=== PATIENT | female | born 1935 | race Caucasian/White ===

== ENCOUNTER 2020-03-27 22:52 | Inpatient (IN) ==
[2020-03-27] MEDS ORDERED: 0.9 % SODIUM CHLORIDE 1,000 ML IV ONE (22:55)
[2020-03-27] MEDS ORDERED: cefTRIAXone 1 GM in DEXTROSE 5% IN WATER 50 ML IV SCH (23:00)
[2020-03-27] MEDS ORDERED: fentaNYL 100 MCG/2 ML VIAL IV ONE (23:21)
[2020-03-27] MEDS ORDERED: ACETAMINOPHEN 325 MG TABLET PO ONE (23:33)
--- NOTE | 2020-03-27 23:33 | Emergency Department Note ---
HPI General Chief complaint: Back Pain/Injury Stated complaint: back pain Time Seen by Provider: 03/27/20 22:54 Source: EMS Mode of arrival: EMS Limitations: no limitations History of Present Illness HPI Narrative: Narrative: 84-year-old female presents the emergency department for generalized weakness as well as a fall with lower back pain. She has very bad arthritis said that EMS went on her couple days ago where she had a fall said that she is just been in her chair since then and has urinated herself unable to get up due to generalized weakness. Does have history of UTIs and states that is what it feels like at this time she is feels very weak and tired. She also has a fever as well. She otherwise has no other complaints does complain of lower back pain says it is an 8 out of 10 she otherwise has no complaints including nausea, vomiting, headache, blurry vision, neck pain, back pain, chest pain, shortness of breath, abdominal pain, changes in balance, pain with urination, pain tingling go down the arms or legs. Related Data Home Medications Medication Instructions Recorded Confirmed alpha lipoic acid 300 mg PO BID 10/23/14 11/13/19 ascorbic acid (vitamin C) 1,000 mg PO DAILY 10/23/14 11/13/19 benzonatate 200 mg PO PRN PRN 10/23/14 11/13/19 calcium citrate 1,000 mg PO DAILY 10/23/14 11/13/19 cholecalciferol (vitamin D3) 5,000 unit PO DAILY 10/23/14 11/13/19 fexofenadine 180 mg PO DAILY 10/23/14 11/13/19 methocarbamol 500 mg PO QIDP PRN 10/23/14 11/13/19 tramadol 50 mg PO DAILYP PRN 10/23/14 11/13/19 B complex-vitamin C-folic acid 1 tab PO BID 08/20/19 11/13/19 [Activite] escitalopram oxalate 5 mg PO QDAY 08/20/19 11/13/19 gabapentin 300 mg PO TID 08/20/19 11/13/19 ondansetron 4 mg PO Q8H PRN 08/20/19 11/13/19 prednisone 5 mg PO QDAY 08/20/19 11/13/19 simethicone [Gas-X Extra Strength] 250 mg PO BID PRN 08/20/19 11/13/19 thyroid (pork) [[place] Thyroid] 180 mg PO QDAY 08/20/19 11/13/19 tizanidine 4 mg PO QHS 08/20/19 11/13/19 turmeric-herbal complex no.[id number] 150 mg PO DAILY 08/20/19 11/13/19 [id number] 3.5 1 drp OPHTHALMIC Q12H 10/23/19 11/13/19 mg/mL-10,000 unit/mL-0.1% eye drops oxycodone 10 mg PO PRN PRN 03/28/20 03/28/20 tamsulosin [Flomax] 0.4 mg PO QDAY 03/28/20 03/28/20 Allergies Allergy/AdvReac Type Severity Reaction Status Date / Time Barbiturates Allergy Severe Swelling Verified 03/28/20 00:10 of Lip/Tongue/Throat morphine Allergy Severe Anaphylaxis Verified 03/28/20 00:10 tree and shrub pollen Allergy Unknown UNKNOWN Verified 03/28/20 00:10 Cyclobenzaprine AdvReac Intermediate Other Verified 03/28/20 00:10 [From Flexeril] famotidine AdvReac Intermediate Rash Verified 03/28/20 00:10 lansoprazole AdvReac Intermediate Rash Verified 03/28/20 00:10 omeprazole AdvReac Intermediate Rash Verified 03/28/20 00:10 pantoprazole AdvReac Intermediate Rash Verified 03/28/20 00:10 Review of Systems ROS ROS Narrative: Narrative: All systems ED: reviewed and negative except as stated. [facility] Narrative Patient History Narrative: Narrative: Medical/Surgical/Family History All Active Problems (Updated 03/28/20 @ 01:34 by João Martin DO) Acute UTI (Acute) Closed lumbar vertebral fracture (Acute) Fracture of third metatarsal bone (Acute) Fracture of fourth metatarsal bone (Acute) Fracture of fifth metatarsal bone (Acute) Weakness (Acute) Lumbar stenosis with neurogenic claudication (Chronic) Thoracic spondylosis (Chronic) Thoracic radiculopathy (Chronic) Radiculopathy, lumbar region (Acute) Heart disease (Chronic) History of tobacco use (Chronic) Radiculopathy, lumbar region (Chronic) Myofascial pain (Chronic) Pain in joint of right knee (Chronic) Personal history of (healed) osteoporosis fracture (Chronic) Intercostal pain (Chronic) Strain of lumbar region (Acute) UTI (urinary tract infection) (Acute) Non-cardiac chest pain (Acute) Encounter for long-term current use of high risk medication (Acute) HX: breast cancer (Chronic) COPD (chronic obstructive pulmonary disease) (Chronic) Sleep apnea (Chronic) Anxiety (Chronic) Depression (Chronic) Wrist fracture (Chronic) Pelvic fracture (Chronic) Compression fracture (Chronic) Eczema (Chronic) DJD (degenerative joint disease) (Acute) Type II diabetes mellitus (Chronic) Osteoporosis (Chronic) Age-related osteoporosis with current pathological fracture (Chronic) Other urticaria (Chronic) Gastro-esophageal reflux disease without esophagitis (Chronic) Major depressive disorder, recurrent, moderate (Chronic) Medical History Age-related osteoporosis with current pathological fracture (Chronic) Anxiety (Chronic) Compression fracture (Chronic) COPD (chronic obstructive pulmonary disease) (Chronic) Depression (Chronic) DJD (degenerative joint disease) (Acute) Eczema (Chronic) Encounter for long-term current use of high risk medication (Acute) Gastro-esophageal reflux disease without esophagitis (Chronic) Heart disease (Chronic) History of tobacco use (Chronic) HX: breast cancer (Chronic) Intercostal pain (Chronic) Lumbar stenosis with neurogenic claudication (Chronic) Major depressive disorder, recurrent, moderate (Chronic) Myofascial pain (Chronic) Osteoporosis (Chronic) Other urticaria (Chronic) Pain in joint of right knee (Chronic) Pelvic fracture (Chronic) Personal history of (healed) osteoporosis fracture (Chronic) Radiculopathy, lumbar region (Chronic) Radiculopathy, lumbar region (Acute) Sleep apnea (Chronic) Thoracic radiculopathy (Chronic) Thoracic spondylosis (Chronic) Type II diabetes mellitus (Chronic) Wrist fracture (Chronic) Surgical History History of surgery (Acute) Intercostal Nerve Block, Lt T7-10 w/o sed 09/30/19 LESI #1 L3-4 w/o sed 09/30/19 LESI #1 L4-5 w/o sed 08/14/2018 LESI #2 L3-4 w/o sed 11/06/2017 LESI #1 L4-5 w/o sed 05/23/2017 Knee Joint Injection, Right w/o sed 04/15/2015 LESI #2 L4-5 w/o sed 04/15/2015 Trigger Point Injection 1-2 w/o sed 03/26/15 LESI #1 L4-5 w/o sed 03/26/15 Vertebro Aug T12, L1 w/sed 07/31/14 Hx laparoscopic cholecystectomy (Chronic 11/12/09) Hx of appendectomy (Chronic) 2009 Hx of cardiac pacemaker (Chronic) 10/2010 Hx of lumpectomy (Chronic) 10/2009 Hx of mastectomy (Chronic) 10/2009. 02/2011 Hx of surgical procedure (Chronic) aortal bi-femoral graft Family History Other No pertinent family history Social History Smoking Status: Former smoker Exam Narrative Narrative: Narrative: Vital signs noted General: Awake. Alert. No distress. Patient does seem mildly confused although she is a alert to date time and place. She is slow to get answers out. There is a generalized smell of infected urine in the room and on the patient. Skin: Warm. Dry. No rash. HEENT: NCAT. PERRL. EOMI. No conjunctivitis. No nystagmus. No pharyngitis. Membranes moist. No otitis. No rhinitis. Neck: No PTP. Good ROM. No meningeal signs. No stridor. No thyromegaly. No JVD. Cardiovascular: RRR. No murmur. No rubs. No gallops. Respiratory: No respiratory distress. Breath sounds equal. Lungs clear. Gastrointestinal: Abdomen soft. No tenderness. No distention. Normal bowel sounds. No palpable organomegaly or masses. Back: No deformity. No CVAT. Lower lumbar pain on palpation no step-offs. Musculoskeletal: No tenderness. No swelling. No erythema. No edema. Good peripheral pulses x 4. Patient does have pain and bruising while palpating the left foot. All seems to be around the midfoot region. He see no deformities. But it is painful to palpation. Does have full range of motion of the ankle toes and knee of the left side. Lymphatic: No palpable adenopathy. Neurological: No focal neurological deficits observed. CN 2-12 are intact. Good FTN. No pronator drift. General Limitations: no limitations Course Vital Signs Vital signs: Vital Signs Temperature 100.5 F H 03/27/20 22:53 Temperature 100.5 F H 03/27/20 22:53 Pulse Rate 80 03/28/20 01:32 Respiratory Rate 22 03/28/20 01:32 Blood Pressure 117/59 03/28/20 01:32 Pulse Oximetry (%) 92 03/28/20 01:32 MDM MDM Narrative Medical decision making narrative: Narrative: Patient most likely has a urinary tract infection does have a fever as well as a tachycardia patient does meet criteria for SIRS. We will going get sepsis order set. I see no signs of septic shock or severe sepsis at this time but labs will tell further. Think the source is most likely urinary tract so we will going to give a dose of Rocephin. Patient does have history of heart disease as well as CHF and some mild swelling in the lower extremities so I will only give patient 1 L of IV fluids as I do not want to fluid overload the patient she will not re ceive the full 30 mL/kg dose of IV fluids. We will give patient Tylenol orally for antipyretic. Patient will also see fentanyl for pain control. She is anaphylactic allergic to morphine which is the preferred. Patient will also receive an x-ray of her left foot as well as CT of her lower spine as she did have this pain to the left foot and the lower back pain. Labs are also get done for sepsis. Disposition is most likely admission. Came back with no leukocytosis CMP was fairly normal otherwise. She also had no acute findings. Urine was nitrite positive so I think patient does have a u rinary tract infection causing her generalized weakness and the falls. Patient does not meet any sepsis criteria at this time. Do not think she is septic. Did receive the 1 L of IV fluids and did get a dose of Rocephin. X-ray of the foot did show acute fractures of the third fourth and fifth metatarsals this I think can get followed by podiatry tomorrow. Patient also had CT of the lumbar spine which did show minor acute fractures of L3 vertebral body where there is suspected acute cortical irregularities in the mid body of the vertebral body involving the outer cortex on the right and posteriorly also at L4 and 5 inferior endplate compression deformity of 30% there is minor anterolisthesis of L4 on L5 associated with moderate generalized bulge of the annulus. This bulge combined with the moderate facet hypertrophy posteriorly produces marked narrowing of the thecal sac. Due to the thecal sac narrowing I did consult with neurosurgery Dr. Chilel who did review the images himself and said that this is considered conservative management for pain at this time said for 2 to 3 week s if it is not any better then patient can undergo vertebroplasty but it can be done in the outpatient setting. Said there is no acute emergent surgery that needs to get done. I did speak with Dr. Mckinnon who agreed to admit the patient to the hospitalist service for UTI, generalized weakness, foot fractures as well as lumbar fracture with pain control. Patient has received fentanyl and [place] for pain control. Patient also received Zofran for nausea. Lab Data Result diagrams: 03/27/20 23:28 03/27/20 23:17 Labs: Lab Results 03/27/20 03/27/20 03/27/20 Range/Units 22:55 23:17 23:17 WBC (4.5-11.0) K/mcL RBC (4.00-5.20) M/mcL Hgb (12.0-15.0) g/dL Hct (36.0-48.0) % MCV (80.0-100.0) fL MCH (26.0-34.0) pg MCHC (31.0-36.0) g/dL RDW (11.5-14.5) % Plt Count (140-440) K/mcL MPV (7.4-10.4) fL Neut % (Auto) (38.0-78.0) % Lymph % (Auto) (15.0-49.0) % [place] % (Auto) (1.0-12.0) % Eos % (Auto) (0.0-7.0) % Baso % (Auto) (0.0-2.0) % Lymph # (Auto) (1.50-4.80) K/mcL [place] # (Auto) (0.10-0.90) K/mcL Eos # (Auto) (0.00-0.70) K/mcL Baso # (Auto) (0.00-0.20) K/mcL Absolute Neutrophils (1.80-8.00) K/mcL VBG Lactic Acid (0.5-2.0) mmol/L Sodium 135 (133-145) mmol/L Potassium 3.9 (3.3-5.1) mmol/L Chloride 99 (96-108) mmol/L Carbon Dioxide 26 (22-30) mmol/L Anion Gap 10.0 (8.0-16.0) BUN 9 (8-23) mg/dL Creatinine 0.7 (0.6-1.1) mg/dL GFR Calculation 79 Glucose 116 H (70-105) mg/dL Calcium 8.8 (8.6-10.4) mg/dL Total Bilirubin 0.5 (0.1-1.0) mg/dL AST 14 (<32) U/L ALT 14 (<40) U/L Alkaline Phosphatase 74 (39-117) U/L Total Protein 6.2 (5.9-8.4) gm/dL Albumin 3.9 (3.2-5.2) gm/dL Globulin 2.3 (2.2-3.7) gm/dL Albumin/Globulin Ratio 1.7 (1.0-2.3) Procalcitonin 0.06 (<0.10) ng/mL Urine Color Yellow Urine Appearance Hazy A (Clear) Urine pH 6.0 (5.0-9.0) Ur Specific [place] 1.014 (1.000-1.035) Urine Protein Negative (Negative) mg/dL Urine Glucose (UA) Negative (Negative) mg/dL Urine Ketones 20 A (Negative) mg/dL Urine Occult Blood Negative (Negative) mg/dL Urine Nitrate Pos A (Negative) Urine Bilirubin Negative (Negative) mg/dL Urine Urobilinogen Negative mg/dL Ur Leukocyte Esterase 500 A (Negative) /ug Urine RBC 5 H (0-3) /hpf Urine WBC 103 H (0-4) /hpf Ur Squamous Epith Cells < 1 (0-4) /hpf Urine Bacteria Mod A (0) /hpf Urine Mucus Few A (None) /hpf Ur Culture Indicated? yes 03/27/20 03/27/20 Range/Units 23:28 23:28 WBC 9.3 (4.5-11.0) K/mcL RBC 4.03 (4.00-5.20) M/mcL Hgb 12.7 (12.0-15.0) g/dL Hct 39.4 (36.0-48.0) % MCV 97.8 (80.0-100.0) fL MCH 31.5 (26.0-34.0) pg MCHC 32.2 (31.0-36.0) g/dL RDW 13.4 (11.5-14.5) % Plt Count 138 L (140-440) K/mcL MPV 11.9 H (7.4-10.4) fL Neut % (Auto) 70.3 (38.0-78.0) % Lymph % (Auto) 12.3 L (15.0-49.0) % [place] % (Auto) 10.1 (1.0-12.0) % Eos % (Auto) 6.8 (0.0-7.0) % Baso % (Auto) 0.5 (0.0-2.0) % Lymph # (Auto) 1.18 L (1.50-4.80) K/mcL [place] # (Auto) 0.97 H (0.10-0.90) K/mcL Eos # (Auto) 0.65 (0.00-0.70) K/mcL Baso # (Auto) 0.05 (0.00-0.20) K/mcL Absolute Neutrophils 6.72 (1.80-8.00) K/mcL VBG Lactic Acid 1.3 (0.5-2.0) mmol/L Sodium (133-145) mmol/L Potassium (3.3-5.1) mmol/L Chloride (96-108) mmol/L Carbon Dioxide (22-30) mmol/L Anion Gap (8.0-16.0) BUN (8-23) mg/dL Creatinine (0.6-1.1) mg/dL GFR Calculation Glucose (70-105) mg/dL Calcium (8.6-10.4) mg/dL Total Bilirubin (0.1-1.0) mg/dL AST (<32) U/L ALT (<40) U/L Alkaline Phosphatase (39-117) U/L Total Protein (5.9-8.4) gm/dL Albumin (3.2-5.2) gm/dL Globulin (2.2-3.7) gm/dL Albumin/Globulin Ratio (1.0-2.3) Procalcitonin (<0.10) ng/mL Urine Color Urine Appearance (Clear) Urine pH (5.0-9.0) Ur Specific [place] (1.000-1.035) Urine Protein (Negative) mg/dL Urine Glucose (UA) (Negative) mg/dL Urine Ketones (Negative) mg/dL Urine Occult Blood (Negative) mg/dL Urine Nitrate (Negative) Urine Bilirubin (Negative) mg/dL Urine Urobilinogen mg/dL Ur Leukocyte Esterase (Negative) /ug Urine RBC (0-3) /hpf Urine WBC (0-4) /hpf Ur Squamous Epith Cells (0-4) /hpf Urine Bacteria (0) /hpf Urine Mucus (None) /hpf Ur Culture Indicated? EKG Data EKG #1: EKG results narrative: EKG done at 0004 interpreted by myself shows sinus rhythm rate of 89, GA interval 189, QRS 107, QTc 440. There is no acute ST changes no acute T wave changes no other signs of ischemia. No signs of hypertrophy, heart strain, heart block. No WPW/[place]/HOCM. Impression is normal sinus EKG with ischemia Discharge Plan Patient/Caregiver Discharge Instructions Pt seen by MODEL TECHNICIAN/PA only: No Clinical Impression: Acute UTI, Closed lumbar vertebral fracture, Fracture of third metatarsal bone, Fracture of fourth metatarsal bone, Fracture of fifth metatarsal bone, Weakness Patient Disposition: Xfer As Inpt ([facility]) Condition: Good Follow up with: Hu Solis ARNP [Primary Care Provider] - Prescriptions: No Action neomycin-polymyxin B-dexameth 3.5mg/mL-10,000 unit/mL-0.1 % drops,suspension 1 drp OPHTHALMIC Q12H RF: 0 benzonatate 200 MG capsule 200 mg PO PRN PRN (Reason: Cough) RF: 0 methocarbamol 500 MG tablet 500 mg PO QIDP RF: 0 tramadol 50 MG tablet 50 mg PO DAILYP PRN (Reason: Pain) RF: 0 ascorbic acid (vitamin C) 1,000 MG tablet 1,000 mg PO DAILY RF: 0 cholecalciferol (vitamin D3) 2,000 UNIT tablet 5,000 unit PO DAILY RF: 0 calcium citrate 250 MG tablet 1,000 mg PO DAILY RF: 0 alpha lipoic acid 100 MG capsule 300 mg PO BID RF: 0 fexofenadine 180 MG tablet 180 mg PO DAILY RF: 0 prednisone 5 mg Tablet 10 mg PO QDAY RF: 0 simethicone [Gas-X Extra Strength] 125 mg Capsule 250 mg PO BID PRN (Reason: Abdominal Discomfort) RF: 0 Activite 1 mg Tablet 1 tab PO BID RF: 0 gabapentin 300 mg Capsule 300 mg PO TID RF: 0 ondansetron 4 mg Tablet,Disintegrating 4 mg PO Q8H PRN (Reason: Nausea) RF: 0 escitalopram oxalate 5 mg Tablet 5 mg PO QDAY RF: 0 tizanidine 4 mg Capsule 4 mg PO QHS RF: 0 [place] Thyroid 180 mg Tablet 180 mg PO QDAY RF: 0 turmeric-herbal complex no.[id number] 150 mg Capsule 150 mg PO DAILY RF: 0 tamsulosin [Flomax] 0.4 mg Capsule 0.4 mg PO QDAY RF: 0 oxycodone 10 mg PO PRN PRN (Reason: Pain) RF: 0
[2020-03-27] MEDS ORDERED: HYDROcodone/APAP 5/325MG TABLET PO ONE (23:47)
[2020-03-27] MEDS ORDERED: ONDANSETRON 4 MG/2 ML VIAL IV ONE (23:47)
[2020-03-28 00:29] LABS: Appearance,Urine HAZY (Clear); Bacteria,Urine MOD /hpf (0); Bilirubin,Urine Negative (Negative); Color,Urine YELLOW; Culture Indicated,Urine yes; Glucose,Urine (UA) Negative (Negative); Ketones,Urine 20 mg/dL (Negative); Leukocyte Esterase,Urine 500 /ug (Negative); Mucus,Urine FEW /hpf; Nitrate,Urine POS (Negative); Protein,Urine Negative (Negative); Specific Gravity,Urine 1.014 (1.000-1.035); Urine Blood Negative (Negative); Urine RBC 5 /hpf (0-3); Urine Squamous Epithelial Cell < 1 /hpf (0-4); Urine WBC 103 /hpf (0-4); Urobilinogen,Urine Negative
[2020-03-28 00:42] LABS: ALT/SGPT 14 U/L (<40); AST/SGOT 14 U/L (<32); Albumin 3.9 gm/dL (3.2-5.2); Albumin/Globulin Ratio 1.7 (1.0-2.3); Alkaline Phosphatase 74 U/L (39-117); Bilirubin,Total 0.5 mg/dL (0.1-1.0); Blood Urea Nitrogen 9 mg/dL (8-23); Calcium 8.8 mg/dL (8.6-10.4); Carbon Dioxide 26 mmol/L (22-30); Chloride 99 mmol/L (96-108); Globulin 2.3 gm/dL (2.2-3.7); Glomerular Filtration Rate 79; Glucose 116 mg/dL (70-105)
[2020-03-28 00:42] LABS: Basophils # (Auto) 0.05 K/mcL (0.00-0.20); Basophils % (Auto) 0.5 % (0.0-2.0); Eosinophils # (Auto) 0.65 K/mcL (0.00-0.70); Eosinophils % (Auto) 6.8 % (0.0-7.0); Hematocrit 39.4 % (36.0-48.0); Hemoglobin 12.7 g/dL (12.0-15.0); Lymphocytes # (Auto) 1.18 K/mcL (1.50-4.80); Lymphocytes % (Auto) 12.3 % (15.0-49.0); Mean Cell Volume 97.8 fL (80.0-100.0); Mean Corpuscular HGB Conc 32.2 g/dL (31.0-36.0); Mean Platelet Volume 11.9 fL (7.4-10.4); Monocytes # (Auto) 0.97 K/mcL (0.10-0.90); Monocytes % (Auto) 10.1 % (1.0-12.0); Neutrophils % (Auto) 70.3 % (38.0-78.0); Platelet Count 138 K/mcL (140-440); RBC 4.03 M/mcL (4.00-5.20); Red Cell Distribution Width 13.4 % (11.5-14.5); WBC 9.3 K/mcL (4.5-11.0)
[2020-03-28] MEDS ORDERED: ACETAMINOPHEN 325 MG TABLET PO PRN (01:36)
[2020-03-28] MEDS ORDERED: ONDANSETRON 4 MG/2 ML VIAL IV PRN (01:36)
[2020-03-28] MEDS ORDERED: 0.9 % SODIUM CHLORIDE 1,000 ML IV SCH (01:45)
[2020-03-28] MEDS: HYDROcodone/APAP 5/325MG TABLET PO PRN ×3 (03:03→13:11)
--- NOTE | 2020-03-28 06:12 | XRay Report ---
INDICATION: fall with lateral pain TECHNIQUE: AP, oblique, lateral left foot COMPARISON: None. FINDINGS: Examination was initially interpreted by [facility]. There are fractures of the distal left 3rd through 5th metatarsals. No significant displacement. There is mild hallux valgus and bunion deformity. There is a prominent arch. There are 2nd through 5th hammertoe deformities. IMPRESSION: Fractures of the distal left 3rd through 5th metatarsals Interpreted and Authenticated by: Dagoberto Gant 03/28/20
--- NOTE | 2020-03-28 06:30 | Cat Scan Report ---
INDICATION: fall with pain TECHNIQUE: Axial noncontrast enhanced images through the lumbar spine. Sagittal and coronal reformatted images COMPARISON: Previous lumbar spine dated 01/16/2020, 08/01/2019. Previous CT scan dated 10/26/2017 FINDINGS: Examination was initially interpreted by [facility]. Patient is severely osteoporotic T12: Previous kyphoplasty or vertebroplasty. There is T12 superior endplate compression. Findings are unchanged since 10/26/2017. No acute fracture. No retropulsion. No detectable disc herniation L1: Previous vertebroplasty or kyphoplasty. No acute fracture. No detectable disc herniation. No spinal canal stenosis. There is biconcave compression deformity L2: No acute fracture. Transverse processes are negative. No retropulsion. L3: L3 superior endplate compression. This is essentially stable. There is mild cortical irregularity along the right lateral vertebral body which may be subtle acute fracture. L4: No acute L4 compression fracture. Transverse processes are negative. No retropulsion L5: No acute L5 compression fracture. Cortex appears intact Sacrum: Negative. No sacral fracture. Disc spaces: Degenerative disc disease and facet arthropathy at L3-L4. There is moderate spinal canal stenosis. Degenerative disc disease and facet arthropathy at L4-L5. There is mild anterolisthesis. There is high-grade spinal canal stenosis. Paraspinal soft tissues: No paraspinal soft tissue hematoma. No focal abnormality IMPRESSION: 1. Severe osteoporosis 2. Previously treated T12 and L1 compression fractures with vertebral body augmentation 3. Multiple compression deformities appear stable 4. Possible acute fracture involving the lateral aspects of the L3 vertebral body. No loss of height. No displacement 5. Degenerative disc disease and facet arthropathy. Moderate spinal canal stenosis at L3-L4. There is anterolisthesis and high-grade spinal canal stenosis at L4-L5 Interpreted and Authenticated by: Dagoberto Gant 03/28/20
[2020-03-28] MEDS ORDERED: guaiFENesin 600 MG TAB.SR.12H PO PRN (08:46)
[2020-03-28] MEDS ORDERED: FLUTICASONE PROPIONATE SPRAY.NAS NS PRN (08:46)
[2020-03-28] MEDS ORDERED: FEXOFENADINE 180 MG TABLET PO PRN (08:46)
[2020-03-28] MEDS ORDERED: ONDANSETRON (PP) 4 MG TABLET PO PRN (08:46)
[2020-03-28] MEDS ORDERED: ONDANSETRON 4 MG ODT TABLET SL PRN (08:47)
[2020-03-28] MEDS ORDERED: MELATONIN 3 MG TABLET PO PRN (08:47)
[2020-03-28] MEDS ORDERED: ACETAMINOPHEN 650 MG/65 ML BAG IV PRN (08:47)
[2020-03-28] MEDS ORDERED: MAGNESIUM SULFATE 2 GM/50 ML BAG IV PRN (08:47)
[2020-03-28] MEDS ORDERED: BISACODYL 10 MG SUPP.RECT PR PRN (08:47)
[2020-03-28] MEDS ORDERED: POTASSIUM CHLORIDE 40 MEQ in DEXTROSE 5% IN WATER 500 ML IV PRN (08:47)
[2020-03-28] MEDS ORDERED: POTASSIUM CHLORIDE 20 MEQ PACKET PO PRN (08:48)
--- NOTE | 2020-03-28 08:55 | Internal Med History&Physical ---
HPI History of Present Illness Patient information: Note initiated : 03/28/20 at 8:53 am Service Date, if different from initiated Date: [] Patient: Kiera Angeles 84 y/o F admitted on 03/28/20 for back pain. Chief Complaint: [] History of present illness: Ms. 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 She attributes to fall due to profound weakness and since the fall has been sitting on a chair incontinent. She is on multiple medication for chronic back pain that has likely exacerbated her weakness. During initial work-up in the ER with a lumbar spine CT shows acute fracture L3. Patient was started on pain medications. UA significant pyuria.Patient started on antibiotic coverage and subsequently hospitalist service was consulted due to high risk decompensation if discharged home At the time of my evaluation patient is alert but in fair amount of anxiety and pain. She is able to answer most the question. She has multiple family members at home. However due to profound weakness and debility stated they have not been able to help her over the last few days. She denies associated diarrhea, bloody stool, headache, photophobia or sick contacts. She further denies fever chills, cough or shortness of breath. She has not been able to carry ADLs over the last few days Review of systems 10 point review system was performed and is negative except for 1 discussed above PFSH PFSH All Active Problems (Updated 03/28/20 @ 01:34 by João Martin DO) Acute UTI (Acute) Closed lumbar vertebral fracture (Acute) Fracture of third metatarsal bone (Acute) Fracture of fourth metatarsal bone (Acute) Fracture of fifth metatarsal bone (Acute) Weakness (Acute) Lumbar stenosis with neurogenic claudication (Chronic) Thoracic spondylosis (Chronic) Thoracic radiculopathy (Chronic) Radiculopathy, lumbar region (Acute) Heart disease (Chronic) History of tobacco use (Chronic) Radiculopathy, lumbar region (Chronic) Myofascial pain (Chronic) Pain in joint of right knee (Chronic) Personal history of (healed) osteoporosis fracture (Chronic) Intercostal pain (Chronic) Strain of lumbar region (Acute) UTI (urinary tract infection) (Acute) Non-cardiac chest pain (Acute) Encounter for long-term current use of high risk medication (Acute) HX: breast cancer (Chronic) COPD (chronic obstructive pulmonary disease) (Chronic) Sleep apnea (Chronic) Anxiety (Chronic) Depression (Chronic) Wrist fracture (Chronic) Pelvic fracture (Chronic) Compression fracture (Chronic) Eczema (Chronic) DJD (degenerative joint disease) (Acute) Type II diabetes mellitus (Chronic) Osteoporosis (Chronic) Age-related osteoporosis with current pathological fracture (Chronic) Other urticaria (Chronic) Gastro-esophageal reflux disease without esophagitis (Chronic) Major depressive disorder, recurrent, moderate (Chronic) Medical History Age-related osteoporosis with current pathological fracture (Chronic) Anxiety (Chronic) Compression fracture (Chronic) COPD (chronic obstructive pulmonary disease) (Chronic) Depression (Chronic) DJD (degenerative joint disease) (Acute) Eczema (Chronic) Encounter for long-term current use of high risk medication (Acute) Gastro-esophageal reflux disease without esophagitis (Chronic) Heart disease (Chronic) History of tobacco use (Chronic) HX: breast cancer (Chronic) Intercostal pain (Chronic) Lumbar stenosis with neurogenic claudication (Chronic) Major depressive disorder, recurrent, moderate (Chronic) Myofascial pain (Chronic) Osteoporosis (Chronic) Other urticaria (Chronic) Pain in joint of right knee (Chronic) Pelvic fracture (Chronic) Personal history of (healed) osteoporosis fracture (Chronic) Radiculopathy, lumbar region (Chronic) Radiculopathy, lumbar region (Acute) Sleep apnea (Chronic) Thoracic radiculopathy (Chronic) Thoracic spondylosis (Chronic) Type II diabetes mellitus (Chronic) Wrist fracture (Chronic) Surgical History History of surgery (Acute) Intercostal Nerve Block, Lt T7-10 w/o sed 09/30/19 LESI #1 L3-4 w/o sed 09/30/19 LESI #1 L4-5 w/o sed 08/14/2018 LESI #2 L3-4 w/o sed 11/06/2017 LESI #1 L4-5 w/o sed 05/23/2017 Knee Joint Injection, Right w/o sed 04/15/2015 LESI #2 L4-5 w/o sed 04/15/2015 Trigger Point Injection 1-2 w/o sed 03/26/15 LESI #1 L4-5 w/o sed 03/26/15 Vertebro Aug T12, L1 w/sed 07/31/14 Hx laparoscopic cholecystectomy (Chronic 11/12/09) Hx of appendectomy (Chronic) 2009 Hx of cardiac pacemaker (Chronic) 10/2010 Hx of lumpectomy (Chronic) 10/2009 Hx of mastectomy (Chronic) 10/2009. 02/2011 Hx of surgical procedure (Chronic) aortal bi-femoral graft Family History Other No pertinent family history Social History (Updated 01/23/17 @ 16:07 by Milad Blanco MD) smoking status: Unknown if ever smoked MEDS/ALLERGIES Home Medications and Allergies Home Medications Medication Instructions Recorded Confirmed Type alpha lipoic acid 300 mg PO BID 10/23/14 03/28/20 History ascorbic acid (vitamin C) 1,000 mg PO DAILY 10/23/14 03/28/20 History benzonatate 200 mg PO PRN PRN 10/23/14 03/28/20 History calcium citrate 1,000 mg PO DAILY 10/23/14 03/28/20 History cholecalciferol (vitamin D3) 5,000 unit PO DAILY 10/23/14 03/28/20 History methocarbamol 500 mg PO DAILY 10/23/14 03/28/20 History tramadol 50 mg PO DAILYP PRN 10/23/14 03/28/20 History B complex-vitamin C-folic acid 1 tab PO BID 08/20/19 03/28/20 History [Activite] escitalopram oxalate 5 mg PO QDAY 08/20/19 03/28/20 History gabapentin 300 mg PO TID 08/20/19 03/28/20 History ondansetron 4 mg PO Q8H PRN 08/20/19 03/28/20 History prednisone 10 mg PO QDAY 08/20/19 03/28/20 History simethicone [Gas-X Extra Strength] 250 mg PO PRN PRN 08/20/19 03/28/20 History thyroid (pork) [Gunlock Thyroid] 180 mg PO QDAY 08/20/19 03/28/20 History tizanidine 4 mg PO QHS 08/20/19 03/28/20 History turmeric-herbal complex no.278 150 mg PO DAILY 08/20/19 03/28/20 History wnzqsuoj-ncpyovedh-tcbcwadc 3.5 1 drp OPHTHALMIC Q12H 10/23/19 03/28/20 History mg/mL-10,000 unit/mL-0.1% eye drops Collagen 3 tab PO DAILY 03/28/20 03/28/20 History alpha lipoic acid-herbal 305 300 mg PO BID 03/28/20 03/28/20 History jycdeydnms-baaimhtbbdaug-ecea 1 tab PO PRN 03/28/20 History fexofenadine [Arianne Allergy] 180 mg PO QID PRN 03/28/20 03/28/20 History fluticasone propionate [Flonase 1 spray INTRANASAL QDAY PRN 03/28/20 03/28/20 History Allergy Relief] guaifenesin [Mucinex] 1,200 mg PO Q12H PRN 03/28/20 03/28/20 History methocarbamol 1,000 mg PO HS 03/28/20 03/28/20 History oxycodone 10 mg PO PRN PRN 03/28/20 03/28/20 History potassium bicarb-magnesium 21 1 cap PO BID 03/28/20 03/28/20 History tamsulosin [Flomax] 0.4 mg PO QDAY 03/28/20 03/28/20 History Allergies Allergy/AdvReac Type Severity Reaction Status Date / Time Barbiturates Allergy Severe Swelling Verified 03/28/20 00:10 of Lip/Tongue/Throat morphine Allergy Severe Anaphylaxis Verified 03/28/20 00:10 Cyclobenzaprine AdvReac Intermediate Other Verified 03/28/20 00:10 [From Flexeril] famotidine AdvReac Intermediate Rash Verified 03/28/20 00:10 lansoprazole AdvReac Intermediate Rash Verified 03/28/20 00:10 omeprazole AdvReac Intermediate Rash Verified 03/28/20 00:10 pantoprazole AdvReac Intermediate Rash Verified 03/28/20 00:10 EXAM Constitutional Vitals: Temp Pulse Resp BP Pulse Ox 97.3 F 67 16 112/57 98 03/28/20 07:08 03/28/20 07:08 03/28/20 07:08 03/28/20 07:08 03/28/20 08:17 Obesity BMI 30, anxious Head normocephalic Oral cavity moist No ear nose discharge Eye movement symmetrical Neck supple no lymphadenopathy S1-S2 occasionally irregular Nonlabored breathing Nondistended nontender abdomen, however significant back pain on minimal movement Lower extremity no cyanosis clubbing or joint swelling Skin no suspicious lesion Psych no hallucination Neuro GCS 15 DATA Data Completed and Pending Labs: Labs from last 24 hours 03/27/20 03/27/20 03/27/20 23:28 23:28 23:17 WBC 9.3 RBC 4.03 Hgb 12.7 Hct 39.4 MCV 97.8 MCH 31.5 MCHC 32.2 RDW 13.4 Plt Count 138 L MPV 11.9 H Neut % (Auto) 70.3 Lymph % (Auto) 12.3 L [place] % (Auto) 10.1 Eos % (Auto) 6.8 Baso % (Auto) 0.5 Lymph # (Auto) 1.18 L [place] # (Auto) 0.97 H Eos # (Auto) 0.65 Baso # (Auto) 0.05 Absolute Neutrophils 6.72 VBG Lactic Acid 1.3 Sodium Potassium Chloride Carbon Dioxide Anion Gap BUN Creatinine GFR Calculation Glucose Calcium Total Bilirubin AST ALT Alkaline Phosphatase Total Protein Albumin Globulin Albumin/Globulin Ratio Procalcitonin 0.06 Urine Color Urine Appearance Urine pH Ur Specific [place] Urine Protein Urine Glucose (UA) Urine Ketones Urine Occult Blood Urine Nitrate Urine Bilirubin Urine Urobilinogen Ur Leukocyte Esterase Urine RBC Urine WBC Ur Squamous Epith Cells Urine Bacteria Urine Mucus Ur Culture Indicated? 03/27/20 03/27/20 23:17 22:55 WBC RBC Hgb Hct MCV MCH MCHC RDW Plt Count MPV Neut % (Auto) Lymph % (Auto) [place] % (Auto) Eos % (Auto) Baso % (Auto) Lymph # (Auto) [place] # (Auto) Eos # (Auto) Baso # (Auto) Absolute Neutrophils VBG Lactic Acid Sodium 135 Potassium 3.9 Chloride 99 Carbon Dioxide 26 Anion Gap 10.0 BUN 9 Creatinine 0.7 GFR Calculation 79 Glucose 116 H Calcium 8.8 Total Bilirubin 0.5 AST 14 ALT 14 Alkaline Phosphatase 74 Total Protein 6.2 Albumin 3.9 Globulin 2.3 Albumin/Globulin Ratio 1.7 Procalcitonin Urine Color Yellow Urine Appearance Hazy A Urine pH 6.0 Ur Specific [place] 1.014 Urine Protein Negative Urine Glucose (UA) Negative Urine Ketones 20 A Urine Occult Blood Negative Urine Nitrate Pos A Urine Bilirubin Negative Urine Urobilinogen Negative Ur Leukocyte Esterase 500 A Urine RBC 5 H Urine WBC 103 H Ur Squamous Epith Cells < 1 Urine Bacteria Mod A Urine Mucus Few A Ur Culture Indicated? yes A/P Narrative A/P Narrative: * Intractable back pain due to L3 fracture. History of osteoporosis and underlying steroid use. Continue multimodal pain management on opioids/Tylenol/lidocaine patch/muscle relaxers home dose including tizanidine/methocarbamol and gabapentin. Topical NSAIDs/physical therapy as indicated * Complicated UTI continue antibiotic coverage and de-escalate based on sensitivities * History of anxiety disorder continue escitalopram * History of polyarthritis currently on prednisone * Hypothyroidism continue pork thyroid * Prophylaxis Heparin Plan * Inpatient admission * Multimodal pain management * Antibiotic coverage * Pre-existing medical condition management home meds * Outpatient pain clinic referral for possible vertebroplasty/continue outpatient pain management * PT OT/nutrition support * Discharge planning per case management, anticipate SNF transfer due to his profound debilitated state/pain restricting movement and remains high risk fall Time Spent With Patient Time: Total time spent is greater than 50% in coordination of care (as documented) at patient's floor/unit and/or counseling patient: QUALITY VTE Deep Vein Thrombosis/Pulmonary Embolism Present on Admission: No
[2020-03-28] MEDS ORDERED: BENZONATATE 100 MG CAPSULE PO PRN (09:00)
[2020-03-28] MEDS ORDERED: SIMETHICONE 80 MG TAB.CHEW CHEWED PRN (09:01)
[2020-03-28] MEDS: TAMSULOSIN 0.4 MG CAPSULE PO SCH (10:09)
[2020-03-28] MEDS: DOCUSATE SODIUM 100 MG CAPSULE PO SCH ×2 (10:09→21:29)
[2020-03-28] MEDS: GABAPENTIN 300 MG CAPSULE PO SCH ×3 (10:09→21:30)
[2020-03-28] MEDS: ASCORBIC ACID 500 MG TABLET PO SCH (10:10)
[2020-03-28] MEDS: MULTIVIT,THER IRON,CA,FA & MIN 1 TABLET PO SCH (10:10)
[2020-03-28] MEDS: METHOCARBAMOL 500 MG TABLET PO SCH ×2 (10:10→21:29)
[2020-03-28] MEDS: ESCITALOPRAM 10 MG TABLET PO SCH (10:10)
[2020-03-28] MEDS: VITAMIN B COMPLEX 1 CAPSULE PO SCH ×2 (10:11→21:29)
[2020-03-28] MEDS: THYROID, PORK 60 MG TABLET PO SCH (10:11)
[2020-03-28] MEDS: HEPARIN 5,000 UNIT/ML VIAL SQ SCH ×2 (10:11→21:27)
[2020-03-28] MEDS: HYDROmorphone 0.5 MG/0.5 ML SYRINGE IV PRN ×2 (10:15→15:45)
[2020-03-28] MEDS: predniSONE 5 MG TABLET PO SCH (10:20)
[2020-03-28] MEDS: cefTRIAXone 2 GM in DEXTROSE 5% IN WATER 50 ML IV SCH (13:53)
[2020-03-28] MEDS: 0.9 % SODIUM CHLORIDE 10 ML SYRINGE IV SCH ×2 (14:00→21:26)
[2020-03-28] MEDS: oxyCODONE HCL 5 MG TABLET PO PRN ×2 (18:04→19:46)
[2020-03-28] MEDS: tiZANidine 4 MG TABLET PO SCH (21:29)
[2020-03-28] MEDS: SENNOSIDES/DOCUSATE SODIUM 1 TAB TABLET PO SCH (21:29)
[2020-03-28] MEDS: LIDOCAINE PATCH TOPICAL SCH (21:30)
[2020-03-28] MEDS: [UNRECOGNIZED DRUG - OTHER] PO SCH (21:30)
[2020-03-29] MEDS: 0.9 % SODIUM CHLORIDE 10 ML SYRINGE IV SCH ×3 (05:06→20:46)
[2020-03-29] MEDS ORDERED: VANCOMYCIN PER PHARMACY IV SCH (06:07)
[2020-03-29 06:42] LABS: Basophils # (Auto) 0.03 K/mcL (0.00-0.20); Basophils % (Auto) 0.4 % (0.0-2.0); Eosinophils % (Auto) 8.3 % (0.0-7.0); Hematocrit 35.3 % (36.0-48.0); Hemoglobin 10.8 g/dL (12.0-15.0); Lymphocytes % (Auto) 15.4 % (15.0-49.0); Mean Cell Volume 103.5 fL (80.0-100.0); Mean Corpuscular HGB Conc 30.6 g/dL (31.0-36.0); Mean Platelet Volume 11.3 fL (7.4-10.4); Monocytes # (Auto) 0.98 K/mcL (0.10-0.90); Monocytes % (Auto) 11.6 % (1.0-12.0); Neutrophils % (Auto) 64.3 % (38.0-78.0); Platelet Count 140 K/mcL (140-440); RBC 3.41 M/mcL (4.00-5.20); Red Cell Distribution Width 13.2 % (11.5-14.5); WBC 8.5 K/mcL (4.5-11.0)
[2020-03-29 07:07] LABS: ALT/SGPT 10 U/L (<40); AST/SGOT 13 U/L (<32); Albumin 2.9 gm/dL (3.2-5.2); Albumin/Globulin Ratio 1.1 (1.0-2.3); Alkaline Phosphatase 59 U/L (39-117); Bilirubin,Direct < 0.2 mg/dL (<0.3); Bilirubin,Total 0.2 mg/dL (0.1-1.0); Blood Urea Nitrogen 9 mg/dL (8-23); Calcium 8.2 mg/dL (8.6-10.4); Carbon Dioxide 27 mmol/L (22-30); Chloride 105 mmol/L (96-108); Globulin 2.6 gm/dL (2.2-3.7); Glomerular Filtration Rate 67; Glucose 104 mg/dL (70-105); Lactate Dehydrogenase 191 U/L (135-225); Phosphorous 2.8 mg/dL (2.5-4.5); Triglycerides 78 mg/dL (<150); Uric Acid 3.9 mg/dL (2.5-8.0)
[2020-03-29] MEDS: oxyCODONE HCL 5 MG TABLET PO PRN ×2 (08:23→17:43)
[2020-03-29] MEDS: DOCUSATE SODIUM 100 MG CAPSULE PO SCH ×2 (08:39→20:45)
[2020-03-29] MEDS: METHOCARBAMOL 500 MG TABLET PO SCH ×2 (08:39→20:44)
[2020-03-29] MEDS: ESCITALOPRAM 10 MG TABLET PO SCH (08:39)
[2020-03-29] MEDS: ASCORBIC ACID 500 MG TABLET PO SCH (08:40)
[2020-03-29] MEDS: predniSONE 5 MG TABLET PO SCH (08:40)
[2020-03-29] MEDS: GABAPENTIN 300 MG CAPSULE PO SCH ×3 (08:40→20:45)
[2020-03-29] MEDS: MULTIVIT,THER IRON,CA,FA & MIN 1 TABLET PO SCH (08:40)
[2020-03-29] MEDS: TAMSULOSIN 0.4 MG CAPSULE PO SCH (08:40)
[2020-03-29] MEDS: VITAMIN B COMPLEX 1 CAPSULE PO SCH ×2 (08:40→20:45)
[2020-03-29] MEDS: HEPARIN 5,000 UNIT/ML VIAL SQ SCH ×2 (08:41→20:45)
[2020-03-29] MEDS: [UNRECOGNIZED DRUG - OTHER] PO SCH ×2 (08:41→20:45)
[2020-03-29] MEDS: THYROID, PORK 60 MG TABLET PO SCH (08:46)
[2020-03-29] MEDS: cefTRIAXone 2 GM in DEXTROSE 5% IN WATER 50 ML IV SCH (08:47)
--- NOTE | 2020-03-29 09:53 | Internal Med Progress Note ---
SUBJECTIVE Subjective Patient information: Note initiated : 03/29/20 at 9:50 am Service Date, if different from initiated Date: [] Patient: Kiera Angeles 84 y/o F admitted on 03/28/20 for back pain. Chief Complaint: [] Interval history: History of present illness: Ms. 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 She attributes to fall due to profound weakness and since the fall has been sitting on a chair incontinent. She is on multiple medication for chronic back pain that has likely exacerbated her weakness. During initial work-up in the ER with a lumbar spine CT shows acute fracture L3. Patient was started on pain medications. UA significant pyuria.Patient started on antibiotic coverage and subsequently hospitalist service was consulted due to high risk decompensation if discharged home At the time of my evaluation patient is alert but in fair amount of anxiety and pain. She is able to answer most the question. She has multiple family members at home. However due to profound weakness and debility stated they have not been able to help her over the last few days. She denies associated diarrhea, bloody stool, headache, photophobia or sick contacts. She further denies fever chills, cough or shortness of breath. She has not been able to carry ADLs over the last few days 03/29-patient doing well. However persistent back pain on movement. Left foot 3rd-5th metatarsal fracture. Orthopedics been consulted for weightbearing status and orthotic recommendations. PT on board. No overnight fever chills. Stable hemodynamics. GPC on blood cultures as of 03/27. Repeat surveillance cultures today. Urine cultures pending. Started on vancomycin. No overnight fever chills. Check echocardiogram. Persistent weakness. Anticipate SNF transfer on discharge with antibiotics. Constitutional Vitals: Vital Signs Temp Pulse Resp BP Pulse Ox 98.8 F 67 16 112/58 93 03/29/20 06:54 03/29/20 06:54 03/29/20 06:54 03/29/20 06:54 03/29/20 07:15 Period Temp Pulse Resp BP Sys/[place] Pulse Ox Last 24 Hr 98.1 F-98.8 F 67-83 16-18 95-124/47-62 85-97 Intake and Output 03/28/20 03/29/20 03/29/20 21:59 05:59 13:59 Intake Total 1410 200 360 Output Total 900 800 Balance 510 -600 360 Weight 79.923 kg Alert oriented Significant tenderness lower back on movement Left foot tenderness and pain on movement No anxiety Intake & Output: Intake & Output 03/28/20 03/29/20 03/29/20 21:59 05:59 13:59 Intake Total 1410 200 360 Output Total 900 800 Balance 510 -600 360 Weight 79.923 kg Intake: IV 1050 Sodium Chloride 0.9% 1,000 ml @ 1000 100 mls/hr IV .Q10H DAVID Rx#: [id number] Rocephin 2 gm In Dextrose 5% in 50 Water 50 ml @ 100 mls/hr IV Q24H DAVID Rx#:[id number] Oral 360 200 360 Output: Urine Catheter Amount 900 800 Other: Meal Breakfast Percent of Meal Consumed 100% Feeding Ability Assist with Tray Set Up Urine Appearance Clear Clear Urine Color Bright Yellow Dark Yellow Uretheral ([place]) Bright Yellow Urine Odor Uretheral ([place]) Strong OBJ DATA Labs CBC & Chem 7: 03/29/20 05:51 03/29/20 05:51 Labs: Abnormal Lab Results 03/29/20 03/29/20 03/27/20 05:51 05:51 23:28 RBC 3.41 L Hgb 10.8 L Hct 35.3 L MCV 103.5 H MCHC 30.6 L Plt Count 138 L MPV 11.3 H 11.9 H Lymph % (Auto) 12.3 L Eos % (Auto) 8.3 H Lymph # (Auto) 1.30 L 1.18 L [place] # (Auto) 0.98 H 0.97 H Anion Gap 6.0 L Glucose Calcium 8.2 L Total Protein 5.5 L Albumin 2.9 L Urine Appearance Urine Ketones Urine Nitrate Ur Leukocyte Esterase Urine RBC Urine WBC Urine Bacteria Urine Mucus 03/27/20 03/27/20 23:17 22:55 RBC Hgb Hct MCV MCHC Plt Count MPV Lymph % (Auto) Eos % (Auto) Lymph # (Auto) [place] # (Auto) Anion Gap Glucose 116 H Calcium Total Protein Albumin Urine Appearance Hazy A Urine Ketones 20 A Urine Nitrate Pos A Ur Leukocyte Esterase 500 A Urine RBC 5 H Urine WBC 103 H Urine Bacteria Mod A Urine Mucus Few A Meds: Medications Acetaminophen (Tylenol) 650 mg PO Q6HP PRN; Protocol PRN Reason: Per Pain Protocol/Fever > 101 Hydrocodone Bitart/Acetaminophen ([place] 5/325mg) 1 tab PO Q4HP PRN; Protocol PRN Reason: PAIN LEVEL 3-6 Last Admin: 03/28/20 13:11 Dose: 1 tab Documented by: Ascorbic Acid (Vitamin C) 1,000 mg PO DAILY [facility] Last Admin: 03/29/20 08:40 Dose: 1,000 mg Documented by: Benzonatate (Tessalon) 200 mg PO TIDP PRN PRN Reason: Cough Bisacodyl (Dulcolax) 10 mg [place] Q2-3DAYS PRN PRN Reason: Constipation Docusate Sodium (Colace) 100 mg PO BID [facility] Last Admin: 03/29/20 08:39 Dose: 100 mg Documented by: Escitalopram Oxalate (Lexapro) 5 mg PO DAILY [facility] Last Admin: 03/29/20 08:39 Dose: 5 mg Documented by: Fexofenadine HCl (Arianne) 180 mg PO DAILYP PRN PRN Reason: Allergy Symptoms Fluticasone Propionate (Flonase) 1 spray NS QDAY PRN PRN Reason: Allergy Symptoms Gabapentin (Neurontin) 300 mg PO TID [facility] Last Admin: 03/29/20 08:40 Dose: 300 mg Documented by: Guaifenesin (Mucinex) 1,200 mg PO Q12H PRN PRN Reason: Congestion Heparin Sodium (Porcine) (Heparin) 5,000 unit SQ Q12 [facility] Last Admin: 03/29/20 08:41 Dose: 5,000 unit Documented by: Hydromorphone HCl (Dilaudid) 0.25 - 0.5 mg IV Q4HP PRN; Protocol PRN Reason: Per Pain Protocol Last Admin: 03/28/20 15:45 Dose: 0.5 mg Documented by: Potassium Chloride 40 meq/ (Dextrose) 520 mls @ 130 mls/hr IV UD PRN PRN Reason: K+ = or < 3.5 Acetaminophen (Ofirmev) 650 mg in 65 mls @ 130 mls/hr IV Q6HP PRN; Protocol PRN Reason: Per Pain Protocol/Fever > 101 Magnesium Sulfate (Magnesium Sulfate) 2 gm in 50 mls @ 50 mls/hr IV UD PRN PRN Reason: MG = or < 1.7 Ceftriaxone Sodium 2 gm/ (Dextrose) 50 mls @ 100 mls/hr IV Q24H [facility]; Protocol Last Admin: 03/29/20 08:47 Dose: 100 mls/hr Documented by: Vancomycin HCl 1,000 mg/ (Sodium Chloride) 250 mls @ 250 mls/hr IV Q24H [facility] Iron Carb/Multivit/Tire Rebuilder/Folic Acid (Multivitamin W/Minerals) 1 tab PO DAILY [facility] Last Admin: 03/29/20 08:40 Dose: 1 tab Documented by: Lidocaine (Lidoderm) 1 patch TOPICAL [facility] Last Admin: 03/28/20 21:30 Dose: 1 patch Documented by: Melatonin (Melatonin 3mg Tablet) 3 mg PO HSP PRN PRN Reason: Insomnia Methocarbamol (Robaxin) 500 mg PO DAILY [facility] Last Admin: 03/29/20 08:39 Dose: 500 mg Documented by: Methocarbamol (Robaxin) 1,000 mg PO [facility] Last Admin: 03/28/20 21:29 Dose: 1,000 mg Documented by: Ondansetron HCl (Zofran) 4 mg IV Q4HP PRN; Protocol PRN Reason: Nausea And Vomiting Ondansetron HCl (Zofran Odt) 4 mg SL Q4-6HP PRN; Protocol PRN Reason: Nausea And Vomiting Oxycodone HCl (Roxicodone) 10 - 20 mg PO Q6HP PRN PRN Reason: Pain Last Admin: 03/29/20 08:23 Dose: 10 mg Documented by: Potassium Bicarb- (Magnesium 21 Cap) 1 dose PO BID [facility] Last Admin: 03/29/20 08:41 Dose: Not Given Documented by: Polyethylene Glycol (Miralax) 17 gm PO DAILYP PRN PRN Reason: Constipation Potassium Chloride (Klor-Con) 40 meq PO DAILYP PRN PRN Reason: K+ < 3.5 Prednisone (Prednisone) 10 mg PO QAC [facility] Last Admin: 03/29/20 08:40 Dose: 10 mg Documented by: Senna/Docusate Sodium (Senna Plus Tablet) 1 tab PO [facility] Last Admin: 03/28/20 21:29 Dose: 1 tab Documented by: Simethicone (Mylicon) 240 mg CHEWED TIDP PRN PRN Reason: ABDOMINAL PAIN Sodium Chloride (Saline Flush) 10 ml IV Q8 [facility] Last Admin: 03/29/20 05:06 Dose: 10 ml Documented by: Tamsulosin HCl (Flomax) 0.4 mg PO QDAY [facility] Last Admin: 03/29/20 08:40 Dose: 0.4 mg Documented by: Thyroid (Thyroid) 180 mg PO ACB [facility] Last Admin: 03/29/20 08:46 Dose: 180 mg Documented by: Tizanidine HCl (Zanaflex) 4 mg PO QHS [facility] Last Admin: 03/28/20 21:29 Dose: 4 mg Documented by: Tramadol HCl (Ultram) 50 mg PO DAILYP PRN; Protocol PRN Reason: Pain Vancomycin HCl (Vancomycin Per Pharmacy) 1 order IV UD [facility]; Protocol Vitamin B Complex (Vitamin B Complex) 1 cap PO BID [facility] Last Admin: 03/29/20 08:40 Dose: 1 cap Documented by: A/P Narrative A/P Narrative: * GPC bacteremia-underlying a compromised state on steroids. Continue antibiotic coverage/surveillance cultures. Echocardiogram. No clear source of infection. If persistent bacteremia would require further imaging including lower back/abdomen pelvis to rule out secondary seeding/abscess. * Intractable lower back pain due to traumatic L3 fracture. History of oste oporosis and underlying steroid use. Clinically stable on multimodal pain management on opioids/Tylenol/lidocaine patch/muscle relaxers home dose including tizanidine/methocarbamol and gabapentin. Topical NSAIDs/physical therapy as indicated * Complicated UTI continue antibiotic coverage and de-escalate based on sensitivities. * Left third through fifth metatarsal bone fracture. Orthopedic consult for recommendation including weightbearing and orthotics. Continue PT OT * History of anxiety disorder continue escitalopram * History of polyarthritis currently on prednisone * Hypothyroidism continue pork thyroid * Prophylaxis Heparin Plan * Antibiotic coverage * Surveillance cultures/echocardiogram/further imaging if persistent bacteremia * Orthopedic consult for left 3rd-5th metatarsal fracture management recommendations * Multimodal pain management * Pre-existing medical condition management home meds * Outpatient pain clinic referral for possible vertebroplasty/continue outpatient pain management * PT OT/nutrition support * Discharge planning per case management, likely SNF transfer Time Spent With Patient Time: Total time spent is greater than 50% in coordination of care (as documented) at patient's floor/unit and/or counseling patient: QUALITY VTE Deep Vein Thrombosis/Pulmonary Embolism Present on Admission: No
[2020-03-29] MEDS: HYDROmorphone 0.5 MG/0.5 ML SYRINGE IV PRN ×2 (09:56→15:06)
[2020-03-29] MEDS: VANCOMYCIN 1,000 MG in 0.9 % SODIUM CHLORIDE 250 ML IV SCH (09:56)
[2020-03-29] MEDS: HYDROcodone/APAP 5/325MG TABLET PO PRN ×3 (12:24→22:30)
--- NOTE | 2020-03-29 13:08 | Internal Med Progress Note ---
SUBJECTIVE Subjective Patient information: Note initiated : 03/29/20 at 1:01 pm Service Date, if different from initiated Date: [] Patient: Kiera Angeles 84 y/o F admitted on 03/28/20 for back pain. Chief Complaint: [] Interval history: History of present illness: Ms. 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 She attributes to fall due to profound weakness and since the fall has been sitting on a chair incontinent. She is on multiple medication for chronic back pain that has likely exacerbated her weakness. During initial work-up in the ER with a lumbar spine CT shows acute fracture L3. Patient was started on pain medications. UA significant pyuria.Patient started on antibiotic coverage and subsequently hospitalist service was consulted due to high risk decompensation if discharged home At the time of my evaluation patient is alert but in fair amount of anxiety and pain. She is able to answer most the question. She has multiple family members at home. However due to profound weakness and debility stated they have not been able to help her over the last few days. She denies associated diarrhea, bloody stool, headache, photophobia or sick contacts. She further denies fever chills, cough or shortness of breath. She has not been able to carry ADLs over the last few days 03/29-patient doing well. However persistent back pain on movement. Left foot 3rd-5th metatarsal fracture. Orthopedics been consulted for weightbearing status and orthotic recommendations. PT on board. No overnight fever chills. Stable hemodynamics. GPC on blood cultures as of 03/27. Repeat surveillance cultures today. Urine cultures pending. Started on vancomycin. No overnight fever chills. Check echocardiogram. Persistent weakness. Anticipate SNF transfer on discharge with antibiotics. Constitutional Vitals: Vital Signs Temp Pulse Resp BP Pulse Ox 98.4 F 70 16 118/62 94 03/29/20 11:26 03/29/20 11:26 03/29/20 11:26 03/29/20 11:26 03/29/20 11:26 Period Temp Pulse Resp BP Sys/[place]over Pulse Ox Last 24 Hr 98.1 F-98.8 F 67-83 16-18 95-124/47-62 85-97 Intake and Output 03/28/20 03/29/20 03/29/20 21:59 05:59 13:59 Intake Total 1410 200 610 Output Total 900 800 Balance 510 -600 610 Weight 79.923 kg Intake & Output: Intake & Output 03/28/20 03/29/20 03/29/20 21:59 05:59 13:59 Intake Total 1410 200 610 Output Total 900 800 Balance 510 -600 610 Weight 79.923 kg Intake: IV 1050 Sodium Chloride 0.9% 1,000 ml @ 1000 100 mls/hr IV .Q10H DAVID Rx#: [id number] Rocephin 2 gm In Dextrose 5% in 50 Water 50 ml @ 100 mls/hr IV Q24H DAVID Rx#:[id number] Oral 360 200 610 Output: Urine Catheter Amount 900 800 Other: Meal Lunch Percent of Meal Consumed 75% Feeding Ability Independent Urine Appearance Clear Clear Clear Urine Color Bright Yellow Dark Yellow Bright Yellow Uretheral (Giles) Bright Yellow Bright Yellow Urine Odor Strong Uretheral (Giles) Strong Strong Exam: General: Alert, Awake, No acute Distress Eyes/N/T: EOMI, Head/Neck: neck supple, CV: RRR, No murmurs, Pulm: Clear b/l, no wheezing/rhonchi/rales Abd: soft, nontender, +BS x4 Back: Ext: no clubbing/cyanosis/edema, left foot pain Neuro: Alert, no focal deficits, moves all extremities, Skin: warm/dry OBJ DATA Labs CBC & Chem 7: 03/29/20 05:51 03/29/20 05:51 Labs: Abnormal Lab Results 03/29/20 03/29/20 03/27/20 05:51 05:51 23:28 RBC 3.41 L Hgb 10.8 L Hct 35.3 L MCV 103.5 H MCHC 30.6 L Plt Count 138 L MPV 11.3 H 11.9 H Lymph % (Auto) 12.3 L Eos % (Auto) 8.3 H Lymph # (Auto) 1.30 L 1.18 L [place] # (Auto) 0.98 H 0.97 H Anion Gap 6.0 L Glucose Calcium 8.2 L Total Protein 5.5 L Albumin 2.9 L Urine Appearance Urine Ketones Urine Nitrate Ur Leukocyte Esterase Urine RBC Urine WBC Urine Bacteria Urine Mucus 03/27/20 03/27/20 23:17 22:55 RBC Hgb Hct MCV MCHC Plt Count MPV Lymph % (Auto) Eos % (Auto) Lymph # (Auto) [place] # (Auto) Anion Gap Glucose 116 H Calcium Total Protein Albumin Urine Appearance Hazy A Urine Ketones 20 A Urine Nitrate Pos A Ur Leukocyte Esterase 500 A Urine RBC 5 H Urine WBC 103 H Urine Bacteria Mod A Urine Mucus Few A Meds: Medications Acetaminophen (Tylenol) 650 mg PO Q6HP PRN; Protocol PRN Reason: Per Pain Protocol/Fever > 101 Last Admin: 03/29/20 11:26 Dose: 650 mg Documented by: Hydrocodone Bitart/Acetaminophen ([place] 5/325mg) 1 tab PO Q4HP PRN; Protocol PRN Reason: PAIN LEVEL 3-6 Last Admin: 03/29/20 12:24 Dose: 1 tab Documented by: Ascorbic Acid (Vitamin C) 1,000 mg PO DAILY [facility] Last Admin: 03/29/20 08:40 Dose: 1,000 mg Documented by: Benzonatate (Tessalon) 200 mg PO TIDP PRN PRN Reason: Cough Bisacodyl (Dulcolax) 10 mg [place] Q2-3DAYS PRN PRN Reason: Constipation Docusate Sodium (Colace) 100 mg PO BID [facility] Last Admin: 03/29/20 08:39 Dose: 100 mg Documented by: Escitalopram Oxalate (Lexapro) 5 mg PO DAILY [facility] Last Admin: 03/29/20 08:39 Dose: 5 mg Documented by: Fexofenadine HCl (Arianne) 180 mg PO DAILYP PRN PRN Reason: Allergy Symptoms Fluticasone Propionate (Flonase) 1 spray NS QDAY PRN PRN Reason: Allergy Symptoms Gabapentin (Neurontin) 300 mg PO TID [facility] Last Admin: 03/29/20 08:40 Dose: 300 mg Documented by: Guaifenesin (Mucinex) 1,200 mg PO Q12H PRN PRN Reason: Congestion Heparin Sodium (Porcine) (Heparin) 5,000 unit SQ Q12 [facility] Last Admin: 03/29/20 08:41 Dose: 5,000 unit Documented by: Hydromorphone HCl (Dilaudid) 0.25 - 0.5 mg IV Q4HP PRN; Protocol PRN Reason: Per Pain Protocol Last Admin: 03/29/20 09:56 Dose: 0.25 mg Documented by: Potassium Chloride 40 meq/ (Dextrose) 520 mls @ 130 mls/hr IV UD PRN PRN Reason: K+ = or < 3.5 Acetaminophen (Ofirmev) 650 mg in 65 mls @ 130 mls/hr IV Q6HP PRN; Protocol PRN Reason: Per Pain Protocol/Fever > 101 Magnesium Sulfate (Magnesium Sulfate) 2 gm in 50 mls @ 50 mls/hr IV UD PRN PRN Reason: MG = or < 1.7 Ceftriaxone Sodium 2 gm/ (Dextrose) 50 mls @ 100 mls/hr IV Q24H [facility]; Protocol Last Admin: 03/29/20 08:47 Dose: 100 mls/hr Documented by: Vancomycin HCl 1,000 mg/ (Sodium Chloride) 250 mls @ 250 mls/hr IV Q24H [facility] Last Admin: 03/29/20 09:56 Dose: 250 mls/hr Documented by: Iron Carb/Multivit/[place]/Folic Acid (Multivitamin W/Minerals) 1 tab PO DAILY [facility] Last Admin: 03/29/20 08:40 Dose: 1 tab Documented by: Lidocaine (Lidoderm) 1 patch TOPICAL [facility] Last Admin: 03/28/20 21:30 Dose: 1 patch Documented by: Melatonin (Melatonin 3mg Tablet) 3 mg PO HSP PRN PRN Reason: Insomnia Methocarbamol (Robaxin) 500 mg PO DAILY [facility] Last Admin: 03/29/20 08:39 Dose: 500 mg Documented by: Methocarbamol (Robaxin) 1,000 mg PO HS [facility] Last Admin: 03/28/20 21:29 Dose: 1,000 mg Documented by: Ondansetron HCl (Zofran) 4 mg IV Q4HP PRN; Protocol PRN Reason: Nausea And Vomiting Ondansetron HCl (Zofran Odt) 4 mg SL Q4-6HP PRN; Protocol PRN Reason: Nausea And Vomiting Oxycodone HCl (Roxicodone) 10 - 20 mg PO Q6HP PRN PRN Reason: Pain Last Admin: 03/29/20 08:23 Dose: 10 mg Documented by: Potassium Bicarb- (Magnesium 21 Cap) 1 dose PO BID [facility] Last Admin: 03/29/20 08:41 Dose: Not Given Documented by: Polyethylene Glycol (Miralax) 17 gm PO DAILYP PRN PRN Reason: Constipation Potassium Chloride (Klor-Con) 40 meq PO DAILYP PRN PRN Reason: K+ < 3.5 Prednisone (Prednisone) 10 mg PO QAMCC [facility] Last Admin: 03/29/20 08:40 Dose: 10 mg Documented by: Senna/Docusate Sodium (Senna Plus Tablet) 1 tab PO HS [facility] Last Admin: 03/28/20 21:29 Dose: 1 tab Documented by: Simethicone (Mylicon) 240 mg CHEWED TIDP PRN PRN Reason: ABDOMINAL PAIN Sodium Chloride (Saline Flush) 10 ml IV Q8 [facility] Last Admin: 03/29/20 05:06 Dose: 10 ml Documented by: Tamsulosin HCl (Flomax) 0.4 mg PO QDAY [facility] Last Admin: 03/29/20 08:40 Dose: 0.4 mg Documented by: Thyroid (Thyroid) 180 mg PO ACB [facility] Last Admin: 03/29/20 08:46 Dose: 180 mg Documented by: Tizanidine HCl (Zanaflex) 4 mg PO QHS [facility] Last Admin: 03/28/20 21:29 Dose: 4 mg Documented by: Tramadol HCl (Ultram) 50 mg PO DAILYP PRN; Protocol PRN Reason: Pain Vancomycin HCl (Vancomycin Per Pharmacy) 1 order IV UD [facility]; Protocol Vitamin B Complex (Vitamin B Complex) 1 cap PO BID [facility] Last Admin: 03/29/20 08:40 Dose: 1 cap Documented by: A/P Narrative A/P Narrative: A: *Intractable lower back pain d/t Traumatic L3 Fx (h/o osteoporosis and underlying steroid use): -Clinically stable on multimodal pain management on opioids/Tylenol/lidocaine patch/muscle relaxers home dose including tizanidine/methocarbamol and gabapentin. Topical NSAIDs/physical therapy as indicated *?GPC bacteremia: underlyingcompromised state on steroids. No clear source of infection. *Complicated UTI (GNB): *Left 3rd-5th metatarsal bone fracture: *Anxiety disorder: continue escitalopram *h/o Polyarthritis: Follows with Dr. Landis and is on prednisone *Hypothyroidism: *Obesity: Plan: -rocephin/vanco pending BC -Surveillance cultures/echocardiogram/further imaging if persistent bacteremia - If persistent bacteremia would require further imaging including lower back/abdomen pelvis to rule out secondary seeding/abscess. -Orthopedic consult for left 3rd-5th metatarsal fracture management recommendations -Multimodal pain management -Outpatient pain clinic referral for possible vertebroplasty/continue outpatient pain management -PT OT/nutrition support -Discharge planning per case management, likely SNF transfer -ppx: Heparin full code? Time Spent With Patient Time: Total time spent is greater than 50% in coordination of care (as documented) at patient's floor/unit and/or counseling patient: QUALITY VTE Deep Vein Thrombosis/Pulmonary Embolism Present on Admission: No
[2020-03-29] MEDS: POLYETHYLENE GLYCOL 3350 17 GM PACKET PO PRN (15:06)
[2020-03-29] MEDS: LIDOCAINE PATCH TOPICAL SCH (20:43)
[2020-03-29] MEDS: tiZANidine 4 MG TABLET PO SCH (20:44)
[2020-03-29] MEDS: SENNOSIDES/DOCUSATE SODIUM 1 TAB TABLET PO SCH (20:45)
[2020-03-30] MEDS: HYDROcodone/APAP 5/325MG TABLET PO PRN ×5 (03:20→21:28)
[2020-03-30] MEDS: 0.9 % SODIUM CHLORIDE 10 ML SYRINGE IV SCH ×3 (06:13→22:25)
--- NOTE | 2020-03-30 07:32 | Internal Med Progress Note ---
SUBJECTIVE Subjective Patient information: Note initiated : 03/30/20 at 7:27 am Service Date, if different from initiated Date: [] Patient: Kiera Angeles 84 y/o F admitted on 03/28/20 for back pain. Chief Complaint: [] Interval history: History of present illness: Ms. 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 She attributes to fall due to profound weakness and since the fall has been sitting on a chair incontinent. She is on multiple medication for chronic back pain that has likely exacerbated her weakness. During initial work-up in the ER with a lumbar spine CT shows acute fracture L3. Patient was started on pain medications. UA significant pyuria.Patient started on antibiotic coverage and subsequently hospitalist service was consulted due to high risk decompensation if discharged home At the time of my evaluation patient is alert but in fair amount of anxiety and pain. She is able to answer most the question. She has multiple family members at home. However due to profound weakness and debility stated they have not been able to help her over the last few days. She denies associated diarrhea, bloody stool, headache, photophobia or sick contacts. She further denies fever chills, cough or shortness of breath. She has not been able to carry ADLs over the last few days 03/29-patient doing well. However persistent back pain on movement. Left foot 3rd-5th metatarsal fracture. Orthopedics been consulted for weightbearing status and orthotic recommendations. PT on board. No overnight fever chills. Stable hemodynamics. GPC on blood cultures as of 03/27. Repeat surveillance cultures today. Urine cultures pending. Started on vancomycin. No overnight fever chills. Check echocardiogram. Persistent weakness. Anticipate SNF transfer on discharge with antibiotics. 03/30 Occasional back spasm. Complaints of constipation. Occasional mild nausea. Review of Systems: denies headache/fever/chills/vomiting/chest or abdominal pain/cough/dyspnea/diarrhea. Otherwise see above. Constitutional Vitals: Vital Signs Temp Pulse Resp BP Pulse Ox 98.6 F 60 16 99/58 93 03/30/20 03:17 03/30/20 03:17 03/30/20 03:17 03/30/20 03:17 03/30/20 03:17 Period Temp Pulse Resp BP Sys/Glover Pulse Ox Last 24 Hr 98.1 F-98.9 F 60-84 16-18 91-124/54-64 90-94 Intake and Output 03/29/20 03/30/20 03/30/20 21:59 05:59 13:59 Intake Total 240 120 Output Total 1350 1150 Balance -1110 -1030 Weight 81.788 kg Intake & Output: Intake & Output 03/29/20 03/30/20 03/30/20 21:59 05:59 13:59 Intake Total 240 120 Output Total 1350 1150 Balance -1110 -1030 Weight 81.788 kg Intake: Oral 240 120 Output: Urine Catheter Amount 1350 1150 Other: Urine Appearance Clear Clear Urine Color Bright Yellow Bright Yellow Urine Odor Normal Exam: General: Alert, Awake, No acute Distress Eyes/N/T: EOMI, Head/Neck: neck supple, CV: RRR, No murmurs, Pulm: Clear b/l, no wheezing/rhonchi/rales Abd: soft, nontender, +BS x4 Back: Ext: no clubbing/cyanosis/edema Neuro: Alert, no focal deficits, moves all extremities, Skin: warm/dry OBJ DATA Labs CBC & Chem 7: 03/29/20 05:51 03/29/20 05:51 Labs: Abnormal Lab Results 03/29/20 03/29/20 03/27/20 05:51 05:51 23:28 RBC 3.41 L Hgb 10.8 L Hct 35.3 L MCV 103.5 H MCHC 30.6 L Plt Count 138 L MPV 11.3 H 11.9 H Lymph % (Auto) 12.3 L Eos % (Auto) 8.3 H Lymph # (Auto) 1.30 L 1.18 L [place] # (Auto) 0.98 H 0.97 H Anion Gap 6.0 L Glucose Calcium 8.2 L Total Protein 5.5 L Albumin 2.9 L Urine Appearance Urine Ketones Urine Nitrate Ur Leukocyte Esterase Urine RBC Urine WBC Urine Bacteria Urine Mucus 03/27/20 03/27/20 23:17 22:55 RBC Hgb Hct MCV MCHC Plt Count MPV Lymph % (Auto) Eos % (Auto) Lymph # (Auto) [place] # (Auto) Anion Gap Glucose 116 H Calcium Total Protein Albumin Urine Appearance Hazy A Urine Ketones 20 A Urine Nitrate Pos A Ur Leukocyte Esterase 500 A Urine RBC 5 H Urine WBC 103 H Urine Bacteria Mod A Urine Mucus Few A Meds: Medications Acetaminophen (Tylenol) 650 mg PO Q6HP PRN; Protocol PRN Reason: Per Pain Protocol/Fever > 101 Last Admin: 03/29/20 11:26 Dose: 650 mg Documented by: Hydrocodone Bitart/Acetaminophen ([place] 5/325mg) 1 tab PO Q4HP PRN; Protocol PRN Reason: PAIN LEVEL 3-6 Last Admin: 03/30/20 03:20 Dose: 1 tab Documented by: Ascorbic Acid (Vitamin C) 1,000 mg PO DAILY [facility] Last Admin: 03/29/20 08:40 Dose: 1,000 mg Documented by: Benzonatate (Tessalon) 200 mg PO TIDP PRN PRN Reason: Cough Bisacodyl (Dulcolax) 10 mg [place] Q2-3DAYS PRN PRN Reason: Constipation Docusate Sodium (Colace) 100 mg PO BID [facility] Last Admin: 03/29/20 20:45 Dose: 100 mg Documented by: Escitalopram Oxalate (Lexapro) 5 mg PO DAILY [facility] Last Admin: 03/29/20 08:39 Dose: 5 mg Documented by: Fexofenadine HCl (Arianne) 180 mg PO DAILYP PRN PRN Reason: Allergy Symptoms Fluticasone Propionate (Flonase) 1 spray NS QDAY PRN PRN Reason: Allergy Symptoms Gabapentin (Neurontin) 300 mg PO TID [facility] Last Admin: 03/29/20 20:45 Dose: 300 mg Documented by: Guaifenesin (Mucinex) 1,200 mg PO Q12H PRN PRN Reason: Congestion Heparin Sodium (Porcine) (Heparin) 5,000 unit SQ Q12 [facility] Last Admin: 03/29/20 20:45 Dose: 5,000 unit Documented by: Hydromorphone HCl (Dilaudid) 0.25 - 0.5 mg IV Q4HP PRN; Protocol PRN Reason: Per Pain Protocol Last Admin: 03/29/20 15:06 Dose: 0.5 mg Documented by: Potassium Chloride 40 meq/ (Dextrose) 520 mls @ 130 mls/hr IV UD PRN PRN Reason: K+ = or < 3.5 Acetaminophen (Ofirmev) 650 mg in 65 mls @ 130 mls/hr IV Q6HP PRN; Protocol PRN Reason: Per Pain Protocol/Fever > 101 Magnesium Sulfate (Magnesium Sulfate) 2 gm in 50 mls @ 50 mls/hr IV UD PRN PRN Reason: MG = or < 1.7 Ceftriaxone Sodium 2 gm/ (Dextrose) 50 mls @ 100 mls/hr IV Q24H [facility]; Protocol Last Infusion: 03/29/20 10:13 Dose: Infused Documented by: Vancomycin HCl 1,000 mg/ (Sodium Chloride) 250 mls @ 250 mls/hr IV Q24H [facility] Last Infusion: 03/29/20 11:13 Dose: Infused Documented by: Iron Carb/Multivit/[place]/Folic Acid (Multivitamin W/Minerals) 1 tab PO DAILY [facility] Last Admin: 03/29/20 08:40 Dose: 1 tab Documented by: Lidocaine (Lidoderm) 1 patch TOPICAL [facility] Last Admin: 03/29/20 20:43 Dose: 1 patch Documented by: Melatonin (Melatonin 3mg Tablet) 3 mg PO HSP PRN PRN Reason: Insomnia Methocarbamol (Robaxin) 500 mg PO DAILY [facility] Last Admin: 03/29/20 08:39 Dose: 500 mg Documented by: Methocarbamol (Robaxin) 1,000 mg PO HS [facility] Last Admin: 03/29/20 20:44 Dose: 1,000 mg Documented by: Ondansetron HCl (Zofran) 4 mg IV Q4HP PRN; Protocol PRN Reason: Nausea And Vomiting Ondansetron HCl (Zofran Odt) 4 mg SL Q4-6HP PRN; Protocol PRN Reason: Nausea And Vomiting Oxycodone HCl (Roxicodone) 10 - 20 mg PO Q6HP PRN PRN Reason: Pain Last Admin: 03/29/20 17:43 Dose: 10 mg Documented by: Potassium Bicarb- (Magnesium 21 Cap) 1 dose PO BID [facility] Last Admin: 03/29/20 20:45 Dose: Not Given Documented by: Polyethylene Glycol (Miralax) 17 gm PO DAILYP PRN PRN Reason: Constipation Last Admin: 03/29/20 15:06 Dose: 17 gm Documented by: Potassium Chloride (Klor-Con) 40 meq PO DAILYP PRN PRN Reason: K+ < 3.5 Prednisone (Prednisone) 10 mg PO QAMCC [facility] Last Admin: 03/29/20 08:40 Dose: 10 mg Documented by: Senna/Docusate Sodium (Senna Plus Tablet) 1 tab PO HS [facility] Last Admin: 03/29/20 20:45 Dose: 1 tab Documented by: Simethicone (Mylicon) 240 mg CHEWED TIDP PRN PRN Reason: ABDOMINAL PAIN Sodium Chloride (Saline Flush) 10 ml IV Q8 [facility] Last Admin: 03/30/20 06:13 Dose: 10 ml Documented by: Tamsulosin HCl (Flomax) 0.4 mg PO QDAY [facility] Last Admin: 03/29/20 08:40 Dose: 0.4 mg Documented by: Thyroid (Thyroid) 180 mg PO ACB [facility] Last Admin: 03/29/20 08:46 Dose: 180 mg Documented by: Tizanidine HCl (Zanaflex) 4 mg PO QHS [facility] Last Admin: 03/29/20 20:44 Dose: 4 mg Documented by: Tramadol HCl (Ultram) 50 mg PO DAILYP PRN; Protocol PRN Reason: Pain Vancomycin HCl (Vancomycin Per Pharmacy) 1 order IV UD [facility]; Protocol Vitamin B Complex (Vitamin B Complex) 1 cap PO BID [facility] Last Admin: 03/29/20 20:45 Dose: 1 cap Documented by: A/P Narrative A/P Narrative: A: *Intractable lower back pain d/t Traumatic L3 Fx (h/o osteoporosis and underlying steroid use): -Clinically stable on multimodal pain management on opioids/Tylenol/lidocaine patch/muscle relaxers home dose including tizanidine/methocarbamol and gabapentin. Topical NSAIDs/physical therapy as indicated *?GPC bacteremia: underlying compromised state on steroids. No clear source of infection. *Complicated UTI (GNB): *Left 3rd-5th metatarsal bone fracture: *Anxiety disorder: continue escitalopram *h/o Polyarthritis: Follows with Dr. Landis and is on prednisone *Hypothyroidism: *Obesity: *COPD: *SSS w/ppm: Plan: -rocephin/vanco pending BC -Surveillance cultures/echocardiogram/further imaging if persistent bacteremia - If persistent bacteremia would require further imaging including lower back/abdomen pelvis to rule out secondary seeding/abscess. -Orthopedic consult for left 3rd-5th metatarsal fracture management recommendations -Multimodal pain management -Outpatient pain clinic referral for possible vertebroplasty/continue outpatient pain management -PT OT/nutrition support -Discharge planning per case management, likely SNF transfer -ppx: Heparin full code? Time Spent With Patient Time: Total time spent is greater than 50% in coordination of care (as documented) at patient's floor/unit and/or counseling patient: QUALITY VTE Deep Vein Thrombosis/Pulmonary Embolism Present on Admission: No
[2020-03-30] MEDS ORDERED: LACTULOSE 20 GM/30 ML ORAL.SOL PO PRN (08:25)
[2020-03-30] MEDS: HYDROmorphone 0.5 MG/0.5 ML SYRINGE IV PRN (08:43)
[2020-03-30] MEDS: THYROID, PORK 60 MG TABLET PO SCH (08:44)
[2020-03-30] MEDS: SENNOSIDES 1 TABLET PO SCH (08:45)
[2020-03-30] MEDS: GABAPENTIN 300 MG CAPSULE PO SCH ×3 (08:45→20:02)
[2020-03-30] MEDS: predniSONE 5 MG TABLET PO SCH (08:45)
[2020-03-30] MEDS: METHOCARBAMOL 500 MG TABLET PO SCH ×2 (08:45→20:03)
[2020-03-30] MEDS: TAMSULOSIN 0.4 MG CAPSULE PO SCH (08:45)
[2020-03-30] MEDS: DOCUSATE SODIUM 100 MG CAPSULE PO SCH ×2 (08:45→20:03)
[2020-03-30] MEDS: POLYETHYLENE GLYCOL 3350 17 GM PACKET PO PRN (08:45)
[2020-03-30] MEDS: MULTIVIT,THER IRON,CA,FA & MIN 1 TABLET PO SCH (08:45)
[2020-03-30] MEDS: ESCITALOPRAM 10 MG TABLET PO SCH (08:45)
[2020-03-30] MEDS: VITAMIN B COMPLEX 1 CAPSULE PO SCH ×2 (08:45→20:03)
[2020-03-30] MEDS: ASCORBIC ACID 500 MG TABLET PO SCH (08:45)
[2020-03-30] MEDS: cefTRIAXone 2 GM in DEXTROSE 5% IN WATER 50 ML IV SCH (08:45)
[2020-03-30] MEDS: HEPARIN 5,000 UNIT/ML VIAL SQ SCH ×2 (08:46→20:03)
--- NOTE | 2020-03-30 08:54 | XRay Report ---
CLINICAL INFORMATION: Chest and back pain COMPARISON: 08/01/2019 FINDINGS: Large hiatal hernia is unchanged. Moderate cardiomegaly is also stable. Pacemaker leads in stable satisfactory position. Mediastinum and pulmonary vasculature are otherwise normal. Right subclavian central line remains in stable satisfactory position. Small infiltrates have developed in both medial bases with small left pleural effusion. IMPRESSION: Small infiltrates both medial bases with small left pleural effusion. Consider aspiration Large hiatal hernia - stable Interpreted and Authenticated by: Dagoberto Smith 03/30/20
[2020-03-30] MEDS: [UNRECOGNIZED DRUG - OTHER] PO SCH ×2 (10:04→21:28)
--- NOTE | 2020-03-30 10:22 | Discharge Summary ---
Discharge Provider Provider Patient information: Note initiated : 03/30/20 at 10:19 am Service Date, if different from initiated Date: [] Patient: Kiera Angeles 84 y/o F admitted on 03/28/20 for back pain. Chief Complaint: [] Date of admission: 03/28/20 02:21 Discharge date: 04/01/20 Primary care physician: GIUSEPPE Garcia Consults: 03/28/20 Consult to Physician [CONS] Stat Comment: Consulting Provider: Erwin Malhotra Reason For Exam: Physician to Consult Discharge Meds Discharge Medications Home Medications alpha lipoic acid 300 mg PO BID 10/23/14 [History Confirmed 03/28/20 Last Taken Unknown] ascorbic acid (vitamin C) 1,000 mg PO DAILY 10/23/14 [History Confirmed 03/28/20 Last Taken 10/23/14 06:00] benzonatate 200 mg PO PRN PRN 10/23/14 [History Confirmed 03/28/20 Last Taken Unknown] calcium citrate 1,000 mg PO DAILY 10/23/14 [History Confirmed 03/28/20 Last Taken Unknown] cholecalciferol (vitamin D3) 5,000 unit PO DAILY 10/23/14 [History Confirmed 03/28/20 Last Taken 10/23/14 06:00] methocarbamol 500 mg PO DAILY 10/23/14 [History Confirmed 03/28/20 Last Taken 03/27/20 08:00] Activite 1 tab PO BID 08/20/19 [History Confirmed 03/28/20 Last Taken Unknown] [place] Thyroid 180 mg PO QDAY 08/20/19 [History Confirmed 03/28/20 Last Taken 03/27/20 08:00] escitalopram oxalate 5 mg PO QDAY 08/20/19 [History Confirmed 03/28/20 Last Taken 03/27/20] gabapentin 300 mg PO TID 08/20/19 [History Confirmed 03/28/20 Last Taken 03/27/20] ondansetron 4 mg PO Q8H PRN 08/20/19 [History Confirmed 03/28/20 Last Taken Unknown] prednisone 10 mg PO QDAY 08/20/19 [History Confirmed 03/28/20 Last Taken ] simethicone [Gas-X Extra Strength] 250 mg PO PRN PRN 08/20/19 [History Confirmed 03/28/20 Last Taken Unknown] tizanidine 4 mg PO QHS 08/20/19 [History Confirmed 03/28/20 Last Taken 03/26/20] turmeric-herbal complex no.278 150 mg PO DAILY 08/20/19 [History Confirmed 03/28/20 Last Taken Unknown] ewphhjtp-rpwajeuij-qyadcfdw 3.5 mg/mL-10,000 unit/mL-0.1% eye drops 1 drp OPHTHALMIC Q12H 10/23/19 [History Confirmed 03/28/20 Last Taken Unknown] Collagen 3 tab PO DAILY 03/28/20 [History Confirmed 03/28/20 Last Taken Unknown] alpha lipoic acid-herbal 305 300 mg PO BID 03/28/20 [History Confirmed 03/28/20 Last Taken Unknown] fexofenadine [Arianne Allergy] 180 mg PO QID PRN 03/28/20 [History Confirmed 03/28/20 Last Taken Unknown] fluticasone propionate [Flonase Allergy Relief] 1 spray INTRANASAL QDAY PRN 03/28/20 [History Confirmed 03/28/20 Last Taken Unknown] guaifenesin [Mucinex] 1,200 mg PO Q12H PRN 03/28/20 [History Confirmed 03/28/20 Last Taken Unknown] methocarbamol 1,000 mg PO HS 03/28/20 [History Confirmed 03/28/20 Last Taken 03/26/20] potassium bicarb-magnesium 21 1 cap PO BID 03/28/20 [History Confirmed 03/28/20 Last Taken Unknown] tamsulosin [Flomax] 0.4 mg PO QDAY 03/28/20 [History Confirmed 03/28/20 Last Taken 03/27/20] lidocaine 1 patch TOPICAL HS #7 ea 03/30/20 [Rx Last Taken Unknown] fentanyl 1 patch TRANSDERMA Q72H #5 each 04/01/20 [Rx Last Taken Unknown] nitrofurantoin monohyd/m-cryst [Macrobid] 100 mg PO BID #2 cap 04/01/20 [Rx Last Taken Unknown] oxycodone-acetaminophen 1 tab PO Q6H PRN #30 tab 04/01/20 [Rx Last Taken Unknown] COURSE Hospital Course Hospital course: History of present illness: Ms. 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 She attributes to fall due to profound weakness and since the fall has been sitting on a chair incontinent. She is on multiple medication for chronic back pain that has likely exacerbated her weakness. During initial work-up in the ER with a lumbar spine CT shows acute fracture L3. Patient was started on pain medications. UA significant pyuria.Patient started on antibiotic coverage and subsequently hospitalist se wolf was consulted due to high risk decompensation if discharged home At the time of my evaluation patient is alert but in fair amount of anxiety and pain. She is able to answer most the question. She has multiple family members at home. However due to profound weakness and debility stated they have not been able to help her over the last few days. She denies associated diarrhea, bloody stool, headache, photophobia or sick contacts. She further denies fever chills, cough or shortness of breath. She has not been able to carry ADLs over the last few days 03/29-patient doing well. However persistent back pain on movement. Left foot 3rd-5th metatarsal fracture. Orthopedics been consulted for weightbearing status and orthotic recommendations. PT on board. No overnight fever chills. Stable hemodynamics. GPC on blood cultures as of 03/27. Repeat surveillance cultures today. Urine cultures pending. Started on vancomycin. No overnight fever chills. Check echocardiogram. Persistent weakness. Anticipate SNF transfer on discharge with antibiotics. 03/30 Occasional back spasm. Complaints of constipation. Occasional mild nausea. 03/31 Patient taking [place] quite often. She does take oxycodone at home. We will increase fentanyl. 04/01 No overnight event or new complaints. No IV pain medication needed. High risk for readmission given comorbidities and age A: *Intractable lower back pain d/t Traumatic L3 Fx (h/o osteoporosis and underlying steroid use): -improved *Complicated UTI (E. coli sensitive to cephalosporins and Macrobid; resistant to fluoroquinolones): *Left 3rd-5th metatarsal bone fracture: *Anxiety disorder: continue escitalopram *h/o Polyarthritis: Follows with Dr. Landis and is on prednisone *Hypothyroidism: *Obesity: *COPD: *SSS w/ppm: Discharge diagnosis: Intractable low back pain after fall with all 3 fracture UTI metatarsal fra Secondary discharge diagnosis: Anxiety disorder polyarthritis hypothyroidism obesity COPD sick sinus syndrome Time Spent with Patient Time attestation: Total time spent providing and/or coordinating discharge services: Time spent: Greater than 30 minutes EXAM Constitutional Vitals: Temp Pulse Resp BP Pulse Ox 98.9 F 68 18 137/67 94 03/30/20 08:00 03/30/20 08:00 03/30/20 08:00 03/30/20 08:00 03/30/20 08:00 Discharge Data Data Completed and Pending Labs on day of discharge: Preliminary micro results at discharge 03/29/20 10:14 Blood Culture - Preliminary Blood 03/29/20 10:02 Blood Culture - Preliminary Blood 03/27/20 23:28 Blood Culture - Preliminary Blood 03/27/20 23:17 Blood Culture - Preliminary Blood Gram positive cocci Discharge Plan Patient/Caregiver Discharge Instructions Activity: increase activity as tolerated Diet: Regular Diet Activity Restrictions/Additional Instructions: Follow-up with orthopedic surgeon for metatarsal fracture left foot in 3 to 7 days. Prescriptions: New lidocaine 5 % Adhesive Patch,Medicated 1 patch topical HS Qty: 7 RF: 0 oxycodone-acetaminophen 10-325 mg Tablet 1 tab PO Q6H PRN (Reason: Per Pain Protocol) Qty: 30 RF: 0 nitrofurantoin monohyd/m-cryst [Macrobid] 100 mg capsule 100 mg PO BID Qty: 2 RF: 0 fentanyl 25 mcg/hr patch 72 hour 1 patch TRANSDERMA Q72H Qty: 5 RF: 0 Continued neomycin-polymyxin B-dexameth 3.5mg/mL-10,000 unit/mL-0.1 % drops,suspension 1 drp OPHTHALMIC Q12H RF: 0 benzonatate 200 MG capsule 200 mg PO PRN PRN (Reason: Cough) RF: 0 methocarbamol 500 MG tablet 500 mg PO DAILY RF: 0 ascorbic acid (vitamin C) 1,000 MG tablet 1,000 mg PO DAILY RF: 0 cholecalciferol (vitamin D3) 2,000 UNIT tablet 5,000 unit PO DAILY RF: 0 calcium citrate 250 MG tablet 1,000 mg PO DAILY RF: 0 alpha lipoic acid 100 MG capsule 300 mg PO BID RF: 0 prednisone 5 mg Tablet 10 mg PO QDAY RF: 0 simethicone [Gas-X Extra Strength] 125 mg Capsule 250 mg PO PRN PRN (Reason: Abdominal Discomfort) RF: 0 Activite 1 mg Tablet 1 tab PO BID RF: 0 gabapentin 300 mg Capsule 300 mg PO TID RF: 0 ondansetron 4 mg Tablet,Disintegrating 4 mg PO Q8H PRN (Reason: Nausea) RF: 0 escitalopram oxalate 5 mg Tablet 5 mg PO QDAY RF: 0 tizanidine 4 mg Capsule 4 mg PO QHS RF: 0 [place] Thyroid 180 mg Tablet 180 mg PO QDAY RF: 0 turmeric-herbal complex no.278 150 mg Capsule 150 mg PO DAILY RF: 0 tamsulosin [Flomax] 0.4 mg Capsule 0.4 mg PO QDAY RF: 0 methocarbamol 500 mg Tablet 1,000 mg PO HS RF: 0 fexofenadine [Arianne Allergy] 180 mg Tablet 180 mg PO QID PRN (Reason: Allergy Symptoms) RF: 0 guaifenesin [Mucinex] 600 mg Tablet Extended Release 12hr 1,200 mg PO Q12H PRN (Reason: Congestion) RF: 0 alpha lipoic acid-herbal 305 150 mg Capsule 300 mg PO BID RF: 0 potassium bicarb-magnesium 21 1 cap PO BID RF: 0 Collagen 3 tab PO DAILY RF: 0 fluticasone propionate [Flonase Allergy Relief] 50 mcg/actuation [place],Suspension 1 spray INTRANASAL QDAY PRN (Reason: Allergy Symptoms) RF: 0 Discontinued tramadol 50 MG tablet 50 mg PO DAILYP PRN (Reason: Pain) RF: 0 oxycodone 10 mg PO PRN PRN (Reason: Pain) RF: 0 Follow Up Plan Follow up with: Hu Solis ARNP [Primary Care Provider] - Wilberto Jesus MD [Physician] - Patient Disposition: Xfer SNF Prognosis: Fair Rehab Potential: Fair I certify that the patient requires SNF services: Yes Overall status at discharge: patient is progressing back to baseline Discharge Orders: Discharge Order (Routine); Ordered 04/01/20 Ordered By: Tyrell Leonard [facility] Deep Vein Thrombosis/Pulmonary Embolism Present on Admission: No
[2020-03-30] MEDS ORDERED: fentaNYL 12 MCG PATCH TOPICAL SCH (10:30)
[2020-03-30] MEDS: VANCOMYCIN 1,000 MG in 0.9 % SODIUM CHLORIDE 250 ML IV SCH (10:44)
[2020-03-30] MEDS: oxyCODONE HCL 5 MG TABLET PO PRN (18:54)
[2020-03-30] MEDS: LIDOCAINE PATCH TOPICAL SCH (20:03)
[2020-03-30] MEDS: tiZANidine 4 MG TABLET PO SCH (20:03)
[2020-03-31] MEDS: oxyCODONE HCL 5 MG TABLET PO PRN ×2 (01:48→10:18)
[2020-03-31] MEDS: 0.9 % SODIUM CHLORIDE 10 ML SYRINGE IV SCH ×3 (05:12→20:44)
[2020-03-31] MEDS: traMADol 50 MG TABLET PO PRN (05:12)
--- NOTE | 2020-03-31 07:45 | Internal Med Progress Note ---
SUBJECTIVE Subjective Patient information: Note initiated : 03/31/20 at 7:41 am Service Date, if different from initiated Date: [] Patient: Kiera Angeles 84 y/o F admitted on 03/28/20 for back pain. Chief Complaint: [] Interval history: History of present illness: Ms. 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 She attributes to fall due to profound weakness and since the fall has been sitting on a chair incontinent. She is on multiple medication for chronic back pain that has likely exacerbated her weakness. During initial work-up in the ER with a lumbar spine CT shows acute fracture L3. Patient was started on pain medications. UA significant pyuria.Patient started on antibiotic coverage and subsequently hospitalist service was consulted due to high risk decompensation if discharged home At the time of my evaluation patient is alert but in fair amount of anxiety and pain. She is able to answer most the question. She has multiple family members at home. However due to profound weakness and debility stated they have not been able to help her over the last few days. She denies associated diarrhea, bloody stool, headache, photophobia or sick contacts. She further denies fever chills, cough or shortness of breath. She has not been able to carry ADLs over the last few days 03/29-patient doing well. However persistent back pain on movement. Left foot 3rd-5th metatarsal fracture. Orthopedics been consulted for weightbearing status and orthotic recommendations. PT on board. No overnight fever chills. Stable hemodynamics. GPC on blood cultures as of 03/27. Repeat surveillance cultures today. Urine cultures pending. Started on vancomycin. No overnight fever chills. Check echocardiogram. Persistent weakness. Anticipate SNF transfer on discharge with antibiotics. 03/30 Occasional back spasm. Complaints of constipation. Occasional mild nausea. E. coli sensitive to cephalosporins and Macrobid; resistant to fluoroquinolones. *I called microbiology regarding the reported blood culture results that were faxed over but were not reported on the system. The faxed over report mentions MRSA however in clarifying with microbiology that was an error generated by the system. It is growing however coag negative staph, which is likely contamination. 2/16 Patient taking [place] quite often. She does take oxycodone at home. We will increase fentanyl. Review of Systems: denies headache/fever/chills/vomiting/chest or abdominal pain/cough/dyspnea/diarrhea. Otherwise see above. Constitutional Vitals: Vital Signs Temp Pulse Resp BP Pulse Ox 98.1 F 60 16 120/65 90 03/31/20 07:32 03/31/20 07:32 03/31/20 07:32 03/31/20 07:32 03/31/20 03:45 Period Temp Pulse Resp BP Sys/[place] Pulse Ox Last 24 Hr 97.8 F-98.9 F 60-86 12-18 107-137/55-75 90-97 Intake and Output 03/30/20 03/31/20 03/31/20 21:59 05:59 13:59 Intake Total 240 720 Output Total 700 1275 Balance -460 -555 Weight 82.327 kg Intake & Output: Intake & Output 03/30/20 03/31/20 03/31/20 21:59 05:59 13:59 Intake Total 240 720 Output Total 700 1275 Balance -460 -555 Weight 82.327 kg Intake: Oral 240 720 Output: Urine Catheter Amount 700 1275 Other: Meal Dinner Percent of Meal Consumed 100% Feeding Ability Independent Urine Appearance Clear Clear Urine Color Pale Bright Yellow Urine Odor Normal Exam: General: Alert, Awake, No acute Distress Eyes/N/T: EOMI, Head/Neck: neck supple, CV: RRR, 2/6 SM Pulm: Clear b/l, no wheezing/rhonchi/rales Abd: soft, nontender, +BS x4 Ext: no clubbing/cyanosis/edema Neuro: Alert, no focal deficits, moves all extremities, Skin: warm/dry OBJ DATA Labs CBC & Chem 7: 03/29/20 05:51 03/29/20 05:51 Labs: Abnormal Lab Results 03/29/20 03/29/20 05:51 05:51 RBC 3.41 L Hgb 10.8 L Hct 35.3 L MCV 103.5 H MCHC 30.6 L MPV 11.3 H Eos % (Auto) 8.3 H Lymph # (Auto) 1.30 L [place] # (Auto) 0.98 H Anion Gap 6.0 L Calcium 8.2 L Total Protein 5.5 L Albumin 2.9 L Meds: Medications Acetaminophen (Tylenol) 650 mg PO Q6HP PRN; Protocol PRN Reason: Per Pain Protocol/Fever > 101 Last Admin: 03/29/20 11:26 Dose: 650 mg Documented by: Hydrocodone Bitart/Acetaminophen ([place] 5/325mg) 1 tab PO Q4HP PRN; Protocol PRN Reason: PAIN LEVEL 3-6 Last Admin: 03/30/20 21:28 Dose: 1 tab Documented by: Ascorbic Acid (Vitamin C) 1,000 mg PO DAILY [facility] Last Admin: 03/30/20 08:45 Dose: 1,000 mg Documented by: Benzonatate (Tessalon) 200 mg PO TIDP PRN PRN Reason: Cough Last Admin: 03/30/20 21:28 Dose: 200 mg Documented by: Bisacodyl (Dulcolax) 10 mg NE Q2-3DAYS PRN PRN Reason: Constipation Docusate Sodium (Colace) 100 mg PO BID [facility] Last Admin: 03/30/20 20:03 Dose: 100 mg Documented by: Escitalopram Oxalate (Lexapro) 5 mg PO DAILY [facility] Last Admin: 03/30/20 08:45 Dose: 5 mg Documented by: Fentanyl (Duragesic) 12 mcg TOPICAL Q72H [facility] Last Admin: 03/30/20 10:43 Dose: 12 mcg Documented by: Fexofenadine HCl (Arianne) 180 mg PO DAILYP PRN PRN Reason: Allergy Symptoms Fluticasone Propionate (Flonase) 1 spray NS QDAY PRN PRN Reason: Allergy Symptoms Gabapentin (Neurontin) 300 mg PO TID [facility] Last Admin: 03/30/20 20:02 Dose: 300 mg Documented by: Guaifenesin (Mucinex) 1,200 mg PO Q12H PRN PRN Reason: Congestion Heparin Sodium (Porcine) (Heparin) 5,000 unit SQ Q12 [facility] Last Admin: 03/30/20 20:03 Dose: 5,000 unit Documented by: Hydromorphone HCl (Dilaudid) 0.25 - 0.5 mg IV Q4HP PRN; Protocol PRN Reason: Per Pain Protocol Last Admin: 03/30/20 08:43 Dose: 0.5 mg Documented by: Potassium Chloride 40 meq/ (Dextrose) 520 mls @ 130 mls/hr IV UD PRN PRN Reason: K+ = or < 3.5 Acetaminophen (Ofirmev) 650 mg in 65 mls @ 130 mls/hr IV Q6HP PRN; Protocol PRN Reason: Per Pain Protocol/Fever > 101 Magnesium Sulfate (Magnesium Sulfate) 2 gm in 50 mls @ 50 mls/hr IV UD PRN PRN Reason: MG = or < 1.7 Ceftriaxone Sodium 2 gm/ (Dextrose) 50 mls @ 100 mls/hr IV Q24H [facility]; Protocol Last Infusion: 03/30/20 09:10 Dose: Infused Documented by: Vancomycin HCl 1,000 mg/ (Sodium Chloride) 250 mls @ 250 mls/hr IV Q24H [facility] Last Admin: 03/30/20 10:44 Dose: 250 mls/hr Documented by: Iron Carb/Multivit/Patient Services Representative/Folic Acid (Multivitamin W/Minerals) 1 tab PO DAILY [facility] Last Admin: 03/30/20 08:45 Dose: 1 tab Documented by: Lactulose (Cephulac) 10 gm PO DAILYP PRN PRN Reason: Constipation Lidocaine (Lidoderm) 1 patch TOPICAL [facility] Last Admin: 03/30/20 20:03 Dose: 1 patch Documented by: Melatonin (Melatonin 3mg Tablet) 3 mg PO HSP PRN PRN Reason: Insomnia Methocarbamol (Robaxin) 500 mg PO DAILY [facility] Last Admin: 03/30/20 08:45 Dose: 500 mg Documented by: Methocarbamol (Robaxin) 1,000 mg PO HS [facility] Last Admin: 03/30/20 20:03 Dose: 1,000 mg Documented by: Ondansetron HCl (Zofran) 4 mg IV Q4HP PRN; Protocol PRN Reason: Nausea And Vomiting Ondansetron HCl (Zofran Odt) 4 mg SL Q4-6HP PRN; Protocol PRN Reason: Nausea And Vomiting Oxycodone HCl (Roxicodone) 10 - 20 mg PO Q6HP PRN PRN Reason: Pain Last Admin: 03/31/20 01:48 Dose: 10 mg Documented by: Potassium Bicarb- (Magnesium 21 Cap) 1 dose PO BID [facility] Last Admin: 03/30/20 21:28 Dose: Not Given Documented by: Polyethylene Glycol (Miralax) 17 gm PO DAILYP PRN PRN Reason: Constipation Last Admin: 03/30/20 08:45 Dose: 17 gm Documented by: Potassium Chloride (Klor-Con) 40 meq PO DAILYP PRN PRN Reason: K+ < 3.5 Prednisone (Prednisone) 10 mg PO QAMCC [facility] Last Admin: 03/30/20 08:45 Dose: 10 mg Documented by: Senna (Senokot) 1 tab PO DAILY [facility] Last Admin: 03/30/20 08:45 Dose: 1 tab Documented by: Simethicone (Mylicon) 240 mg CHEWED TIDP PRN PRN Reason: ABDOMINAL PAIN Sodium Chloride (Saline Flush) 10 ml IV Q8 [facility] Last Admin: 03/31/20 05:12 Dose: 10 ml Documented by: Tamsulosin HCl (Flomax) 0.4 mg PO QDAY [facility] Last Admin: 03/30/20 08:45 Dose: 0.4 mg Documented by: Thyroid (Thyroid) 180 mg PO ACB [facility] Last Admin: 03/30/20 08:44 Dose: 180 mg Documented by: Tizanidine HCl (Zanaflex) 4 mg PO QHS [facility] Last Admin: 03/30/20 20:03 Dose: 4 mg Documented by: Tramadol HCl ([place]) 50 mg PO DAILYP PRN; Protocol PRN Reason: Pain Last Admin: 03/31/20 05:12 Dose: 50 mg Documented by: Vancomycin HCl (Vancomycin Per Pharmacy) 1 order IV UD [facility]; Protocol Vitamin B Complex (Vitamin B Complex) 1 cap PO BID [facility] Last Admin: 03/30/20 20:03 Dose: 1 cap Documented by: A/P Narrative A/P Narrative: A: *Intractable lower back pain d/t Traumatic L3 Fx (h/o osteoporosis and underlyin g steroid use): -improved *Complicated UTI (E. coli sensitive to cephalosporins and Macrobid; resistant to fluoroquinolones): *Left 3rd-5th metatarsal bone fracture: *Anxiety disorder: continue escitalopram *h/o Polyarthritis: Follows with Dr. Landis and is on prednisone *Hypothyroidism: *Obesity: *COPD: *SSS w/ppm: Plan: -started fentanyl patch, norco prn, antispasmodics/tylenol/lidoderm patch. Topical NSAIDs/P. Therapy as indicated -rocephin -Orthopedic f/u for left 3rd-5th metatarsal fracture management recommendations -Outpatient pain clinic referral for possible vertebroplasty/continue outpatient pain management -PT OT/nutrition support -Discharge planning per case management, likely SNF transfer -ppx: Heparin full code? Time Spent With Patient Time: Total time spent is greater than 50% in coordination of care (as documented) at patient's floor/unit and/or counseling patient: [facility] VTE Deep Vein Thrombosis/Pulmonary Embolism Present on Admission: No
[2020-03-31] MEDS: THYROID, PORK 60 MG TABLET PO SCH (08:10)
[2020-03-31] MEDS: SENNOSIDES 1 TABLET PO SCH (08:10)
[2020-03-31] MEDS: VITAMIN B COMPLEX 1 CAPSULE PO SCH ×2 (08:10→20:43)
[2020-03-31] MEDS: HYDROcodone/APAP 5/325MG TABLET PO PRN (08:11)
[2020-03-31] MEDS: GABAPENTIN 300 MG CAPSULE PO SCH ×3 (08:11→20:42)
[2020-03-31] MEDS: ASCORBIC ACID 500 MG TABLET PO SCH (08:11)
[2020-03-31] MEDS: MULTIVIT,THER IRON,CA,FA & MIN 1 TABLET PO SCH (08:11)
[2020-03-31] MEDS: METHOCARBAMOL 500 MG TABLET PO SCH ×2 (08:11→20:43)
[2020-03-31] MEDS: ESCITALOPRAM 10 MG TABLET PO SCH (08:11)
[2020-03-31] MEDS: DOCUSATE SODIUM 100 MG CAPSULE PO SCH ×2 (08:11→20:42)
[2020-03-31] MEDS: TAMSULOSIN 0.4 MG CAPSULE PO SCH (08:11)
[2020-03-31] MEDS: predniSONE 5 MG TABLET PO SCH (08:11)
[2020-03-31] MEDS: cefTRIAXone 2 GM in DEXTROSE 5% IN WATER 50 ML IV SCH (08:12)
[2020-03-31] MEDS: HEPARIN 5,000 UNIT/ML VIAL SQ SCH ×2 (08:19→20:42)
[2020-03-31] MEDS: [UNRECOGNIZED DRUG - OTHER] PO SCH ×2 (08:19→20:44)
[2020-03-31] MEDS ORDERED: fentaNYL 12 MCG PATCH TOPICAL SCH (08:30)
[2020-03-31] MEDS ORDERED: HYDROcodone/APAP 5/325MG TABLET PO PRN (08:34)
[2020-03-31] MEDS ORDERED: fentaNYL 25 MCG PATCH TOPICAL SCH (09:15)
[2020-03-31] MEDS: HYDROmorphone 0.5 MG/0.5 ML SYRINGE IV PRN (12:07)
[2020-03-31] MEDS ORDERED: HYDROmorphone 0.5 MG/0.5 ML SYRINGE IV PRN (13:16)
[2020-03-31] MEDS ORDERED: oxyCODONE HCL 5 MG TABLET PO PRN (13:43)
[2020-03-31] MEDS ORDERED: KETOROLAC 15 MG/ML VIAL IV ONE (13:44)
[2020-03-31] MEDS ORDERED: KETOROLAC 15 MG/ML VIAL IV PRN (13:44)
[2020-03-31] MEDS ORDERED: METHOCARBAMOL 750 MG TABLET PO PRN (13:45)
[2020-03-31] MEDS ORDERED: cefTRIAXone 1 GM in DEXTROSE 5% IN WATER 50 ML IV SCH (14:00)
[2020-03-31] MEDS: cefTRIAXone 1 GM VIAL IV SCH (15:13)
[2020-03-31] MEDS: oxyCODONE/APAP 10/325MG TABLET PO PRN ×2 (15:13→21:57)
[2020-03-31] MEDS: tiZANidine 4 MG TABLET PO SCH (20:43)
[2020-03-31] MEDS: LIDOCAINE PATCH TOPICAL SCH (21:37)
[2020-04-01] MEDS: 0.9 % SODIUM CHLORIDE 10 ML SYRINGE IV SCH (04:12)
[2020-04-01] MEDS: oxyCODONE/APAP 10/325MG TABLET PO PRN ×2 (04:12→11:08)
[2020-04-01] MEDS: THYROID, PORK 60 MG TABLET PO SCH (07:21)
[2020-04-01] MEDS ORDERED: KETOROLAC 30 MG/ML VIAL IV ONE (08:00)
[2020-04-01] MEDS: cefTRIAXone 1 GM VIAL IV SCH (08:23)
[2020-04-01] MEDS: VITAMIN B COMPLEX 1 CAPSULE PO SCH (08:24)
[2020-04-01] MEDS: GABAPENTIN 300 MG CAPSULE PO SCH (08:24)
[2020-04-01] MEDS: ASCORBIC ACID 500 MG TABLET PO SCH (08:24)
[2020-04-01] MEDS: predniSONE 5 MG TABLET PO SCH (08:24)
[2020-04-01] MEDS: TAMSULOSIN 0.4 MG CAPSULE PO SCH (08:24)
[2020-04-01] MEDS: ESCITALOPRAM 10 MG TABLET PO SCH (08:24)
[2020-04-01] MEDS: HEPARIN 5,000 UNIT/ML VIAL SQ SCH (08:24)
[2020-04-01] MEDS: [UNRECOGNIZED DRUG - OTHER] PO SCH (08:25)
[2020-04-01] MEDS: MULTIVIT,THER IRON,CA,FA & MIN 1 TABLET PO SCH (08:25)
[2020-04-01] MEDS: DOCUSATE SODIUM 100 MG CAPSULE PO SCH (08:25)
[2020-04-01] MEDS: SENNOSIDES 1 TABLET PO SCH (08:26)
[2020-04-01] MEDS ORDERED: CALCIUM CARBONATE 500 MG TAB.CHEW CHEWED SCH (09:00)
[2020-04-01] MEDS ORDERED: VITAMIN D3 5,000 UNIT CAPSULE PO SCH (09:00)
[2020-04-01] MEDS: traMADol 50 MG TABLET PO PRN (13:57)
== END 2020-04-01 14:10 | DRG 552 ==
LOC: ED 22:52 → MEDSUR 03-28 02:21
PROVIDERS: ADMIT Internal Medicine; ATTEND Internal Medicine

== ENCOUNTER 2020-11-01 16:07 | Inpatient (IN) ==
[2020-11-01] MEDS ORDERED: IOPAMIDOL 100 ML BOTTLE IV ONE (16:08)
[2020-11-01 16:46] LABS: POC Blood Urea Nitrogen 21 mg/dL (6-20); POC CO2 28 mmol/L (22-30); POC Calcium, Ionized 1.13 mmEq/L (1.16-1.32); POC Chloride 104 mEq/L (96-108); POC Creatinine 0.8 mg/dL (0.6-1.2); POC Glucose, Random 121 mg/dL (70-105); POC Hematocrit 40 % (36-48); POC Potassium 4.2 mEql/L (3.3-5.1); POC Sodium 138 mEq/L (133-145)
--- NOTE | 2020-11-01 17:17 | Emergency Department Note ---
GI Bleed HPI General Chief complaint: Rectal Bleed Stated complaint: rectal bleeding Time Seen by Provider: 11/01/20 16:29 Source: EMS Mode of arrival: wheelchair Limitations: no limitations History of Present Illness HPI Narrative: Narrative: Patient is an 85-year-old female that comes in to the emergency department today by EMS after she was at home and noticed bright red blood in the toilet after she went to the bathroom. Patient reports that she feels the blood is coming from her rectum. Patient has a new onset of lower abdominal discomfort that she describes as aching sensation. This pain started this morning. She has not had any fevers or chills. She denies previous history of rectal bleed. She has not had any constipation or diarrhea. She does not take anticoagulants. She has not had any chest pain, shortness of breath, confusion, weakness, or difficulty breathing. Related Data Home Medications Medication Instructions Recorded Confirmed alpha lipoic acid 300 mg PO BID 10/23/14 09/16/20 ascorbic acid (vitamin C) 1,000 mg PO DAILY 10/23/14 09/16/20 benzonatate 200 mg PO PRN PRN 10/23/14 11/01/20 calcium citrate 1,000 mg PO DAILY 10/23/14 11/01/20 cholecalciferol (vitamin D3) 5,000 unit PO DAILY 10/23/14 09/16/20 methocarbamol 500 mg PO DAILY 10/23/14 09/16/20 Activite 1 tab PO BID 08/20/19 09/16/20 [place] Thyroid 180 mg PO QDAY 08/20/19 11/01/20 escitalopram oxalate 5 mg PO QDAY 08/20/19 11/01/20 gabapentin 300 mg PO TID 08/20/19 09/16/20 ondansetron 4 mg PO Q8H PRN 08/20/19 09/16/20 prednisone 10 mg PO QDAY 08/20/19 09/16/20 simethicone [Gas-X Extra Strength] 250 mg PO PRN PRN 08/20/19 09/16/20 tizanidine 4 mg PO QHS 08/20/19 11/01/20 turmeric-herbal complex no.278 150 mg PO DAILY 08/20/19 11/01/20 [id number] 3.5 1 drp OPHTHALMIC Q12H 10/23/19 09/16/20 mg/mL-10,000 unit/mL-0.1% eye drops Collagen 3 tab PO DAILY 03/28/20 09/16/20 alpha lipoic acid-herbal 305 300 mg PO BID 03/28/20 09/16/20 fexofenadine [Arianne Allergy] 180 mg PO QID PRN 03/28/20 09/16/20 fluticasone propionate [Flonase 1 spray INTRANASAL QDAY PRN 03/28/20 09/16/20 Allergy Relief] guaifenesin [Mucinex] 1,200 mg PO Q12H PRN 03/28/20 11/01/20 potassium bicarb-magnesium 21 1 cap PO BID 03/28/20 09/16/20 tamsulosin [Flomax] 0.4 mg PO QDAY 03/28/20 09/16/20 benzonatate 100 mg capsule See Rx Instructions PO TID 08/31/20 09/16/20 cimetidine 200 mg tablet 200 mg PO QDAY tab 08/31/20 09/16/20 esomeprazole magnesium 20 mg 20 mg PO QDAY 08/31/20 09/16/20 capsule,delayed release loperamide 2 mg tablet 4 mg PO ONCE PRN tab 08/31/20 09/16/20 lorazepam 0.5 mg tablet 0.5 mg PO QDAY PRN 08/31/20 09/16/20 methocarbamol 500 mg tablet 1,000 mg PO Q6H tab 08/31/20 11/01/20 nitrofurantoin 100 mg PO BID 08/31/20 09/16/20 monohydrate/macrocrystals 100 mg capsule ondansetron HCl 4 mg tablet 4 mg PO .Q4-6H PRN tab 08/31/20 09/16/20 tizanidine 2 mg tablet 2 mg PO BID PRN 08/31/20 09/16/20 Previous Rx's Medication Instructions Recorded lidocaine 1 patch TOPICAL HS #7 ea 03/30/20 nitrofurantoin monohyd/m-cryst 100 mg PO BID #2 cap 04/01/20 [Macrobid] doxycycline monohydrate 100 mg PO BID #14 tab MDD 2 05/19/20 albuterol sulfate 2 puff INHALATION QID PRN #8.5 g 06/23/20 doxycycline hyclate 100 mg PO BID #20 cap 06/23/20 prednisone 50 mg PO QDAY #5 tab 06/23/20 fentanyl 25 mcg/hr transdermal 1 patch TRANSDERMAL Q72H #10 ea 10/26/20 patch Allergies Allergy/AdvReac Type Severity Reaction Status Date / Time Barbiturates Allergy Severe Swelling Verified 11/01/20 16:14 of Lip/Tongue/Throat morphine Allergy Severe Anaphylaxis Verified 11/01/20 16:14 Cyclobenzaprine AdvReac Intermediate Other Verified 11/01/20 16:14 [From Flexeril] famotidine AdvReac Intermediate Rash Verified 11/01/20 16:14 lansoprazole AdvReac Intermediate Rash Verified 11/01/20 16:14 omeprazole AdvReac Intermediate Rash Verified 11/01/20 16:14 pantoprazole AdvReac Intermediate Rash Verified 11/01/20 16:14 Review of Systems ROS ROS Narrative: Narrative: All systems ED: reviewed and negative except as stated. PFS Narrative Patient History Narrative: Narrative: Medical/Surgical/Family History All Active Problems (Updated 11/01/20 @ 18:33 by GIUSEPPE Mob[place]) BRBPR (bright red blood per rectum) (Acute) Polyarthritis rheumatica (Chronic) Arthritis (Chronic) Acute UTI (Acute) Closed lumbar vertebral fracture (Acute) Fracture of third metatarsal bone (Acute) Fracture of fourth metatarsal bone (Acute) Fracture of fifth metatarsal bone (Acute) Weakness (Acute) Cellulitis (Acute) Back pain (Acute) Acute exacerbation of chronic obstructive pulmonary disease (COPD) (Acute) Pneumonia (Acute) Lumbar stenosis with neurogenic claudication (Chronic) Thoracic spondylosis (Chronic) Thoracic radiculopathy (Chronic) Radiculopathy, lumbar region (Acute) Heart disease (Chronic) History of tobacco use (Chronic) Radiculopathy, lumbar region (Chronic) Myofascial pain (Chronic) Pain in joint of right knee (Chronic) Personal history of (healed) osteoporosis fracture (Chronic) Intercostal pain (Chronic) Strain of lumbar region (Acute) UTI (urinary tract infection) (Acute) Non-cardiac chest pain (Acute) Encounter for long-term current use of high risk medication (Acute) HX: breast cancer (Chronic) COPD (chronic obstructive pulmonary disease) (Chronic) Sleep apnea (Chronic) Anxiety (Chronic) Depression (Chronic) Wrist fracture (Chronic) Pelvic fracture (Chronic) Compression fracture (Chronic) Eczema (Chronic) DJD (degenerative joint disease) (Acute) Type II diabetes mellitus (Chronic) Osteoporosis (Chronic) Age-related osteoporosis with current pathological fracture (Chronic) Other urticaria (Chronic) Gastro-esophageal reflux disease without esophagitis (Chronic) Major depressive disorder, recurrent, moderate (Chronic) Medical History (Updated 11/01/20 @ 18:33 by GIUSEPPE [place]) Age-related osteoporosis with current pathological fracture Anxiety Arthritis Compression fracture COPD (chronic obstructive pulmonary disease) Depression DJD (degenerative joint disease) Eczema Encounter for long-term current use of high risk medication Gastro-esophageal reflux disease without esophagitis Heart disease History of tobacco use HX: breast cancer Intercostal pain Lumbar stenosis with neurogenic claudication Major depressive disorder, recurrent, moderate Myofascial pain Osteoporosis Other urticaria Pain in joint of right knee Pelvic fracture Personal history of (healed) osteoporosis fracture Polyarthritis rheumatica Radiculopathy, lumbar region Radiculopathy, lumbar region Sleep apnea Thoracic radiculopathy Thoracic spondylosis Type II diabetes mellitus Wrist fracture Surgical History History of surgery Intercostal Nerve Block, Lt T7-10 w/o sed 09/30/19 LESI #1 L3-4 w/o sed 09/30/19 LESI #1 L4-5 w/o sed 08/14/2018 LESI #2 L3-4 w/o sed 11/06/2017 LESI #1 L4-5 w/o sed 05/23/2017 Knee Joint Injection, Right w/o sed 04/15/2015 LESI #2 L4-5 w/o sed 04/15/2015 Trigger Point Injection 1-2 w/o sed 03/26/15 LESI #1 L4-5 w/o sed 03/26/15 Vertebro Aug T12, L1 w/sed 07/31/14 Hx laparoscopic cholecystectomy (11/12/09) Hx of appendectomy 2009 Hx of cardiac pacemaker 10/2010 Hx of lumpectomy 10/2009 Hx of mastectomy 10/2009. 02/2011 Hx of surgical procedure aortal bi-femoral graft Family History (Updated 08/31/20 @ 13:55 by Reshma Engle) Other Cancer Social History Smoking Status: Former smoker Alcohol Intake Frequency: holiday/special occasion only Substance Use: marijuana Exam Narrative Narrative: Narrative: General Limitations: no limitations General appearance: Present alert and in no apparent distress Head Head: Present normocephalic Eye Eye: Present normal appearance; Absent scleral icterus ENT ENT: Present normal oropharynx and mucous membranes moist Neck Neck: Present full ROM; Absent meningismus and lymphadenopathy Chest Chest: Present symmetric chest wall rise Respiratory Respiratory: Present normal lung sounds bilaterally and decreased breath sounds (based bilaterally.); Absent respiratory distress, wheezes, stridor, accessory muscle use and prolonged expiratory phase Cardiovascular Cardiovascular: Present regular rate, normal rhythm and normal heart sounds; Absent systolic murmur and diastolic murmur Adbominal Abdominal: Present soft and tenderness (Mild right and left lower quadrant abdominal tenderness.); Absent distention, rebound, organomegaly and pulsatile mass Rectal Rectal: Present normal inspection, normal rectal tone, heme (+) stool and bloody stool; Absent black stool, fecal impaction, hemorrhoids and mass Extremities Extremities: Present normal inspection, full ROM and normal capillary refill; Absent pedal edema, pretibial edema and cyanosis Back Back: Present normal inspection Neurological Neurological: Present alert and oriented X3 Psychiatric Psychiatric: Present normal affect and normal mood Skin Skin: Present warm (WNL), dry and normal color Course Vital Signs Vital signs: Vital Signs Temperature 98.3 F 11/01/20 16:09 Pulse Rate 87 11/01/20 16:09 Respiratory Rate 16 11/01/20 16:09 Blood Pressure 132/67 11/01/20 16:09 Pulse Oximetry (%) 94 11/01/20 16:09 Temperature 98.3 F 11/01/20 16:09 Pulse Rate 60 11/01/20 17:17 Respiratory Rate 16 11/01/20 16:09 Blood Pressure 111/84 11/01/20 17:17 Pulse Oximetry (%) 94 11/01/20 17:17 [facility] MDM Narrative Medical decision making narrative: Narrative: 85-year-old female with bright red blood per rectum that came to the emergency department today by EMS. Digital rectal examination today reveals positive guaiac. Patient has bright red blood on examination, and red blood in her pull up today. She does not appear to have any source of active bleed at this time. I was able to consult with Dr. Vincent Gibson who is on-call for general surgery. Given that the patient is 85 years old and having bright red blood per rectum with the lower abdominal pain we will proceed with a CT abdomen pelvis with contrast for further evaluation of source of the bleed such as a mass, tumor, or diverticulitis. Patient's blood pressure 111/84, pulse 60, and oxygen saturation 94% on room. Radiologist, Dr. Villalpando read the CT abdomen and pelvis with contrast, and he was able to call me with results. The findings on the CT scan revealed diverticulosis without any sign of diverticulitis. A small hiatal hernia, liver cyst, no mass, chronic pancreatitis, and no sign of metastasis from patient's history of breast cancer. I was able to consult again with Dr. Vincent Gibson. Dr. Gibson would like patient to be admitted today to [facility] for GI bleed and will have bowel prep with colonoscopy anticipated for tomorrow morning. Patient's H&H today is normal. White count 11.9. Chemistry panel unremarkable. Patient has stable vital signs. Patient will be admitted to [facility] today. Lab Data Result diagrams: 11/01/20 17:18 11/01/20 17:18 Labs: Lab Results 11/01/20 11/01/20 11/01/20 Range/Units 16:40 17:18 17:18 WBC 11.9 H (4.5-11.0) K/mcL RBC 4.24 (3.59-5.38) M/mcL Hgb 13.3 (11.2-15.7) g/dL Hct 42.8 (34.1-44.9) % POC Hct 40 (36-48) % MCV 100.9 H (80.0-100.0) fL MCH 31.4 (26.0-34.0) pg MCHC 31.1 (31.0-36.0) g/dL RDW 14.1 (11.5-14.5) % Plt Count 223 (140-440) K/mcL MPV 10.6 H (7.4-10.4) fL Neut % (Auto) 85.0 H (38.0-78.0) % Lymph % (Auto) 8.0 L (15.5-49.0) % [place] % (Auto) 6.0 (1.0-12.0) % Eos % (Auto) 0.7 (0.0-7.0) % Baso % (Auto) 0.3 (0.0-2.0) % Lymph # (Auto) 0.95 L (1.50-4.80) K/mcL [place] # (Auto) 0.71 (0.10-0.90) K/mcL Eos # (Auto) 0.08 (0.00-0.70) K/mcL Baso # (Auto) 0.03 (0.00-0.30) K/mcL Absolute Neutrophils 10.10 H (1.80-8.00) K/mcL POC Sodium 138 (133-145) mEq/L Sodium 138 (133-145) mmol/L POC Potassium 4.2 (3.3-5.1) mEql/L Potassium 4.0 (3.3-5.1) mmol/L POC Chloride 104 (96-108) mEq/L Chloride 100 (96-108) mmol/L Carbon Dioxide 27 (22-30) mmol/L POC Total CO2 28 (22-30) mmol/L Anion Gap 11.0 (8.0-16.0) POC BUN 21 H (6-20) mg/dL BUN 15 (8-23) mg/dL Creatinine 0.8 (0.6-1.1) mg/dL POC Creatinine 0.8 (0.6-1.2) mg/dL GFR Calculation 67 Glucose 111 H (70-105) mg/dL POC Glucose 121 H (70-105) mg/dL Calcium 10.0 (8.6-10.4) mg/dL POC WB Ioniz Calcium 1.13 L (1.16-1.32) mmEq/L Total Bilirubin 0.4 (0.1-1.0) mg/dL AST 20 (<32) U/L ALT 17 (<40) U/L Alkaline Phosphatase 130 H (39-117) U/L Total Protein 6.9 (5.9-8.4) gm/dL Albumin 3.8 (3.2-5.2) gm/dL Globulin 3.1 (2.2-3.7) gm/dL Albumin/Globulin Ratio 1.2 (1.0-2.3) Discharge Plan Patient/Caregiver Discharge Instructions Pt seen by GARAGE LABORER/PA only: No Clinical Impression: BRBPR (bright red blood per rectum) Patient Disposition: Xfer As Inpt ([facility]) Condition: Good Follow up with: Hu Solis ARNP [Primary Care Provider] - Prescriptions: No Action fentanyl 25 mcg/hr patch 72 hour 1 patch transdermal Q72H Qty: 10 RF: 0 nitrofurantoin monohyd/m-cryst [Macrobid] 100 mg capsule 100 mg PO BID RF: 0 lorazepam 0.5 mg tablet 0.5 mg PO QDAY PRNRF: 0 loperamide 2 mg tablet 4 mg PO ONCE PRNRF: 0 benzonatate [Tessalon Perles] 100 mg capsule See Rx Instructions PO TID RF: 0 ondansetron HCl 4 mg tablet 4 mg PO .Q4-6H PRNRF: 0 tizanidine 2 mg tablet 2 mg PO BID PRNRF: 0 esomeprazole magnesium [Nexium] 20 mg capsule,delayed release(DR/EC) 20 mg PO QDAY RF: 0 cimetidine [Tagamet HB] 200 mg tablet 200 mg PO QDAY RF: 0 neomycin-polymyxin B-dexameth 3.5mg/mL-10,000 unit/mL-0.1 % drops,suspension 1 drp OPHTHALMIC Q12H RF: 0 benzonatate 200 MG capsule 200 mg PO PRN PRN (Reason: Cough) RF: 0 methocarbamol 500 MG tablet 500 mg PO DAILY RF: 0 ascorbic acid (vitamin C) 1,000 MG tablet 1,000 mg PO DAILY RF: 0 cholecalciferol (vitamin D3) 2,000 UNIT tablet 5,000 unit PO DAILY RF: 0 calcium citrate 250 MG tablet 1,000 mg PO DAILY RF: 0 alpha lipoic acid 100 MG capsule 300 mg PO BID RF: 0 prednisone 5 mg Tablet 10 mg PO QDAY RF: 0 simethicone [Gas-X Extra Strength] 125 mg Capsule 250 mg PO PRN PRN (Reason: Abdominal Discomfort) RF: 0 Activite 1 mg Tablet 1 tab PO BID RF: 0 gabapentin 300 mg Capsule 300 mg PO TID RF: 0 ondansetron 4 mg Tablet,Disintegrating 4 mg PO Q8H PRN (Reason: Nausea) RF: 0 escitalopram oxalate 5 mg Tablet 5 mg PO QDAY RF: 0 tizanidine 4 mg Capsule 4 mg PO QHS RF: 0 [place] Thyroid 180 mg Tablet 180 mg PO QDAY RF: 0 turmeric-herbal complex no.278 150 mg Capsule 150 mg PO DAILY RF: 0 tamsulosin [Flomax] 0.4 mg Capsule 0.4 mg PO QDAY RF: 0 fexofenadine [Arianne Allergy] 180 mg Tablet 180 mg PO QID PRN (Reason: Allergy Symptoms) RF: 0 guaifenesin [Mucinex] 600 mg Tablet Extended Release 12hr 1,200 mg PO Q12H PRN (Reason: Congestion) RF: 0 alpha lipoic acid-herbal 305 150 mg Capsule 300 mg PO BID RF: 0 potassium bicarb-magnesium 21 1 cap PO BID RF: 0 Collagen 3 tab PO DAILY RF: 0 fluticasone propionate [Flonase Allergy Relief] 50 mcg/actuation [place],Suspension 1 spray INTRANASAL QDAY PRN (Reason: Allergy Symptoms) RF: 0 lidocaine 5 % Adhesive Patch,Medicated 1 patch topical HS Qty: 7 RF: 0 nitrofurantoin monohyd/m-cryst [Macrobid] 100 mg capsule 100 mg PO BID Qty: 2 RF: 0 methocarbamol 500 mg tablet 1,000 mg PO Q6H RF: 0 doxycycline monohydrate 100 mg tablet 100 mg PO BID MDD 2 Qty: 14 RF: 0 prednisone 50 mg tablet 50 mg PO QDAY Qty: 5 RF: 0 albuterol sulfate 90 mcg/actuation HFA aerosol inhaler 2 puff inhalation QID PRN (Reason: shortness of breath or wheezing) Qty: 8.5 RF: 0 doxycycline hyclate 100 mg capsule 100 mg PO BID Qty: 20 RF: 0
[2020-11-01 18:05] LABS: Basophils # (Auto) 0.03 K/mcL (0.00-0.30); Basophils % (Auto) 0.3 % (0.0-2.0); Eosinophils # (Auto) 0.08 K/mcL (0.00-0.70); Eosinophils % (Auto) 0.7 % (0.0-7.0); Hematocrit 42.8 % (34.1-44.9); Hemoglobin 13.3 g/dL (11.2-15.7); Lymphocytes # (Auto) 0.95 K/mcL (1.50-4.80); Mean Cell Volume 100.9 fL (80.0-100.0); Mean Corpuscular HGB Conc 31.1 g/dL (31.0-36.0); Mean Platelet Volume 10.6 fL (7.4-10.4); Monocytes # (Auto) 0.71 K/mcL (0.10-0.90); Platelet Count 223 K/mcL (140-440); RBC 4.24 M/mcL (3.59-5.38); Red Cell Distribution Width 14.1 % (11.5-14.5); WBC 11.9 K/mcL (4.5-11.0)
[2020-11-01 18:20] LABS: ALT/SGPT 17 U/L (<40); AST/SGOT 20 U/L (<32); Albumin 3.8 gm/dL (3.2-5.2); Albumin/Globulin Ratio 1.2 (1.0-2.3); Alkaline Phosphatase 130 U/L (39-117); Bilirubin,Total 0.4 mg/dL (0.1-1.0); Blood Urea Nitrogen 15 mg/dL (8-23); Carbon Dioxide 27 mmol/L (22-30); Chloride 100 mmol/L (96-108); Globulin 3.1 gm/dL (2.2-3.7); Glomerular Filtration Rate 67; Glucose 111 mg/dL (70-105)
--- NOTE | 2020-11-01 19:57 | General Surg History&Physical ---
HPI History of Present Illness Patient information: Note initiated : 11/01/20 at 7:55 pm Service Date, if different from initiated Date: [] Patient: Kiera Angeles 85 y/o F admitted on for rectal bleeding. Chief Complaint: [] Chief complaint: Rectal bleeding History of present illness: Ms. Angeles is a 85 year old F admitted with rectal bleeding. The patient states that she had onset of acute rectal bleeding earlier today. She had a large volume of blood in the commode and after wiping multiple times she had more bleeding. She has some crampy left-sided abdominal pain. She denies nausea or vomiting. She states that she had a similar episode 8 months ago but this resolved spontaneously and was not as severe. She is not on any type of blood thinners or antiplatelet drugs. She has a history of colon polyps with her last colonoscopy being performed in 2014. These were benign polyps. Patient is clinically stable and her hemoglobin is 13.3. She does not take any nonsteroidals. Constitutional Constitutional: Present fatigue, frequent falls, headache(s) and weakness EENT Eyes: Present blurry vision and decreased night vision Ears: Present decreased hearing Nose, mouth and throat: Present neck pain; Absent disequilibrium and dysphagia Breasts Breasts: Present other (History of left partial mastectomy) Cardiovascular Cardiovascular: Present dyspnea on exertion, irregular heart rhythm, lightheadedness and palpatations; Absent pedal edema Respiratory Respiratory: Absent cough, wheezing and chest congestion Gastrointestinal Gastrointestinal: Present abdominal pain, change in bowel habits and hematochezia; Absent heartburn and melena Genitourinary Genitourinary: Absent difficulty voiding, pelvic pain, urinary frequency, urinary hesitancy and urinary urgency Musculoskeletal Musculoskeletal: Present abnormal gait, arthralgias, muscle cramps, muscle weakness, myalgias, neck pain and radiating pain into limb Integumentary Integumentary: Present changing lesions; Absent unusual bruising Neurological Neurological: Present abnormal gait and lack of coordination; Absent confusion, dizziness, memory loss, paresthesias, radicular pain, syncope, tremor(s) and vertigo Psychiatric Psychiatric: Absent confusion, memory loss, mood swings and panic attacks Endocrine Endocrine: Absent cold intolerance, flushing, heat intolerance, palpitations, polydipsia, polyphagia and polyuria Hematologic/Lymphatic Hematologic/Lymphatic: Absent easy bleeding, easy bruising and lymphadenopathy Allergic/Immunologic Allergic/Immunologic: Absent tongue swelling, throat swelling, uticaria, wheezing and lip swelling PFSH PFSH All Active Problems (Updated 11/01/20 @ 20:09 by Roberto Gibson MD) History of diverticulosis (Acute) Rectal hemorrhage (Acute) BRBPR (bright red blood per rectum) (Acute) Polyarthritis rheumatica (Chronic) Arthritis (Chronic) Acute UTI (Acute) Closed lumbar vertebral fracture (Acute) Fracture of third metatarsal bone (Acute) Fracture of fourth metatarsal bone (Acute) Fracture of fifth metatarsal bone (Acute) Weakness (Acute) Cellulitis (Acute) Back pain (Acute) Acute exacerbation of chronic obstructive pulmonary disease (COPD) (Acute) Pneumonia (Acute) Lumbar stenosis with neurogenic claudication (Chronic) Thoracic spondylosis (Chronic) Thoracic radiculopathy (Chronic) Radiculopathy, lumbar region (Acute) Heart disease (Chronic) History of tobacco use (Chronic) Radiculopathy, lumbar region (Chronic) Myofascial pain (Chronic) Pain in joint of right knee (Chronic) Personal history of (healed) osteoporosis fracture (Chronic) Intercostal pain (Chronic) Strain of lumbar region (Acute) UTI (urinary tract infection) (Acute) Non-cardiac chest pain (Acute) Encounter for long-term current use of high risk medication (Acute) HX: breast cancer (Chronic) COPD (chronic obstructive pulmonary disease) (Chronic) Sleep apnea (Chronic) Anxiety (Chronic) Depression (Chronic) Wrist fracture (Chronic) Pelvic fracture (Chronic) Compression fracture (Chronic) Eczema (Chronic) DJD (degenerative joint disease) (Acute) Type II diabetes mellitus (Chronic) Osteoporosis (Chronic) Age-related osteoporosis with current pathological fracture (Chronic) Other urticaria (Chronic) Gastro-esophageal reflux disease without esophagitis (Chronic) Major depressive disorder, recurrent, moderate (Chronic) Medical History Age-related osteoporosis with current pathological fracture Anxiety Arthritis Compression fracture COPD (chronic obstructive pulmonary disease) Depression DJD (degenerative joint disease) Eczema Encounter for long-term current use of high risk medication Gastro-esophageal reflux disease without esophagitis Heart disease History of tobacco use HX: breast cancer Intercostal pain Lumbar stenosis with neurogenic claudication Major depressive disorder, recurrent, moderate Myofascial pain Osteoporosis Other urticaria Pain in joint of right knee Pelvic fracture Personal history of (healed) osteoporosis fracture Polyarthritis rheumatica Radiculopathy, lumbar region Radiculopathy, lumbar region Sleep apnea Thoracic radiculopathy Thoracic spondylosis Type II diabetes mellitus Wrist fracture Surgical History History of surgery Intercostal Nerve Block, Lt T7-10 w/o sed 09/30/19 LESI #1 L3-4 w/o sed 09/30/19 LESI #1 L4-5 w/o sed 08/14/2018 LESI #2 L3-4 w/o sed 11/06/2017 LESI #1 L4-5 w/o sed 05/23/2017 Knee Joint Injection, Right w/o sed 04/15/2015 LESI #2 L4-5 w/o sed 04/15/2015 Trigger Point Injection 1-2 w/o sed 03/26/15 LESI #1 L4-5 w/o sed 03/26/15 Vertebro Aug T12, L1 w/sed 07/31/14 Hx laparoscopic cholecystectomy (11/12/09) Hx of appendectomy 2009 Hx of cardiac pacemaker 10/2010 Hx of lumpectomy 10/2009 Hx of mastectomy 10/2009. 02/2011 Hx of surgical procedure aortal bi-femoral graft Family History Other Cancer Social History education level: high school sexually active: No smoking status: Former smoker alcohol intake frequency: holiday/special occasion only substance use type: marijuana MEDS/ALLERGIES Home Medications and Allergies Home Medications Medication Instructions Recorded Confirmed Type alpha lipoic acid 300 mg PO BID 10/23/14 09/16/20 History ascorbic acid (vitamin C) 1,000 mg PO DAILY 10/23/14 09/16/20 History benzonatate 200 mg PO PRN PRN 10/23/14 11/01/20 History calcium citrate 1,000 mg PO DAILY 10/23/14 11/01/20 History cholecalciferol (vitamin D3) 5,000 unit PO DAILY 10/23/14 09/16/20 History Activite 1 tab PO BID 08/20/19 09/16/20 History [place] Thyroid 180 mg PO QDAY 08/20/19 11/01/20 History escitalopram oxalate 5 mg PO QDAY 08/20/19 11/01/20 History gabapentin 300 mg PO TID 08/20/19 09/16/20 History ondansetron 4 mg PO Q8H PRN 08/20/19 09/16/20 History prednisone 10 mg PO QDAY 08/20/19 09/16/20 History simethicone [Gas-X Extra Strength] 250 mg PO PRN PRN 08/20/19 09/16/20 History tizanidine 4 mg PO QHS 08/20/19 11/01/20 History turmeric-herbal complex no.278 150 mg PO DAILY 08/20/19 11/01/20 History bonwwuwt-scqdeimmd-kiqdtsdp 3.5 1 drp OPHTHALMIC Q12H 10/23/19 09/16/20 History mg/mL-10,000 unit/mL-0.1% eye drops Collagen 3 tab PO DAILY 03/28/20 09/16/20 History alpha lipoic acid-herbal 305 300 mg PO BID 03/28/20 09/16/20 History fexofenadine [Arianne Allergy] 180 mg PO QID PRN 03/28/20 09/16/20 History fluticasone propionate [Flonase 1 spray INTRANASAL QDAY PRN 03/28/20 09/16/20 History Allergy Relief] guaifenesin [Mucinex] 1,200 mg PO Q12H PRN 03/28/20 11/01/20 History potassium bicarb-magnesium 21 1 cap PO BID 03/28/20 09/16/20 History tamsulosin [Flomax] 0.4 mg PO QDAY 03/28/20 09/16/20 History lidocaine 1 patch TOPICAL HS #7 ea 03/30/20 09/16/20 Rx nitrofurantoin monohyd/m-cryst 100 mg PO BID #2 cap 04/01/20 09/16/20 Rx [Macrobid] doxycycline monohydrate 100 mg PO BID #14 tab MDD 2 05/19/20 09/16/20 Rx albuterol sulfate 2 puff INHALATION QID PRN #8.5 g 06/23/20 09/16/20 Rx doxycycline hyclate 100 mg PO BID #20 cap 06/23/20 09/16/20 Rx prednisone 50 mg PO QDAY #5 tab 06/23/20 09/16/20 Rx cimetidine 200 mg tablet 200 mg PO QDAY tab 08/31/20 09/16/20 History esomeprazole magnesium 20 mg 20 mg PO QDAY 08/31/20 09/16/20 History capsule,delayed release loperamide 2 mg tablet 4 mg PO ONCE PRN tab 08/31/20 09/16/20 History lorazepam 0.5 mg tablet 0.5 mg PO QDAY PRN 08/31/20 09/16/20 History methocarbamol 500 mg tablet 1,000 mg PO Q6H tab 08/31/20 11/01/20 History nitrofurantoin 100 mg PO BID 08/31/20 09/16/20 History monohydrate/macrocrystals 100 mg capsule ondansetron HCl 4 mg tablet 4 mg PO .Q4-6H PRN tab 08/31/20 09/16/20 History fentanyl 25 mcg/hr transdermal 1 patch TRANSDERMAL Q72H #10 ea 10/26/20 11/01/20 Rx patch Allergies Allergy/AdvReac Type Severity Reaction Status Date / Time Barbiturates Allergy Severe Swelling Verified 11/01/20 16:14 of Lip/Tongue/Throat morphine Allergy Severe Anaphylaxis Verified 11/01/20 16:14 Cyclobenzaprine AdvReac Intermediate Other Verified 11/01/20 16:14 [From Flexeril] famotidine AdvReac Intermediate Rash Verified 11/01/20 16:14 lansoprazole AdvReac Intermediate Rash Verified 11/01/20 16:14 omeprazole AdvReac Intermediate Rash Verified 11/01/20 16:14 pantoprazole AdvReac Intermediate Rash Verified 11/01/20 16:14 Physical Examination Vital Signs Vital signs: Temp Pulse Resp BP Pulse Ox 98.3 F 63 16 136/80 92 11/01/20 16:09 11/01/20 19:16 11/01/20 16:09 11/01/20 19:16 11/01/20 19:16 General physical appearance General physical exam: well developed, well nourished, no distress and moderate pain (Left lower quadrant abdominal pain) Eyes Eye exam: PERRL and normal ocular movement ENT ENT exam: normal mucosa, decreased hearing, poor custodial and dentures (Full upper dentures) Head Head exam IM: Present atraumatic, normal inspection and normocephalic Neck Neck exam: no masses, no bruits, trachea midline, no lymphadenopathy and no venous distension Cardiovascular Cardiovascular exam IM: Present normal rate and rhythm, bradycardia (Heart rate 60), irregular rhythm, +S1 and +S2; Absent JVD Respiratory Respiratory exam: normal expansion, normal respiratory effort and clear to auscultation Abdomen Abdomen: Present soft and tender (Tenderness left lower quadrant); Absent masses and guarding Hernia: Absent none Integumentary Integumentary: Present no rash, no growths and no abnormal pigmentation Neurologic Neurologic: Present normal coordination and normal sensation Musculoskeletal Musculoskeletal: Present other (Requires walker for ambulation; uses wheelchair primarily) Psychiatric Psychiatric: Present oriented to time, oriented to person, oriented to place, speech is normal and memory intact Additional Findings Additional exam: Pacemaker generator left upper chest Port in right upper chest wall Results Labs Result diagrams: 11/01/20 17:18 11/01/20 17:18 Labs: Abnormal lab results 11/01/20 11/01/20 11/01/20 Range/Units 16:40 17:18 17:18 WBC 11.9 H (4.5-11.0) K/mcL MCV 100.9 H (80.0-100.0) fL MPV 10.6 H (7.4-10.4) fL Neut % (Auto) 85.0 H (38.0-78.0) % Lymph % (Auto) 8.0 L (15.5-49.0) % Lymph # (Auto) 0.95 L (1.50-4.80) K/mcL Absolute Neutrophils 10.10 H (1.80-8.00) K/mcL POC BUN 21 H (6-20) mg/dL Glucose 111 H (70-105) mg/dL POC Glucose 121 H (70-105) mg/dL POC WB Ioniz Calcium 1.13 L (1.16-1.32) mmEq/L Alkaline Phosphatase 130 H (39-117) U/L Diabetes panel 11/01/20 Range/Units 17:18 Sodium 138 (133-145) mmol/L Potassium 4.0 (3.3-5.1) mmol/L Chloride 100 (96-108) mmol/L Carbon Dioxide 27 (22-30) mmol/L BUN 15 (8-23) mg/dL Creatinine 0.8 (0.6-1.1) mg/dL Glucose 111 H (70-105) mg/dL Calcium 10.0 (8.6-10.4) mg/dL AST 20 (<32) U/L ALT 17 (<40) U/L Alkaline Phosphatase 130 H (39-117) U/L Total Protein 6.9 (5.9-8.4) gm/dL Albumin 3.8 (3.2-5.2) gm/dL Calcium panel 11/01/20 Range/Units 17:18 Calcium 10.0 (8.6-10.4) mg/dL Albumin 3.8 (3.2-5.2) gm/dL Pituitary panel 11/01/20 Range/Units 17:18 Sodium 138 (133-145) mmol/L Potassium 4.0 (3.3-5.1) mmol/L Chloride 100 (96-108) mmol/L Carbon Dioxide 27 (22-30) mmol/L BUN 15 (8-23) mg/dL Creatinine 0.8 (0.6-1.1) mg/dL Glucose 111 H (70-105) mg/dL Calcium 10.0 (8.6-10.4) mg/dL Adrenal panel 11/01/20 Range/Units 17:18 Sodium 138 (133-145) mmol/L Potassium 4.0 (3.3-5.1) mmol/L Chloride 100 (96-108) mmol/L Carbon Dioxide 27 (22-30) mmol/L BUN 15 (8-23) mg/dL Creatinine 0.8 (0.6-1.1) mg/dL Glucose 111 H (70-105) mg/dL Calcium 10.0 (8.6-10.4) mg/dL Total Bilirubin 0.4 (0.1-1.0) mg/dL AST 20 (<32) U/L ALT 17 (<40) U/L Alkaline Phosphatase 130 H (39-117) U/L Total Protein 6.9 (5.9-8.4) gm/dL Albumin 3.8 (3.2-5.2) gm/dL All other labs normal. A/P Assessment and plan (1) Rectal hemorrhage: Status: Acute (2) History of diverticulosis: Status: Acute (3) Polyarthritis rheumatica: Status: Chronic (4) Non-cardiac chest pain: Status: Acute (5) HX: breast cancer: Status: Chronic (6) COPD (chronic obstructive pulmonary disease): Status: Chronic (7) Sleep apnea: Status: Chronic (8) Major depressive disorder, recurrent, moderate: Status: Chronic Narrative A/P Narrative: Clear liquids except for bowel prep N.p.o. after 6 AM Relistor 12 mg subcu now Chest x-ray EKG Hemoglobin hematocrit at 2 AM and at 8 AM We will try to do colonoscopy tomorrow after 12 noon Time Spent With Patient Time: Total time spent is greater than 50% in coordination of care (as documented) at patient's floor/unit and/or counseling patient:
[2020-11-01] MEDS ORDERED: ONDANSETRON 4 MG/2 ML VIAL IV PRN ×2 (20:12→20:39)
[2020-11-01] MEDS ORDERED: 0.9 % SODIUM CHLORIDE 1,000 ML IV SCH (20:30)
[2020-11-01] MEDS ORDERED: 0.9 % SODIUM CHLORIDE 250 ML IV SCH ×2 (20:30→20:39)
[2020-11-01] MEDS ORDERED: fentaNYL 25 MCG PATCH TOPICAL SCH (21:00)
[2020-11-01] MEDS: tiZANidine 4 MG TABLET PO SCH (21:29)
[2020-11-01] MEDS: MAGNESIUM CITRATE 300 ML ORAL.SOL PO SCH (21:30)
[2020-11-01] MEDS: 0.9 % SODIUM CHLORIDE 1,000 ML IV SCH (21:30)
[2020-11-01] MEDS: 0.9 % SODIUM CHLORIDE 10 ML SYRINGE IV SCH (21:38)
[2020-11-01] MEDS ORDERED: 0.9 % SODIUM CHLORIDE 10 ML SYRINGE IV SCH (22:00)
[2020-11-01] MEDS ORDERED: BISACODYL 5 MG TABLET PO ONE (22:32)
[2020-11-02] MEDS: MAGNESIUM CITRATE 300 ML ORAL.SOL PO SCH ×3 (00:28→17:34)
[2020-11-02] MEDS: 0.9 % SODIUM CHLORIDE 10 ML SYRINGE IV SCH ×5 (06:02→20:28)
--- NOTE | 2020-11-02 07:44 | Cat Scan Report ---
History: Abdominal pain, rectal bleeding breast cancer, compression fractures in the lumbar spine TECHNIQUE: The patient was imaged following injection of intravenous nonionic contrast scanning during the portal venous phase from the diaphragm through the symphysis pubis. Sagittal and coronal reformats were created. Five minute delayed images of the upper abdomen were obtained. The radiation exposure was limited using dose reduction technology. FINDINGS: The patient had a prior left mastectomy. There is no residual tumor in the visualized portion of the chest wall. There is a pacemaker in the right side of the heart. The heart size is normal. A moderate size hiatus hernia is present. There is a wedge-shaped band of consolidated lung with air bronchograms in the posterior basal segment left lower lobe. Adjacent to this is a small left-sided pleural effusion. There is a tiny right-sided pleural effusion and mild dependent atelectasis posteriorly in the right lower lobe. These findings are unchanged from the prior CT done on 03/06/19. There are scattered cysts in the liver. The largest is located inferiorly in segment 4B of the left lobe and measures 2 cm. No solid mass is present in the liver. Overall size of the liver is normal and there is no evidence of metastasis. The gallbladder has been removed. The intra and extrahepatic bile ducts ducts are dilated. Common hepatic duct is 1.5 cm and the common bile duct ranges from 8 to 9 mm. This is also a chronic stable finding. There are couple well-circumscribed calcifications along the capsule of the liver which may be granuloma. These are a stable finding. The pancreas is atrophic and there are extensive calcifications throughout the parenchyma due to chronic pancreatitis. There is no evidence of acute pancreatitis or pancreatic mass. The spleen is normal in size and homogeneous. The adrenals are normal and symmetric. The kidneys are normal in size shape and contour. There is no mass, cyst, calculus or hydronephrosis. The ureters are normal. The bladder is normally distended. There are small diverticula along the upper surface of the bladder. There is no associated wall thickening or inflammation and no intraluminal mass. Large amount of fecal material is present throughout the large intestine. The intestine is not abnormally distended. There are noninflamed diverticula in the descending and sigmoid colon. No gross tumor is seen in the large intestine. Small intestine contains a moderate amount liquefied material and is normal in caliber and does not appear inflamed or obstructed. Large amount calcified plaque is present along the wall normal caliber abdominal aorta. There is moderate atherosclerotic disease in the iliac arteries. The uterus and ovaries are atrophic. No mass or adenopathy abscess or ascites are present within the abdomen or pelvis. Multiple compression fractures are present in the lumbar spine and lower thoracic spine. There is cement within the T12 and L1 vertebra. The L5 vertebra is sclerotic and there is a mild to moderate biconcave wedge compression fracture. The sclerosis is new since 03/06/19 and the fracture has become worse. Subtle sclerosis is seen in the body of T11 and there is a mild compression fracture involving the superior endplate. This is also new. A moderate biconcave compression fracture at L2 has also become worse but the bone is not sclerotic. The other fractures remain stable. The pedicles appear normal. There is arthritis in the facet joints bilaterally in the lower lumbar spine at multiple levels. Old fractures are seen in the left pubic and ischial rami and there is a metal cortez in the left proximal femur. There is a sclerosis along the posterior border of the right femoral head. This is unchanged from 03/24/09. IMPRESSION: Fecal impaction and diverticulosis but without evidence of acute inflammation of the large or small intestine and no tumor is seen to explain the blood in stool. Stable dilatation of the intra and extrahepatic bile ducts. This may be a reservoir effect following a prior cholecystectomy or stricture at the ampulla. Chronic pancreatitis Chronic or recurrent atelectasis/scar in the left lower lobe with surrounding small pleural effusion Numerous compression fractures in the thoracic and lumbar spine. These have progressed since 03/06/19. There is sclerosis in the bodies of T11 and L5 suggesting metastasis from the patient's breast cancer. Venkat Morales was called with the report Interpreted and Authenticated by: Brad Villalpando 11/02/20
--- NOTE | 2020-11-02 08:05 | XRay Report ---
HISTORY: Preop, rectal bleeding FINDINGS: There is an ill-defined generalized infiltrates throughout the left lung with the greatest involvement in left lower lobe. Prominent increased interstitial lung markings with a reticular pattern are present throughout the right lung. Similar findings were seen on a prior chest CT done on 06/23/20. It is difficult to determine how much of the infiltrate in the left lung is scar and what is active inflammation. The heart size is normal. There is a dual-chamber pacemaker. Pulmonary vessels are obscured by the diffuse pulmonary disease. Severe arthritis is present in the right shoulder and the humeral head is impacted against the acromion. Port-A-Cath is placed through the right subclavian vein into the superior vena cava. There are several old healed left lateral rib fractures. IMPRESSION: Chronic or recurrent infiltrate in the left lung Pulmonary fibrosis in the right lung IMPRESSION: Normal chest. Interpreted and Authenticated by: Brad Villalpando 11/02/20
[2020-11-02] MEDS: THYROID, PORK 60 MG TABLET PO SCH (08:34)
--- NOTE | 2020-11-02 08:53 | EKG ---
[facility] Test Date: 2020-11-01 Pat Name: Kiera Angeles [facility] Room: 106 Gender: Female Clinical Program Manager: : [id number] Requested By: Roberto Gibson Order Number: [id number] Reading MD: Dagoberto Villalpando M.D. Measurements Intervals [place] Rate: 68 P: 20 [place]: 204 QRS: -11 QRSD: 100 T: 35 QT: 424 QTc: 451 Interpretive Statements SINUS RHYTHM POSSIBLE OLD INFERIOR NH Electronically Signed On 11-02-2020 8:53:39 PDT by Dagoberto Villalpando M.D. /store/M0/[id number]
[2020-11-02] MEDS ORDERED: BISACODYL 5 MG TABLET PO SCH ×2 (09:00)
[2020-11-02] MEDS ORDERED: MAGNESIUM CITRATE 300 ML ORAL.SOL PO SCH (09:00)
--- NOTE | 2020-11-02 09:46 | Ultrasound Report ---
History: Rectal and vaginal bleeding, suspect endometrial neoplasm findings: The pelvis was imaged transabdominally and endovaginally. The patient had actually emptied her bladder prior to the exam and was also incontinent. The uterus is atrophic and very heterogeneous. It is predominantly hypoechoic. It measures 2.9 x 4.1 x 5.4 cm. Accurate measurement of the endometrial thickness cannot be obtained. No fluid is seen within the endometrial canal. On the preceding CT scan performed on 11/01/20 the central portion of the uterus had low-attenuation, suggesting the possibility of fluid or a low-attenuation mass within the endometrial canal. There are no calcified fibroids and no discrete mass is seen. Both ovaries are atrophic and obscured by overlying bowel. No ascites is present. IMPRESSION: Atrophic, very heterogeneous uterus. Endometrial carcinoma could be present. Interpreted and Authenticated by: Brad Villalpando 11/02/20
[2020-11-02] MEDS: 0.9 % SODIUM CHLORIDE 1,000 ML IV SCH (10:31)
[2020-11-02 11:09] LABS: Hemoglobin 11.6 g/dL (11.2-15.7)
--- NOTE | 2020-11-02 12:36 | General Surgery Progress Note ---
SUBJECTIVE Subjective Patient information: Note initiated : 11/02/20 at 12:20 pm Service Date, if different from initiated Date: [] Patient: Kiera Angeles 85 y/o F admitted on 11/01/20 for rectal bleeding. Chief Complaint: [] Principal diagnosis: Rectal bleeding; vaginal bleeding Interval history: Patient had some vaginal bleeding last evening with clots. She had minimal blood associated with her bowel prep. Hemoglobin has decreased from 13.3-11.6. Her CEA is 4.8. Transvaginal ultrasound does not show any suspicious characteristics to the uterus and the endometrial stripe is said to be indeterminate. Constitutional Vitals: Vital Signs Temp Pulse Resp BP Pulse Ox 99.2 F H 80 16 126/64 97 11/02/20 07:15 11/02/20 07:15 11/02/20 03:45 11/02/20 07:15 11/02/20 07:15 Period Temp Pulse Resp BP Sys/Glover Pulse Ox Last 24 Hr 98.3 F-99.2 F 59-97 16-22 105-146/54-112 91-97 Intake and Output 11/01/20 11/02/20 11/02/20 21:59 05:59 13:59 Intake Total 1040 976 Output Total 2 Balance 1038 976 Weight 155 lb Intake & Output: Intake & Output 11/01/20 11/02/20 11/02/20 21:59 05:59 13:59 Intake Total 1040 976 Output Total 2 Balance 1038 976 Weight 155 lb Intake: IV 976 Sodium Chloride 0.9% 1,000 ml @ 976 75 mls/hr IV .[id number] [facility] Rx#: [id number] Oral 1040 Output: # of times incontinent of urine 2 Other: Stool Size Moderate Large Stool Color Brown Brown Stool Consistency Liquid Liquid # of times incontinent of 1 Bowels Eye Eye exam: Present EOMI Pupils: Present normal accommodation and PERRL ENT ENT exam: Present mucous membranes moist, normal exam and normal oropharynx Neck Neck exam: Present full ROM and tenderness Respiratory Respiratory exam: Present normal respiratory exam and CTAB; Absent rales, rhonchi and wheezes Cardiovascular Cardiovascular exam: Present normal rate and rhythm, RRR, +S1 and +S2; Absent JVD GI/Abdominal GI/Abdominal exam: Present normal bowel sounds; Absent distended and guarding Speculum exam: Present vaginal bleeding (Mild bleeding from cervical os with mild irritation); Absent cervical discharge Bimanual exam: Present normal bimanual exam; Absent adnexal mass, adnexal tenderness, cervical motion tenderness, uterine enlargement and uterine tenderness Extremities Exam Extremities exam: Present full ROM, normal capillary refill, Foot pink and warm and neurovascular intact Back Exam Back exam: Present CVA tenderness (L), CVA tenderness (R), muscle spasm and vertebral tenderness Neurological Exam Neurological exam: Present normal gait and reflexes normal; Absent alert and oriented X3 Psychiatric Psychiatric exam: Present normal affect and normal mood; Absent anxious A/P Assessment and plan (1) Rectal hemorrhage: Status: Acute (2) History of diverticulosis: Status: Acute (3) Polyarthritis rheumatica: Status: Chronic (4) Non-cardiac chest pain: Status: Acute (5) HX: breast cancer: Status: Chronic (6) COPD (chronic obstructive pulmonary disease): Status: Chronic (7) Sleep apnea: Status: Chronic (8) Major depressive disorder, recurrent, moderate: Status: Chronic (9) Vaginal bleeding: Status: Acute Narrative A/P Narrative: Will continue bowel prep and do colonoscopy in the morning SMELTING ENGINEER consult to be obtained Time Spent With Patient Time: Total time spent is greater than 50% in coordination of care (as documented) at patient's floor/unit and/or counseling patient:
[2020-11-02] MEDS ORDERED: LORazepam 0.5 MG TABLET PO PRN (12:56)
[2020-11-02] MEDS: GABAPENTIN 300 MG CAPSULE PO SCH ×2 (14:12→20:05)
[2020-11-02] MEDS: METHOCARBAMOL 500 MG TABLET PO SCH (17:34)
[2020-11-02] MEDS: tiZANidine 4 MG TABLET PO SCH (20:05)
[2020-11-02] MEDS ORDERED: LIDOCAINE PATCH TOPICAL SCH (21:00)
[2020-11-03] MEDS: 0.9 % SODIUM CHLORIDE 1,000 ML IV SCH ×4 (00:02→14:40)
[2020-11-03] MEDS: METHOCARBAMOL 500 MG TABLET PO SCH ×4 (02:04→17:25)
[2020-11-03] MEDS: 0.9 % SODIUM CHLORIDE 10 ML SYRINGE IV SCH ×5 (05:47→20:39)
[2020-11-03 07:03] LABS: Basophils # (Auto) 0.02 K/mcL (0.00-0.30); Basophils % (Auto) 0.3 % (0.0-2.0); Eosinophils # (Auto) 0.11 K/mcL (0.00-0.70); Eosinophils % (Auto) 1.9 % (0.0-7.0); Hematocrit 38.9 % (34.1-44.9); Hemoglobin 11.9 g/dL (11.2-15.7); Lymphocytes # (Auto) 1.26 K/mcL (1.50-4.80); Lymphocytes % (Auto) 21.8 % (15.5-49.0); Mean Cell Volume 100.5 fL (80.0-100.0); Mean Corpuscular HGB Conc 30.6 g/dL (31.0-36.0); Mean Platelet Volume 10.8 fL (7.4-10.4); Monocytes # (Auto) 0.57 K/mcL (0.10-0.90); Monocytes % (Auto) 9.9 % (1.0-12.0); Neutrophils % (Auto) 66.1 % (38.0-78.0); Platelet Count 222 K/mcL (140-440); RBC 3.87 M/mcL (3.59-5.38); Red Cell Distribution Width 14.2 % (11.5-14.5); WBC 5.8 K/mcL (4.5-11.0)
[2020-11-03] MEDS: THYROID, PORK 60 MG TABLET PO SCH (08:31)
[2020-11-03] MEDS: GABAPENTIN 300 MG CAPSULE PO SCH (08:31)
[2020-11-03] MEDS ORDERED: fentaNYL 100 MCG/2 ML VIAL IV PRN ×2 (09:56→14:13)
[2020-11-03] MEDS ORDERED: LIDOCAINE HCL/PF 100 MG/5 ML SYRINGE IV ONE (13:00)
[2020-11-03] MEDS ORDERED: PROPOFOL 200 MG/20 ML VIAL IV ONE (13:00)
--- NOTE | 2020-11-03 13:57 | Brief Operative Note ---
Brief Operative Note Date of procedure: 11/03/20 Pre-op diagnosis: RECTAL BLEEDING Post-op diagnosis: other (RECTAL BLEEDING;DIVERTICULOSIS ;COLON POLYP) Procedure: COLONOSCOPY WITH POLYPECTOMY Grafts/Implants: No Anesthesia: other (GENERAL) Findings: NO ABNORMALITY EXCEPT FOR SINGLE POLYP AT 40 CM AND LEFT SIDED DIVERTICULOSIS Complications: none Surgeon: Roberto Gibson Specimens Removed/Pathology: none sent (COLON POLYP WAS MIXED IN STOOL AND COULD NOT BE FOUND AFTER RESECTION) Condition: stable Disposition: same day
[2020-11-03] MEDS ORDERED: ONDANSETRON 4 MG/2 ML VIAL IV PRN (14:13)
[2020-11-03] MEDS ORDERED: LORazepam 0.5 MG TABLET PO PRN (14:13)
[2020-11-03] MEDS ORDERED: GABAPENTIN 300 MG CAPSULE PO SCH (15:00)
--- NOTE | 2020-11-03 15:44 | Colonoscopy Procedure Note ---
DATE OF YUCWEIFET81/21/2021 PREOPERATIVE DIAGNOSIS: Rectal bleeding. POSTOPERATIVE DIAGNOSES: Rectal bleeding, diverticulosis, colon polyps. PROCEDURE: Colonoscopy with polypectomy. SURGEON: Roberto Gibson M.D. FINDINGS: No abnormality except for single polyp at 40 cm and left-sided diverticulosis. No active bleeding and no evidence of old bleeding. DESCRIPTION OF PROCEDURE: Under general anesthesia, the patient turned to the left lateral decubitus position. Timeout procedure was carried out as per protocol. A digital examination of anus and rectum revealed decreased anal tone with no mass, and there was no old blood. Scope was introduced, and there was a moderate amount of semisolid stool in the rectum and sigmoid colon. This was irrigated. Above the sigmoid colon, the amount of stool was far less. There was some openings of diverticulosis, but there was no active bleeding. Scope was maneuvered to the cecum. Cecum identified by the opening of the appendix, ileocecal valve, and confluence of the taenia. Cecum was normal. The ascending colon revealed no abnormality. Transverse colon revealed a few scattered diverticula. Descending colon showed some increase in the amount of semisolid stool that had to be flushed, but otherwise was unremarkable. Sigmoid showed diverticulosis. At 40 cm, there was a single polyp about 1 cm on a short stalk. It was grasped with the snare, removed with snare cautery, and was not retrieved because the polyp mixed with stool, and even with copious irrigation I could not find the small polyp. The rest of the sigmoid and rectum were normal. There were small hemorrhoids. The patient tolerated the procedure well. RECOMMENDATION: The source of bleeding is probably the uterus and there is no evidence that she has had any rectal bleeding or colonic bleeding. LCS:koki Job ID: [id number] Doc ID: [id number] Roberto Gibson M.D. MTDD
[2020-11-03] MEDS ORDERED: GABAPENTIN 100 MG CAPSULE PO SCH (21:00)
[2020-11-03] MEDS ORDERED: tiZANidine 4 MG TABLET PO SCH (21:00)
[2020-11-03] MEDS ORDERED: LIDOCAINE PATCH TOPICAL SCH (21:00)
[2020-11-04] MEDS: METHOCARBAMOL 500 MG TABLET PO SCH ×3 (00:26→12:18)
[2020-11-04] MEDS: 0.9 % SODIUM CHLORIDE 1,000 ML IV SCH (03:45)
[2020-11-04] MEDS: 0.9 % SODIUM CHLORIDE 10 ML SYRINGE IV SCH ×3 (05:57→14:42)
[2020-11-04 06:43] LABS: Basophils # (Auto) 0.02 K/mcL (0.00-0.30); Basophils % (Auto) 0.3 % (0.0-2.0); Eosinophils # (Auto) 0.17 K/mcL (0.00-0.70); Eosinophils % (Auto) 2.4 % (0.0-7.0); Hematocrit 34.8 % (34.1-44.9); Hemoglobin 10.6 g/dL (11.2-15.7); Lymphocytes % (Auto) 18.2 % (15.5-49.0); Mean Cell Volume 102.7 fL (80.0-100.0); Mean Corpuscular HGB Conc 30.5 g/dL (31.0-36.0); Mean Platelet Volume 10.6 fL (7.4-10.4); Monocytes # (Auto) 0.67 K/mcL (0.10-0.90); Monocytes % (Auto) 9.4 % (1.0-12.0); Neutrophils % (Auto) 69.7 % (38.0-78.0); Platelet Count 189 K/mcL (140-440); RBC 3.39 M/mcL (3.59-5.38); WBC 7.2 K/mcL (4.5-11.0)
[2020-11-04] MEDS ORDERED: THYROID, PORK 60 MG TABLET PO SCH (07:30)
[2020-11-04] MEDS ORDERED: GABAPENTIN 100 MG CAPSULE PO SCH (09:00)
[2020-11-04] MEDS ORDERED: ESCITALOPRAM 10 MG TABLET PO SCH (09:00)
[2020-11-04] MEDS ORDERED: DULoxetine 30 MG CAPSULE PO SCH (09:00)
[2020-11-04] MEDS ORDERED: BUTALB/ACETAMINOPHEN/CAFFEINE 1 TABLET PO ONE (09:44)
--- NOTE | 2020-11-04 11:59 | Discharge Summary ---
Discharge Provider Provider Patient information: Note initiated : 11/04/20 at 11:41 am Service Date, if different from initiated Date: [] Patient: Kiera Angeles 85 y/o F admitted on 11/01/20 for rectal bleeding. Chief Complaint: [] Date of admission: 11/01/20 20:04 Discharge date: 11/04/20 Primary care physician: GIUSEPPE Garcia Admitting clinician: Roberto Gibson Attending physician on admission: Roberto Gibson Consults: 11/01/20 Consult to Physician [CONS] Stat Comment: Consulting Provider: Roberto Gibson Reason For Exam: Physician to Consult Attending physician on discharge: Roberto Gibson Discharging clinician: Roberto Gibson COURSE Hospital Course Hospital course: 85-year-old female admitted on 01 November with history of rectal bleeding. The patient gave a history of acute onset of rectal bleeding on the day of admission. She had a large volume of blood in the commode and after wiping multiple times she still had more bleeding. She also had some crampy left-sided abdominal pain. She denies nausea vomiting. She states that she had a similar episode about 8 months ago that resolved spontaneously. She has a history of colon polyps with her last colonoscopy being in 2014. These were benign polyps. At the time of admission the patient was clinically stable and her hemoglobin was 13.3. On the corporate compliance manager of 02 November she had some vaginal bleeding with clots. This was verified by nursing staff. They specifically stated that the clots came from the vagina and was not associated with bowel movement or rectal bleeding. A transvaginal ultrasound was done and was indeterminate. Colonoscopy was performed on yesterday and she was found to have left-sided diverticulosis with a single polyp about 40cm which was removed. It appeared to be benign. The rest of her colon was otherwise healthy. Speculum exam and bimanual exam of the pelvis was carried out. She was noted to have inflammation and irritation of the cervical os with a slight bleeding. There was no mass on bimanual palpation and there was no tenderness or bogginess of the uterus. Rectovaginal exam was unremarkable. Patient has remained stable. Her hemoglobin is stable. She is weak and will need some rehab. Her major problem now is related to chronic neck and back pain from severe disc disease and vertical vertebral compression fractures. I have discussed her vaginal bleeding with Dr. Gomez Miramontes, [facility] and he will see her as an outpatient next week. She has not had any vaginal bleeding over the past 36hours. Patient is clinically stable and is discharged to nursing care facility with plans for follow-up by [facility] as an outpatient Discharge diagnosis: Acute rectal bleeding of uncertain etiology Secondary discharge diagnosis: Acute vaginal bleeding due to suspected uterine pathology, not well-defined Colon polyps Diverticulosis Lumbar vertebral fractures Osteoporosis Chronic obstructive lung disease History of spontaneous rib fractures History of breast cancer Chronic obstructive sleep apnea Gastroesophageal reflux disease Major depressive disorder recurrent Reason for admission: Rectal bleeding Procedures: Colonoscopy with polypectomy Pertinent studies/significant findings: CT of abdomen and pelvis with IV contrast Transvaginal pelvic ultrasound Complications: None Time Spent with Patient Time attestation: Total time spent providing and/or coordinating discharge services: Physical Examination Vital Signs Vital signs: Temp Pulse Resp BP Pulse Ox 97.8 F 61 20 109/51 92 11/04/20 06:50 11/04/20 08:00 11/04/20 08:00 11/04/20 06:50 11/04/20 08:00 General physical appearance General physical exam: well developed, well nourished, no distress and moderate pain Eyes Eye exam: PERRL, normal ocular movement and other ENT ENT exam: normal mucosa, no congestion, decreased hearing and dentures Head Head exam IM: Present atraumatic, normal inspection and normocephalic Neck Neck exam: no masses, no bruits, trachea midline, no lymphadenopathy and no venous distension Cardiovascular Cardiovascular exam IM: Present normal rate and rhythm, RRR, +S1 and +S2; Absent gallop and JVD Respiratory Respiratory exam: normal expansion, normal respiratory effort and clear to auscultation Abdomen Abdomen: Present tender (Mild tenderness left lower quadrant without mass, guarding, or rebound) Hernia: Absent none Rectum Rectum: Present other (Poor sphincter tone; mild internal hemorrhoids) Integumentary Integumentary: Present no rash, no growths and other (Chronic cutaneous bruising) Neurologic Neurologic: Present normal coordination and normal sensation Musculoskeletal Musculoskeletal: Present other (Poor gait and stance with need for assisted ambulation and standing) Psychiatric Psychiatric: Present oriented to time, oriented to person, oriented to place, speech is normal and memory intact Discharge Plan Patient/Caregiver Discharge Instructions Activity: ambulate only with your walker, as per physical therapy and increase activity as tolerated Diet: Regular Diet Instructions: Rectal Bleeding (DC), Colonoscopy (DC) Activity Restrictions/Additional Instructions: Ambulation with walker. OT and PT at SNF. Regular diet as tolerated. Call your physician for sustained fever greater than 100.5, increase in vaginal bleeding, rectal bleeding, or any questions/concerns. This discharge packet is provided to you to help keep you informed about your care. We want to ensure you get everything you need when you go home. You will also be receiving a call from us in a few days to follow up with you and see how you are doing since your discharge. This gives us a chance to listen to any concerns you maybe experiencing since you were discharged or any additional needs you may have, as well as providing us feedback on your care experience. We strive to always provide excellent care and thank you for your feedback and for choosing [facility]. Prescriptions: New oxycodone-acetaminophen [Endocet] 5-325 mg Tablet 1 tab PO Q4H PRN (Reason: Pain) Qty: 30 RF: 0 fentanyl 25 mcg/hr Patch 72 Hour 25 mcg topical Q72H Qty: 10 RF: 0 Continued fentanyl 25 mcg/hr patch 72 hour 1 patch transdermal Q72H Qty: 10 RF: 0 neomycin-polymyxin B-dexameth 3.5mg/mL-10,000 unit/mL-0.1 % drops,suspension 1 drp OPHTHALMIC Q12H PRN (Reason: Dry Eyes) RF: 0 benzonatate 200 MG capsule 200 mg PO PRN PRN (Reason: Cough) RF: 0 ascorbic acid (vitamin C) 1,000 MG tablet 1,000 mg PO DAILY RF: 0 calcium citrate 250 MG tablet 1,000 mg PO DAILY RF: 0 alpha lipoic acid 100 MG capsule 300 mg PO BID RF: 0 prednisone 5 mg Tablet 10 mg PO QDAY RF: 0 simethicone [Gas-X Extra Strength] 125 mg Capsule 250 mg PO PRN PRN (Reason: Abdominal Discomfort) RF: 0 Activite 1 mg Tablet 1 tab PO BID RF: 0 gabapentin 300 mg Capsule 200 mg PO HS RF: 0 ondansetron 4 mg Tablet,Disintegrating 4 mg PO Q8H PRN (Reason: Nausea) RF: 0 escitalopram oxalate 5 mg Tablet 5 mg PO QDAY RF: 0 tizanidine 4 mg Capsule 4 mg PO QHS RF: 0 Yawkey Thyroid 180 mg Tablet 180 mg PO QDAY RF: 0 turmeric-herbal complex no.278 150 mg Capsule 150 mg PO DAILY RF: 0 fexofenadine [Arianne Allergy] 180 mg Tablet 180 mg PO QID PRN (Reason: Allergy Symptoms) RF: 0 guaifenesin [Mucinex] 600 mg Tablet Extended Release 12hr 1,200 mg PO Q12H PRN (Reason: Congestion) RF: 0 fluticasone propionate [Flonase Allergy Relief] 50 mcg/actuation [place],Suspension 1 spray INTRANASAL QDAY PRN (Reason: Allergy Symptoms) RF: 0 methocarbamol 500 mg tablet 1,000 mg PO Q6H RF: 0 gabapentin 300 mg capsule 100 mg PO QAM RF: 0 fluticasone propion-salmeterol [Advair Diskus] 250-50 mcg/dose Blister With Device 1 inh INHALATION BID RF: 0 fexofenadine 180 mg Tablet 180 mg PO QDAY PRN (Reason: Allergy Symptoms) RF: 0 levothyroxine 75 mcg Tablet 75 mcg PO QDAY RF: 0 duloxetine [Cymbalta] 30 mg capsule,delayed release(DR/EC) 30 mg PO QDAY RF: 0 Follow Up Plan Follow up with: Hu Solis ARNP [Primary Care Provider] - (Please call and schedule a hospital follow up appointment.) Gomez Miramontes MD [Physician] - 11/09/20 10:45 am (Please check in at 10:30 am for this appointment.) Patient Disposition: Xfer SNF Prognosis: Good Rehab Potential: Good I certify that the patient requires SNF services: Yes Overall status at discharge: patient is progressing back to baseline Discharge Orders: Discharge Order (Routine); Ordered 11/04/20 Ordered By: Roberto Gibson Pending Pending Pending: Resuscitation Status Resuscitate (Full Code) Diet Regular Diet Start MonNov 03 1400 Duloxetine HCl (Duloxetine 30 Mg Capsule) 30 mg PO QDAY [facility] Last Admin: 11/04/20 09:06 Dose: 30 mg Documented by: [email or web address] Escitalopram Oxalate (Escitalopram 10 Mg Tablet) 5 mg PO DAILY [facility] Last Admin: 11/04/20 09:06 Dose: 5 mg Documented by: [email or web address] Fentanyl (Fentanyl 100 Mcg/2 Ml Vial) 25 mcg IV Q2HP PRN; Protocol PRN Reason: Per Pain Protocol Last Admin: 11/03/20 18:46 Dose: 25 mcg Documented by: GENNY Gabapentin (Gabapentin 100 Mg Capsule) 100 mg PO QAM [facility] Last Admin: 11/04/20 09:05 Dose: 100 mg Documented by: DANYA Gabapentin (Gabapentin 100 Mg Capsule) 200 mg PO HS [facility] Last Admin: 11/03/20 20:06 Dose: 200 mg Documented by: GENNY Heparin Sodium (Porcine) (Heparin Flush 10 Units/Ml 5 Ml Syringe) 5 ml IV Q12 [facility] Last Admin: 11/04/20 09:06 Dose: Not Given Documented by: Admin: 11/03/20 20:17 Dose: Not Given Documented by: GENNY Sodium Chloride (Sodium Chloride 0.9%) 1,000 mls @ 75 mls/hr IV .[id number] [facility] Last Admin: 11/04/20 03:45 Dose: 75 mls/hr Documented by: Infusion: 11/04/20 03:45 Dose: 75 mls/hr Documented by: Admin: 11/03/20 14:36 Dose: 75 mls/hr Documented by: Admin: 11/03/20 14:16 Dose: Not Given Documented by: NORMA Lidocaine (Lidocaine Patch) 1 patch [facility] Last Admin: 11/03/20 20:09 Dose: 1 patch Documented by: GENNY Lorazepam (Lorazepam 0.5 Mg Tablet) 0.5 mg PO DAILYP PRN PRN Reason: Anxiety Last Admin: 11/03/20 20:07 Dose: 0.5 mg Documented by: GENNY Methocarbamol (Methocarbamol 500 Mg Tablet) 1,000 mg PO Q6H [facility] Last Admin: 11/04/20 05:57 Dose: 1,000 mg Documented by: Admin: 11/04/20 00:26 Dose: 1,000 mg Documented by: Admin: 11/03/20 17:25 Dose: 1,000 mg Documented by: NORMA Sodium Chloride (0.9 % Sodium Chloride 10 Ml Syringe) 10 ml IV Q12 [facility] Last Admin: 11/04/20 09:07 Dose: Not Given Documented by: Admin: 11/03/20 20:18 Dose: Not Given Documented by: LRINGERING Sodium Chloride (0.9 % Sodium Chloride 10 Ml Syringe) 10 ml IV Q8 [facility] Last Admin: 11/04/20 05:57 Dose: Not Given Documented by: Admin: 11/03/20 20:39 Dose: Not Given Documented by: GENNY Thyroid (Thyroid, Pork 60 Mg Tablet) 180 mg PO ACB [facility] Last Admin: 11/04/20 07:54 Dose: 180 mg Documented by: [email or web address] Tizanidine HCl (Tizanidine 4 Mg Tablet) 4 mg PO HS [facility] Last Admin: 11/03/20 20:07 Dose: 4 mg Documented by: GENNY Shift Summary 11/04/20 05:37 Shift Summary by Suad Clay Primary Diagnosis: Rectal bleeding/Vaginal bleeding Registration Status: Inpatient Day of Hospitalization: 11/01/20 Pertinent Medical Dx/Issues: Pt possibly exposed to granddaughter who is Covid + Chronic back pain, COPD, heart disease, Hx of vaginal bleeding, diverticulosis, PNA, Dual chamber pacemaker and implanted power port. Pt is an 85 yrs old female who came to the ER via EMS with c/o rectal bleeding. C/o lower abd pain noted. Alert and oriented x4 with some confusion. No c/o SOB, cough, fever or chills noted on this shift. Interventions (O2, wounds, diuresis, etc): Pt satting 85%-89% RA. Put pt on 2L NC and stat came up to 93%-96% Vital Signs with Trends: VSS on RA. Meds (abo, pain, BP, etc) Ativan was given on this shift with good results. Pt was able to sleep through the night. Lines/Tubes: Port to R upper chest accessed and is running NS at 75 mls/hr. NO BP on the L ARM r/t previous mastectomy. Date of last BM: 11/03 Elimination: Incontinent of B&B Activity: 2p assist. Turn/reposition every 2 hrs. Expected date of discharge: TBD Initialized on 11/04/20 05:37 - END OF NOTE
[2020-11-04] MEDS ORDERED: HEPARIN SODIUM,PORCINE/PF 500 UNIT/5 ML SYRINGE IV ONE (14:15)
[2020-11-04] MEDS ORDERED: fentaNYL 25 MCG PATCH TOPICAL SCH (21:00)
--- NOTE | 2020-11-05 09:00 | Surgical Pathology Report ---
Histology Microscopic Diagnosis Specimen A- COLON, DESCENDING, POLYPECTOMY: --- TUBULAR ADENOMA. (RLF) Clinical History Rectal bleeding. Procedural Impression Diverticulosis; polyp; hemorrhoids. Gross Description Received in formalin labeled descending polyp, are seven fragments of osborn tissue 0.2 to 0.4 cm. Totally submitted - one cassette. (KGW:sln) Electronically Signed Marielle Dawson MD, FCAP Electronically Signed 11/05/2020 08:58
== END 2020-11-04 15:25 | DRG 378 ==
LOC: ED 16:07 → MEDSUR 20:04
PROVIDERS: ADMIT Family Medicine Adult Medicine; ATTEND Family Medicine Adult Medicine

== ENCOUNTER 2020-12-13 13:05 | Inpatient (IN) ==
--- NOTE | 2020-12-13 13:21 | Emergency Department Note ---
Lower Extremity Injury HPI General Chief Complaint: Extremity Injury, Lower Stated Complaint: R leg pain Time Seen by Provider: 12/13/20 13:16 Source: patient Mode of arrival: EMS Limitations: physical limitation History of Present Illness HPI Narrative: Narrative: Patient is an 85-year-old female who comes into the emergency department today by EMS after she had a ground-level fall yesterday when she reports " my walker got away from me". She fell and since that time has not been able to bear any weight on her right leg. She describes sharp pain located at the knee, tib-fib, and ankle area. She rates the pain 10 out of 10 on the 0-10 numerical pain scale. She denies any weakness, confusion, numbness, tingling. She has not had any chest pain, shortness of breath, or difficulty breathing. Related Data Home Medications Medication Instructions Recorded Confirmed alpha lipoic acid 300 mg PO BID 10/23/14 11/03/20 ascorbic acid (vitamin C) 1,000 mg PO DAILY 10/23/14 11/03/20 benzonatate 200 mg PO PRN PRN 10/23/14 11/03/20 calcium citrate 1,000 mg PO DAILY 10/23/14 11/03/20 Activite 1 tab PO BID 08/20/19 11/03/20 [place] Thyroid 180 mg PO QDAY 08/20/19 12/13/20 escitalopram oxalate 5 mg PO QDAY 08/20/19 12/13/20 gabapentin 200 mg PO HS 08/20/19 12/13/20 ondansetron 4 mg PO Q8H PRN 08/20/19 11/03/20 prednisone 10 mg PO QDAY 08/20/19 12/13/20 simethicone [Gas-X Extra Strength] 250 mg PO PRN PRN 08/20/19 11/03/20 tizanidine 4 mg PO QHS 08/20/19 12/13/20 turmeric-herbal complex no.278 150 mg PO DAILY 08/20/19 11/03/20 [id number] 3.5 1 drp OPHTHALMIC Q12H PRN 10/23/19 11/03/20 mg/mL-10,000 unit/mL-0.1% eye drops fexofenadine [Arianne Allergy] 180 mg PO QID PRN 03/28/20 11/03/20 fluticasone propionate [Flonase 1 spray INTRANASAL QDAY PRN 03/28/20 11/03/20 Allergy Relief] guaifenesin [Mucinex] 1,200 mg PO Q12H PRN 03/28/20 11/03/20 methocarbamol 500 mg tablet 1,000 mg PO Q6H tab 08/31/20 12/13/20 duloxetine [Cymbalta] 30 mg PO QDAY 11/03/20 12/13/20 fexofenadine 180 mg PO QDAY PRN 11/03/20 11/03/20 fluticasone propion-salmeterol 1 inh INHALATION BID 11/03/20 11/03/20 [Advair Diskus] gabapentin 100 mg PO QAM 11/03/20 12/13/20 levothyroxine 75 mcg PO QDAY 11/03/20 12/13/20 Previous Rx's Medication Instructions Recorded fentanyl 25 mcg/hr transdermal 1 patch TRANSDERMAL Q72H #10 ea 10/26/20 patch fentanyl 25 mcg TOPICAL Q72H #10 ea 11/04/20 oxycodone-acetaminophen [Endocet] 1 tab PO Q4H PRN #30 tab 11/04/20 Allergies Allergy/AdvReac Type Severity Reaction Status Date / Time Barbiturates Allergy Severe Swelling Verified 12/13/20 13:10 of Lip/Tongue/Throat morphine Allergy Severe Anaphylaxis Verified 12/13/20 13:10 Cyclobenzaprine AdvReac Intermediate Other Verified 12/13/20 13:10 [From Flexeril] famotidine AdvReac Intermediate Rash Verified 12/13/20 13:10 lansoprazole AdvReac Intermediate Rash Verified 12/13/20 13:10 omeprazole AdvReac Intermediate Rash Verified 12/13/20 13:10 pantoprazole AdvReac Intermediate Rash Verified 12/13/20 13:10 Review of Systems ROS ROS Narrative: Narrative: All systems ED: reviewed and negative except as stated. [facility] Narrative Patient History Narrative: Narrative: Medical/Surgical/Family History All Active Problems (Updated 12/13/20 @ 14:29 by [facility] [place]) Fracture of tibia and fibula (Acute) Vaginal bleeding (Acute) History of diverticulosis (Acute) Rectal hemorrhage (Acute) BRBPR (bright red blood per rectum) (Acute) Polyarthritis rheumatica (Chronic) Arthritis (Chronic) Acute UTI (Acute) Closed lumbar vertebral fracture (Acute) Fracture of third metatarsal bone (Acute) Fracture of fourth metatarsal bone (Acute) Fracture of fifth metatarsal bone (Acute) Weakness (Acute) Cellulitis (Acute) Back pain (Acute) Acute exacerbation of chronic obstructive pulmonary disease (COPD) (Acute) Pneumonia (Acute) Lumbar stenosis with neurogenic claudication (Chronic) Thoracic spondylosis (Chronic) Thoracic radiculopathy (Chronic) Radiculopathy, lumbar region (Acute) Heart disease (Chronic) History of tobacco use (Chronic) Radiculopathy, lumbar region (Chronic) Myofascial pain (Chronic) Pain in joint of right knee (Chronic) Personal history of (healed) osteoporosis fracture (Chronic) Intercostal pain (Chronic) Strain of lumbar region (Acute) UTI (urinary tract infection) (Acute) Non-cardiac chest pain (Acute) Encounter for long-term current use of high risk medication (Acute) HX: breast cancer (Chronic) COPD (chronic obstructive pulmonary disease) (Chronic) Sleep apnea (Chronic) Anxiety (Chronic) Depression (Chronic) Wrist fracture (Chronic) Pelvic fracture (Chronic) Compression fracture (Chronic) Eczema (Chronic) DJD (degenerative joint disease) (Acute) Type II diabetes mellitus (Chronic) Osteoporosis (Chronic) Age-related osteoporosis with current pathological fracture (Chronic) Other urticaria (Chronic) Gastro-esophageal reflux disease without esophagitis (Chronic) Major depressive disorder, recurrent, moderate (Chronic) Medical History Age-related osteoporosis with current pathological fracture Anxiety Arthritis Compression fracture COPD (chronic obstructive pulmonary disease) Depression DJD (degenerative joint disease) Eczema Encounter for long-term current use of high risk medication Gastro-esophageal reflux disease without esophagitis Heart disease History of tobacco use HX: breast cancer Intercostal pain Lumbar stenosis with neurogenic claudication Major depressive disorder, recurrent, moderate Myofascial pain Osteoporosis Other urticaria Pain in joint of right knee Pelvic fracture Personal history of (healed) osteoporosis fracture Polyarthritis rheumatica Radiculopathy, lumbar region Radiculopathy, lumbar region Sleep apnea Thoracic radiculopathy Thoracic spondylosis Type II diabetes mellitus Wrist fracture Surgical History History of surgery Intercostal Nerve Block, Lt T7-10 w/o sed 09/30/19 LESI #1 L3-4 w/o sed 09/30/19 LESI #1 L4-5 w/o sed 08/14/2018 LESI #2 L3-4 w/o sed 11/06/2017 LESI #1 L4-5 w/o sed 05/23/2017 Knee Joint Injection, Right w/o sed 04/15/2015 LESI #2 L4-5 w/o sed 04/15/2015 Trigger Point Injection 1-2 w/o sed 03/26/15 LESI #1 L4-5 w/o sed 03/26/15 Vertebro Aug T12, L1 w/sed 07/31/14 Hx laparoscopic cholecystectomy (11/12/09) Hx of appendectomy 2009 Hx of cardiac pacemaker 10/2010 Hx of lumpectomy 10/2009 Hx of mastectomy 10/2009. 02/2011 Hx of surgical procedure aortal bi-femoral graft Family History Other Cancer Social History Smoking Status: Former smoker Alcohol Intake Frequency: holiday/special occasion only Substance Use: marijuana Exam Narrative Narrative: Narrative: General Limitations: physical limitation General appearance: Present alert and in no apparent distress Head Head: Present atraumatic, normocephalic and normal inspection Eye Eye: Present normal appearance and PERRL; Absent scleral icterus Neck Neck: Present full ROM; Absent tenderness Chest Chest: Present symmetric chest wall rise Respiratory Respiratory: Present normal lung sounds bilaterally; Absent respiratory distress, wheezes, stridor, accessory muscle use and prolonged expiratory phase Cardiovascular Cardiovascular: Present regular rate and normal rhythm; Absent systolic murmur and diastolic murmur Extremities Extremities: Present other (Hip and pelvis is normal to palpation. Right leg has tenderness with palpation over the distal end of tibia and proximal end of tibia. Mild swelling. No ecchymosis, erythema, heat, or or deformities. Pedal pulse 2+. Capillary refill less than 2 seconds.) Neurological Neurological: Present alert and oriented X3 Psychiatric Psychiatric: Present normal affect and normal mood Skin Skin: Present warm (WNL), dry and normal color Course Vital Signs Vital signs: Vital Signs Temperature 97.8 F 12/13/20 13:06 Pulse Rate 81 12/13/20 13:06 Respiratory Rate 20 12/13/20 13:06 Blood Pressure 119/57 12/13/20 13:06 Pulse Oximetry (%) 91 12/13/20 13:06 Temperature 97.8 F 12/13/20 13:06 Pulse Rate 68 12/13/20 18:33 Respiratory Rate 20 12/13/20 13:06 Blood Pressure 109/55 12/13/20 18:31 Pulse Oximetry (%) 95 12/13/20 18:33 [facility] MDM Narrative Medical decision making narrative: Narrative: 85-year-old female with right leg pain after falling yesterday from a mechanical ground-level fall. Has a fracture of the proximal and distal fibula. Possible acute versus subacute medial malleolus fracture as well. I was able to consult with Dr. Diaz who is on for orthopedics today. Dr. Diaz was also able to review the imaging. He recommends placing the patient and a walking boot and have the patient follow-up with him tomorrow at [facility]. He does recommend patient can be weightbearing as tolerated. At this time would Dr. Diaz does not recommend operative intervention, but would like the patient to stay in the boot and will plan on following up with her closely. Possible surgical intervention if changes occur with her fractures. Patient received Toradol 15 mg today intravenously due to her allergy to morphine. She does report having taking oxycodone in the past. Ordered patient a dose of oxycodone. After discussing plan with Dr. Diaz patient was placed in the walking boot. She is unable to stand due to pain and not able to transfer herself. She does not have a caregiver at home to care for her, and could potentially be a possible surgical candidate if there is changes with the fractures. I would recommend patient to be considered for hospital admission for tib-fib fracture. I was able to consult with hospitalist, Dr. Godinez who is on today for [facility]. Dr. Godinez agrees to admit the patient to [facility] for ob servation. Dr. Diaz will plan on consulting with the patient as well while she is here. Today did order a CBC, CMP, and EKG. Patient's EKG does not show any finding of acute coronary syndrome. Normal sinus rhythm. Her CBC shows mild elevation of white count at 12.1 which could be related to stress response. Patient has rather normal CMP. Patient will be admitted to [facility] today for observation. Lab Data Lab results reviewed: Yes I reviewed the patient's lab results. Result diagrams: 12/13/20 14:55 12/13/20 14:55 Labs: Lab Results 12/13/20 12/13/20 Range/Units 14:55 14:55 WBC 12.1 H (4.5-11.0) K/mcL RBC 3.77 (3.59-5.38) M/mcL Hgb 11.7 (11.2-15.7) g/dL Hct 37.8 (34.1-44.9) % MCV 100.3 H (80.0-100.0) fL MCH 31.0 (26.0-34.0) pg MCHC 31.0 (31.0-36.0) g/dL RDW 13.9 (11.5-14.5) % Plt Count 187 (140-440) K/mcL MPV 11.3 H (7.4-10.4) fL Neut % (Auto) 79.7 H (38.0-78.0) % Lymph % (Auto) 11.0 L (15.5-49.0) % [place] % (Auto) 7.1 (1.0-12.0) % Eos % (Auto) 2.0 (0.0-7.0) % Baso % (Auto) 0.2 (0.0-2.0) % Lymph # (Auto) 1.33 L (1.50-4.80) K/mcL [place]kins # (Auto) 0.86 (0.10-0.90) K/mcL Eos # (Auto) 0.24 (0.00-0.70) K/mcL Baso # (Auto) 0.02 (0.00-0.30) K/mcL Absolute Neutrophils 9.63 H (1.80-8.00) K/mcL Sodium 136 (133-145) mmol/L Potassium 3.7 (3.3-5.1) mmol/L Chloride 98 (96-108) mmol/L Carbon Dioxide 27 (22-30) mmol/L Anion Gap 11.0 (8.0-16.0) BUN 11 (8-23) mg/dL Creatinine 0.8 (0.6-1.1) mg/dL GFR Calculation 67 Glucose 113 H (70-105) mg/dL Calcium 9.0 (8.6-10.4) mg/dL Total Bilirubin 0.5 (0.1-1.0) mg/dL AST 12 (<32) U/L ALT 14 (<40) U/L Alkaline Phosphatase 101 (39-117) U/L Total Protein 6.2 (5.9-8.4) gm/dL Albumin 3.3 (3.2-5.2) gm/dL Globulin 2.9 (2.2-3.7) gm/dL Albumin/Globulin Ratio 1.1 (1.0-2.3) Radiology Data Radiology results reviewed: Yes I reviewed the patient's radiology results. Radiology results narrative: Ordering Physician: Venkat Morales Date of Service: 12/13/20 Procedure(s): XR tibia fibula ap & lat RT Accession Number(s): [id number] HISTORY: Right lower leg injury after a fall FINDINGS: There is an acute nondisplaced transverse fracture in the proximal shaft of the fibula. There is a 3 mm step-off but no angulation. Overlying soft tissues are swollen. There is also an obliquely oriented fracture with more indistinct margins in the lateral malleolus and a transverse fracture of the medial middle malleolus which also has indistinct margins. There is mild soft tissue swelling over the lateral malleolus. A moderate size joint effusion is present in the ankle. Patient has underlying osteoarthritis in the knee following both medial lateral joint compartments. Ankle joint space is normal in width without evidence of arthritis. Large spur is present on the plantar surface of the calcaneus. IMPRESSION: Fractured proximal and distal fibula and fractured medial malleolus Interpreted and Authenticated by: Brad Villalpando 12/13/20 EKG Data EKG #1: EKG attestation: Yes There are no EKG findings of acute coronary syndrome and Yes This EKG will be read by glove boarder EKG shows normal: sinus rhythm Rate: normal Discharge Plan Patient/Caregiver Discharge Instructions Pt seen by OYSTER SHUCKER/PA only: No Clinical Impression: Fracture of tibia and fibula Qualifiers: Encounter type: initial encounter Fracture type: closed Laterality: right Qualified Code(s): S82.201A - Unspecified fracture of shaft of right tibia, initial encounter for closed fracture Patient Disposition: Xfer As Outpt/Obs ([facility]) Condition: Fair Discharge Date/Time: 12/13/20 19:04
[2020-12-13] MEDS ORDERED: KETOROLAC 15 MG/ML VIAL IV ONE (13:39)
--- NOTE | 2020-12-13 14:02 | XRay Report ---
HISTORY: Right lower leg injury after a fall FINDINGS: There is an acute nondisplaced transverse fracture in the proximal shaft of the fibula. There is a 3 mm step-off but no angulation. Overlying soft tissues are swollen. There is also an obliquely oriented fracture with more indistinct margins in the lateral malleolus and a transverse fracture of the medial middle malleolus which also has indistinct margins. There is mild soft tissue swelling over the lateral malleolus. A moderate size joint effusion is present in the ankle. Patient has underlying osteoarthritis in the knee following both medial lateral joint compartments. Ankle joint space is normal in width without evidence of arthritis. Large spur is present on the plantar surface of the calcaneus. IMPRESSION: Fractured proximal and distal fibula and fractured medial malleolus Interpreted and Authenticated by: Brad Villalpando 12/13/20
[2020-12-13] MEDS ORDERED: oxyCODONE/APAP 5/325MG TABLET PO ONE (14:50)
[2020-12-13 15:13] LABS: Basophils # (Auto) 0.02 K/mcL (0.00-0.30); Basophils % (Auto) 0.2 % (0.0-2.0); Eosinophils # (Auto) 0.24 K/mcL (0.00-0.70); Hematocrit 37.8 % (34.1-44.9); Hemoglobin 11.7 g/dL (11.2-15.7); Lymphocytes # (Auto) 1.33 K/mcL (1.50-4.80); Mean Cell Volume 100.3 fL (80.0-100.0); Mean Platelet Volume 11.3 fL (7.4-10.4); Monocytes # (Auto) 0.86 K/mcL (0.10-0.90); Monocytes % (Auto) 7.1 % (1.0-12.0); Neutrophils % (Auto) 79.7 % (38.0-78.0); Platelet Count 187 K/mcL (140-440); RBC 3.77 M/mcL (3.59-5.38); Red Cell Distribution Width 13.9 % (11.5-14.5); WBC 12.1 K/mcL (4.5-11.0)
[2020-12-13 15:45] LABS: ALT/SGPT 14 U/L (<40); AST/SGOT 12 U/L (<32); Albumin 3.3 gm/dL (3.2-5.2); Albumin/Globulin Ratio 1.1 (1.0-2.3); Alkaline Phosphatase 101 U/L (39-117); Bilirubin,Total 0.5 mg/dL (0.1-1.0); Blood Urea Nitrogen 11 mg/dL (8-23); Carbon Dioxide 27 mmol/L (22-30); Chloride 98 mmol/L (96-108); Globulin 2.9 gm/dL (2.2-3.7); Glomerular Filtration Rate 67; Glucose 113 mg/dL (70-105)
[2020-12-13] MEDS ORDERED: oxyCODONE/APAP 5/325MG TABLET PO PRN (16:03)
[2020-12-13] MEDS ORDERED: ONDANSETRON 4 MG/2 ML VIAL IV PRN ×2 (16:03→19:24)
[2020-12-13] MEDS ORDERED: FLUTICASONE PROPIONATE SPRAY.NAS NS PRN (19:24)
--- NOTE | 2020-12-13 19:51 | Internal Med History&Physical ---
HPI History of Present Illness Patient information: Note initiated : 12/13/20 at 7:31 pm Service Date, if different from initiated Date: [] Patient: Kiera Angeles a 85 y/o F admitted on 12/13/20 for R leg pain. Chief Complaint: [] Chief complaint: right knee and ankle pain History of present illness: Ms. Angeles is a 85 year old F who yesterday was walking [place] to the bathroom when she lost control of her 4 wheeled walker with handbrakes and seat twisted her ankle and fell. She lives with who could not get her up so she called fire department. At time pain was not severe so she stayed at home. Walking on her right leg today pain increased to 10/10 so she came in to EMD and found to have right prox fibula, right distal fibula fracture minimal displacement only and left medial malleolus tibia fracture. The patient was recommended a walking boot but not able to stand and walk. Admitted for pain control and physical therapy evaluation. Constitutional Constitutional: Absent chills, fever(s), frequent falls, lethargy and weakness EENT Eyes: Absent change in vision Nose, mouth and throat: Absent headache(s) Breasts Breasts: Present other Additional comments: left mastectomy 12 years ago cancer then chemo Cardiovascular Cardiovascular: Absent chest pain, chest pain at rest, chest pain with activity, palpatations and syncope Respiratory Respiratory: Absent cough and dyspnea Gastrointestinal Gastrointestinal: Present hematochezia; Absent constipation and diarrhea Additional comments: last month resolved after polypectomy Genitourinary Genitourinary: Absent breast pain and vaginal discharge Menstruation: post menopausal Musculoskeletal Musculoskeletal: Present back pain (chronic) and joint swelling (knee and ankle right side) Hematologic/Lymphatic Hematologic/Lymphatic: Absent easy bleeding and easy bruising PFSH PFSH All Active Problems (Updated 12/13/20 @ 19:50 by Adán Godinez MD) Hemarthrosis of right knee (Acute) Fracture of tibia and fibula (Acute) History of diverticulosis (Chronic) Rectal hemorrhage (Acute) BRBPR (bright red blood per rectum) (Acute) Polyarthritis rheumatica (Chronic) Arthritis (Chronic) Acute UTI (Acute) Closed lumbar vertebral fracture (Chronic) Fracture of third metatarsal bone (Acute) Fracture of fourth metatarsal bone (Acute) Fracture of fifth metatarsal bone (Acute) Weakness (Acute) Cellulitis (Acute) Back pain (Acute) Acute exacerbation of chronic obstructive pulmonary disease (COPD) (Acute) Pneumonia (Acute) Lumbar stenosis with neurogenic claudication (Chronic) Thoracic spondylosis (Chronic) Thoracic radiculopathy (Chronic) Radiculopathy, lumbar region (Acute) Heart disease (Chronic) History of tobacco use (Chronic) Radiculopathy, lumbar region (Chronic) Myofascial pain (Chronic) Pain in joint of right knee (Chronic) Personal history of (healed) osteoporosis fracture (Chronic) Intercostal pain (Chronic) Strain of lumbar region (Acute) UTI (urinary tract infection) (Acute) Non-cardiac chest pain (Acute) Encounter for long-term current use of high risk medication (Acute) HX: breast cancer (Chronic) COPD (chronic obstructive pulmonary disease) (Chronic) Sleep apnea (Chronic) Anxiety (Chronic) Depression (Chronic) Wrist fracture (Chronic) Pelvic fracture (Chronic) Compression fracture (Chronic) Eczema (Chronic) DJD (degenerative joint disease) (Acute) Type II diabetes mellitus (Chronic) Osteoporosis (Chronic) Age-related osteoporosis with current pathological fracture (Chronic) Other urticaria (Chronic) Gastro-esophageal reflux disease without esophagitis (Chronic) Major depressive disorder, recurrent, moderate (Chronic) Medical History Age-related osteoporosis with current pathological fracture Anxiety Arthritis Compression fracture COPD (chronic obstructive pulmonary disease) Depression DJD (degenerative joint disease) Eczema Encounter for long-term current use of high risk medication Gastro-esophageal reflux disease without esophagitis Heart disease History of tobacco use HX: breast cancer Intercostal pain Lumbar stenosis with neurogenic claudication Major depressive disorder, recurrent, moderate Myofascial pain Osteoporosis Other urticaria Pain in joint of right knee Pelvic fracture Personal history of (healed) osteoporosis fracture Polyarthritis rheumatica Radiculopathy, lumbar region Radiculopathy, lumbar region Sleep apnea Thoracic radiculopathy Thoracic spondylosis Type II diabetes mellitus Wrist fracture Surgical History History of surgery Intercostal Nerve Block, Lt T7-10 w/o sed 09/30/19 LESI #1 L3-4 w/o sed 09/30/19 LESI #1 L4-5 w/o sed 08/14/2018 LESI #2 L3-4 w/o sed 11/06/2017 LESI #1 L4-5 w/o sed 05/23/2017 Knee Joint Injection, Right w/o sed 04/15/2015 LESI #2 L4-5 w/o sed 04/15/2015 Trigger Point Injection 1-2 w/o sed 03/26/15 LESI #1 L4-5 w/o sed 03/26/15 Vertebro Aug T12, L1 w/sed 07/31/14 Hx laparoscopic cholecystectomy (11/12/09) Hx of appendectomy 2009 Hx of cardiac pacemaker 10/2010 Hx of lumpectomy 10/2009 Hx of mastectomy 10/2009. 02/2011 Hx of surgical procedure aortal bi-femoral graft Family History Other Cancer Social History education level: high school sexually active: No smoking status: Former smoker alcohol intake frequency: holiday/special occasion only substance use type: marijuana MEDS/ALLERGIES Home Medications and Allergies Home Medications Medication Instructions Recorded Confirmed Type alpha lipoic acid 300 mg PO BID 10/23/14 11/03/20 History ascorbic acid (vitamin C) 1,000 mg PO DAILY 10/23/14 11/03/20 History benzonatate 200 mg PO PRN PRN 10/23/14 11/03/20 History calcium citrate 1,000 mg PO DAILY 10/23/14 11/03/20 History Activite 1 tab PO BID 08/20/19 11/03/20 History [place] Thyroid 180 mg PO QDAY 08/20/19 12/13/20 History escitalopram oxalate 5 mg PO QDAY 08/20/19 12/13/20 History gabapentin 200 mg PO HS 08/20/19 12/13/20 History ondansetron 4 mg PO Q8H PRN 08/20/19 11/03/20 History prednisone 10 mg PO QDAY 08/20/19 12/13/20 History simethicone [Gas-X Extra Strength] 250 mg PO PRN PRN 08/20/19 11/03/20 History tizanidine 4 mg PO QHS 08/20/19 12/13/20 History turmeric-herbal complex no.278 150 mg PO DAILY 08/20/19 11/03/20 History imyaffee-qzffzmajh-dcxregvv 3.5 1 drp OPHTHALMIC Q12H PRN 10/23/19 11/03/20 History mg/mL-10,000 unit/mL-0.1% eye drops fexofenadine [Arianne Allergy] 180 mg PO QID PRN 03/28/20 11/03/20 History fluticasone propionate [Flonase 1 spray INTRANASAL QDAY PRN 03/28/20 11/03/20 History Allergy Relief] guaifenesin [Mucinex] 1,200 mg PO Q12H PRN 03/28/20 11/03/20 History methocarbamol 500 mg tablet 1,000 mg PO Q6H tab 08/31/20 12/13/20 History fentanyl 25 mcg/hr transdermal 1 patch TRANSDERMAL Q72H #10 ea 10/26/20 11/03/20 Rx patch duloxetine [Cymbalta] 30 mg PO QDAY 11/03/20 12/13/20 History fexofenadine 180 mg PO QDAY PRN 11/03/20 11/03/20 History fluticasone propion-salmeterol 1 inh INHALATION BID 11/03/20 11/03/20 History [Advair Diskus] gabapentin 100 mg PO QAM 11/03/20 12/13/20 History levothyroxine 75 mcg PO QDAY 11/03/20 12/13/20 History fentanyl 25 mcg TOPICAL Q72H #10 ea 11/04/20 Rx oxycodone-acetaminophen [Endocet] 1 tab PO Q4H PRN #30 tab 11/04/20 Rx Allergies Allergy/AdvReac Type Severity Reaction Status Date / Time Barbiturates Allergy Severe Swelling Verified 12/13/20 13:10 of Lip/Tongue/Throat morphine Allergy Severe Anaphylaxis Verified 12/13/20 13:10 Cyclobenzaprine AdvReac Intermediate Other Verified 12/13/20 13:10 [From Flexeril] famotidine AdvReac Intermediate Rash Verified 12/13/20 13:10 lansoprazole AdvReac Intermediate Rash Verified 12/13/20 13:10 omeprazole AdvReac Intermediate Rash Verified 12/13/20 13:10 pantoprazole AdvReac Intermediate Rash Verified 12/13/20 13:10 EXAM Constitutional Vitals: Temp Pulse Resp BP Pulse Ox 97.8 F 68 20 109/55 95 12/13/20 13:06 12/13/20 18:33 12/13/20 13:06 12/13/20 18:31 12/13/20 18:33 Additional findings Additional findings: GEN WDWN elderly female appears her stated age. mentation alert and oriented to person, place CV RRR no murmur. Lungs CTA Abd soft NTND Calves no pretibial edema but there os kneed edema and effusion there is swelling and tenderness in knee with fluctuance and mild increased warmth. left ankle there is mod tenderness and mild edema and increased warmth. right ankle no swelling but slight tender gross sensation right foot intact, DP pulse intact. foot is warm not hot or cold. Skin warm and dry. DATA Data Completed and Pending Labs: Labs from last 24 hours 12/13/20 12/13/20 14:55 14:55 WBC 12.1 H RBC 3.77 Hgb 11.7 Hct 37.8 MCV 100.3 H MCH 31.0 MCHC 31.0 RDW 13.9 Plt Count 187 MPV 11.3 H Neut % (Auto) 79.7 H Lymph % (Auto) 11.0 L [place] % (Auto) 7.1 Eos % (Auto) 2.0 Baso % (Auto) 0.2 Lymph # (Auto) 1.33 L [place] # (Auto) 0.86 Eos # (Auto) 0.24 Baso # (Auto) 0.02 Absolute Neutrophils 9.63 H Sodium 136 Potassium 3.7 Chloride 98 Carbon Dioxide 27 Anion Gap 11.0 BUN 11 Creatinine 0.8 GFR Calculation 67 Glucose 113 H Calcium 9.0 Total Bilirubin 0.5 AST 12 ALT 14 Alkaline Phosphatase 101 Total Protein 6.2 Albumin 3.3 Globulin 2.9 Albumin/Globulin Ratio 1.1 A/P Assessment and plan (1) Hemarthrosis of right knee: Status: Acute Comment: likely due to proximal fibula fracture. will ice the knee. Hold off on Lovenox with this new finding. May need to be drained. (2) Fracture of tibia and fibula: Status: Acute Comment: pt can be 75% wt bearing with walking boot only. Orthopedist consultation in AM Qualifiers: Encounter type: initial encounter Fracture type: closed Laterality: right Qualified Code(s): S82.201A - Unspecified fracture of shaft of right tibia, initial encounter for closed fracture; S82.401A - Unspecified fracture of shaft of right fibula, initial encounter for closed fracture (3) History of diverticulosis: Status: Chronic Comment: had a polyp removed late last month. no further hematochezia (4) Vaginal bleeding: Status: Resolved Comment: resolved (5) Closed lumbar vertebral fracture: Status: Chronic Comment: pt for PT and OT evaluation tomorrow. Qualifiers: Encounter type: initial encounter Fracture morphology: wedge compression Lumbar vertebra fracture level: L4 Qualified Code(s): S32.040A - Wedge compression fracture of fourth lumbar vertebra, initial encounter for closed fracture Time Spent With Patient Time: Total time spent is greater than 50% in coordination of care (as documented) at patient's floor/unit and/or counseling patient: Total time spent with greater than 50% in coordination of care (as documented) at patient's floor/unit and/or counseling patient:: Greater than 35 minutes QUALITY VTE Contraindication No VTE Prophylaxis: Contraindicated
[2020-12-13] MEDS ORDERED: ONDANSETRON 4 MG ODT TABLET SL PRN (20:46)
[2020-12-13] MEDS: FLUTICASONE/SALMETEROL 250/50 INHALER #14 INH SCH (20:56)
[2020-12-13] MEDS: SENNOSIDES 1 TABLET PO SCH (20:56)
[2020-12-13] MEDS ORDERED: SENNOSIDES 1 TABLET PO SCH (21:00)
[2020-12-13] MEDS ORDERED: DOCUSATE SODIUM 100 MG CAPSULE PO SCH (21:00)
[2020-12-13] MEDS: DOCUSATE SODIUM 100 MG CAPSULE PO SCH (21:08)
[2020-12-13] MEDS: METHOCARBAMOL 500 MG TABLET PO SCH (21:08)
[2020-12-13] MEDS: GABAPENTIN 100 MG CAPSULE PO SCH (21:08)
[2020-12-13] MEDS: oxyCODONE/APAP 5/325MG TABLET PO PRN (21:08)
[2020-12-13] MEDS ORDERED: 0.9 % SODIUM CHLORIDE 10 ML SYRINGE IV SCH ×2 (22:00)
[2020-12-13] MEDS: fentaNYL 25 MCG PATCH TOPICAL SCH (22:15)
[2020-12-14] MEDS: THYROID, PORK 60 MG TABLET PO SCH (07:30)
[2020-12-14] MEDS: oxyCODONE/APAP 5/325MG TABLET PO PRN ×4 (07:30→23:57)
[2020-12-14] MEDS: DULoxetine 30 MG CAPSULE PO SCH (08:17)
[2020-12-14] MEDS: predniSONE 5 MG TABLET PO SCH (08:18)
[2020-12-14] MEDS: METHOCARBAMOL 500 MG TABLET PO SCH ×4 (08:19→20:29)
[2020-12-14] MEDS: ESCITALOPRAM 10 MG TABLET PO SCH (08:19)
[2020-12-14] MEDS: GABAPENTIN 100 MG CAPSULE PO SCH ×2 (08:19→20:29)
[2020-12-14] MEDS: DOCUSATE SODIUM 100 MG CAPSULE PO SCH ×2 (08:20→20:29)
[2020-12-14] MEDS: FLUTICASONE/SALMETEROL 250/50 INHALER #14 INH SCH ×2 (08:20→20:28)
[2020-12-14] MEDS: LEVOTHYROXINE 75 MCG TABLET PO SCH (08:20)
[2020-12-14] MEDS ORDERED: ENOXAPARIN 40 MG/0.4 ML SYRINGE SQ SCH ×2 (09:00)
--- NOTE | 2020-12-14 09:12 | EKG ---
[facility] Test Date: 2020-12-13 Pat Name: Kiera Angeles Department: ED Room: Gender: Female Hall Director: aw : 1935 Requested By: Venkat Morales Order Number: [id number] Reading MD: George Silva Measurements Intervals [place] Rate: 82 P: 35 WA: 192 QRS: 4 QRSD: 110 T: 13 QT: 358 QTc: 418 Interpretive Statements Sinus rhythm Inferior infarct, old Unchanged from prior Electronically Signed On 12-14-2020 9:12:14 PDT by George Silva /store/M0/[id number].pdf
--- NOTE | 2020-12-14 13:56 | Orthopedic History & Physical ---
HPI History of Present Illness Patient information: Note initiated : 12/14/20 at 1:42 pm Service Date, if different from initiated Date: [] Patient: Kiera Angeles 85 y/o F admitted on 12/13/20 for R leg pain. Chief Complaint: [] History of present illness: Ms. Angeles is a 85 year old F admitted to the hospitalists yesterday after a ground level fall causing pain to the right leg. She has a non displaced fracture of the proximal fibula, and medial and lateral malleolus. She is unable to bear weight due to the pain and is having difficulty walking prompting her admission. Upon evaluation today she is also having some pain and swelling in her right knee. She is otherwise feeling well and denies any headache, chest pain, other injuries, fevers, or any other acute symptoms. Review of Systems Review of systems: 10 point system reviewed and is negative PFSH PFSH All Active Problems (Updated 12/14/20 @ 13:55 by Ramsey Warren PA-C) Hemarthrosis of right knee (Acute) Fracture of tibia and fibula (Acute) History of diverticulosis (Chronic) Rectal hemorrhage (Acute) BRBPR (bright red blood per rectum) (Acute) Polyarthritis rheumatica (Chronic) Arthritis (Chronic) Acute UTI (Acute) Closed lumbar vertebral fracture (Chronic) Fracture of third metatarsal bone (Acute) Fracture of fourth metatarsal bone (Acute) Fracture of fifth metatarsal bone (Acute) Weakness (Acute) Cellulitis (Acute) Back pain (Acute) Acute exacerbation of chronic obstructive pulmonary disease (COPD) (Acute) Pneumonia (Acute) Lumbar stenosis with neurogenic claudication (Chronic) Thoracic spondylosis (Chronic) Thoracic radiculopathy (Chronic) Radiculopathy, lumbar region (Acute) Heart disease (Chronic) History of tobacco use (Chronic) Radiculopathy, lumbar region (Chronic) Myofascial pain (Chronic) Pain in joint of right knee (Chronic) Personal history of (healed) osteoporosis fracture (Chronic) Intercostal pain (Chronic) Strain of lumbar region (Acute) UTI (urinary tract infection) (Acute) Non-cardiac chest pain (Acute) Encounter for long-term current use of high risk medication (Acute) HX: breast cancer (Chronic) COPD (chronic obstructive pulmonary disease) (Chronic) Sleep apnea (Chronic) Anxiety (Chronic) Depression (Chronic) Wrist fracture (Chronic) Pelvic fracture (Chronic) Compression fracture (Chronic) Eczema (Chronic) DJD (degenerative joint disease) (Acute) Type II diabetes mellitus (Chronic) Osteoporosis (Chronic) Age-related osteoporosis with current pathological fracture (Chronic) Other urticaria (Chronic) Gastro-esophageal reflux disease without esophagitis (Chronic) Major depressive disorder, recurrent, moderate (Chronic) Medical History Age-related osteoporosis with current pathological fracture Anxiety Arthritis Compression fracture COPD (chronic obstructive pulmonary disease) Depression DJD (degenerative joint disease) Eczema Encounter for long-term current use of high risk medication Gastro-esophageal reflux disease without esophagitis Heart disease History of tobacco use HX: breast cancer Intercostal pain Lumbar stenosis with neurogenic claudication Major depressive disorder, recurrent, moderate Myofascial pain Osteoporosis Other urticaria Pain in joint of right knee Pelvic fracture Personal history of (healed) osteoporosis fracture Polyarthritis rheumatica Radiculopathy, lumbar region Radiculopathy, lumbar region Sleep apnea Thoracic radiculopathy Thoracic spondylosis Type II diabetes mellitus Wrist fracture Surgical History History of surgery Intercostal Nerve Block, Lt T7-10 w/o sed 09/30/19 LESI #1 L3-4 w/o sed 09/30/19 LESI #1 L4-5 w/o sed 08/14/2018 LESI #2 L3-4 w/o sed 11/06/2017 LESI #1 L4-5 w/o sed 05/23/2017 Knee Joint Injection, Right w/o sed 04/15/2015 LESI #2 L4-5 w/o sed 04/15/2015 Trigger Point Injection 1-2 w/o sed 03/26/15 LESI #1 L4-5 w/o sed 03/26/15 Vertebro Aug T12, L1 w/sed 07/31/14 Hx laparoscopic cholecystectomy (11/12/09) Hx of appendectomy 2009 Hx of cardiac pacemaker 10/2010 Hx of lumpectomy 10/2009 Hx of mastectomy 10/2009. 02/2011 Hx of surgical procedure aortal bi-femoral graft Family History Other Cancer Social History education level: high school sexually active: No smoking status: Former smoker alcohol intake frequency: holiday/special occasion only substance use type: marijuana MEDS/ALLERGIES Home Medications and Allergies Home Medications Medication Instructions Recorded Confirmed Type alpha lipoic acid 300 mg PO BID 10/23/14 11/03/20 History ascorbic acid (vitamin C) 1,000 mg PO DAILY 10/23/14 11/03/20 History benzonatate 200 mg PO PRN PRN 10/23/14 11/03/20 History calcium citrate 1,000 mg PO DAILY 10/23/14 11/03/20 History Activite 1 tab PO BID 08/20/19 11/03/20 History [place] Thyroid 180 mg PO QDAY 08/20/19 12/13/20 History escitalopram oxalate 5 mg PO QDAY 08/20/19 12/13/20 History gabapentin 200 mg PO HS 08/20/19 12/13/20 History ondansetron 4 mg PO Q8H PRN 08/20/19 11/03/20 History prednisone 10 mg PO QDAY 08/20/19 12/13/20 History simethicone [Gas-X Extra Strength] 250 mg PO PRN PRN 08/20/19 11/03/20 History tizanidine 4 mg PO QHS 08/20/19 12/13/20 History turmeric-herbal complex no.278 150 mg PO DAILY 08/20/19 11/03/20 History flwqumre-erriysxus-lfijcnjb 3.5 1 drp OPHTHALMIC Q12H PRN 10/23/19 11/03/20 History mg/mL-10,000 unit/mL-0.1% eye drops fexofenadine [Arianne Allergy] 180 mg PO QID PRN 03/28/20 11/03/20 History fluticasone propionate [Flonase 1 spray INTRANASAL QDAY PRN 03/28/20 11/03/20 History Allergy Relief] guaifenesin [Mucinex] 1,200 mg PO Q12H PRN 03/28/20 11/03/20 History methocarbamol 500 mg tablet 1,000 mg PO Q6H tab 08/31/20 12/13/20 History fentanyl 25 mcg/hr transdermal 1 patch TRANSDERMAL Q72H #10 ea 10/26/20 11/03/20 Rx patch duloxetine [Cymbalta] 30 mg PO QDAY 11/03/20 12/13/20 History fexofenadine 180 mg PO QDAY PRN 11/03/20 11/03/20 History fluticasone propion-salmeterol 1 inh INHALATION BID 11/03/20 11/03/20 History [Advair Diskus] gabapentin 100 mg PO QAM 11/03/20 12/13/20 History levothyroxine 75 mcg PO QDAY 11/03/20 12/13/20 History fentanyl 25 mcg TOPICAL Q72H #10 ea 11/04/20 12/13/20 Rx oxycodone-acetaminophen [Endocet] 1 tab PO Q4H PRN #30 tab 11/04/20 Rx Allergies Allergy/AdvReac Type Severity Reaction Status Date / Time Barbiturates Allergy Severe Swelling Verified 12/13/20 13:10 of Lip/Tongue/Throat morphine Allergy Severe Anaphylaxis Verified 12/13/20 13:10 Cyclobenzaprine AdvReac Intermediate Other Verified 12/13/20 13:10 [From Flexeril] famotidine AdvReac Intermediate Rash Verified 12/13/20 13:10 lansoprazole AdvReac Intermediate Rash Verified 12/13/20 13:10 omeprazole AdvReac Intermediate Rash Verified 12/13/20 13:10 pantoprazole AdvReac Intermediate Rash Verified 12/13/20 13:10 Physical Examination Narrative Narrative: Narrative: General: NAD, resting comfortably in the bed Head: atruamatic Chest: no pain Abdomen: no pain Back: no pain Musculoskeletal: Exam of the RLE reveals swelling and bruising in the right leg and ankle. tenderness with palpation of medial and lateral malleolus and proximal fibula. She is able to do a striaght leg raise but has significant weakness in the quad. She has a moderate right knee effusion and upon palpation the extensor tendon appears to be intact. She is NVI in the entire RLE, no calf tenderness. Neuro: NVI, normal mood and affect Results Labs Result Diagrams: 12/13/20 14:55 12/13/20 14:55 Labs: Abnormal lab results 12/13/20 12/13/20 Range/Units 14:55 14:55 WBC 12.1 H (4.5-11.0) K/mcL MCV 100.3 H (80.0-100.0) fL MPV 11.3 H (7.4-10.4) fL Neut % (Auto) 79.7 H (38.0-78.0) % Lymph % (Auto) 11.0 L (15.5-49.0) % Lymph # (Auto) 1.33 L (1.50-4.80) K/mcL Absolute Neutrophils 9.63 H (1.80-8.00) K/mcL Glucose 113 H (70-105) mg/dL H & H 12/13/20 Range/Units 14:55 Hgb 11.7 (11.2-15.7) g/dL Hct 37.8 (34.1-44.9) % All other labs normal. A/P Assessment and plan (1) Hemarthrosis of right knee: Status: Acute Comment: Assessment: hemarthrosis of right knee Plan: Today I offered aspiration for pain control and evaluation of fluid. After risks and benefits were explained she gave consent. I steriley prepped the skin over the superolateral knee joint with betadine and numbed the skin with 5 cc of 1% lidocaine. I then waited a minute and used an 18 guage needle to aspirate about 65 cc of bloody fluid from the knee. No purulence was noted. I then palpated the knee again and the quad tendon feels intact. She was able to do a straight leg easier after aspiration. I will order an x-ray of the knee to determine if there is any fracture of the knee to determine the cause of her hemarthrosis. If her x-ray is negative for fracture she may be full weight bearing as tolerated (2) Fracture of tibia and fibula: Status: Acute Comment: Assessment: Non-displaced proximal fibula fracture, Non-displaced bimalleolar ankle fracture Plan: Patient may be full weight bearing on the RLE as tolerated if her knee x- ray is negative for fracture. She may use a walker or wheelchair to help with transport and she says her house is wheelchair accessible. I would like to see her Monday(12-18-20) of this week to repeat an x-ray of her ankle. She should remain in her walking boot at all times other then showers. If unable to return home she may go to rehab or SNF per hospitalists. Qualifiers: Encounter type: initial encounter Fracture type: closed Laterality: right Qualified Code(s): S82.201A - Unspecified fracture of shaft of right tibia, initial encounter for closed fracture; S82.401A - Unspecified fracture of shaft of right fibula, initial encounter for closed fracture Time Spent With Patient Time: Total time spent is greater than 50% in coordination of care (as documented) at patient's floor/unit and/or counseling patient:
--- NOTE | 2020-12-14 14:22 | XRay Report ---
INDICATION: right knee effusion TECHNIQUE: AP, oblique, crosstable lateral right knee COMPARISON: None FINDINGS: Skeletal: Essentially nondisplaced proximal right fibular fracture. Right ankle x-rays are recommended to exclude Maissoneuve fracture Distal femur and proximal tibia are negative. There is no acute fracture. Joint spaces: There is moderate degenerative joint disease with narrowing of the patellofemoral joint. There is mild degenerative joint disease with narrowing of the medial and lateral femoral tibial joint spaces. Suprapatellar recess, periarticular soft tissues: There is a suprapatellar joint effusion. No lipohemarthrosis identified. IMPRESSION: 1. Nondisplaced proximal right fibular fracture 2. Prominent joint effusion 3. Degenerative joint disease 4. Recommend right ankle x-rays Interpreted and Authenticated by: Dagoberto Gant 12/14/20
--- NOTE | 2020-12-14 14:47 | XRay Report ---
INDICATION: ankle pain TECHNIQUE: AP ankle using gravity stress COMPARISON: Previous right ankle dated 12/13/2020 FINDINGS: Fracture of the right medial malleolus. No significant angulation or displacement. There is a Alberto B distal fibular fracture. No widening of the tibial fibular joint space. No evidence for syndesmotic injury. Talus is negative. IMPRESSION: Alberto B right ankle fracture without plain film evidence for syndesmotic injury Interpreted and Authenticated by: Dagoberto Gant 12/14/20
--- NOTE | 2020-12-14 18:57 | Internal Med Progress Note ---
SUBJECTIVE Subjective Patient information: Note initiated : 12/14/20 at 6:47 pm Service Date, if different from initiated Date: [] Patient: Kiera Angeles 85 y/o F admitted on 12/13/20 for R leg pain. Chief Complaint: [] Interval history: pt seen by [facility] PA and underwent 65 cc removal blood hemarthrosis from right knee. quadriceps ligament by exam is intact. Pt shows stable fracture to allow ambulation and weight bearing as tolerated while using the walking boot. Due to edema and swelling cast is not placed at this time. Pt says knee feels better but not to extent she had hoped. This evening is accompanied by her . Pt is eating salmon for dinner and in good spirits. Hopes to be able to walk well enough with walker and therapy to go home tomorrow. Constitutional Vitals: Vital Signs Temp Pulse Resp BP Pulse Ox 98.7 F 79 20 133/71 94 12/14/20 16:00 12/14/20 16:00 12/14/20 16:00 12/14/20 16:00 12/14/20 16:00 Period Temp Pulse Resp BP Sys/Glover Pulse Ox Last 24 Hr 97.8 F-100.4 F 69-86 16-20 105-142/52-79 91-96 Intake and Output 12/14/20 12/14/20 12/14/20 05:59 13:59 21:59 Intake Total 240 640 480 Output Total 2 2 Balance 238 640 478 Intake & Output: Intake & Output 12/14/20 12/14/20 12/14/20 05:59 13:59 21:59 Intake Total 240 640 480 Output Total 2 2 Balance 238 640 478 Intake: Oral 240 640 480 Output: # of times incontinent of urine 2 2 Other: Meal Breakfast Lunch Percent of Meal Consumed 75% 100% Feeding Ability Assist with Tray Set Up Assist with Tray Set Up Urine Color Dark Yellow Urine Odor Foul Strong Additional findings Additional findings: GEN WDWN WF in NAD CV RRR Lungs CTA Abd soft NT Knee swelling effusion is decreased. Current knee BENEDICTO wrapped and a walking boot in place. minimal ankle swelling. mentation alert and oriented x 3. OBJ DATA Labs CBC & Chem 7: 12/13/20 14:55 12/13/20 14:55 Labs: Abnormal Lab Results 12/13/20 12/13/20 14:55 14:55 WBC 12.1 H MCV 100.3 H MPV 11.3 H Neut % (Auto) 79.7 H Lymph % (Auto) 11.0 L Lymph # (Auto) 1.33 L Absolute Neutrophils 9.63 H Glucose 113 H Meds: Medications Docusate Sodium (Docusate Sodium 100 Mg Capsule) 100 mg PO BID [facility] Last Admin: 12/14/20 08:20 Dose: 100 mg Documented by: Duloxetine HCl (Duloxetine 30 Mg Capsule) 30 mg PO QDAY [facility] Last Admin: 12/14/20 08:17 Dose: 30 mg Documented by: Escitalopram Oxalate (Escitalopram 10 Mg Tablet) 5 mg PO DAILY [facility] Last Admin: 12/14/20 08:19 Dose: 5 mg Documented by: Fentanyl (Fentanyl 25 Mcg Patch) 25 mcg TOPICAL Q72H [facility] Last Admin: 12/13/20 22:15 Dose: 25 mcg Documented by: Fluticasone Propionate (Fluticasone Propionate [place].Jordin) 1 spray NS QDAY PRN PRN Reason: Allergy Symptoms Gabapentin (Gabapentin 100 Mg Capsule) 200 mg PO HS [facility] Last Admin: 12/13/20 21:08 Dose: 200 mg Documented by: Gabapentin (Gabapentin 100 Mg Capsule) 100 mg PO QAM [facility] Last Admin: 12/14/20 08:19 Dose: 100 mg Documented by: Levothyroxine Sodium (Levothyroxine 75 Mcg Tablet) 75 mcg PO QDAY [facility] Last Admin: 12/14/20 08:20 Dose: 75 mcg Documented by: Methocarbamol (Methocarbamol 500 Mg Tablet) 1,000 mg PO QID [facility] Last Admin: 12/14/20 17:55 Dose: 1,000 mg Documented by: Ondansetron HCl (Ondansetron 4 Mg/2 Ml Vial) 4 mg IV Q6HP PRN PRN Reason: Nausea And Vomiting Ondansetron HCl (Ondansetron 4 Mg Odt Tablet) 4 mg SL Q8HP PRN PRN Reason: Nausea And Vomiting Oxycodone/Acetaminophen (Oxycodone/Apap 5/325mg Tablet) 1 tab PO Q4HP PRN; Protocol PRN Reason: Per Pain Protocol Last Admin: 12/14/20 17:55 Dose: 1 tab Documented by: Prednisone (Prednisone 5 Mg Tablet) 10 mg PO QDAY [facility] Last Admin: 12/14/20 08:18 Dose: 10 mg Documented by: Fluticasone/Salmeterol (Fluticasone/Salmeterol 250/50 Inhaler #14) 1 puff INH BID [facility] Last Admin: 12/14/20 08:20 Dose: Not Given Documented by: Senna (Sennosides 1 Tablet) 2 tab PO HS [facility] Last Admin: 12/13/20 20:56 Dose: Not Given Documented by: Thyroid (Thyroid, Pork 60 Mg Tablet) 180 mg PO ACB [facility] Last Admin: 12/14/20 07:30 Dose: 180 mg Documented by: A/P Assessment and plan (1) Hemarthrosis of right knee: Status: Acute Comment: Assessment: hemarthrosis of right knee Plan: Underwent by JEROD Warren aspiration for pain control and evaluation of fluid. After risks and benefits were explained she gave consent. I steriley prepped the skin over the superolateral knee joint with betadine and numbed the skin with 5 cc of 1% lidocaine. I then waited a minute and used an 18 guage needle to aspirate about 65 cc of bloody fluid from the knee. No purulence was n oted. I then palpated the knee again and the quad tendon feels intact. She was able to do a straight leg easier after aspiration. I will order an x-ray of the knee to determine if there is any fracture of the knee to determine the cause of her hemarthrosis. If her x-ray is negative for fracture she may be full weight bearing as tolerated Xrays are reviewed and negative as above so ok for WBA. will see how she does tomorrow with therapy (2) Fracture of tibia and fibula: Status: Acute Comment: Assessment: Non-displaced proximal fibula fracture, Non-displaced bimalleolar ankle fracture see plan below by orthopedics JEROD Warren Plan: Patient may be full weight bearing on the RLE as tolerated if her knee x- ray is negative for fracture. She may use a walker or wheelchair to help with transport and she says her house is wheelchair accessible. I would like to see her Monday(12-18-20) of this week to repeat an x-ray of her ankle. She should remain in her walking boot at all times other then showers. If unable to return home she may go to rehab or SNF per hospitalists. Xrays are reviewed and negative as above so ok for WBA. will see how she does tomorrow with therapy Qualifiers: Encounter type: initial encounter Fracture type: closed Laterality: right Qualified Code(s): S82.201A - Unspecified fracture of shaft of right ti manuel, initial encounter for closed fracture; S82.401A - Unspecified fracture of shaft of right fibula, initial encounter for closed fracture (3) Closed lumbar vertebral fracture: Status: Chronic Comment: cont PT and OT and if stable will go with HH therapy tomorrow. Qualifiers: Encounter type: initial encounter Fracture morphology: wedge compression Lumbar vertebra fracture level: L4 Qualified Code(s): S32.040A - Wedge compression fracture of fourth lumbar vertebra, initial encounter for closed fracture Time Spent With Patient Time: Total time spent is greater than 50% in coordination of care (as documented) at patient's floor/unit and/or counseling patient: 40 QUALITY VTE Contraindication No VTE Prophylaxis: Contraindicated (hemarthrosis healing right knee)
[2020-12-14] MEDS: SENNOSIDES 1 TABLET PO SCH (20:20)
[2020-12-15] MEDS: THYROID, PORK 60 MG TABLET PO SCH (07:35)
[2020-12-15] MEDS: predniSONE 5 MG TABLET PO SCH (08:26)
[2020-12-15] MEDS: LEVOTHYROXINE 75 MCG TABLET PO SCH (08:26)
[2020-12-15] MEDS: DOCUSATE SODIUM 100 MG CAPSULE PO SCH ×2 (08:26→21:05)
[2020-12-15] MEDS: DULoxetine 30 MG CAPSULE PO SCH (08:26)
[2020-12-15] MEDS: FLUTICASONE/SALMETEROL 250/50 INHALER #14 INH SCH ×2 (08:26→21:05)
[2020-12-15] MEDS: GABAPENTIN 100 MG CAPSULE PO SCH ×2 (08:27→21:06)
[2020-12-15] MEDS: ESCITALOPRAM 10 MG TABLET PO SCH (08:27)
[2020-12-15] MEDS: METHOCARBAMOL 500 MG TABLET PO SCH ×4 (08:27→21:06)
[2020-12-15] MEDS: oxyCODONE/APAP 5/325MG TABLET PO PRN ×3 (12:48→21:06)
--- NOTE | 2020-12-15 14:12 | Internal Med Progress Note ---
SUBJECTIVE Subjective Patient information: Note initiated : 12/15/20 at 2:09 pm Service Date, if different from initiated Date: [] Patient: Kiera Angeles 85 y/o F admitted on 12/13/20 for R leg pain. Chief Complaint: [] Principal diagnosis: right lower extremity fractures Interval history: 85 yo WF states did get up in walking boot but pain in ankle is severe and she can barely bear weight. The right knee is 2nd in level of pain. She doesnt think she can go home though she wants to. Pt has also had hard stools here. says her Gerard is very attentive and waits on her at home so tends to limit her improvement. Pertinent ROS: back pain and left leg pain from past fx. has rods left leg. Additional PMFSH (Level 3 Only): left femoral Constitutional Vitals: Vital Signs Temp Pulse Resp BP Pulse Ox 98.5 F 76 20 115/65 91 12/15/20 12:00 12/15/20 12:00 12/15/20 12:00 12/15/20 12:00 12/15/20 12:00 Period Temp Pulse Resp BP Sys/Glover Pulse Ox Last 24 Hr 97.5 F-98.8 F 71-79 20-24 97-133/53-71 90-96 Intake and Output 12/15/20 12/15/20 12/15/20 05:59 13:59 21:59 Intake Total 250 240 Output Total 2 Balance 248 240 Intake & Output: Intake & Output 12/15/20 12/15/20 12/15/20 05:59 13:59 21:59 Intake Total 250 240 Output Total 2 Balance 248 240 Intake: Oral 250 240 Output: # of times incontinent of urine 2 Other: Meal Breakfast Percent of Meal Consumed 100% Feeding Ability Assist with Tray Set Up Stool Size Large Stool Color Brown Stool Consistency Dry and Hard Formed # Bowel Movements 1 Additional findings Additional findings: GEN WDWN WF in NAD CV RRR Lungs CTA Abd mild distended obese non tender Calve right in walking boot. left no edema mentation alert and oriented x 3. OBJ DATA Labs CBC & Chem 7: 12/13/20 14:55 12/13/20 14:55 Labs: Abnormal Lab Results 12/13/20 12/13/20 14:55 14:55 WBC 12.1 H MCV 100.3 H MPV 11.3 H Neut % (Auto) 79.7 H Lymph % (Auto) 11.0 L Lymph # (Auto) 1.33 L Absolute Neutrophils 9.63 H Glucose 113 H Meds: Medications Docusate Sodium (Docusate Sodium 100 Mg Capsule) 100 mg PO BID [facility] Last Admin: 12/15/20 08:26 Dose: 100 mg Documented by: Duloxetine HCl (Duloxetine 30 Mg Capsule) 30 mg PO QDAY [facility] Last Admin: 12/15/20 08:26 Dose: 30 mg Documented by: Escitalopram Oxalate (Escitalopram 10 Mg Tablet) 5 mg PO DAILY [facility] Last Admin: 12/15/20 08:27 Dose: 5 mg Documented by: Fentanyl (Fentanyl 25 Mcg Patch) 25 mcg TOPICAL Q72H [facility] Last Admin: 12/13/20 22:15 Dose: 25 mcg Documented by: Fluticasone Propionate (Fluticasone Propionate [place].Jordin) 1 spray NS QDAY PRN PRN Reason: Allergy Symptoms Gabapentin (Gabapentin 100 Mg Capsule) 200 mg PO HS [facility] Last Admin: 12/14/20 20:29 Dose: 200 mg Documented by: Gabapentin (Gabapentin 100 Mg Capsule) 100 mg PO QAM [facility] Last Admin: 12/15/20 08:27 Dose: 100 mg Documented by: Levothyroxine Sodium (Levothyroxine 75 Mcg Tablet) 75 mcg PO QDAY [facility] Last Admin: 12/15/20 08:26 Dose: 75 mcg Documented by: Methocarbamol (Methocarbamol 500 Mg Tablet) 1,000 mg PO QID [facility] Last Admin: 12/15/20 12:49 Dose: 1,000 mg Documented by: Ondansetron HCl (Ondansetron 4 Mg/2 Ml Vial) 4 mg IV Q6HP PRN PRN Reason: Nausea And Vomiting Ondansetron HCl (Ondansetron 4 Mg Odt Tablet) 4 mg SL Q8HP PRN PRN Reason: Nausea And Vomiting Oxycodone/Acetaminophen (Oxycodone/Apap 5/325mg Tablet) 1 tab PO Q4HP PRN; Protocol PRN Reason: Per Pain Protocol Last Admin: 12/15/20 12:48 Dose: 1 tab Documented by: Prednisone (Prednisone 5 Mg Tablet) 10 mg PO QDAY [facility] Last Admin: 12/15/20 08:26 Dose: 10 mg Documented by: Fluticasone/Salmeterol (Fluticasone/Salmeterol 250/50 Inhaler #14) 1 puff INH BID [facility] Last Admin: 12/15/20 08:26 Dose: Not Given Documented by: Senna (Sennosides 1 Tablet) 2 tab PO HS [facility] Last Admin: 12/14/20 20:20 Dose: 2 tab Documented by: Thyroid (Thyroid, Pork 60 Mg Tablet) 180 mg PO ACB [facility] Last Admin: 12/15/20 07:35 Dose: Not Given Documented by: A/P Assessment and plan (1) Hemarthrosis of right knee: Status: Acute Comment: Assessment: hemarthrosis of right knee Plan: Underwent by JEROD Warren aspiration for pain control and evaluation of fluid. After risks and benefits were explained she gave consent. I steriley prepped the skin over the superolateral knee joint with betadine and numbed the skin with 5 cc of 1% lidocaine. I then waited a minute and used an 18 guage needle to aspirate about 65 cc of bloody fluid from the knee. No purulence was noted. I then palpated the knee again and the quad tendon feels intact. She was able to do a straight leg easier after aspiration. I will order an x-ray of the knee to determine if there is any fracture of the knee to determine the cause of her hemarthrosis. If her x-ray is negative for fracture she may be full weight bearing as tolerated Xrays are reviewed and negative as above so ok for WBA. slow to improve and still quite painful (2) Fracture of tibia and fibula: Status: Acute Comment: Assessment: Non-displaced proximal fibula fracture, Non-displaced bimalleolar ankle fracture see plan below by orthopedics JEROD Warren Plan: Patient may be full weight bearing on the RLE as tolerated if her knee x- ray is negative for fracture. She may use a walker or wheelchair to help with transport and she says her house is wheelchair accessible. I would like to see her Monday(12-18-20) of this week to repeat an x-ray of her ankle. She should remain in her walking boot at all times other then showers. If unable to return home she may go to rehab or SNF per hospitalists. Xrays are reviewed and negative as above so ok for WBA. pt will have increases in pain meds and also for increase in stool softner. likely need SNF rehab. may need surgery as not progressing but wont know till repeat films. Change to inpatient. Qualifiers: Encounter type: initial encounter Fracture type: closed Laterality: right Qualified Code(s): S82.201A - Unspecified fracture of shaft of right tibia, initial encounter for closed fracture; S82.401A - Unspecified fracture of shaft of right fibula, initial encounter for closed fracture (3) Closed lumbar vertebral fracture: Status: Chronic Comment: cont PT and OT and if stable will go with HH therapy tomorrow. Qualifiers: Encounter type: initial encounter Fracture morphology: wedge compression Lumbar vertebra fracture level: L4 Qualified Code(s): S32.040A - Wedge compression fracture of fourth lumbar vertebra, initial encounter for closed fracture Time Spent With Patient Time: Total time spent is greater than 50% in coordination of care (as documented) at patient's floor/unit and/or counseling patient: 35
[2020-12-15] MEDS: SENNOSIDES 1 TABLET PO SCH (21:06)
[2020-12-16] MEDS: oxyCODONE/APAP 5/325MG TABLET PO PRN ×2 (03:51→11:32)
[2020-12-16] MEDS: 0.9 % SODIUM CHLORIDE 10 ML SYRINGE IV SCH ×2 (05:33→16:16)
[2020-12-16] MEDS: METHOCARBAMOL 500 MG TABLET PO SCH ×2 (11:17→16:16)
[2020-12-16] MEDS: DOCUSATE SODIUM 100 MG CAPSULE PO SCH (11:18)
[2020-12-16] MEDS: ESCITALOPRAM 10 MG TABLET PO SCH (11:18)
[2020-12-16] MEDS: THYROID, PORK 60 MG TABLET PO SCH (11:18)
[2020-12-16] MEDS: predniSONE 5 MG TABLET PO SCH (11:19)
[2020-12-16] MEDS: DULoxetine 30 MG CAPSULE PO SCH (11:19)
[2020-12-16] MEDS: FLUTICASONE/SALMETEROL 250/50 INHALER #14 INH SCH (11:19)
[2020-12-16] MEDS: GABAPENTIN 100 MG CAPSULE PO SCH (11:20)
[2020-12-16] MEDS: LEVOTHYROXINE 75 MCG TABLET PO SCH (11:20)
[2020-12-16] MEDS: fentaNYL 25 MCG PATCH TOPICAL SCH (11:32)
--- NOTE | 2020-12-16 14:11 | XRay Report ---
INDICATION: pain and pop, known fibula fracture TECHNIQUE: AP and crosstable lateral right knee COMPARISON: Previous examination dated 12/14/2020 FINDINGS:History of Maissoneuve fracture with proximal fibular and right ankle fractures. Nondisplaced proximal right fibular fracture again identified. This is unchanged since 12/14/2020. Distal femur and proximal tibia are negative. No fracture. There is demineralization consistent with osteopenia or osteoporosis. There is degenerative joint disease with narrowing of the patellofemoral joint. Mild to moderate degenerative disease in the medial femoral tibial joint space. There is a suprapatellar effusion, unchanged since 12/14/2020. There is no lipohemarthrosis. IMPRESSION: 1. Nondisplaced proximal fibular fracture, unchanged 2. Demineralization consistent with osteopenia or osteoporosis 3. Degenerative joint disease with narrowing of the patellofemoral joint and medial femoral tibial joint 4. Suprapatellar effusion, unchanged. No lipohemarthrosis. Interpreted and Authenticated by: Dagoberto Gant 12/16/20
--- NOTE | 2020-12-16 14:17 | XRay Report ---
INDICATION: left chest pain and axilla pain TECHNIQUE: PA upright chest x-ray. Oblique views of the left ribs. COMPARISON: None. FINDINGS: Cardiac pacemaker. There are left transvenous pacemaker leads with tips in appropriate positions for right atrium and right ventricle. There is a Port-A-Cath infusion catheter with its tip in the superior vena cava. There is a retrocardiac mass consistent with hiatal hernia. Bones appear demineralized consistent with osteopenia or osteoporosis. There are fractures of the left sixth and seventh ribs anterolaterally. No other detectable rib fracture. No lytic lesion. No pneumothorax or hemothorax. No pulmonary contusion or focal infiltrate. Incidental note is made of previous right-sided Babar procedure. Shoulder girdles are otherwise negative. Patient has undergone 2 level kyphoplasty or vertebroplasty at the thoracal lumbar junction IMPRESSION: 1. Fractures of the left sixth and seventh ribs anterolaterally 2. No pneumothorax or hemothorax. No focal parenchymal infiltrate 3. Hiatal hernia Interpreted and Authenticated by: Dagoberto Gant 12/16/20
--- NOTE | 2020-12-16 14:27 | Discharge Summary ---
Discharge Provider Provider Patient information: Note initiated : 12/16/20 at 2:26 pm Service Date, if different from initiated Date: [] Patient: Kiera Angeles 85 y/o F admitted on 12/15/20 for R leg pain. Chief Complaint: [right knee and ankle pain] Date of admission: 12/15/20 15:49 Discharge date: 12/16/20 Primary care physician: GIUSEPPE Garcia Admitting clinician: Adán Godinez Consults: 12/13/20 Consult to Physician [CONS] Stat Comment: Consulting Provider: Adán Godinez Reason For Exam: Physician to Consult Consult to Physician [CONS] Stat Comment: Consulting Provider: Blane Diaz Reason For Exam: Physician to Consult Discharging clinician: Adán Godinez Discharge Meds Discharge Medications Home Medications alpha lipoic acid 300 mg PO BID 10/23/14 [History Confirmed 12/15/20 Last Taken Unknown] ascorbic acid (vitamin C) 1,000 mg PO DAILY 10/23/14 [History Confirmed 12/15/20 Last Taken 10/23/14 06:00] benzonatate 200 mg PO PRN PRN 10/23/14 [History Confirmed 12/15/20 Last Taken Unknown] calcium citrate 1,000 mg PO DAILY 10/23/14 [History Confirmed 12/15/20 Last Taken Unknown] escitalopram oxalate 5 mg PO QDAY 08/20/19 [History Confirmed 12/13/20 Last Taken 12/11/20 09:00] gabapentin 200 mg PO HS 08/20/19 [History Confirmed 12/13/20 Last Taken 12/12/20 09:00] prednisone 10 mg PO QDAY 08/20/19 [History Confirmed 12/13/20 Last Taken 12/12/20 09:00] simethicone [Gas-X Extra Strength] 250 mg PO PRN PRN 08/20/19 [History Confirmed 12/15/20 Last Taken Unknown] tizanidine 4 mg PO QHS 08/20/19 [History Confirmed 12/13/20 Last Taken 12/11/20 21:00] vwucnilu-ryeqbfzlt-phdgontq 3.5 mg/mL-10,000 unit/mL-0.1% eye drops 1 drp OPHTHALMIC Q12H PRN 10/23/19 [History Confirmed 12/15/20 Last Taken Unknown] guaifenesin [Mucinex] 1,200 mg PO Q12H PRN 03/28/20 [History Confirmed 12/15/20 Last Taken Unknown] methocarbamol 500 mg tablet 1,000 mg PO Q6H tab 08/31/20 [History Confirmed 12/13/20 Last Taken 12/11/20 21:00] fentanyl 25 mcg/hr transdermal patch 1 patch TRANSDERMAL Q72H #10 ea 10/26/20 [Rx Confirmed 12/15/20 Last Taken Unknown] duloxetine [Cymbalta] 30 mg PO QDAY 11/03/20 [History Confirmed 12/13/20 Last Taken 12/12/20 09:00] fexofenadine 180 mg PO QDAY PRN 11/03/20 [History Confirmed 12/15/20 Last Taken Unknown] gabapentin 100 mg PO QAM 11/03/20 [History Confirmed 12/13/20 Last Taken 12/12/20 09:00] levothyroxine 75 mcg PO QDAY 11/03/20 [History Confirmed 12/13/20 Last Taken 12/12/20 09:00] fentanyl 25 mcg TOPICAL Q72H #10 ea 11/04/20 [Rx Confirmed 12/13/20 Last Taken 12/10/20 09:00] oxycodone-acetaminophen [Endocet] 1 tab PO Q4H PRN #30 tab 11/04/20 [Rx Confirmed 12/15/20 Last Taken Unknown] enoxaparin [Lovenox] 30 mg SUBCUT QDAY 14 Days #4.2 ml 12/16/20 [Rx Last Taken Unknown] COURSE Hospital Course Hospital course: History of present illness: Ms. Angeles is a 85 year old F who yesterday was walking down [place] to the bathroom when she lost control of her 4 wheeled walker with handbrakes and seat twisted her ankle and fell. She lives with who could not get her up so she called fire department. At time pain was not severe so she stayed at home. Walking on her right leg today pain increased to 10/10 so she came in to EMD and found to have right prox fibula, right distal fibula fracture minimal displacement only and left medial malleolus tibia fracture. The patient was recommended a walking boot but not able to stand and walk. Admitted for pain control and physical therapy evaluation. pt seen by Ramsey Thueson PA for Ortho and underwent 65cc hemarthrosis draw from need. also had films reviewed and showed stable fracture. Pt wanted to go from here home but not able to ambulate safely independently. Today she complained of left rib pain and shows left rib fractures likely related to fall but no pneumothorax. The right knee popped this mornig but no displacement of the prox rib fracture. Discharge diagnosis: prox right fibula fracture Secondary discharge diagnosis: distal fibula fracture right leg distal tibia fracture right leg rib fracture 5 &6 on left rib right hemarthrosis Reason for admission: knee and ankle pain Time Spent with Patient Time attestation: Total time spent providing and/or coordinating discharge services: Time spent: Greater than 30 minutes Specific discharge activities: start lovenox 30 mg sq daily start incentive spirometry EXAM Constitutional Vitals: Temp Pulse Resp BP Pulse Ox 97.6 F 75 20 116/59 95 12/16/20 12:00 12/16/20 12:00 12/16/20 12:00 12/16/20 12:00 12/16/20 12:00 Additional findings Additional findings: GEN WDWN WF in NAD CV RRR Lung CTA and no crepitus left chest left mastectomy noted some axillary breast/fat still present no axillary adenopathy no mass on anterior chest wall but post surgical deformities noted. right knee minimal effusion much less right foot warm Discharge Plan Patient/Caregiver Discharge Instructions Activity: ambulate only with your walker and other Diet: Regular Diet Prescriptions: New enoxaparin [Lovenox] 30 mg/0.3 mL syringe 30 mg subcut QDAY 14 Days Qty: 4.2 RF: 0 No Action fentanyl 25 mcg/hr patch 72 hour 1 patch transdermal Q72H Qty: 10 RF: 0 neomycin-polymyxin B-dexameth 3.5mg/mL-10,000 unit/mL-0.1 % drops,suspension 1 drp OPHTHALMIC Q12H PRN (Reason: Dry Eyes) RF: 0 benzonatate 200 MG capsule 200 mg PO PRN PRN (Reason: Cough) RF: 0 ascorbic acid (vitamin C) 1,000 MG tablet 1,000 mg PO DAILY RF: 0 calcium citrate 250 MG tablet 1,000 mg PO DAILY RF: 0 alpha lipoic acid 100 MG capsule 300 mg PO BID RF: 0 prednisone 5 mg Tablet 10 mg PO QDAY RF: 0 simethicone [Gas-X Extra Strength] 125 mg Capsule 250 mg PO PRN PRN (Reason: Abdominal Discomfort) RF: 0 gabapentin 300 mg Capsule 200 mg PO HS RF: 0 escitalopram oxalate 5 mg Tablet 5 mg PO QDAY RF: 0 tizanidine 4 mg Capsule 4 mg PO QHS RF: 0 guaifenesin [Mucinex] 600 mg Tablet Extended Release 12hr 1,200 mg PO Q12H PRN (Reason: Congestion) RF: 0 methocarbamol 500 mg tablet 1,000 mg PO Q6H RF: 0 gabapentin 300 mg capsule 100 mg PO QAM RF: 0 fexofenadine 180 mg Tablet 180 mg PO QDAY PRN (Reason: Allergy Symptoms) RF: 0 levothyroxine 75 mcg Tablet 75 mcg PO QDAY RF: 0 duloxetine [Cymbalta] 30 mg capsule,delayed release(DR/EC) 30 mg PO QDAY RF: 0 oxycodone-acetaminophen [Endocet] 5-325 mg Tablet 1 tab PO Q4H PRN (Reason: Pain) Qty: 30 RF: 0 fentanyl 25 mcg/hr Patch 72 Hour 25 mcg topical Q72H Qty: 10 RF: 0 Follow Up Plan Follow up with: Hu Solis ARNP [Primary Care Provider] - Blane Diaz MD [Physician] - (Proximal and distal fibular fracture with possible medial malleolus fracture.) Patient Disposition: Xfer SNF Plan of Treatment: walk with walking boot and walker. weight bearing as tolerated follow up with orthopedist Dr Tyler in 1 week lovenox 30 mg sq daily x 2 week incentive spirometry 10 times an hour while awake Prognosis: Fair Rehab Potential: Good I certify that the patient requires SNF services: Yes Overall status at discharge: patient is not back to baseline Discharge Orders: Discharge Order (Routine); Ordered 12/16/20 Ordered By: Adán Godinez [facility] VTE Contraindication No VTE Prophylaxis: Contraindicated (hemarthrosis healing right knee)
== END 2020-12-16 16:00 | DRG 563 ==
LOC: MEDSUR 13:05 → ED 13:05 → MEDSUR 19:04
PROVIDERS: ADMIT Internal Medicine; ATTEND Internal Medicine

== ENCOUNTER 2021-02-27 01:49 | Inpatient (IN) ==
--- NOTE | 2021-02-27 01:54 | Emergency Department Note ---
HPI General Chief complaint: Shortness of Breath/Dyspnea Stated complaint: Sob Time Seen by Provider: 02/27/21 01:54 Source: patient and EMS Mode of arrival: EMS Limitations: no limitations History of Present Illness HPI Narrative: 85-year-old female with past medical history of COPD, CAD with an AICD in place, and diabetes presenting with shortness of breath. Patient states for the last 2 days she has been more short of breath and had a nonproductive cough. Noted to be hypoxic to 85% on room air with EMS. She was given a DuoNeb treatment in route. Patient denies fever, chills, chest pain, abdominal pain, or leg swelling. Denies dysuria or headache. Not on anticoagulation. She has received the COVID-vaccine. Related Data Home Medications Medication Instructions Recorded Confirmed alpha lipoic acid 100 mg capsule 300 mg PO DAILY 10/23/14 02/27/21 ascorbic acid (vitamin C) 1,000 mg 1,000 mg PO DAILY 10/23/14 02/27/21 tablet benzonatate 200 mg capsule 200 mg PO QDAY PRN 10/23/14 02/27/21 calcium citrate 1,000 mg PO DAILY 10/23/14 02/27/21 escitalopram oxalate 5 mg tablet 5 mg PO QDAY 08/20/19 02/27/21 gabapentin 300 mg capsule 600 mg PO HS 08/20/19 02/27/21 prednisone 5 mg tablet 20 mg PO QDAY 08/20/19 02/27/21 simethicone 125 mg capsule (Gas-X 250 mg PO PRN PRN 08/20/19 12/15/20 Extra Strength) tizanidine 4 mg capsule 4 mg PO QHS 08/20/19 02/27/21 [id number] 3.5 1 drp OPHTHALMIC Q12H PRN 10/23/19 12/15/20 mg/mL-10,000 unit/mL-0.1% eye drops guaifenesin 600 mg tablet, 1,200 mg PO Q12H PRN 03/28/20 12/15/20 extended release 12 hr (Mucinex) methocarbamol 500 mg tablet 1,000 mg PO Q6HP PRN tab 08/31/20 02/27/21 duloxetine 30 mg capsule,delayed 30 mg PO QDAY 11/03/20 02/27/21 release (Cymbalta) fexofenadine 180 mg tablet 180 mg PO QDAY PRN 11/03/20 02/27/21 gabapentin 300 mg capsule 300 mg PO BID 11/03/20 02/27/21 levothyroxine 75 mcg tablet 75 mcg PO QDAY 11/03/20 12/13/20 fentanyl 25 mcg/hr transdermal 25 mcg TRANSDERMAL Q72H 02/27/21 02/27/21 patch omega-3 fatty acids 2,000 mg PO QDAY 02/27/21 02/27/21 ondansetron 4 mg disintegrating 4 mg PO Q8H PRN 02/27/21 02/27/21 tablet thyroid (pork) 180 mg tablet 180 mg PO QDAY 02/27/21 02/27/21 ([place] Thyroid) Previous Rx's Medication Instructions Recorded oxycodone-acetaminophen 5 mg-325 1 tab PO Q4H PRN #30 tab 11/04/20 mg tablet (Endocet) Allergies Allergy/AdvReac Type Severity Reaction Status Date / Time Barbiturates Allergy Severe Swelling Verified 02/27/21 01:53 of Lip/Tongue/Throat morphine Allergy Severe Anaphylaxis Verified 02/27/21 01:53 Cyclobenzaprine AdvReac Intermediate Other Verified 02/27/21 01:53 [From Flexeril] famotidine AdvReac Intermediate Rash Verified 02/27/21 01:53 lansoprazole AdvReac Intermediate Rash Verified 02/27/21 01:53 omeprazole AdvReac Intermediate Rash Verified 02/27/21 01:53 pantoprazole AdvReac Intermediate Rash Verified 02/27/21 01:53 Review of Systems ROS ROS Narrative: Narrative: Constitutional: Denies chills ENT ED: Denies throat pain Cardiovascular: Denies chest pain or palpitations Respiratory: Reports shortness of breath and cough Gastrointestinal: Denies abdominal pain, nausea or vomiting Genitourinary: Denies dysuria, frequency or hematuria Musculoskeletal: Denies joint swelling Integumentary: Denies rash Neurological: Denies headache Psychiatric: Denies anxiety Endocrine: Denies fatigue Hematological/Lymphatic: Denies easy bleeding PFSH Narrative Patient History Narrative: Narrative: Medical/Surgical/Family History All Active Problems (Updated 02/27/21 @ 05:16 by Myke Charlton MD) Bilateral pneumonia (Acute) UTI (urinary tract infection) (Acute) Hemarthrosis of right knee (Acute) Fracture of tibia and fibula (Acute) History of diverticulosis (Chronic) Rectal hemorrhage (Acute) BRBPR (bright red blood per rectum) (Acute) Polyarthritis rheumatica (Chronic) Arthritis (Chronic) Acute UTI (Acute) Closed lumbar vertebral fracture (Chronic) Fracture of third metatarsal bone (Acute) Fracture of fourth metatarsal bone (Acute) Fracture of fifth metatarsal bone (Acute) Weakness (Acute) Cellulitis (Acute) Back pain (Acute) Acute exacerbation of chronic obstructive pulmonary disease (COPD) (Acute) Pneumonia (Acute) Lumbar stenosis with neurogenic claudication (Chronic) Thoracic spondylosis (Chronic) Thoracic radiculopathy (Chronic) Radiculopathy, lumbar region (Acute) Heart disease (Chronic) History of tobacco use (Chronic) Radiculopathy, lumbar region (Chronic) Myofascial pain (Chronic) Pain in joint of right knee (Chronic) Personal history of (healed) osteoporosis fracture (Chronic) Intercostal pain (Chronic) Strain of lumbar region (Acute) UTI (urinary tract infection) (Acute) Non-cardiac chest pain (Acute) Encounter for long-term current use of high risk medication (Acute) HX: breast cancer (Chronic) COPD (chronic obstructive pulmonary disease) (Chronic) Sleep apnea (Chronic) Anxiety (Chronic) Depression (Chronic) Wrist fracture (Chronic) Pelvic fracture (Chronic) Compression fracture (Chronic) Eczema (Chronic) DJD (degenerative joint disease) (Acute) Type II diabetes mellitus (Chronic) Osteoporosis (Chronic) Age-related osteoporosis with current pathological fracture (Chronic) Other urticaria (Chronic) Gastro-esophageal reflux disease without esophagitis (Chronic) Major depressive disorder, recurrent, moderate (Chronic) Medical History Age-related osteoporosis with current pathological fracture Anxiety Arthritis Compression fracture COPD (chronic obstructive pulmonary disease) Depression DJD (degenerative joint disease) Eczema Encounter for long-term current use of high risk medication Gastro-esophageal reflux disease without esophagitis Heart disease History of tobacco use HX: breast cancer Intercostal pain Lumbar stenosis with neurogenic claudication Major depressive disorder, recurrent, moderate Myofascial pain Osteoporosis Other urticaria Pain in joint of right knee Pelvic fracture Personal history of (healed) osteoporosis fracture Polyarthritis rheumatica Radiculopathy, lumbar region Radiculopathy, lumbar region Sleep apnea Thoracic radiculopathy Thoracic spondylosis Type II diabetes mellitus Wrist fracture Surgical History History of surgery Intercostal Nerve Block, Lt T7-10 w/o sed 09/30/19 LESI #1 L3-4 w/o sed 09/30/19 LESI #1 L4-5 w/o sed 08/14/2018 LESI #2 L3-4 w/o sed 11/06/2017 LESI #1 L4-5 w/o sed 05/23/2017 Knee Joint Injection, Right w/o sed 04/15/2015 LESI #2 L4-5 w/o sed 04/15/2015 Trigger Point Injection 1-2 w/o sed 03/26/15 LESI #1 L4-5 w/o sed 03/26/15 Vertebro Aug T12, L1 w/sed 07/31/14 Hx laparoscopic cholecystectomy (11/12/09) Hx of appendectomy 2009 Hx of cardiac pacemaker 10/2010 Hx of lumpectomy 10/2009 Hx of mastectomy 10/2009. 02/2011 Hx of surgical procedure aortal bi-femoral graft Family History Other Cancer Social History Smoking Status: Former smoker Alcohol Intake Frequency: holiday/special occasion only Substance Use: marijuana Exam Narrative Narrative: Narrative: General Limitations: no limitations General appearance: Present alert and in no apparent distress Head Head: Present atraumatic and normocephalic Eye Eye: Present normal appearance, PERRL and EOMI; Absent scleral icterus or conjunctival injection ENT ENT: Present normal oropharynx and mucous membranes moist Neck Neck: Present normal inspection, full ROM and trachea midline Chest Chest: Present symmetric chest wall rise Respiratory Respiratory: Present other (coarse BS bilaterally); Absent respiratory distress, wheezes, stridor, accessory muscle use or prolonged expiratory phase Cardiovascular Cardiovascular: Present regular rate and normal rhythm; Absent systolic murmur or diastolic murmur Adbominal Abdominal: Present soft; Absent distention, tenderness, guarding, rebound, rigidity, organomegaly or mass Extremities Extremities: Present normal inspection; Absent pretibial edema Back Back: Present normal inspection Neurological Neurological: Present alert and other (oriented x2); Absent motor sensory deficit Psychiatric Psychiatric: Present normal affect and normal mood Skin Skin: Present warm (WNL) and dry Course Consultations Consultation #1: Dr. Leonard, hospitalist Time: 05:00 Vital Signs Vital signs: Vital Signs Temperature 101.6 F H 02/27/21 01:50 Pulse Rate 111 H 02/27/21 01:50 Respiratory Rate 30 H 02/27/21 01:50 Blood Pressure 124/64 02/27/21 01:50 Pulse Oximetry (%) 94 02/27/21 01:50 Temperature 98.9 F 02/27/21 04:33 Pulse Rate 93 H 02/27/21 05:16 Respiratory Rate 15 02/27/21 05:16 Blood Pressure 93/57 02/27/21 05:16 Pulse Oximetry (%) 95 02/27/21 05:16 MDM MDM Narrative Medical decision making narrative: 85-year-old female presenting with dyspnea and hypoxia on room air. Stable; on 4L O2 via NC. Chest x-ray shows bilateral infiltrates, rapid COVID test was negative. Labs notable for BNP of 1403. Procalcitonin level was elevated but lactate was normal. Blood cultures obtained. UA is consistent with infection. Dose of IV Rocephin and normal saline bolus given. Patient endorsed to Dr. Leonard for admission. Holding orders placed. Lab Data Lab results reviewed: Yes I reviewed the patient's lab results. Result diagrams: 02/27/21 02:15 02/27/21 02:15 Labs: Lab Results 02/27/21 02/27/21 02/27/21 Range/Units 02:15 02:15 02:15 WBC 8.0 (4.5-11.0) K/mcL RBC 4.00 (3.59-5.38) M/mcL Hgb 12.0 (11.2-15.7) g/dL Hct 37.6 (34.1-44.9) % MCV 94.0 (80.0-100.0) fL MCH 30.0 (26.0-34.0) pg MCHC 31.9 (31.0-36.0) g/dL RDW 13.9 (11.5-14.5) % Plt Count 186 (140-440) K/mcL MPV 11.7 H (7.4-10.4) fL Neut % (Auto) 82.8 H (38.0-78.0) % Lymph % (Auto) 4.2 L (15.5-49.0) % [place] % (Auto) 12.0 (1.0-12.0) % Eos % (Auto) 0 (0.0-7.0) % Baso % (Auto) 1.0 (0.0-2.0) % Lymph # (Auto) 0.34 L (1.50-4.80) K/mcL [place] # (Auto) 0.96 H (0.10-0.90) K/mcL Eos # (Auto) 0 (0.00-0.70) K/mcL Baso # (Auto) 0.08 (0.00-0.30) K/mcL Absolute Neutrophils 6.65 (1.80-8.00) K/mcL VBG Lactic Acid 1.9 (0.5-2.0) mmol/L Sodium 135 (133-145) mmol/L Potassium 3.3 (3.3-5.1) mmol/L Chloride 98 (96-108) mmol/L Carbon Dioxide 24 (22-30) mmol/L Anion Gap 13.0 (8.0-16.0) BUN 14 (8-23) mg/dL Creatinine 0.7 (0.6-1.1) mg/dL GFR Calculation 78 Glucose 159 H (70-105) mg/dL Calcium 8.5 L (8.6-10.4) mg/dL Magnesium 2.0 (1.6-2.5) mg/dL Total Bilirubin 1.4 H (0.1-1.0) mg/dL AST 15 (<32) U/L ALT 6 (<40) U/L Alkaline Phosphatase 92 (39-117) U/L NT-Pro-B Natriuret Pep 1403.0 H (<450.0) pg/mL Total Protein 6.7 (5.9-8.4) gm/dL Albumin 2.8 L (3.2-5.2) gm/dL Globulin 3.9 H (2.2-3.7) gm/dL Albumin/Globulin Ratio 0.7 L (1.0-2.3) Procalcitonin (<0.10) ng/mL Urine Color Urine Appearance (Clear) Urine pH (5.0-9.0) Ur Specific [place] (1.000-1.035) Urine Protein (Negative) mg/dL Urine Glucose (UA) (Negative) mg/dL Urine Ketones (Negative) mg/dL Urine Occult Blood (Negative) mg/dL Urine Nitrate (Negative) Urine Bilirubin (Negative) mg/dL Urine Urobilinogen mg/dL Ur Leukocyte Esterase (Negative) /uL Urine RBC (0-3) /hpf Urine WBC (0-4) /hpf Ur Squamous Epith Cells (0-4) /hpf Amorphous Crystals (None) /hpf Urine Bacteria (0) /hpf Hyaline Casts (0-2) /lph Urine Mucus (None) /hpf Ur Culture Indicated? 02/27/21 02/27/21 Range/Units 02:15 03:15 WBC (4.5-11.0) K/mcL RBC (3.59-5.38) M/mcL Hgb (11.2-15.7) g/dL Hct (34.1-44.9) % MCV (80.0-100.0) fL MCH (26.0-34.0) pg MCHC (31.0-36.0) g/dL RDW (11.5-14.5) % Plt Count (140-440) K/mcL MPV (7.4-10.4) fL Neut % (Auto) (38.0-78.0) % Lymph % (Auto) (15.5-49.0) % [place] % (Auto) (1.0-12.0) % Eos % (Auto) (0.0-7.0) % Baso % (Auto) (0.0-2.0) % Lymph # (Auto) (1.50-4.80) K/mcL [place] # (Auto) (0.10-0.90) K/mcL Eos # (Auto) (0.00-0.70) K/mcL Baso # (Auto) (0.00-0.30) K/mcL Absolute Neutrophils (1.80-8.00) K/mcL VBG Lactic Acid (0.5-2.0) mmol/L Sodium (133-145) mmol/L Potassium (3.3-5.1) mmol/L Chloride (96-108) mmol/L Carbon Dioxide (22-30) mmol/L Anion Gap (8.0-16.0) BUN (8-23) mg/dL Creatinine (0.6-1.1) mg/dL GFR Calculation Glucose (70-105) mg/dL Calcium (8.6-10.4) mg/dL Magnesium (1.6-2.5) mg/dL Total Bilirubin (0.1-1.0) mg/dL AST (<32) U/L ALT (<40) U/L Alkaline Phosphatase (39-117) U/L NT-Pro-B Natriuret Pep (<450.0) pg/mL Total Protein (5.9-8.4) gm/dL Albumin (3.2-5.2) gm/dL Globulin (2.2-3.7) gm/dL Albumin/Globulin Ratio (1.0-2.3) Procalcitonin 2.09 H (<0.10) ng/mL Urine Color [place] Urine Appearance Cloudy A (Clear) Urine pH 6.0 (5.0-9.0) Ur Specific [place] 1.017 (1.000-1.035) Urine Protein 100 A (Negative) mg/dL Urine Glucose (UA) Negative (Negative) mg/dL Urine Ketones 20 A (Negative) mg/dL Urine Occult Blood 0.20 (Negative) mg/dL Urine Nitrate Negative (Negative) Urine Bilirubin Negative (Negative) mg/dL Urine Urobilinogen 4.0 A mg/dL Ur Leukocyte Esterase 250 A (Negative) /uL Urine RBC 6 H (0-3) /hpf Urine WBC 156 H (0-4) /hpf Ur Squamous Epith Cells 0 (0-4) /hpf Amorphous Crystals Few A (None) /hpf Urine Bacteria Many A (0) /hpf Hyaline Casts 3 H (0-2) /lph Urine Mucus Many A (None) /hpf Ur Culture Indicated? yes ED POC Tests ED POC Tests: BLADE - SARS Antigen Negative Radiology Data Radiology results reviewed: Yes I reviewed the patient's radiology results. Radiology results narrative: Ordering Physician:Myke Charlton M.D. Date of Service:02/27/21 Procedure(s):XR chest 1V portable CLINICAL INFORMATION: Dyspnea COMPARISON: 11/01/2018 TECHNIQUE: Portable FINDINGS: Heart is mildly enlarged. Pacemaker and leads are in satisfactory position. Right-sided Port-A-Cath tip overlies the SVC right atrial junction. Mild thoracic aortic ectasia noted. The mediastinum and pulmonary vasculature are, otherwise, normal. Moderate patchy infiltrates are present in both midlungs. Small left pleural effusion or pleural scarring noted. IMPRESSION: Moderate-sized patchy bilateral midlung infiltrates. Consider infection or aspiration. Interpreted and Authenticated by: Dagoberto Smith 02/27/21 EKG Data EKG #1: EKG attestation: Yes I reviewed and interpreted this EKG. and Yes There are no EKG findings of acute coronary syndrome EKG results narrative: Sinus tachycardia at [address] elevation or depression noted. Interpretation: no acute changes Discharge Plan Patient/Caregiver Discharge Instructions Pt seen by C D STILL OPERATOR/PA only: No Clinical Impression: Bilateral pneumonia, UTI (urinary tract infection) Patient Disposition: Xfer As Inpt ([facility]) Condition: Fair Follow up with: Hu Solis ARNP [Primary Care Provider] - Prescriptions: No Action neomycin-polymyxin B-dexameth 3.5mg/mL-10,000 unit/mL-0.1 % drops,suspension 1 drp OPHTHALMIC Q12H PRN (Reason: Dry Eyes) 0RF Rx Instructions: 1 drop each eye twice daily benzonatate 200 MG capsule 200 mg PO QDAY PRN (Reason: Cough) 0RF ascorbic acid (vitamin C) 1,000 MG tablet 1,000 mg PO DAILY 0RF calcium citrate 250 MG tablet 1,000 mg PO DAILY 0RF alpha lipoic acid 100 MG capsule 300 mg PO DAILY 0RF prednisone 5 mg Tablet 20 mg PO QDAY 0RF simethicone [Gas-X Extra Strength] 125 mg Capsule 250 mg PO PRN PRN (Reason: Abdominal Discomfort) 0RF gabapentin 300 mg Capsule 600 mg PO HS 0RF escitalopram oxalate 5 mg Tablet 5 mg PO QDAY 0RF tizanidine 4 mg Capsule 4 mg PO QHS 0RF guaifenesin [Mucinex] 600 mg Tablet Extended Release 12hr 1,200 mg PO Q12H PRN (Reason: Congestion) 0RF methocarbamol 500 mg tablet 1,000 mg PO Q6HP PRN (Reason: muscle spasms) 0RF gabapentin 300 mg capsule 300 mg PO BID 0RF Rx Instructions: QAM, NOON fexofenadine 180 mg Tablet 180 mg PO QDAY PRN (Reason: Allergy Symptoms) 0RF levothyroxine 75 mcg Tablet 75 mcg PO QDAY 0RF duloxetine [Cymbalta] 30 mg capsule,delayed release(DR/EC) 30 mg PO QDAY 0RF oxycodone-acetaminophen [Endocet] 5-325 mg Tablet 1 tab PO Q4H PRN (Reason: Pain) Qty: 30 0RF ondansetron 4 mg Tablet,Disintegrating 4 mg PO Q8H PRN (Reason: Nausea) 0RF fentanyl 25 mcg/hr patch 72 hour 25 mcg transdermal Q72H 0RF [place] 3 Fish Oil Capsule 2,000 mg PO QDAY 0RF [place] Thyroid 180 mg Tablet 180 mg PO QDAY 0RF
[2021-02-27] MEDS ORDERED: ACETAMINOPHEN 650 MG/65 ML BAG IV ONE (03:13)
[2021-02-27 03:22] LABS: Basophils # (Auto) 0.08 K/mcL (0.00-0.30); Eosinophils # (Auto) 0 K/mcL (0.00-0.70); Eosinophils % (Auto) 0 % (0.0-7.0); Hematocrit 37.6 % (34.1-44.9); Lymphocytes # (Auto) 0.34 K/mcL (1.50-4.80); Lymphocytes % (Auto) 4.2 % (15.5-49.0); Mean Corpuscular HGB Conc 31.9 g/dL (31.0-36.0); Mean Platelet Volume 11.7 fL (7.4-10.4); Monocytes # (Auto) 0.96 K/mcL (0.10-0.90); Neutrophils % (Auto) 82.8 % (38.0-78.0); Platelet Count 186 K/mcL (140-440); Red Cell Distribution Width 13.9 % (11.5-14.5)
[2021-02-27 03:48] LABS: ALT/SGPT 6 U/L (<40); AST/SGOT 15 U/L (<32); Albumin 2.8 gm/dL (3.2-5.2); Albumin/Globulin Ratio 0.7 (1.0-2.3); Alkaline Phosphatase 92 U/L (39-117); Bilirubin,Total 1.4 mg/dL (0.1-1.0); Blood Urea Nitrogen 14 mg/dL (8-23); Calcium 8.5 mg/dL (8.6-10.4); Carbon Dioxide 24 mmol/L (22-30); Chloride 98 mmol/L (96-108); Globulin 3.9 gm/dL (2.2-3.7); Glomerular Filtration Rate 78; Glucose 159 mg/dL (70-105)
--- NOTE | 2021-02-27 04:14 | XRay Report ---
CLINICAL INFORMATION: Dyspnea COMPARISON: 11/01/2018 TECHNIQUE: Portable FINDINGS: Heart is mildly enlarged. Pacemaker and leads are in satisfactory position. Right-sided Port-A-Cath tip overlies the SVC right atrial junction. Mild thoracic aortic ectasia noted. The mediastinum and pulmonary vasculature are, otherwise, normal. Moderate patchy infiltrates are present in both midlungs. Small left pleural effusion or pleural scarring noted. IMPRESSION: Moderate-sized patchy bilateral midlung infiltrates. Consider infection or aspiration. Interpreted and Authenticated by: Dagoberto Smith 02/27/21
[2021-02-27 04:33] LABS: Appearance,Urine CLOUDY (Clear); Bacteria,Urine MANY /hpf (0); Bilirubin,Urine Negative (Negative); Color,Urine AMBER; Culture Indicated,Urine yes; Glucose,Urine (UA) Negative (Negative); Ketones,Urine 20 mg/dL (Negative); Leukocyte Esterase,Urine 250 /uL (Negative); Mucus,Urine MANY /hpf; Nitrate,Urine Negative (Negative); Protein,Urine 100 mg/dL (Negative); Specific Gravity,Urine 1.017 (1.000-1.035); Urine Amorphous Crystals FEW /hpf; Urine Hyaline Cast 3 /lph (0-2); Urine RBC 6 /hpf (0-3); Urine Squamous Epithelial Cell 0 /hpf (0-4); Urine WBC 156 /hpf (0-4)
[2021-02-27] MEDS ORDERED: cefTRIAXone 1 GM VIAL IV ONE ×2 (04:57→08:00)
[2021-02-27] MEDS ORDERED: 0.9 % SODIUM CHLORIDE 1,000 ML IV ONE (05:38)
--- NOTE | 2021-02-27 07:32 | Internal Med History&Physical ---
HPI History of Present Illness Patient information: Note initiated : 02/27/21 at 7:24 am Service Date, if different from initiated Date: [] Patient: Kiera Angeles 85 y/o F admitted on 02/27/21 for Sob. Chief Complaint: [] History of present illness: Ms. Angeles is a 85 year old F Presents to the ED with nonproductive cough and shortness of breath going on for several days. She is found to be 85% oxygen per EMS. Patient denied fever chills. In the ED was found to have bilateral infiltrates. She did get a COVID-vaccine and her rapid COVID was negative. Review of Systems: Pertinent positives as above. Denies headache/fever/chills/umm sea/vomiting/chest or abdominal pain/diarrhea. Remaining 10 point review of system reviewed and negative PFSH PFSH All Active Problems (Updated 02/27/21 @ 05:16 by Myke Charlton MD) Bilateral pneumonia (Acute) UTI (urinary tract infection) (Acute) Hemarthrosis of right knee (Acute) Fracture of tibia and fibula (Acute) History of diverticulosis (Chronic) Rectal hemorrhage (Acute) BRBPR (bright red blood per rectum) (Acute) Polyarthritis rheumatica (Chronic) Arthritis (Chronic) Acute UTI (Acute) Closed lumbar vertebral fracture (Chronic) Fracture of third metatarsal bone (Acute) Fracture of fourth metatarsal bone (Acute) Fracture of fifth metatarsal bone (Acute) Weakness (Acute) Cellulitis (Acute) Back pain (Acute) Acute exacerbation of chronic obstructive pulmonary disease (COPD) (Acute) Pneumonia (Acute) Lumbar stenosis with neurogenic claudication (Chronic) Thoracic spondylosis (Chronic) Thoracic radiculopathy (Chronic) Radiculopathy, lumbar region (Acute) Heart disease (Chronic) History of tobacco use (Chronic) Radiculopathy, lumbar region (Chronic) Myofascial pain (Chronic) Pain in joint of right knee (Chronic) Personal history of (healed) osteoporosis fracture (Chronic) Intercostal pain (Chronic) Strain of lumbar region (Acute) UTI (urinary tract infection) (Acute) Non-cardiac chest pain (Acute) Encounter for long-term current use of high risk medication (Acute) HX: breast cancer (Chronic) COPD (chronic obstructive pulmonary disease) (Chronic) Sleep apnea (Chronic) Anxiety (Chronic) Depression (Chronic) Wrist fracture (Chronic) Pelvic fracture (Chronic) Compression fracture (Chronic) Eczema (Chronic) DJD (degenerative joint disease) (Acute) Type II diabetes mellitus (Chronic) Osteoporosis (Chronic) Age-related osteoporosis with current pathological fracture (Chronic) Other urticaria (Chronic) Gastro-esophageal reflux disease without esophagitis (Chronic) Major depressive disorder, recurrent, moderate (Chronic) Medical History Age-related osteoporosis with current pathological fracture Anxiety Arthritis Compression fracture COPD (chronic obstructive pulmonary disease) Depression DJD (degenerative joint disease) Eczema Encounter for long-term current use of high risk medication Gastro-esophageal reflux disease without esophagitis Heart disease History of tobacco use HX: breast cancer Intercostal pain Lumbar stenosis with neurogenic claudication Major depressive disorder, recurrent, moderate Myofascial pain Osteoporosis Other urticaria Pain in joint of right knee Pelvic fracture Personal history of (healed) osteoporosis fracture Polyarthritis rheumatica Radiculopathy, lumbar region Radiculopathy, lumbar region Sleep apnea Thoracic radiculopathy Thoracic spondylosis Type II diabetes mellitus Wrist fracture Surgical History History of surgery Intercostal Nerve Block, Lt T7-10 w/o sed 09/30/19 LESI #1 L3-4 w/o sed 09/30/19 LESI #1 L4-5 w/o sed 08/14/2018 LESI #2 L3-4 w/o sed 11/06/2017 LESI #1 L4-5 w/o sed 05/23/2017 Knee Joint Injection, Right w/o sed 04/15/2015 LESI #2 L4-5 w/o sed 04/15/2015 Trigger Point Injection 1-2 w/o sed 03/26/15 LESI #1 L4-5 w/o sed 03/26/15 Vertebro Aug T12, L1 w/sed 07/31/14 Hx laparoscopic cholecystectomy (11/12/09) Hx of appendectomy 2009 Hx of cardiac pacemaker 10/2010 Hx of lumpectomy 10/2009 Hx of mastectomy 10/2009. 02/2011 Hx of surgical procedure aortal bi-femoral graft Family History Other Cancer Social History education level: high school sexually active: No smoking status: Former smoker alcohol intake frequency: holiday/special occasion only substance use type: marijuana MEDS/ALLERGIES Home Medications and Allergies Home Medications Medication Instructions Recorded Confirmed Type alpha lipoic acid 100 mg capsule 300 mg PO DAILY 10/23/14 02/27/21 History ascorbic acid (vitamin C) 1,000 mg 1,000 mg PO DAILY 10/23/14 02/27/21 History tablet benzonatate 200 mg capsule 200 mg PO QDAY PRN 10/23/14 02/27/21 History calcium citrate 1,000 mg PO DAILY 10/23/14 02/27/21 History escitalopram oxalate 5 mg tablet 5 mg PO QDAY 08/20/19 02/27/21 History gabapentin 300 mg capsule 600 mg PO HS 08/20/19 02/27/21 History prednisone 5 mg tablet 20 mg PO QDAY 08/20/19 02/27/21 History simethicone 125 mg capsule (Gas-X 250 mg PO PRN PRN 08/20/19 12/15/20 History Extra Strength) tizanidine 4 mg capsule 4 mg PO QHS 08/20/19 02/27/21 History [id number] 3.5 1 drp OPHTHALMIC Q12H PRN 10/23/19 12/15/20 Hi story mg/mL-10,000 unit/mL-0.1% eye drops guaifenesin 600 mg tablet, 1,200 mg PO Q12H PRN 03/28/20 12/15/20 History extended release 12 hr (Mucinex) methocarbamol 500 mg tablet 1,000 mg PO Q6HP PRN tab 08/31/20 02/27/21 History duloxetine 30 mg capsule,delayed 30 mg PO QDAY 11/03/20 02/27/21 History release (Cymbalta) fexofenadine 180 mg tablet 180 mg PO QDAY PRN 11/03/20 02/27/21 History gabapentin 300 mg capsule 300 mg PO BID 11/03/20 02/27/21 History levothyroxine 75 mcg tablet 75 mcg PO QDAY 11/03/20 12/13/20 History oxycodone-acetaminophen 5 mg-325 1 tab PO Q4H PRN #30 tab 11/04/20 02/27/21 Rx mg tablet (Endocet) fentanyl 25 mcg/hr transdermal 25 mcg TRANSDERMAL Q72H 02/27/21 02/27/21 History patch omega-3 fatty acids 2,000 mg PO QDAY 02/27/21 02/27/21 History ondansetron 4 mg disintegrating 4 mg PO Q8H PRN 02/27/21 02/27/21 History tablet thyroid (pork) 180 mg tablet 180 mg PO QDAY 02/27/21 02/27/21 History ([place] Thyroid) Allergies Allergy/AdvReac Type Severity Reaction Status Date / Time Barbiturates Allergy Severe Swelling Verified 02/27/21 01:53 of Lip/Tongue/Throat morphine Allergy Severe Anaphylaxis Verified 02/27/21 01:53 Cyclobenzaprine AdvReac Intermediate Other Verified 02/27/21 01:53 [From Flexeril] famotidine AdvReac Intermediate Rash Verified 02/27/21 01:53 lansoprazole AdvReac Intermediate Rash Verified 02/27/21 01:53 omeprazole AdvReac Intermediate Rash Verified 02/27/21 01:53 pantoprazole AdvReac Intermediate Rash Verified 02/27/21 01:53 EXAM Constitutional Vitals: Temp Pulse Resp BP Pulse Ox 96.8 F L 87 24 H 110/56 96 02/27/21 06:16 02/27/21 06:37 02/27/21 06:37 02/27/21 06:37 02/27/21 06:37 Exam: General: Alert, Awake, No acute Distress, obesity Eyes/N/T: EOMI, PERRL, MM Head/Neck: neck supple, normocephalic atraumatic CV: RRR, 2/6 SM, normal s1/s2 Pulm: b/l, no wheezing/rhonchi/rales Abd: soft, nontender, +BS x4 Ext: no clubbing/cyanosis/edema Neuro: Alert, no focal deficits, moves all extremities, CN 2-12 grossly intact, symmetrical strength b/l upper/lower, sensations intact b/l upper/lower Skin: warm/dry DATA Data Completed and Pending Labs: Labs from last 24 hours 02/27/21 02/27/21 02/27/21 03:15 02:15 02:15 WBC RBC Hgb Hct MCV MCH MCHC RDW Plt Count MPV Neut % (Auto) Lymph % (Auto) [place] % (Auto) Eos % (Auto) Baso % (Auto) Lymph # (Auto) [place] # (Auto) Eos # (Auto) Baso # (Auto) Absolute Neutrophils VBG Lactic Acid 1.9 Sodium Potassium Chloride Carbon Dioxide Anion Gap BUN Creatinine GFR Calculation Glucose Calcium Magnesium Total Bilirubin AST ALT Alkaline Phosphatase NT-Pro-B Natriuret Pep Total Protein Albumin Globulin Albumin/Globulin Ratio Procalcitonin 2.09 H Urine Color Anabel Urine Appearance Cloudy A Urine pH 6.0 Ur Specific [place] 1.017 Urine Protein 100 A Urine Glucose (UA) Negative Urine Ketones 20 A Urine Occult Blood 0.20 Urine Nitrate Negative Urine Bilirubin Negative Urine Urobilinogen 4.0 A Ur Leukocyte Esterase 250 A Urine RBC 6 H Urine WBC 156 H Ur Squamous Epith Cells 0 Amorphous Crystals Few A Urine Bacteria Many A Hyaline Casts 3 H Urine Mucus Many A Ur Culture Indicated? yes 02/27/21 02/27/21 02:15 02:15 WBC 8.0 RBC 4.00 Hgb 12.0 Hct 37.6 MCV 94.0 MCH 30.0 MCHC 31.9 RDW 13.9 Plt Count 186 MPV 11.7 H Neut % (Auto) 82.8 H Lymph % (Auto) 4.2 L [place] % (Auto) 12.0 Eos % (Auto) 0 Baso % (Auto) 1.0 Lymph # (Auto) 0.34 L [place] # (Auto) 0.96 H Eos # (Auto) 0 Baso # (Auto) 0.08 Absolute Neutrophils 6.65 VBG Lactic Acid Sodium 135 Potassium 3.3 Chloride 98 Carbon Dioxide 24 Anion Gap 13.0 BUN 14 Creatinine 0.7 GFR Calculation 78 Glucose 159 H Calcium 8.5 L Magnesium 2.0 Total Bilirubin 1.4 H AST 15 ALT 6 Alkaline Phosphatase 92 NT-Pro-B Natriuret Pep 1403.0 H Total Protein 6.7 Albumin 2.8 L Globulin 3.9 H Albumin/Globulin Ratio 0.7 L Procalcitonin Urine Color Urine Appearance Urine pH Ur Specific [place] Urine Protein Urine Glucose (UA) Urine Ketones Urine Occult Blood Urine Nitrate Urine Bilirubin Urine Urobilinogen Ur Leukocyte Esterase Urine RBC Urine WBC Ur Squamous Epith Cells Amorphous Crystals Urine Bacteria Hyaline Casts Urine Mucus Ur Culture Indicated? A/P Narrative A/P Narrative: A: *CAP: -elevated PCT *SIRS: febrile/tachycardia *Acute hypoxic respiratory failure: -on 4L NC *UTI ( ): *Anxiety d/o: continue escitalopram *h/o Polyarthritis: Follows with Dr. Landis and is on prednisone *Hypothyroidism: *Obesity: *COPD(not on home O2): *SSS w/ppm: *Osteoporosis with h/o vertebral fracture: *Chr Pain: on opioids; Plan: -Rocephin/azithromycin -Pending SC/BC/UC -O2 Supp, wean as able -IS/Acapella, prn nebs -Continue home prednisone -PT OT/nutrition support -Discharge planning per case management -ppx:Lovenox Time Spent With Patient Time: Total time spent is greater than 50% in coordination of care (as documented) at patient's floor/unit and/or counseling patient:
[2021-02-27] MEDS ORDERED: METHOCARBAMOL 500 MG TABLET PO PRN (07:41)
[2021-02-27] MEDS ORDERED: FEXOFENADINE 180 MG TABLET PO PRN (07:41)
[2021-02-27] MEDS ORDERED: METOCLOPRAMIDE 10 MG/2 ML VIAL IV PRN (07:42)
[2021-02-27] MEDS ORDERED: MAGNESIUM SULFATE 2 GM/50 ML BAG IV PRN (07:42)
[2021-02-27] MEDS ORDERED: SENNOSIDES 1 TABLET PO PRN (07:42)
[2021-02-27] MEDS ORDERED: ONDANSETRON 4 MG/2 ML VIAL IV PRN (07:42)
[2021-02-27] MEDS ORDERED: POTASSIUM CHLORIDE 40 MEQ in DEXTROSE 5% IN WATER 500 ML IV PRN (07:42)
[2021-02-27] MEDS ORDERED: POLYETHYLENE GLYCOL 3350 17 GM PACKET PO PRN (07:42)
[2021-02-27] MEDS ORDERED: POTASSIUM CHLORIDE 20 MEQ TABLET PO PRN ×2 (07:42)
[2021-02-27] MEDS ORDERED: BENZONATATE 100 MG CAPSULE PO PRN (07:51)
[2021-02-27] MEDS: GABAPENTIN 300 MG CAPSULE PO SCH ×3 (11:32→22:06)
[2021-02-27] MEDS: ENOXAPARIN 40 MG/0.4 ML SYRINGE SQ SCH (11:43)
[2021-02-27] MEDS: DOCUSATE SODIUM 100 MG CAPSULE PO SCH ×2 (11:44→22:07)
[2021-02-27] MEDS: THYROID, PORK 60 MG TABLET PO SCH (11:44)
[2021-02-27] MEDS: ESCITALOPRAM 10 MG TABLET PO SCH (11:44)
[2021-02-27] MEDS: predniSONE 5 MG TABLET PO SCH (11:46)
[2021-02-27] MEDS: ASCORBIC ACID 500 MG TABLET PO SCH (11:46)
[2021-02-27] MEDS: DULoxetine 30 MG CAPSULE PO SCH (11:46)
[2021-02-27] MEDS: AZITHROMYCIN 500 MG in DEXTROSE 5% IN WATER 250 ML IV SCH (11:47)
[2021-02-27] MEDS ORDERED: 0.9 % SODIUM CHLORIDE 10 ML SYRINGE IV SCH (14:00)
[2021-02-27] MEDS: 0.9 % SODIUM CHLORIDE 10 ML SYRINGE IV SCH ×2 (15:26→22:07)
[2021-02-27] MEDS ORDERED: guaiFENesin 600 MG TAB.SR.12H PO PRN (19:15)
[2021-02-27] MEDS ORDERED: SIMETHICONE 80 MG TAB.CHEW CHEWED PRN (19:42)
[2021-02-27] MEDS ORDERED: CARBOXYMETHYLCELLULOSE SODIUM 1 EACH DROPER.GEL OU PRN (19:43)
[2021-02-27] MEDS: tiZANidine 4 MG TABLET PO SCH (22:07)
[2021-02-28] MEDS: 0.9 % SODIUM CHLORIDE 10 ML SYRINGE IV SCH ×3 (05:06→20:31)
[2021-02-28 07:09] LABS: Hematocrit 34.4 % (34.1-44.9); Hemoglobin 10.8 g/dL (11.2-15.7); Mean Cell Volume 95.3 fL (80.0-100.0); Mean Corpuscular HGB Conc 31.4 g/dL (31.0-36.0); Platelet Count 174 K/mcL (140-440); RBC 3.61 M/mcL (3.59-5.38); Red Cell Distribution Width 13.9 % (11.5-14.5); WBC 8.5 K/mcL (4.5-11.0)
--- NOTE | 2021-02-28 07:27 | Internal Med Progress Note ---
SUBJECTIVE Subjective Patient information: Note initiated : 02/28/21 at 7:23 am Service Date, if different from initiated Date: [] Patient: Kiera Angeles 85 y/o F admitted on 02/27/21 for Sob. Chief Complaint: [] Interval history: History of present illness: Ms. Angeles is a 85 year old F Presents to the ED with nonproductive cough and shortness of breath going on for several days. She is found to be 85% oxygen per EMS. Patient denied fever chills. In the ED was found to have bilateral infiltrates. She did get a COVID-vaccine and her rapid COVID was negative. patient denies being around anybody's been sick. Cough productive of yellow sputum. Doesn't sound like she been on oxygen at home before. Says occasionally she feels like food or drink goes down the wrong pipe. 02/28 Patient states she feels a little bit better and states that his breathing a little better however has rib pain from coughing and she says that impairs her deep breathing. Review of Systems: denies headache/fever/chills/nausea/vomiting/chest or abdominal pain/diarrhea. Otherwise see above. Constitutional Vitals: Vital Signs Temp Pulse Resp BP Pulse Ox 98 F 80 22 109/65 95 02/28/21 06:47 02/28/21 06:47 02/28/21 06:47 02/28/21 06:47 02/28/21 06:47 Period Temp Pulse Resp BP Sys/[place] Pulse Ox Last 24 Hr 97.4 F-99.5 F 80-96 20-22 105-115/50-67 93-97 Intake and Output 02/27/21 02/28/21 02/28/21 21:59 05:59 13:59 Intake Total 150 Output Total 425 300 Balance -275 -300 Weight 74.446 kg Intake & Output: Intake & Output 02/27/21 02/28/21 02/28/21 21:59 05:59 13:59 Intake Total 150 Output Total 425 300 Balance -275 -300 Weight 74.446 kg Intake: GI Tube Flush 150 Output: Urine Catheter Amount 425 300 Other: Urine Appearance Sediment Urine Color Dark Anabel Uretheral ([place]) Dark Anabel Urine Odor Normal Exam: General: Alert, Awake, No acute Distress, obesity Eyes/N/T: EOMI, Head/Neck: neck supple, CV: RRR, 1/6 SM, Pulm: rales b/l improved, mild b/l wheeze, nonlabored Abd: soft, nontender, +BS x4 Ext: no clubbing/cyanosis/edema Neuro: Alert, no focal deficits, moves all extremities, Skin: warm/dry OBJ DATA Labs CBC & Chem 7: 02/28/21 05:28 02/28/21 05:28 Labs: Abnormal Lab Results 02/28/21 02/27/21 02/27/21 05:28 03:15 02:15 Hgb 10.8 L MPV 12.0 H Neut % (Auto) Lymph % (Auto) Lymph # (Auto) [place] # (Auto) Glucose Calcium Total Bilirubin NT-Pro-B Natriuret Pep Albumin Globulin Albumin/Globulin Ratio Procalcitonin 2.09 H Urine Appearance Cloudy A Urine Protein 100 A Urine Ketones 20 A Urine Urobilinogen 4.0 A Ur Leukocyte Esterase 250 A Urine RBC 6 H Urine WBC 156 H Amorphous Crystals Few A Urine Bacteria Many A Hyaline Casts 3 H Urine Mucus Many A 02/27/21 02/27/21 02:15 02:15 Hgb MPV 11.7 H Neut % (Auto) 82.8 H Lymph % (Auto) 4.2 L Lymph # (Auto) 0.34 L [place] # (Auto) 0.96 H Glucose 159 H Calcium 8.5 L Total Bilirubin 1.4 H NT-Pro-B Natriuret Pep 1403.0 H Albumin 2.8 L Globulin 3.9 H Albumin/Globulin Ratio 0.7 L Procalcitonin Urine Appearance Urine Protein Urine Ketones Urine Urobilinogen Ur Leukocyte Esterase Urine RBC Urine WBC Amorphous Crystals Urine Bacteria Hyaline Casts Urine Mucus Meds: Medications Albuterol/Ipratropium (Ipratropium/Albuterol 3 Ml Ampul.Neb) 3 ml NEB Q4HP PRN PRN Reason: Shortness Of Breath Artificial Tears (Carboxymethylcellulose Sodium 1 Each Droper.Gel) 2 each OU BIDP PRN PRN Reason: Dry Eyes Ascorbic Acid (Ascorbic Acid 500 Mg Tablet) 1,000 mg PO DAILY DAVID Last Admin: 02/27/21 11:46 Dose: 1,000 mg Documented by: Benzonatate (Benzonatate 100 Mg Capsule) 200 mg PO DAILYP PRN PRN Reason: Cough Docusate Sodium (Docusate Sodium 100 Mg Capsule) 100 mg PO BID [facility] Last Admin: 02/27/21 22:07 Dose: 100 mg Documented by: Duloxetine HCl (Duloxetine 30 Mg Capsule) 30 mg PO QDAY [facility] Last Admin: 02/27/21 11:46 Dose: 30 mg Documented by: Enoxaparin Sodium (Enoxaparin 40 Mg/0.4 Ml Syringe) 40 mg SQ DAILY [facility] Last Admin: 02/27/21 11:43 Dose: 40 mg Documented by: Escitalopram Oxalate (Escitalopram 10 Mg Tablet) 5 mg PO DAILY [facility] Last Admin: 02/27/21 11:44 Dose: 5 mg Documented by: Fentanyl (Fentanyl 25 Mcg Patch) 25 mcg TOPICAL Q72H [facility] Fexofenadine HCl (Fexofenadine 180 Mg Tablet) 180 mg PO DAILYP PRN PRN Reason: Allergy Symptoms Gabapentin (Gabapentin 300 Mg Capsule) 600 mg PO HS [facility] Last Admin: 02/27/21 22:06 Dose: 600 mg Documented by: Gabapentin (Gabapentin 300 Mg Capsule) 300 mg PO BID@0800,1200 [facility] Last Admin: 02/27/21 11:46 Dose: 300 mg Documented by: Guaifenesin (Guaifenesin 600 Mg Tab.Sr.12h) 1,200 mg PO BIDP PRN PRN Reason: Congestion Potassium Chloride 40 meq/ (Dextrose) 520 mls @ 130 mls/hr IV UD PRN PRN Reason: Potassium < 3 Magnesium Sulfate (Magnesium Sulfate) 2 gm in 50 mls @ 50 mls/hr IV UD PRN PRN Reason: Magnesium </= 1.6 Ceftriaxone Sodium 2 gm/ (Dextrose) 50 mls @ 100 mls/hr IV DAILY [facility]; Protocol Azithromycin 500 mg/ Dextrose 250 mls @ 250 mls/hr IV DAILY@1100 [facility]; Protocol Stop: 03/01/21 11:59 Last Infusion: 02/27/21 12:47 Dose: Infused Documented by: Methocarbamol (Methocarbamol 500 Mg Tablet) 1,000 mg PO Q6HP PRN PRN Reason: muscle spasms Metoclopramide HCl (Metoclopramide 10 Mg/2 Ml Vial) 10 mg IV Q6HP PRN PRN Reason: Nausea And Vomiting Ondansetron HCl (Ondansetron 4 Mg/2 Ml Vial) 4 mg IV Q4HP PRN PRN Reason: Nausea And Vomiting Oxycodone/Acetaminophen (Oxycodone/Apap 5/325mg Tablet) 1 tab PO Q4HP PRN; Protocol PRN Reason: Pain Polyethylene Glycol (Polyethylene Glycol 3350 17 Gm Packet) 17 gm PO DAILYP PRN PRN Reason: Constipation Potassium Chloride (Potassium Chloride 20 Meq Tablet) 40 meq PO UD PRN PRN Reason: Potssium is 3-3.5 Potassium Chloride (Potassium Chloride 20 Meq Tablet) 40 meq PO UD PRN PRN Reason: Potassium < 3 Prednisone (Prednisone 5 Mg Tablet) 20 mg PO [facility] Last Admin: 02/27/21 11:46 Dose: 20 mg Documented by: Senna (Sennosides 1 Tablet) 2 tab PO DAILYP PRN PRN Reason: Constipation Simethicone (Simethicone 80 Mg Tab.Chew) 240 mg CHEWED BIDP PRN PRN Reason: Abdominal Discomfort Sodium Chloride (0.9 % Sodium Chloride 10 Ml Syringe) 10 ml IV Q8 [facility] Last Admin: 02/28/21 05:06 Dose: 10 ml Documented by: Thyroid (Thyroid, Pork 60 Mg Tablet) 180 mg PO ACB [facility] Last Admin: 02/27/21 11:44 Dose: 180 mg Documented by: Thyroid (Thyroid, Pork 60 Mg Tablet) 180 mg PO ACB [facility] Tizanidine HCl (Tizanidine 4 Mg Tablet) 4 mg PO [facility] Last Admin: 02/27/21 22:07 Dose: 4 mg Documented by: A/P Narrative A/P Narrative: A: *CAP: -elevated PCT, strep neg *SIRS: febrile/tachycardia/Bandemia *Acute hypoxic respiratory failure: -on 3L NC *COPD per notes (not on home O2): suspcet mild exacerbation *UTI ( ): *Anxiety d/o: continue escitalopram *h/o Polyarthritis: Follows with Dr. Landis and is on prednisone *Hypothyroidism: *Obesity: *SSS w/ppm: *Osteoporosis with h/o vertebral fracture: *Chr Pain: on opioids *h/o of Breast CA w/port: *Generalized weakness/deconditioning/debility: Patient essentially wheelchair- bound Plan: -cefepime/azithromycin, mrsa screen -f/u AM cxr -short course steroids -Pending SC/BC/UC -O2 Supp, wean as able -IS/Acapella, prn nebs -Continue home prednisone -PT OT/nutrition support -Discharge planning per case management -ppx:Lovenox Time Spent With Patient Time: Total time spent is greater than 50% in coordination of care (as documented) at patient's floor/unit and/or counseling patient:
[2021-02-28 08:00] LABS: ALT/SGPT 12 U/L (<40); AST/SGOT 27 U/L (<32); Albumin 2.8 gm/dL (3.2-5.2); Albumin/Globulin Ratio 1.1 (1.0-2.3); Alkaline Phosphatase 85 U/L (39-117); Bilirubin,Direct 0.3 mg/dL (<0.3); Bilirubin,Total 0.5 mg/dL (0.1-1.0); Blood Urea Nitrogen 16 mg/dL (8-23); Calcium 8.2 mg/dL (8.6-10.4); Carbon Dioxide 27 mmol/L (22-30); Chloride 100 mmol/L (96-108); Globulin 2.5 gm/dL (2.2-3.7); Glomerular Filtration Rate 87; Glucose 117 mg/dL (70-105); Lactate Dehydrogenase 148 U/L (135-225); Phosphorous 2.7 mg/dL (2.5-4.5); Triglycerides 108 mg/dL (<150); Uric Acid 4.4 mg/dL (2.5-8.0)
[2021-02-28] MEDS: THYROID, PORK 60 MG TABLET PO SCH ×2 (08:00→08:17)
[2021-02-28] MEDS: oxyCODONE/APAP 5/325MG TABLET PO PRN ×2 (08:02→20:30)
[2021-02-28] MEDS: predniSONE 5 MG TABLET PO SCH (08:02)
[2021-02-28] MEDS: GABAPENTIN 300 MG CAPSULE PO SCH ×3 (08:02→20:29)
[2021-02-28 08:44] LABS: Band Neutrophils % 43 % (0-10); Hypochromasia 1+ (None Seen); Lymphocytes % 10 % (15-49); Monocytes % (Manual) 6 % (1-12); Platelet Estimate NORMAL (Normal); Polychromasia 1+ (None Seen); RBC Morphology ABNORMAL (Normal); Reactive Lymphocytes 1 % (0-2); Segmented Neutrophils % 40 % (38-78); Toxic Granulation 1+ (None Seen)
[2021-02-28] MEDS ORDERED: traMADol 50 MG TABLET PO PRN (08:58)
[2021-02-28] MEDS ORDERED: cefTRIAXone 2 GM in DEXTROSE 5% IN WATER 50 ML IV SCH (09:00)
[2021-02-28] MEDS ORDERED: KETOROLAC 15 MG/ML VIAL IV ONE (09:00)
[2021-02-28] MEDS: IPRATROPIUM/ALBUTEROL 3 ML AMPUL.NEB NEB PRN ×3 (09:16→20:33)
[2021-02-28] MEDS: methylPREDNISolone SOD SUCC 40 MG/ML VIAL IV SCH ×2 (09:36→20:28)
[2021-02-28] MEDS: ENOXAPARIN 40 MG/0.4 ML SYRINGE SQ SCH (09:37)
[2021-02-28] MEDS: CEFEPIME 2 GM VIAL IV SCH ×2 (09:37→20:28)
[2021-02-28] MEDS: DULoxetine 30 MG CAPSULE PO SCH (09:39)
[2021-02-28] MEDS: ESCITALOPRAM 10 MG TABLET PO SCH (09:39)
[2021-02-28] MEDS: ASCORBIC ACID 500 MG TABLET PO SCH (09:39)
[2021-02-28] MEDS: DOCUSATE SODIUM 100 MG CAPSULE PO SCH ×2 (09:56→20:30)
[2021-02-28] MEDS: AZITHROMYCIN 500 MG in DEXTROSE 5% IN WATER 250 ML IV SCH (11:35)
[2021-02-28] MEDS: BUDESONIDE 0.5 MG/2 ML AMPUL.NEB NEB SCH ×2 (13:05→20:33)
[2021-02-28] MEDS: BENZONATATE 100 MG CAPSULE PO PRN (20:29)
[2021-02-28] MEDS: tiZANidine 4 MG TABLET PO SCH (20:29)
[2021-03-01] MEDS: 0.9 % SODIUM CHLORIDE 10 ML SYRINGE IV SCH ×3 (04:37→20:33)
[2021-03-01 07:02] LABS: Hematocrit 33.1 % (34.1-44.9); Hemoglobin 10.6 g/dL (11.2-15.7); Mean Cell Volume 94.6 fL (80.0-100.0); Mean Platelet Volume 12.1 fL (7.4-10.4); Platelet Count 180 K/mcL (140-440); WBC 12.6 K/mcL (4.5-11.0)
[2021-03-01] MEDS: BUDESONIDE 0.5 MG/2 ML AMPUL.NEB NEB SCH ×2 (07:05→20:50)
--- NOTE | 2021-03-01 07:05 | EKG ---
[facility] Test Date: 2021-02-27 Pat Name: Kiera Angeles Department: ED Room: Gender: Female [employer]: : 1935 Requested By: Myke Charlton Order Number: [id number] Reading MD: Dagoberto Villalpando M.D. Measurements Intervals [place] Rate: 112 P: -22 [place]: 66 QRS: 3 QRSD: 110 T: -20 QT: 353 QTc: 482 Interpretive Statements Sinus tachycardia frequent PACs Inferior infarct, age indeterminate Electronically Signed On 03-01-2021 7:05:27 PST by Dagoberto Villalpando M.D. /store/[email or web address]/[id number]
--- NOTE | 2021-03-01 07:27 | Internal Med Progress Note ---
SUBJECTIVE Subjective Patient information: Note initiated : 03/01/21 at 7:25 am Service Date, if different from initiated Date: [] Patient: Kiera Angeles 85 y/o F admitted on 02/27/21 for Sob. Chief Complaint: [] Interval history: History of present illness: Ms. Angeles is a 85 year old F Presents to the ED with nonproductive cough and shortness of breath going on for several days. She is found to be 85% oxygen per EMS. Patient denied fever chills. In the ED was found to have bilateral infiltrates. She did get a COVID-vaccine and her rapid COVID was negative. patient denies being around anybody's been sick. Cough productive of yellow sputum. Doesn't sound like she been on oxygen at home before. Says occasionally she feels like food or drink goes down the wrong pipe. 02/28 Patient states she feels a little bit better and states that his breathing a little better however has rib pain from coughing and she says that impairs her deep breathing. 03/01 She states she is feeling a little better again today little bit stronger and shortness of breath continuing to slowly improve. Review of Systems: denies headache/fever/chills/nausea/vomiting/chest or abdominal pain/diarrhea. Otherwise see above. Constitutional Vitals: Vital Signs Temp Pulse Resp BP Pulse Ox 98.0 F 88 18 109/60 94 03/01/21 04:00 03/01/21 07:06 03/01/21 07:06 03/01/21 04:00 03/01/21 07:06 Period Temp Pulse Resp BP Sys/Glover Pulse Ox Last 24 Hr 97.6 F-98.0 F 73-88 16-20 102-111/53-69 92-97 Intake and Output 02/28/21 03/01/21 03/01/21 21:59 05:59 13:59 Intake Total 800 Output Total 150 2200 Balance -150 -1400 Weight 75.353 kg Intake & Output: Intake & Output 02/28/21 03/01/21 03/01/21 21:59 05:59 13:59 Intake Total 800 Output Total 150 2200 Balance -150 -1400 Weight 75.353 kg Intake: Oral 800 Output: Urine Catheter Amount 150 2200 Other: Urine Appearance Sediment Clear Urine Color Dark Anabel Bright Yellow Uretheral (Giles) Dark Yellow Exam: General: Alert, Awake, No acute Distress, obesity Eyes/N/T: EOMI, Head/Neck: neck supple, CV: RRR, 1/6 SM, Pulm: rales b/l improving slowly, mild b/l wheeze, nonlabored Abd: soft, nontender, +BS x4 Ext: no clubbing/cyanosis/edema Neuro: Alert, no focal deficits, moves all extremities, Skin: warm/dry OBJ DATA Labs CBC & Chem 7: 03/01/21 05:31 03/01/21 05:30 Labs: Abnormal Lab Results 03/01/21 02/28/21 02/28/21 05:31 05:28 05:28 WBC 12.6 H RBC 3.50 L Hgb 10.6 L Hct 33.1 L MPV 12.1 H Neut % (Auto) Lymph % (Auto) Lymph # (Auto) Yates # (Auto) Band Neutrophils % Lymphocytes % WBC Morphology Toxic Granulation RBC Morphology Polychromasia Hypochromasia Creatinine 0.5 L Glucose 117 H Calcium 8.2 L Total Bilirubin Direct Bilirubin 0.3 H C-Reactive Protein 38.70 H NT-Pro-B Natriuret Pep Total Protein 5.3 L Albumin 2.8 L Globulin Albumin/Globulin Ratio Procalcitonin 2.11 H Urine Appearance Urine Protein Urine Ketones Urine Urobilinogen Ur Leukocyte Esterase Urine RBC Urine WBC Amorphous Crystals Urine Bacteria Hyaline Casts Urine Mucus 02/28/21 02/27/21 02/27/21 05:28 03:15 02:15 WBC RBC Hgb 10.8 L Hct MPV 12.0 H Neut % (Auto) Lymph % (Auto) Lymph # (Auto) Yates # (Auto) Band Neutrophils % 43 H Lymphocytes % 10 L WBC Morphology Abnormal A Toxic Granulation 1+ A RBC Morphology Abnormal A Polychromasia 1+ A Hypochromasia 1+ A Creatinine Glucose Calcium Total Bilirubin Direct Bilirubin C-Reactive Protein NT-Pro-B Natriuret Pep Total Protein Albumin Globulin Albumin/Globulin Ratio Procalcitonin 2.09 H Urine Appearance Cloudy A Urine Protein 100 A Urine Ketones 20 A Urine Urobilinogen 4.0 A Ur Leukocyte Esterase 250 A Urine RBC 6 H Urine WBC 156 H Amorphous Crystals Few A Urine Bacteria Many A Hyaline Casts 3 H Urine Mucus Many A 02/27/21 02/27/21 02:15 02:15 WBC RBC Hgb Hct MPV 11.7 H Neut % (Auto) 82.8 H Lymph % (Auto) 4.2 L Lymph # (Auto) 0.34 L Yates # (Auto) 0.96 H Band Neutrophils % Lymphocytes % WBC Morphology Toxic Granulation RBC Morphology Polychromasia Hypochromasia Creatinine Glucose 159 H Calcium 8.5 L Total Bilirubin 1.4 H Direct Bilirubin C-Reactive Protein NT-Pro-B Natriuret Pep 1403.0 H Total Protein Albumin 2.8 L Globulin 3.9 H Albumin/Globulin Ratio 0.7 L Procalcitonin Urine Appearance Urine Protein Urine Ketones Urine Urobilinogen Ur Leukocyte Esterase Urine RBC Urine WBC Amorphous Crystals Urine Bacteria Hyaline Casts Urine Mucus Meds: Medications Albuterol/Ipratropium (Ipratropium/Albuterol 3 Ml Ampul.Neb) 3 ml NEB Q4HP PRN PRN Reason: Shortness Of Breath Last Admin: 02/28/21 20:33 Dose: 3 ml Documented by: Artificial Tears (Carboxymethylcellulose Sodium 1 Each Droper.Gel) 2 each OU BIDP PRN PRN Reason: Dry Eyes Ascorbic Acid (Ascorbic Acid 500 Mg Tablet) 1,000 mg PO DAILY [facility] Last Admin: 02/28/21 09:39 Dose: 1,000 mg Documented by: Benzonatate (Benzonatate 100 Mg Capsule) 200 mg PO TIDP PRN PRN Reason: Cough Last Admin: 02/28/21 20:29 Dose: 200 mg Documented by: Budesonide (Budesonide 0.5 Mg/2 Ml Ampul.Neb) 0.5 mg NEB Q12 [facility] Last Admin: 03/01/21 07:05 Dose: 0.5 mg Documented by: Cefepime HCl (Cefepime 2 Gm Vial) 2 gm IV Q12H [facility]; Protocol Last Admin: 02/28/21 20:28 Dose: 2 gm Documented by: Docusate Sodium (Docusate Sodium 100 Mg Capsule) 100 mg PO BID [facility] Last Admin: 02/28/21 20:30 Dose: 100 mg Documented by: Duloxetine HCl (Duloxetine 30 Mg Capsule) 30 mg PO QDAY [facility] Last Admin: 02/28/21 09:39 Dose: 30 mg Documented by: Enoxaparin Sodium (Enoxaparin 40 Mg/0.4 Ml Syringe) 40 mg SQ DAILY [facility] Last Admin: 02/28/21 09:37 Dose: 40 mg Documented by: Escitalopram Oxalate (Escitalopram 10 Mg Tablet) 5 mg PO DAILY [facility] Last Admin: 02/28/21 09:39 Dose: 5 mg Documented by: Fentanyl (Fentanyl 25 Mcg Patch) 25 mcg TOPICAL Q72H [facility] Fexofenadine HCl (Fexofenadine 180 Mg Tablet) 180 mg PO DAILYP PRN PRN Reason: Allergy Symptoms Gabapentin (Gabapentin 300 Mg Capsule) 600 mg PO HS [facility] Last Admin: 02/28/21 20:29 Dose: 600 mg Documented by: Gabapentin (Gabapentin 300 Mg Capsule) 300 mg PO BID@0800,1200 [facility] Last Admin: 02/28/21 12:05 Dose: 300 mg Documented by: Guaifenesin (Guaifenesin 600 Mg Tab.Sr.12h) 1,200 mg PO BIDP PRN PRN Reason: Congestion Potassium Chloride 40 meq/ (Dextrose) 520 mls @ 130 mls/hr IV UD PRN PRN Reason: Potassium < 3 Magnesium Sulfate (Magnesium Sulfate) 2 gm in 50 mls @ 50 mls/hr IV UD PRN PRN Reason: Magnesium </= 1.6 Azithromycin 500 mg/ Dextrose 250 mls @ 250 mls/hr IV DAILY@1100 [facility]; Protocol Stop: 03/01/21 11:59 Last Infusion: 02/28/21 12:35 Dose: Infused Documented by: Methocarbamol (Methocarbamol 500 Mg Tablet) 1,000 mg PO Q6HP PRN PRN Reason: muscle spasms Methylprednisolone Sodium Succinate (Methylprednisolone Sod Succ 40 Mg/Ml Vial) 40 mg IV Q12 [facility] Last Admin: 02/28/21 20:28 Dose: 40 mg Documented by: Metoclopramide HCl (Metoclopramide 10 Mg/2 Ml Vial) 10 mg IV Q6HP PRN PRN Reason: Nausea And Vomiting Ondansetron HCl (Ondansetron 4 Mg/2 Ml Vial) 4 mg IV Q4HP PRN PRN Reason: Nausea And Vomiting Oxycodone/Acetaminophen (Oxycodone/Apap 5/325mg Tablet) 1 tab PO Q4HP PRN; Protocol PRN Reason: Pain Last Admin: 02/28/21 20:30 Dose: 1 tab Documented by: Pneumococcal Polyvalent Vaccine (Pneumococcal 23-Joan P-Sac Vac 0.5 Ml Syringe) 0.5 ml IM .ONCE ONE Stop: 03/01/21 10:01 Polyethylene Glycol (Polyethylene Glycol 3350 17 Gm Packet) 17 gm PO DAILYP PRN PRN Reason: Constipation Potassium Chloride (Potassium Chloride 20 Meq Tablet) 40 meq PO UD PRN PRN Reason: Potssium is 3-3.5 Potassium Chloride (Potassium Chloride 20 Meq Tablet) 40 meq PO UD PRN PRN Reason: Potassium < 3 Prednisone (Prednisone 5 Mg Tablet) 20 mg PO [facility] Last Admin: 02/28/21 08:02 Dose: 20 mg Documented by: Senna (Sennosides 1 Tablet) 2 tab PO DAILYP PRN PRN Reason: Constipation Simethicone (Simethicone 80 Mg Tab.Chew) 240 mg CHEWED BIDP PRN PRN Reason: Abdominal Discomfort Sodium Chloride (0.9 % Sodium Chloride 10 Ml Syringe) 10 ml IV Q8 [facility] Last Admin: 03/01/21 04:37 Dose: 10 ml Documented by: Thyroid (Thyroid, Pork 60 Mg Tablet) 180 mg PO ACB [facility] Last Admin: 02/28/21 08:00 Dose: 180 mg Documented by: Thyroid (Thyroid, Pork 60 Mg Tablet) 180 mg PO ACB [facility] Last Admin: 02/28/21 08:17 Dose: Not Given Documented by: Tizanidine HCl (Tizanidine 4 Mg Tablet) 4 mg PO [facility] Last Admin: 02/28/21 20:29 Dose: 4 mg Documented by: Tramadol HCl (Tramadol 50 Mg Tablet) 50 mg PO Q4-6HP PRN; Protocol PRN Reason: Pain A/P Narrative A/P Narrative: A: *CAP: -elevated PCT, strep neg *SIRS: febrile/tachycardia/Bandemia *Acute hypoxic respiratory failure: -on 2L NC *COPD per notes (not on home O2) With mild exacerbation: *UTI ( ): *Anxiety d/o: continue escitalopram *h/o Polyarthritis: Follows with Dr. Landis and is on prednisone *Hypothyroidism: *Obesity: *SSS w/ppm: *Osteoporosis with h/o vertebral fracture: *Chr Pain: on opioids *h/o of Breast CA w/port: *Generalized weakness/deconditioning/debility: Patient essentially wheelchair- bound Plan: -cefepime/azithromycin, mrsa screen -f/u AM cxr -short course steroids -Pending SC/BC/UC -O2 Supp, wean as able -IS/Acapella, prn nebs -Continue home prednisone -PT OT/nutrition support -Discharge planning per case management -ppx:Lovenox Time Spent With Patient Time: Total time spent is greater than 50% in coordination of care (as documented) at patient's floor/unit and/or counseling patient:
[2021-03-01 07:43] LABS: ALT/SGPT 32 U/L (<40); AST/SGOT 66 U/L (<32); Albumin 2.8 gm/dL (3.2-5.2); Albumin/Globulin Ratio 0.8 (1.0-2.3); Alkaline Phosphatase 89 U/L (39-117); Bilirubin,Direct < 0.2 mg/dL (0-0.3); Bilirubin,Total 0.3 mg/dL (0.1-1.0); Blood Urea Nitrogen 24 mg/dL (8-23); Calcium 9.5 mg/dL (8.6-10.4); Carbon Dioxide 26 mmol/L (22-30); Chloride 99 mmol/L (96-108); Globulin 3.5 gm/dL (2.2-3.7); Glomerular Filtration Rate 82; Glucose 151 mg/dL (70-105); Lactate Dehydrogenase 172 U/L (135-225); Phosphorous 3.3 mg/dL (2.5-4.5); Triglycerides 110 mg/dL (<150); Uric Acid 5.6 mg/dL (2.5-8.0)
[2021-03-01] MEDS: THYROID, PORK 60 MG TABLET PO SCH ×2 (07:43→07:44)
[2021-03-01] MEDS: predniSONE 5 MG TABLET PO SCH (07:44)
[2021-03-01] MEDS: GABAPENTIN 300 MG CAPSULE PO SCH ×3 (07:44→21:27)
[2021-03-01 08:00] LABS: Band Neutrophils % 9 % (0-10); Hypochromasia 1+ (None Seen); Lymphocytes % 7 % (15-49); Monocytes % (Manual) 6 % (1-12); Platelet Estimate NORMAL (Normal); Polychromasia FEW (None Seen); RBC Morphology ABNORMAL (Normal); Segmented Neutrophils % 78 % (38-78); Toxic Granulation 1+ (None Seen)
[2021-03-01] MEDS ORDERED: predniSONE 20 MG TABLET PO SCH (08:00)
[2021-03-01] MEDS: ASCORBIC ACID 500 MG TABLET PO SCH (09:14)
[2021-03-01] MEDS: ENOXAPARIN 40 MG/0.4 ML SYRINGE SQ SCH (09:14)
[2021-03-01] MEDS: DOCUSATE SODIUM 100 MG CAPSULE PO SCH ×2 (09:14→21:27)
[2021-03-01] MEDS: DULoxetine 30 MG CAPSULE PO SCH (09:14)
[2021-03-01] MEDS: CEFEPIME 2 GM VIAL IV SCH ×2 (09:14→21:26)
[2021-03-01] MEDS: ESCITALOPRAM 10 MG TABLET PO SCH (09:15)
[2021-03-01] MEDS ORDERED: PNEUMOCOCCAL 23-VAL P-SAC VAC 0.5 ML SYRINGE IM ONE (10:00)
[2021-03-01] MEDS ORDERED: FLU VACC QS2021-22(6MOS UP)/PF 60 MCG/0.5 ML SYRINGE IM ONE (10:15)
[2021-03-01] MEDS: IPRATROPIUM/ALBUTEROL 3 ML AMPUL.NEB NEB SCH ×2 (10:35→20:50)
--- NOTE | 2021-03-01 10:38 | Discharge Summary ---
Discharge Provider Provider Patient information: Note initiated : 03/01/21 at 10:36 am Service Date, if different from initiated Date: [] Patient: Kiera Angeles 85 y/o F admitted on 02/27/21 for Sob. Chief Complaint: [] Date of admission: 02/27/21 06:57 Primary care physician: GIUSEPPE Garcia Consults: 02/27/21 05:15 Consult to Physician [CONS] Stat Comment: Consulting Provider: Tyrell Leonard Reason For Exam: Physician to Consult Discharge Meds Discharge Medications Home Medications alpha lipoic acid 100 mg capsule 300 mg PO DAILY 10/23/14 [History Confirmed 02/27/21 Last Taken Unknown] ascorbic acid (vitamin C) 1,000 mg tablet 1,000 mg PO DAILY 10/23/14 [History Confirmed 02/27/21 Last Taken 10/23/14 06:00] benzonatate 200 mg capsule 200 mg PO QDAY PRN 10/23/14 [History Confirmed 02/27/21 Last Taken Unknown] calcium citrate 1,000 mg PO DAILY 10/23/14 [History Confirmed 02/27/21 Last Taken Unknown] escitalopram oxalate 5 mg tablet 5 mg PO QDAY 08/20/19 [History Confirmed 02/27/21 Last Taken 12/11/20 09:00] gabapentin 300 mg capsule 600 mg PO HS 08/20/19 [History Confirmed 02/27/21 Last Taken 12/12/20 09:00] prednisone 5 mg tablet 20 mg PO QDAY 08/20/19 [History Confirmed 02/27/21 Last Taken 12/12/20 09:00] simethicone 125 mg capsule (Gas-X Extra Strength) 250 mg PO BID PRN 08/20/19 [History Confirmed 02/27/21 Last Taken 02/25/21] tizanidine 4 mg capsule 4 mg PO QHS 08/20/19 [History Confirmed 02/27/21 Last Taken 12/11/20 21:00] guaifenesin 600 mg tablet, extended release 12 hr (Mucinex) 1,200 mg PO BID PRN 03/28/20 [History Confirmed 02/27/21 Last Taken Unknown] methocarbamol 500 mg tablet 1,000 mg PO Q6HP PRN tab 08/31/20 [History Confirmed 02/27/21 Last Taken 12/11/20 21:00] duloxetine 30 mg capsule,delayed release (Cymbalta) 30 mg PO QDAY 11/03/20 [History Confirmed 02/27/21 Last Taken 12/12/20 09:00] fexofenadine 180 mg tablet 180 mg PO QDAY PRN 11/03/20 [History Confirmed 02/27/21 Last Taken Unknown] gabapentin 300 mg capsule 300 mg PO BID 11/03/20 [History Confirmed 02/27/21 Last Taken 12/12/20 09:00] oxycodone-acetaminophen 5 mg-325 mg tablet (Endocet) 1 tab PO Q4H PRN #30 tab 11/04/20 [Rx Confirmed 02/27/21 Last Taken Unknown] carboxymethylcellulose sodium 0.5 % eye drops (Refresh Tears) 2 drp OPHTHALMIC (EYE) BID PRN 02/27/21 [History Confirmed 02/27/21 Last Taken 02/25/21] fentanyl 25 mcg/hr transdermal patch 25 mcg TRANSDERMAL Q72H 02/27/21 [History Confirmed 02/27/21 Last Taken Unknown] omega-3 fatty acids 2,000 mg PO QDAY 02/27/21 [History Confirmed 02/27/21 Last Taken Unknown] ondansetron 4 mg disintegrating tablet 4 mg PO Q8H PRN 02/27/21 [History Confirmed 02/27/21 Last Taken Unknown] thyroid (pork) 180 mg tablet ([place] Thyroid) 180 mg PO QDAY 02/27/21 [History Confirmed 02/27/21 Last Taken 02/25/21] COURSE Hospital Course Hospital course: History of present illness: Ms. Angeles is a 85 year old F Presents to the ED with nonproductive cough and shortness of breath going on for several days. She is found to be 85% oxygen per EMS. Patient denied fever chills. In the ED was found to have bilateral infiltrates. She did get a COVID-vaccine and her rapid COVID was negative. patient denies being around anybody's been sick. Cough productive of yellow sputum. Doesn't sound like she been on oxygen at home before. Says occasionally she feels like food or drink goes down the wrong pipe. 02/28 Patient states she feels a little bit better and states that his breathing a little better however has rib pain from coughing and she says that impairs her deep breathing. 03/01 She states she is feeling a little better again today little bit stronger and shortness of breath continuing to slowly improve. Given age and comorbidities and baseline functional status patient high risk for readmission A: *CAP: *SIRS: febrile/tachycardia/Bandemia *Acute hypoxic respiratory failure: *COPD per notes (not on home O2) With mild exacerbation: *UTI ( ): *Anxiety d/o: continue escitalopram *h/o Polyarthritis: Follows with Dr. Landis and is on prednisone *Hypothyroidism: *Obesity: *SSS w/ppm: *Osteoporosis with h/o vertebral fracture: *Chr Pain: on opioids *h/o of Breast CA w/port: *Generalized weakness/deconditioning/debility: Patient essentially wheelchair- bound Plan: -ABx -short course steroids Discharge diagnosis: [facility] pneumonia COPD SIRS hypoxic respite failure Secondary discharge diagnosis: UTI Anxiety polyarthritis hypothyroidism obesity osteoporosis chronic pain generalized weakness deconditioning debility Time Spent with Patient Time attestation: Total time spent providing and/or coordinating discharge services: Time spent: Greater than 30 minutes EXAM Constitutional Vitals: Temp Pulse Resp BP Pulse Ox 97.0 F 88 22 115/66 94 03/01/21 07:40 03/01/21 10:35 03/01/21 10:35 03/01/21 07:40 03/01/21 10:35 Discharge Data Data Completed and Pending Labs on day of discharge: Labs from last 24 hours 03/01/21 03/01/21 03/01/21 05:31 05:30 05:30 WBC 12.6 H RBC 3.50 L Hgb 10.6 L Hct 33.1 L MCV 94.6 MCH 30.3 MCHC 32.0 RDW 14.0 Plt Count 180 MPV 12.1 H Seg Neutrophils % 78 Band Neutrophils % 9 Lymphocytes % 7 L Monocytes % (Manual) 6 WBC Morphology Abnormal A Toxic Granulation 1+ A Platelet Estimate Normal RBC Morphology Abnormal A Polychromasia Few A Hypochromasia 1+ A Sodium 138 Potassium 3.8 Chloride 99 Carbon Dioxide 26 Anion Gap 13.0 BUN 24 H Creatinine 0.6 GFR Calculation 82 Glucose 151 H Uric Acid 5.6 Calcium 9.5 Phosphorus 3.3 Magnesium 2.5 Total Bilirubin 0.3 Direct Bilirubin < 0.2 GGT 21 AST 66 H ALT 32 Alkaline Phosphatase 89 Lactate Dehydrogenase 172 C-Reactive Protein 17.30 H Total Protein 6.3 Albumin 2.8 L Globulin 3.5 Albumin/Globulin Ratio 0.8 L Triglycerides 110 Procalcitonin 1.31 H Preliminary micro results at discharge 02/27/21 02:26 Blood Culture - Preliminary Blood 02/27/21 02:15 Blood Culture - Preliminary Blood 02/27/21 18:00 Gram Stain - Preliminary Sputum source - Expectorated Discharge Plan Patient/Caregiver Discharge Instructions Activity: increase activity as tolerated Diet: Regular Diet Prescriptions: Continued benzonatate 200 MG capsule 200 mg PO QDAY PRN (Reason: Cough) 0RF ascorbic acid (vitamin C) 1,000 MG tablet 1,000 mg PO DAILY 0RF calcium citrate 250 MG tablet 1,000 mg PO DAILY 0RF alpha lipoic acid 100 MG capsule 300 mg PO DAILY 0RF prednisone 5 mg Tablet 20 mg PO QDAY 0RF simethicone [Gas-X Extra Strength] 125 mg Capsule 250 mg PO BID PRN (Reason: Abdominal Discomfort) 0RF gabapentin 300 mg Capsule 600 mg PO HS 0RF escitalopram oxalate 5 mg Tablet 5 mg PO QDAY 0RF tizanidine 4 mg Capsule 4 mg PO QHS 0RF guaifenesin [Mucinex] 600 mg Tablet Extended Release 12hr 1,200 mg PO BID PRN (Reason: Congestion) 0RF methocarbamol 500 mg tablet 1,000 mg PO Q6HP PRN (Reason: muscle spasms) 0RF gabapentin 300 mg capsule 300 mg PO BID 0RF Rx Instructions: QAM, NOON fexofenadine 180 mg Tablet 180 mg PO QDAY PRN (Reason: Allergy Symptoms) 0RF duloxetine [Cymbalta] 30 mg capsule,delayed release(DR/EC) 30 mg PO QDAY 0RF oxycodone-acetaminophen [Endocet] 5-325 mg Tablet 1 tab PO Q4H PRN (Reason: Pain) Qty: 30 0RF ondansetron 4 mg Tablet,Disintegrating 4 mg PO Q8H PRN (Reason: Nausea) 0RF fentanyl 25 mcg/hr patch 72 hour 25 mcg transdermal Q72H 0RF omega-3 fatty acids Capsule 2,000 mg PO QDAY 0RF [place] Thyroid 180 mg Tablet 180 mg PO QDAY 0RF carboxymethylcellulose sodium [Refresh Tears] 0.5 % Drops 2 drp OPHTHALMIC (EYE) BID PRN (Reason: Dry Eyes) 0RF Follow Up Plan Follow up with: Hu Solis ARNP [Primary Care Provider] - Vasyl Faulkner MD [Physician] - Prognosis: Fair
[2021-03-01] MEDS: fentaNYL 25 MCG PATCH TOPICAL SCH (11:19)
[2021-03-01] MEDS: AZITHROMYCIN 500 MG in DEXTROSE 5% IN WATER 250 ML IV SCH (11:19)
--- NOTE | 2021-03-01 14:04 | XRay Report ---
HISTORY: Follow-up pneumonia FINDINGS: There is a large infiltrate in the left lower lobe with moderate involvement in the lingula, left upper lobe, right upper lobe and right lower lobe. There may be involvement in the right middle lobe as well. The heart is enlarged. Pacemaker remains well-positioned. Pulmonary vessels are obscured by the infiltrates. Port-A-Cath remains well-positioned in the superior vena cava. No pleural effusion is detected. Comparison the prior x-ray done on 02/27/21 shows increasing consolidation in the left lower lobe and mild improvement centrally in the right lung. IMPRESSION: Moderately severe pneumonia bilaterally with a shifting pattern compared with prior exams Interpreted and Authenticated by: Brad Villalpando 03/01/21
[2021-03-01] MEDS: oxyCODONE/APAP 5/325MG TABLET PO PRN ×2 (17:07→22:03)
[2021-03-01] MEDS: BENZONATATE 100 MG CAPSULE PO PRN (17:14)
[2021-03-01] MEDS: tiZANidine 4 MG TABLET PO SCH (21:27)
--- NOTE | 2021-03-02 07:14 | Internal Med Progress Note ---
SUBJECTIVE Subjective Patient information: Note initiated : 03/02/21 at 7:10 am Service Date, if different from initiated Date: [] Patient: Kiera Angeles 85 y/o F admitted on 02/27/21 for Sob. Chief Complaint: [] Interval history: History of present illness: Ms. Angeles is a 85 year old F Presents to the ED with nonproductive cough and shortness of breath going on for several days. She is found to be 85% oxygen per EMS. Patient denied fever chills. In the ED was found to have bilateral infiltrates. She did get a COVID-vaccine and her rapid COVID was negative. patient denies being around anybody's been sick. Cough productive of yellow sputum. Doesn't sound like she been on oxygen at home before. Says occasionally she feels like food or drink goes down the wrong pipe. 02/28 Patient states she feels a little bit better and states that his breathing a little better however has rib pain from coughing and she says that impairs her deep breathing. 03/01 She states she is feeling a little better again today little bit stronger and shortness of breath continuing to slowly improve. 03/02 Cough. Shortness of breath similar to yesterday. Patient on 1-2 L of cannula. GUTIÉRREZ. Review of Systems: denies fever/chills/nausea/vomiting/chest or abdominal pain/diarrhea. Otherwise see above. Constitutional Vitals: Vital Signs Temp Pulse Resp BP Pulse Ox 98.3 F 83 22 109/56 91 03/02/21 02:59 03/02/21 06:22 03/02/21 06:22 03/02/21 02:59 03/02/21 06:22 Period Temp Pulse Resp BP Sys/Glover Pulse Ox Last 24 Hr 97.0 F-98.3 F 66-88 20-24 99-115/56-68 90-94 Intake and Output 03/01/21 03/02/21 03/02/21 21:59 05:59 13:59 Intake Total 1310 770 Output Total 2500 550 Balance -1190 220 Weight 75.659 kg Intake & Output: Intake & Output 03/01/21 03/02/21 03/02/21 21:59 05:59 13:59 Intake Total 1310 770 Output Total 2500 550 Balance -1190 220 Weight 75.659 kg Intake: Oral 910 770 GI Tube Flush 400 Output: Urine Catheter Amount 2500 550 Other: Meal Dinner Percent of Meal Consumed 50% Feeding Ability Independent Urine Appearance Clear Clear Uretheral (Giles) Clear Urine Color Bright Yellow Bright Yellow Uretheral (Giles) Straw Urine Odor Normal Exam: General: Alert, Awake, No acute Distress, obesity Eyes/N/T: EOMI, Head/Neck: neck supple, CV: RRR, 1/6 SM, Pulm: rales b/l, still mild b/l wheeze, appears a bit labored today Abd: soft, nontender, +BS x4 Ext: no clubbing/cyanosis, trace LE edema Neuro: Alert, no focal deficits, moves all extremities, Skin: warm/dry OBJ DATA Labs CBC & Chem 7: 03/01/21 05:31 03/01/21 05:30 Labs: Abnormal Lab Results 03/01/21 03/01/21 03/01/21 05:31 05:30 05:30 WBC 12.6 H RBC 3.50 L Hgb 10.6 L Hct 33.1 L MPV 12.1 H Band Neutrophils % Lymphocytes % 7 L WBC Morphology Abnormal A Toxic Granulation 1+ A RBC Morphology Abnormal A Polychromasia Few A Hypochromasia 1+ A BUN 24 H Creatinine Glucose 151 H Calcium Direct Bilirubin AST 66 H C-Reactive Protein 17.30 H Total Protein Albumin 2.8 L Albumin/Globulin Ratio 0.8 L Procalcitonin 1.31 H 02/28/21 02/28/21 02/28/21 05:28 05:28 05:28 WBC RBC Hgb 10.8 L Hct MPV 12.0 H Band Neutrophils % 43 H Lymphocytes % 10 L WBC Morphology Abnormal A Toxic Granulation 1+ A RBC Morphology Abnormal A Polychromasia 1+ A Hypochromasia 1+ A BUN Creatinine 0.5 L Glucose 117 H Calcium 8.2 L Direct Bilirubin 0.3 H AST C-Reactive Protein 38.70 H Total Protein 5.3 L Albumin 2.8 L Albumin/Globulin Ratio Procalcitonin 2.11 H Meds: Medications Albuterol/Ipratropium (Ipratropium/Albuterol 3 Ml Ampul.Neb) 3 ml NEB BID DAVID Last Admin: 03/01/21 20:50 Dose: 3 ml Documented by: Artificial Tears (Carboxymethylcellulose Sodium 1 Each Droper.Gel) 2 each OU BIDP PRN PRN Reason: Dry Eyes Ascorbic Acid (Ascorbic Acid 500 Mg Tablet) 1,000 mg PO DAILY [facility] Last Admin: 03/01/21 09:14 Dose: 1,000 mg Documented by: Benzonatate (Benzonatate 100 Mg Capsule) 200 mg PO TIDP PRN PRN Reason: Cough Last Admin: 03/01/21 17:14 Dose: 200 mg Documented by: Budesonide (Budesonide 0.5 Mg/2 Ml Ampul.Neb) 0.5 mg NEB Q12 [facility] Last Admin: 03/01/21 20:50 Dose: 0.5 mg Documented by: Cefepime HCl (Cefepime 2 Gm Vial) 2 gm IV Q12H [facility]; Protocol Last Admin: 03/01/21 21:26 Dose: 2 gm Documented by: Docusate Sodium (Docusate Sodium 100 Mg Capsule) 100 mg PO BID [facility] Last Admin: 03/01/21 21:27 Dose: 100 mg Documented by: Duloxetine HCl (Duloxetine 30 Mg Capsule) 30 mg PO QDAY [facility] Last Admin: 03/01/21 09:14 Dose: 30 mg Documented by: Enoxaparin Sodium (Enoxaparin 40 Mg/0.4 Ml Syringe) 40 mg SQ DAILY [facility] Last Admin: 03/01/21 09:14 Dose: 40 mg Documented by: Escitalopram Oxalate (Escitalopram 10 Mg Tablet) 5 mg PO DAILY [facility] Last Admin: 03/01/21 09:15 Dose: 5 mg Documented by: Fentanyl (Fentanyl 25 Mcg Patch) 25 mcg TOPICAL Q72H [facility] Last Admin: 03/01/21 11:19 Dose: 25 mcg Documented by: Fexofenadine HCl (Fexofenadine 180 Mg Tablet) 180 mg PO DAILYP PRN PRN Reason: Allergy Symptoms Gabapentin (Gabapentin 300 Mg Capsule) 600 mg PO HS [facility] Last Admin: 03/01/21 21:27 Dose: 600 mg Documented by: Gabapentin (Gabapentin 300 Mg Capsule) 300 mg PO BID@0800,1200 [facility] Last Admin: 03/01/21 11:19 Dose: 300 mg Documented by: Guaifenesin (Guaifenesin 600 Mg Tab.Sr.12h) 1,200 mg PO BIDP PRN PRN Reason: Congestion Potassium Chloride 40 meq/ (Dextrose) 520 mls @ 130 mls/hr IV UD PRN PRN Reason: Potassium < 3 Magnesium Sulfate (Magnesium Sulfate) 2 gm in 50 mls @ 50 mls/hr IV UD PRN PRN Reason: Magnesium </= 1.6 Methocarbamol (Methocarbamol 500 Mg Tablet) 1,000 mg PO Q6HP PRN PRN Reason: muscle spasms Metoclopramide HCl (Metoclopramide 10 Mg/2 Ml Vial) 10 mg IV Q6HP PRN PRN Reason: Nausea And Vomiting Ondansetron HCl (Ondansetron 4 Mg/2 Ml Vial) 4 mg IV Q4HP PRN PRN Reason: Nausea And Vomiting Last Admin: 03/01/21 20:33 Dose: 4 mg Documented by: Oxycodone/Acetaminophen (Oxycodone/Apap 5/325mg Tablet) 1 tab PO Q4HP PRN; Protocol PRN Reason: Pain Last Admin: 03/01/21 22:03 Dose: 1 tab Documented by: Polyethylene Glycol (Polyethylene Glycol 3350 17 Gm Packet) 17 gm PO DAILYP PRN PRN Reason: Constipation Potassium Chloride (Potassium Chloride 20 Meq Tablet) 40 meq PO UD PRN PRN Reason: Potssium is 3-3.5 Potassium Chloride (Potassium Chloride 20 Meq Tablet) 40 meq PO UD PRN PRN Reason: Potassium < 3 Prednisone (Prednisone 20 Mg Tablet) 60 mg PO [facility] DAVID Senna (Sennosides 1 Tablet) 2 tab PO DAILYP PRN PRN Reason: Constipation Simethicone (Simethicone 80 Mg Tab.Chew) 240 mg CHEWED BIDP PRN PRN Reason: Abdominal Discomfort Sodium Chloride (0.9 % Sodium Chloride 10 Ml Syringe) 10 ml IV Q8 [facility] Last Admin: 03/01/21 20:33 Dose: 10 ml Documented by: Thyroid (Thyroid, Pork 60 Mg Tablet) 180 mg PO ACB [facility] Last Admin: 03/01/21 07:43 Dose: 180 mg Documented by: Tizanidine HCl (Tizanidine 4 Mg Tablet) 4 mg PO HS [facility] Last Admin: 03/01/21 21:27 Dose: 4 mg Documented by: Tramadol HCl (Tramadol 50 Mg Tablet) 50 mg PO Q4-6HP PRN; Protocol PRN Reason: Pain A/P Narrative A/P Narrative: A: *CAP: -elevated PCT, strep neg *SIRS: febrile/tachycardia/Bandemia Resolved *Acute hypoxic respiratory failure: -on 1L NC *COPD per notes (not on home O2) With mild exacerbation: *UTI (E.coli): *Anxiety d/o: continue escitalopram *h/o Polyarthritis: Follows with Dr. Landis and is on prednisone *Hypothyroidism: *Obesity: *SSS w/ppm: *Osteoporosis with h/o vertebral fracture: *Chr Pain: on opioids *h/o of Breast CA w/port: *Generalized weakness/deconditioning/debility: Patient essentially wheelchair- bound Plan: -cefepime/azithromycin, mrsa screen -short course steroids -Pending SC -O2 Supp, wean as able -IS/Acapella, prn nebs -Continue home prednisone -PT OT/nutrition support -Discharge planning per case management -ppx:Lovenox Time Spent With Patient Time: Total time spent is greater than 50% in coordination of care (as documented) at patient's floor/unit and/or counseling patient:
[2021-03-02] MEDS: THYROID, PORK 60 MG TABLET PO SCH (07:17)
[2021-03-02] MEDS: BUDESONIDE 0.5 MG/2 ML AMPUL.NEB NEB SCH ×2 (07:18→20:57)
[2021-03-02] MEDS: GABAPENTIN 300 MG CAPSULE PO SCH ×3 (07:18→21:38)
[2021-03-02] MEDS: IPRATROPIUM/ALBUTEROL 3 ML AMPUL.NEB NEB SCH ×2 (07:18→20:57)
[2021-03-02] MEDS: 0.9 % SODIUM CHLORIDE 10 ML SYRINGE IV SCH ×3 (07:19→21:38)
[2021-03-02] MEDS ORDERED: FUROSEMIDE 40 MG/4 ML VIAL IV ONE (08:42)
[2021-03-02] MEDS ORDERED: ALBUMIN HUMAN 12.5 GM/50 ML BAG IV ONE (08:42)
[2021-03-02] MEDS: ENOXAPARIN 40 MG/0.4 ML SYRINGE SQ SCH (08:49)
[2021-03-02] MEDS: ESCITALOPRAM 10 MG TABLET PO SCH (08:50)
[2021-03-02] MEDS: ASCORBIC ACID 500 MG TABLET PO SCH (08:50)
[2021-03-02] MEDS: DULoxetine 30 MG CAPSULE PO SCH (08:50)
[2021-03-02] MEDS: DOCUSATE SODIUM 100 MG CAPSULE PO SCH ×2 (08:50→21:44)
[2021-03-02] MEDS: CEFEPIME 2 GM VIAL IV SCH ×2 (08:50→21:38)
[2021-03-02] MEDS: predniSONE 20 MG TABLET PO SCH (08:51)
[2021-03-02 09:05] LABS: Hematocrit 34.4 % (34.1-44.9); Mean Cell Volume 96.1 fL (80.0-100.0); Mean Platelet Volume 11.9 fL (7.4-10.4); Platelet Count 213 K/mcL (140-440); RBC 3.58 M/mcL (3.59-5.38); Red Cell Distribution Width 14.5 % (11.5-14.5); WBC 11.7 K/mcL (4.5-11.0)
[2021-03-02 09:13] LABS: Blood Urea Nitrogen 17 mg/dL (8-23); Calcium 8.8 mg/dL (8.6-10.4); Carbon Dioxide 28 mmol/L (22-30); Chloride 101 mmol/L (96-108); Glomerular Filtration Rate 87; Glucose 89 mg/dL (70-105)
[2021-03-02 11:19] LABS: Band Neutrophils % 1 % (0-10); Eosinophils % (Manual) 2 % (0-7); Lymphocytes % 6 % (15-49); Monocytes % (Manual) 5 % (1-12); Nucleated Red Blood Cells 1 % (0-0); Platelet Estimate NORMAL (Normal); Polychromasia 1+ (None Seen); RBC Morphology ABNORMAL (Normal); Segmented Neutrophils % 86 % (38-78)
[2021-03-02] MEDS: tiZANidine 4 MG TABLET PO SCH (21:38)
[2021-03-03] MEDS: predniSONE 20 MG TABLET PO SCH ×2 (07:20→08:00)
[2021-03-03] MEDS: 0.9 % SODIUM CHLORIDE 10 ML SYRINGE IV SCH ×3 (07:20→20:25)
[2021-03-03] MEDS: GABAPENTIN 300 MG CAPSULE PO SCH ×3 (07:21→20:24)
[2021-03-03] MEDS: THYROID, PORK 60 MG TABLET PO SCH (07:21)
--- NOTE | 2021-03-03 07:33 | Internal Med Progress Note ---
SUBJECTIVE Subjective Patient information: Note initiated : 03/03/21 at 7:29 am Service Date, if different from initiated Date: [] Patient: Kiera Angeles 85 y/o F admitted on 02/27/21 for Sob. Chief Complaint: [] Interval history: History of present illness: Ms. Angeles is a 85 year old F Presents to the ED with nonproductive cough and shortness of breath going on for several days. She is found to be 85% oxygen per EMS. Patient denied fever chills. In the ED was found to have bilateral infiltrates. She did get a COVID-vaccine and her rapid COVID was negative. patient denies being around anybody's been sick. Cough productive of yellow sputum. Doesn't sound like she been on oxygen at home before. Says occasionally she feels like food or drink goes down the wrong pipe. 02/28 Patient states she feels a little bit better and states that his breathing a little better however has rib pain from coughing and she says that impairs her deep breathing. 03/01 She states she is feeling a little better again today little bit stronger and shortness of breath continuing to slowly improve. 03/02 Cough. Shortness of breath similar to yesterday. Patient on 1-2 L of cannula. GUTIÉRREZ. 03/03 Cough is decreased. Patient says she feels a little better. Dyspnea. Chest x- ray with pretty dense filtrate in the left lower. Will obtain CT chest to further clarify abnormalities. Review of Systems: denies fever/chills/nausea/vomiting/chest or abdominal pain/diarrhea. Otherwise see above. Constitutional Vitals: Vital Signs Temp Pulse Resp BP Pulse Ox 97.6 F 76 22 112/61 93 03/03/21 03:20 03/03/21 03:20 03/03/21 03:20 03/03/21 03:20 03/03/21 03:20 Period Temp Pulse Resp BP Sys/Glover Pulse Ox Last 24 Hr 97.1 F-98.2 F 72-98 20-24 90-125/56-76 87-93 Intake and Output 03/02/21 03/03/21 03/03/21 21:59 05:59 13:59 Intake Total 200 390 Output Total 800 325 Balance -600 65 Weight 73.573 kg Intake & Output: Intake & Output 03/02/21 03/03/21 03/03/21 21:59 05:59 13:59 Intake Total 200 390 Output Total 800 325 Balance -600 65 Weight 73.573 kg Intake: Oral 200 390 Output: Urine Catheter Amount 800 325 Other: Urine Appearance Clear Clear Urine Color Straw Bright Yellow Urine Odor Normal Stool Size Large Stool Color Brown Stool Consistency Soft Loose # Bowel Movements 1 Exam: General: Alert, Awake, No acute Distress, obesity Eyes/N/T: EOMI, Head/Neck: neck supple, CV: RRR, 2/6 SM, Pulm: fine rales b/l, diminished L>R, no wheeze, appears a bit labored today Abd: soft, nontender, +BS x4 Ext: no clubbing/cyanosis, trace LE edema Neuro: Alert, no focal deficits, moves all extremities, Skin: warm/dry OBJ DATA Labs CBC & Chem 7: 03/02/21 07:22 03/02/21 07:22 Labs: Abnormal Lab Results 03/02/21 03/02/21 03/02/21 07:22 07:22 07:22 WBC 11.7 H RBC 3.58 L Hgb 11.0 L Hct MPV 11.9 H Seg Neutrophils % 86 H Band Neutrophils % Lymphocytes % 6 L Nucleated RBCs 1 H WBC Morphology Toxic Granulation RBC Morphology Abnormal A Polychromasia 1+ A Hypochromasia BUN Creatinine 0.5 L Glucose Calcium Direct Bilirubin AST C-Reactive Protein 9.80 H Total Protein Albumin Albumin/Globulin Ratio Procalcitonin 03/01/21 03/01/21 03/01/21 05:31 05:30 05:30 WBC 12.6 H RBC 3.50 L Hgb 10.6 L Hct 33.1 L MPV 12.1 H Seg Neutrophils % Band Neutrophils % Lymphocytes % 7 L Nucleated RBCs WBC Morphology Abnormal A Toxic Granulation 1+ A RBC Morphology Abnormal A Polychromasia Few A Hypochromasia 1+ A BUN 24 H Creatinine Glucose 151 H Calcium Direct Bilirubin AST 66 H C-Reactive Protein 17.30 H Total Protein Albumin 2.8 L Albumin/Globulin Ratio 0.8 L Procalcitonin 1.31 H 02/28/21 02/28/21 02/28/21 05:28 05:28 05:28 WBC RBC Hgb Hct MPV Seg Neutrophils % Band Neutrophils % 43 H Lymphocytes % 10 L Nucleated RBCs WBC Morphology Abnormal A Toxic Granulation 1+ A RBC Morphology Abnormal A Polychromasia 1+ A Hypochromasia 1+ A BUN Creatinine 0.5 L Glucose 117 H Calcium 8.2 L Direct Bilirubin 0.3 H AST C-Reactive Protein 38.70 H Total Protein 5.3 L Albumin 2.8 L Albumin/Globulin Ratio Procalcitonin 2.11 H Meds: Medications Albuterol/Ipratropium (Ipratropium/Albuterol 3 Ml Ampul.Neb) 3 ml NEB BID [facility] Last Admin: 03/02/21 20:57 Dose: 3 ml Documented by: Artificial Tears (Carboxymethylcellulose Sodium 1 Each Droper.Gel) 2 each OU BIDP PRN PRN Reason: Dry Eyes Ascorbic Acid (Ascorbic Acid 500 Mg Tablet) 1,000 mg PO DAILY [facility] Last Admin: 03/02/21 08:50 Dose: 1,000 mg Documented by: Benzonatate (Benzonatate 100 Mg Capsule) 200 mg PO TIDP PRN PRN Reason: Cough Last Admin: 03/01/21 17:14 Dose: 200 mg Documented by: Budesonide (Budesonide 0.5 Mg/2 Ml Ampul.Neb) 0.5 mg NEB Q12 [facility] Last Admin: 03/02/21 20:57 Dose: 0.5 mg Documented by: Cefepime HCl (Cefepime 2 Gm Vial) 2 gm IV Q12H [facility]; Protocol Last Admin: 03/02/21 21:38 Dose: 2 gm Documented by: Docusate Sodium (Docusate Sodium 100 Mg Capsule) 100 mg PO BID [facility] Last Admin: 03/02/21 21:44 Dose: Not Given Documented by: Duloxetine HCl (Duloxetine 30 Mg Capsule) 30 mg PO QDAY [facility] Last Admin: 03/02/21 08:50 Dose: 30 mg Documented by: Enoxaparin Sodium (Enoxaparin 40 Mg/0.4 Ml Syringe) 40 mg SQ DAILY [facility] Last Admin: 03/02/21 08:49 Dose: 40 mg Documented by: Escitalopram Oxalate (Escitalopram 10 Mg Tablet) 5 mg PO DAILY [facility] Last Admin: 03/02/21 08:50 Dose: 5 mg Documented by: Fentanyl (Fentanyl 25 Mcg Patch) 25 mcg TOPICAL Q72H [facility] Last Admin: 03/01/21 11:19 Dose: 25 mcg Documented by: Fexofenadine HCl (Fexofenadine 180 Mg Tablet) 180 mg PO DAILYP PRN PRN Reason: Allergy Symptoms Gabapentin (Gabapentin 300 Mg Capsule) 600 mg PO [facility] Last Admin: 03/02/21 21:38 Dose: 600 mg Documented by: Gabapentin (Gabapentin 300 Mg Capsule) 300 mg PO BID@0800,1200 [facility] Last Admin: 03/03/21 07:21 Dose: 300 mg Documented by: Guaifenesin (Guaifenesin 600 Mg Tab.Sr.12h) 1,200 mg PO BIDP PRN PRN Reason: Congestion Potassium Chloride 40 meq/ (Dextrose) 520 mls @ 130 mls/hr IV UD PRN PRN Reason: Potassium < 3 Magnesium Sulfate (Magnesium Sulfate) 2 gm in 50 mls @ 50 mls/hr IV UD PRN PRN Reason: Magnesium </= 1.6 Methocarbamol (Methocarbamol 500 Mg Tablet) 1,000 mg PO Q6HP PRN PRN Reason: muscle spasms Metoclopramide HCl (Metoclopramide 10 Mg/2 Ml Vial) 10 mg IV Q6HP PRN PRN Reason: Nausea And Vomiting Ondansetron HCl (Ondansetron 4 Mg/2 Ml Vial) 4 mg IV Q4HP PRN PRN Reason: Nausea And Vomiting Last Admin: 03/01/21 20:33 Dose: 4 mg Documented by: Oxycodone/Acetaminophen (Oxycodone/Apap 5/325mg Tablet) 1 tab PO Q4HP PRN; Protocol PRN Reason: Pain Last Admin: 03/01/21 22:03 Dose: 1 tab Documented by: Polyethylene Glycol (Polyethylene Glycol 3350 17 Gm Packet) 17 gm PO DAILYP PRN PRN Reason: Constipation Potassium Chloride (Potassium Chloride 20 Meq Tablet) 40 meq PO UD PRN PRN Reason: Potssium is 3-3.5 Potassium Chloride (Potassium Chloride 20 Meq Tablet) 40 meq PO UD PRN PRN Reason: Potassium < 3 Prednisone (Prednisone 20 Mg Tablet) 60 mg PO [facility] Last Admin: 03/03/21 07:20 Dose: 60 mg Documented by: Senna (Sennosides 1 Tablet) 2 tab PO DAILYP PRN PRN Reason: Constipation Simethicone (Simethicone 80 Mg Tab.Chew) 240 mg CHEWED BIDP PRN PRN Reason: Abdominal Discomfort Sodium Chloride (0.9 % Sodium Chloride 10 Ml Syringe) 10 ml IV Q8 [facility] Last Admin: 03/03/21 07:20 Dose: 10 ml Documented by: Thyroid (Thyroid, Pork 60 Mg Tablet) 180 mg PO ACB [facility] Last Admin: 03/03/21 07:21 Dose: 180 mg Documented by: Tizanidine HCl (Tizanidine 4 Mg Tablet) 4 mg PO HS [facility] Last Admin: 03/02/21 21:38 Dose: 4 mg Documented by: Tramadol HCl (Tramadol 50 Mg Tablet) 50 mg PO Q4-6HP PRN; Protocol PRN Reason: Pain A/P Narrative A/P Narrative: A: *CAP: -elevated PCT improving, strep neg. SC neg *SIRS: Resolved *Acute hypoxic respiratory failure: -on 1-3L NC *COPD per notes (not on home O2) With mild exacerbation: *UTI (E.coli): *Anxiety d/o: continue escitalopram *h/o Polyarthritis: Follows with Dr. Landis and is on prednisone *Hypothyroidism: *Obesity: *SSS w/ppm: *Osteoporosis with h/o vertebral fracture: *Chr Pain: on opioids *h/o of Breast CA w/port: *Generalized weakness/deconditioning/debility: Patient essentially wheelchair- bound Plan: -cefepime/azithromycin, mrsa screen neg -short course steroids, then cont home steroids -O2 Supp, wean as able -IS/Acapella, prn nebs -PT OT/nutrition support -Discharge planning per case management -ppx:Lovenox Time Spent With Patient Time: Total time spent is greater than 50% in coordination of care (as documented) at patient's floor/unit and/or counseling patient:
[2021-03-03] MEDS ORDERED: ALBUMIN HUMAN 12.5 GM/50 ML BAG IV ONE (08:29)
[2021-03-03] MEDS ORDERED: FUROSEMIDE 40 MG/4 ML VIAL IV ONE (08:29)
[2021-03-03] MEDS: BUDESONIDE 0.5 MG/2 ML AMPUL.NEB NEB SCH ×2 (08:34→21:23)
[2021-03-03] MEDS: IPRATROPIUM/ALBUTEROL 3 ML AMPUL.NEB NEB SCH ×2 (08:34→17:56)
[2021-03-03] MEDS: ESCITALOPRAM 10 MG TABLET PO SCH (08:42)
[2021-03-03] MEDS: DOCUSATE SODIUM 100 MG CAPSULE PO SCH ×2 (08:42→20:25)
[2021-03-03] MEDS: DULoxetine 30 MG CAPSULE PO SCH (08:42)
[2021-03-03] MEDS: ENOXAPARIN 40 MG/0.4 ML SYRINGE SQ SCH (08:43)
[2021-03-03] MEDS: ASCORBIC ACID 500 MG TABLET PO SCH (08:43)
--- NOTE | 2021-03-03 09:01 | XRay Report ---
HISTORY: Follow-up pulmonary infiltrates FINDINGS: There are severe infiltrates throughout both lungs with the greatest consolidation in the lingula and left lower lobe. These have become worse bilaterally since prior x-rays done on 03/01/2021 and 02/27/2021. Lung volumes are relatively small and have diminished in volume. The heart is partially obscured by adjacent consolidated lung parenchyma and may be mildly enlarged. Pacemaker remains well-positioned. There is a Port-A-Cath in the superior vena cava. No pneumothorax is present. IMPRESSION: Worsening bilateral pneumonia Interpreted and Authenticated by: Brad Villalpando 03/03/21
[2021-03-03 09:07] LABS: proBNP 707.7 pg/mL (<450.0)
[2021-03-03 09:19] LABS: ALT/SGPT 32 U/L (<40); AST/SGOT 22 U/L (<32); Albumin 2.7 gm/dL (3.2-5.2); Albumin/Globulin Ratio 0.7 (1.0-2.3); Alkaline Phosphatase 99 U/L (39-117); Bilirubin,Direct < 0.2 mg/dL (0-0.3); Bilirubin,Total 0.3 mg/dL (0.1-1.0); Blood Urea Nitrogen 17 mg/dL (8-23); Calcium 8.9 mg/dL (8.6-10.4); Carbon Dioxide 26 mmol/L (22-30); Chloride 97 mmol/L (96-108); Globulin 3.8 gm/dL (2.2-3.7); Glomerular Filtration Rate 87; Glucose 107 mg/dL (70-105); Lactate Dehydrogenase 237 U/L (135-225); Phosphorous 2.8 mg/dL (2.5-4.5); Thyroid Stimulating Hormone 0.14 uIU/mL (0.27-5.01); Triglycerides 107 mg/dL (<150); Uric Acid 4.7 mg/dL (2.5-8.0)
[2021-03-03 10:23] LABS: Basophils # (Auto) 0.09 K/mcL (0.00-0.30); Basophils % (Auto) 0.5 % (0.0-2.0); Eosinophils # (Auto) 0.15 K/mcL (0.00-0.70); Eosinophils % (Auto) 0.8 % (0.0-7.0); Hematocrit 37.4 % (34.1-44.9); Hemoglobin 11.9 g/dL (11.2-15.7); Lymphocytes # (Auto) 1.44 K/mcL (1.50-4.80); Lymphocytes % (Auto) 7.4 % (15.5-49.0); Mean Cell Volume 94.9 fL (80.0-100.0); Mean Corpuscular HGB Conc 31.8 g/dL (31.0-36.0); Mean Platelet Volume 12.9 fL (7.4-10.4); Monocytes % (Auto) 4.7 % (1.0-12.0); Neutrophils % (Auto) 86.6 % (38.0-78.0); Platelet Count 215 K/mcL (140-440); RBC 3.94 M/mcL (3.59-5.38); WBC 19.3 K/mcL (4.5-11.0)
[2021-03-03] MEDS ORDERED: IOPAMIDOL 100 ML BOTTLE IV ONE (10:26)
[2021-03-03] MEDS: CEFEPIME 2 GM VIAL IV SCH ×2 (10:34→20:24)
--- NOTE | 2021-03-03 10:46 | Cat Scan Report ---
History: Worsening pneumonia, hypoxia TECHNIQUE: Following injection of intravenous nonionic contrast, arterial phase images were acquired. Sagittal, coronal and axial MIPS images were created. The radiation exposure was limited using dose reduction technology. FINDINGS: The pulmonary arteries are normal without evidence of emboli. The heart size is normal. There are few scattered calcified plaques in the coronary arteries. There is a pacemaker in the right side of the heart. The aorta is normal in caliber and has mild atherosclerosis. There is a random distribution of consolidating infiltrates in both lungs superimposed upon underlying emphysema. The greatest consolidation is in the lower lobes. There are several air bronchograms in both lower lobes. There is moderate involvement in the lingula, posterior segments of both upper lobes and left apex. In the right middle lobe there is milder groundglass alveolar infiltrate with similar findings in the adjacent anterior segment of the right lung base. Tiny bilateral layering pleural effusions are present. There is no evidence of a lung mass. There are reactive lymph nodes in the mediastinum. There is a central venous catheter placed through the right internal jugular vein into the superior vena cava. There is no mediastinal hemorrhage. There is a very large hiatus hernia. The majority of the stomach lies above the diaphragm and compresses the heart and is also creating compressive atelectasis of the left lower lobe. Small reactive lymph nodes are present in mediastinum. The largest is in the subcarinal space and measures 2 cm. There is some mucous in the right side of the wall of the trachea at the level of the aortic arch. There are small nodules or cysts in the right lobe of the thyroid. Beneath the diaphragm high in segment seven of the right lobe of liver there is a 1.3 cm cyst. Inferiorly in segment 4B of the left lobe there is a 1.6 x 2.1 cm cyst. Patient has numerous old compression fractures throughout the thoracic and lumbar spine. The most severe fracture is at T8. There are moderate compression fractures at T7 T9, T11, T12 and L1 and there are milder fractures from T4 through T6. There is cement within several of these compressed vertebra. IMPRESSION: Moderately severe bilateral pneumonia superimposed upon emphysema. Very large hiatus hernia No evidence pulmonary emboli mucous in the trachea but without evidence of central airway obstruction Interpreted and Authenticated by: Brad Villalpando 03/03/21
[2021-03-03 11:21] LABS: Anisocytosis 1+ (None Seen); Band Neutrophils % 6 % (0-10); Lymphocytes % 8 % (15-49); Monocytes % (Manual) 8 % (1-12); Myelocytes % 1 %; Platelet Estimate NORMAL (Normal); RBC Morphology ABNORMAL (Normal); Segmented Neutrophils % 77 % (38-78)
[2021-03-03 19:52] LABS: M. Pneumoniae IGG < or = 0.90; M. Pneumoniae IGM 76 U/mL
[2021-03-03] MEDS: tiZANidine 4 MG TABLET PO SCH (20:24)
[2021-03-04] MEDS: 0.9 % SODIUM CHLORIDE 10 ML SYRINGE IV SCH ×3 (07:17→20:20)
[2021-03-04] MEDS: predniSONE 20 MG TABLET PO SCH (07:18)
[2021-03-04] MEDS: THYROID, PORK 60 MG TABLET PO SCH (07:18)
[2021-03-04] MEDS: GABAPENTIN 300 MG CAPSULE PO SCH ×3 (07:18→20:20)
[2021-03-04 07:28] LABS: ALT/SGPT 36 U/L (<40); AST/SGOT 35 U/L (<32); Albumin/Globulin Ratio 0.8 (1.0-2.3); Alkaline Phosphatase 85 U/L (39-117); Basophils # (Auto) 0.06 K/mcL (0.00-0.30); Basophils % (Auto) 0.4 % (0.0-2.0); Bilirubin,Total 0.3 mg/dL (0.1-1.0); Blood Urea Nitrogen 19 mg/dL (8-23); Calcium 9.2 mg/dL (8.6-10.4); Carbon Dioxide 31 mmol/L (22-30); Chloride 99 mmol/L (96-108); Eosinophils % (Auto) 0.6 % (0.0-7.0); Globulin 3.7 gm/dL (2.2-3.7); Glomerular Filtration Rate 94; Glucose 94 mg/dL (70-105); Hematocrit 36.8 % (34.1-44.9); Hemoglobin 11.6 g/dL (11.2-15.7); Lymphocytes # (Auto) 1.39 K/mcL (1.50-4.80); Lymphocytes % (Auto) 8.7 % (15.5-49.0); Mean Cell Volume 94.6 fL (80.0-100.0); Mean Corpuscular HGB Conc 31.5 g/dL (31.0-36.0); Mean Platelet Volume 11.9 fL (7.4-10.4); Monocytes # (Auto) 0.72 K/mcL (0.10-0.90); Monocytes % (Auto) 4.5 % (1.0-12.0); Neutrophils % (Auto) 85.8 % (38.0-78.0); Platelet Count 248 K/mcL (140-440); RBC 3.89 M/mcL (3.59-5.38); Red Cell Distribution Width 14.9 % (11.5-14.5); WBC 15.9 K/mcL (4.5-11.0)
[2021-03-04] MEDS: IPRATROPIUM/ALBUTEROL 3 ML AMPUL.NEB NEB SCH ×3 (07:28→20:56)
[2021-03-04] MEDS: BUDESONIDE 0.5 MG/2 ML AMPUL.NEB NEB SCH ×2 (08:13→20:56)
[2021-03-04] MEDS: DULoxetine 30 MG CAPSULE PO SCH (08:19)
[2021-03-04] MEDS: ASCORBIC ACID 500 MG TABLET PO SCH (08:19)
[2021-03-04] MEDS: ESCITALOPRAM 10 MG TABLET PO SCH (08:19)
[2021-03-04] MEDS: DOCUSATE SODIUM 100 MG CAPSULE PO SCH ×2 (08:19→20:19)
[2021-03-04] MEDS: ENOXAPARIN 40 MG/0.4 ML SYRINGE SQ SCH (08:19)
[2021-03-04] MEDS: CEFEPIME 2 GM VIAL IV SCH ×2 (09:01→20:19)
--- NOTE | 2021-03-04 09:21 | XRay Report ---
HISTORY: Follow-up pneumonia short of breath FINDINGS: There are severe infiltrates throughout the left lung and moderate infiltrates on the right side. There has been mild improvement on the right side since the prior exam done yesterday. There has been little change on the left. Patient has a large retrocardiac hiatus hernia. There may be a small subpulmonic pleural effusion on the left side. No effusion is detected on the right. Heart size remains stable. IMPRESSION: Bilateral pneumonia with mild improvement on the right and no change on the left Interpreted and Authenticated by: Brad Villalpando 03/04/21
[2021-03-04] MEDS: fentaNYL 25 MCG PATCH TOPICAL SCH (10:19)
[2021-03-04] MEDS ORDERED: IPRATROPIUM/ALBUTEROL 3 ML AMPUL.NEB NEB PRN (13:59)
--- NOTE | 2021-03-04 13:59 | Internal Med Progress Note ---
SUBJECTIVE Subjective Patient information: Note initiated : 03/04/21 at 1:50 pm Service Date, if different from initiated Date: [] Patient: Kiera Angeles a 85 y/o F admitted on 02/27/21 for Sob. Chief Complaint: [shortness of breath] Principal diagnosis: CAP, COPD exacerbation Interval history: History of present illness: Ms. Angeles is a 85 year old F Presents to the ED with nonproductive cough and shortness of breath going on for several days. She is found to be 85% oxygen per EMS. Patient denied fever chills. In the ED was found to have bilateral infiltrates. She did get a COVID-vaccine and her rapid COVID was negative. patient denies being around anybody's been sick. Cough productive of yellow sputum. Doesn't sound like she been on oxygen at home before. Says occasionally she feels like food or drink goes down the wrong pipe. 02/28 Patient states she feels a little bit better and states that his breathing a little better however has rib pain from coughing and she says that impairs her deep breathing. 03/01 She states she is feeling a little better again today little bit stronger and shortness of breath continuing to slowly improve. 03/02 Cough. Shortness of breath similar to yesterday. Patient on 1-2 L of cannula. GUTIÉRREZ. 03/03 Cough is decreased. Patient says she feels a little better. Dyspnea. Chest x- ray with pretty dense filtrate in the left lower. Will obtain CT chest to further clarify abnormalities. 03/04: Oxygen requirement ran up to 6L/min this morning, currently at 4L/min this afternoon. Was on 3L/min yesterday and was not on home oxygen. Blood cultures no growth to date. Urine culture grew E coli and S anginosus. On Zithromax and Cefepime for pneumonia, as well as prednisone and bronchodilators for COPD exacerbation. c/o same degree of shortness of breath, as well as productive cough with yellow sputum. Denies any wheezing or chest pain. Denies any fever, chills, or sweating. Pertinent ROS: c/o same degree of shortness of breath, as well as productive cough with yellow sputum. Denies any wheezing or chest pain. Denies any fever, chills, or sweating. Constitutional Vitals: Vital Signs Temp Pulse Resp BP Pulse Ox 36.2 C 68 24 H 125/72 94 03/04/21 11:40 03/04/21 11:40 03/04/21 11:40 03/04/21 11:40 03/04/21 11:40 Period Temp Pulse Resp BP Sys/Glover Pulse Ox Last 24 Hr 36.2 C-36.7 C 60-97 18-24 118-131/61-74 87-97 Intake and Output 03/03/21 03/04/21 03/04/21 21:59 05:59 13:59 Intake Total 800 300 Output Total 550 Balance 800 -250 Weight 72.121 kg Intake & Output: Intake & Output 03/03/21 03/04/21 03/04/21 21:59 05:59 13:59 Intake Total 800 300 Output Total 550 Balance 800 -250 Weight 72.121 kg Intake: Oral 800 300 Output: Urine Catheter Amount 550 Other: Meal Dinner Percent of Meal Consumed 75% Feeding Ability Total Assistance Urine Appearance Clear Clear Uretheral (Giles) Clear Clear Urine Color Bright Yellow Straw Uretheral (Giles) Straw Straw General appearance: cooperative, no acute distress and obese Head Head exam: Present atraumatic and normal inspection Eye Eye exam: Present normal appearance ENT ENT exam: Present mucous membranes moist, normal exam and normal external ear exam Additional comments: Oxygen mask in place Neck Neck exam: Present normal inspection Respiratory Respiratory exam: Present decreased breath sounds, rhonchi and wheezes Cardiovascular Cardiovascular exam: Present normal rate and rhythm GI/Abdominal GI/Abdominal exam: Present normal bowel sounds Back Exam Back exam: Present normal inspection Neurological Exam Neurological exam: Present alert and oriented X3 Skin Skin exam: Present intact and warm OBJ DATA Labs CBC & Chem 7: 03/04/21 05:33 03/04/21 05:33 Labs: Abnormal Lab Results 03/04/21 03/04/21 03/03/21 05:33 05:33 08:47 WBC 15.9 H RBC Hgb RDW 14.9 H MPV 11.9 H Neut % (Auto) 85.8 H Lymph % (Auto) 8.7 L Lymph # (Auto) 1.39 L Seg Neutrophils % Lymphocytes % 8 L Absolute Neutrophils 13.63 H Nucleated RBCs RBC Morphology Abnormal A Polychromasia Anisocytosis 1+ A Potassium Carbon Dioxide 31 H Anion Gap Creatinine 0.4 L Glucose AST 35 H Lactate Dehydrogenase C-Reactive Protein NT-Pro-B Natriuret Pep Albumin 3.0 L Globulin Albumin/Globulin Ratio 0.8 L Procalcitonin TSH Free T4 03/03/21 03/03/21 03/03/21 08:47 08:04 08:04 WBC 19.3 H RBC Hgb RDW 15.0 H MPV 12.9 H Neut % (Auto) 86.6 H Lymph % (Auto) 7.4 L Lymph # (Auto) 1.44 L Seg Neutrophils % Lymphocytes % Absolute Neutrophils 16.75 H Nucleated RBCs RBC Morphology Polychromasia Anisocytosis Potassium Carbon Dioxide Anion Gap Creatinine Glucose AST Lactate Dehydrogenase C-Reactive Protein NT-Pro-B Natriuret Pep Albumin Globulin Albumin/Globulin Ratio Procalcitonin 0.38 H TSH Free T4 0.88 L 03/03/21 03/02/21 03/02/21 08:04 07:22 07:22 WBC 11.7 H RBC 3.58 L Hgb 11.0 L RDW MPV 11.9 H Neut % (Auto) Lymph % (Auto) Lymph # (Auto) Seg Neutrophils % 86 H Lymphocytes % 6 L Absolute Neutrophils Nucleated RBCs 1 H RBC Morphology Abnormal A Polychromasia 1+ A Anisocytosis Potassium 3.1 L Carbon Dioxide Anion Gap 17.0 H Creatinine 0.5 L 0.5 L Glucose 107 H AST Lactate Dehydrogenase 237 H C-Reactive Protein 14.60 H NT-Pro-B Natriuret Pep 707.7 H Albumin 2.7 L Globulin 3.8 H Albumin/Globulin Ratio 0.7 L Procalcitonin TSH 0.14 L Free T4 03/02/21 07:22 WBC RBC Hgb RDW MPV Neut % (Auto) Lymph % (Auto) Lymph # (Auto) Seg Neutrophils % Lymphocytes % Absolute Neutrophils Nucleated RBCs RBC Morphology Polychromasia Anisocytosis Potassium Carbon Dioxide Anion Gap Creatinine Glucose AST Lactate Dehydrogenase C-Reactive Protein 9.80 H NT-Pro-B Natriuret Pep Albumin Globulin Albumin/Globulin Ratio Procalcitonin TSH Free T4 Meds: Medications Albuterol/Ipratropium (Ipratropium/Albuterol 3 Ml Ampul.Neb) 3 ml NEB BID DAVID Last Admin: 03/04/21 08:13 Dose: 3 ml Documented by: Artificial Tears (Carboxymethylcellulose Sodium 1 Each Droper.Gel) 2 each OU BIDP PRN PRN Reason: Dry Eyes Ascorbic Acid (Ascorbic Acid 500 Mg Tablet) 1,000 mg PO DAILY [facility] Last Admin: 03/04/21 08:19 Dose: 1,000 mg Documented by: Benzonatate (Benzonatate 100 Mg Capsule) 200 mg PO TIDP PRN PRN Reason: Cough Last Admin: 03/01/21 17:14 Dose: 200 mg Documented by: Budesonide (Budesonide 0.5 Mg/2 Ml Ampul.Neb) 0.5 mg NEB Q12 [facility] Last Admin: 03/04/21 08:13 Dose: 0.5 mg Documented by: Cefepime HCl (Cefepime 2 Gm Vial) 2 gm IV Q12H [facility]; Protocol Last Admin: 03/04/21 09:01 Dose: 2 gm Documented by: Docusate Sodium (Docusate Sodium 100 Mg Capsule) 100 mg PO BID [facility] Last Admin: 03/04/21 08:19 Dose: Not Given Documented by: Duloxetine HCl (Duloxetine 30 Mg Capsule) 30 mg PO QDAY [facility] Last Admin: 03/04/21 08:19 Dose: 30 mg Documented by: Enoxaparin Sodium (Enoxaparin 40 Mg/0.4 Ml Syringe) 40 mg SQ DAILY [facility] Last Admin: 03/04/21 08:19 Dose: 40 mg Documented by: Escitalopram Oxalate (Escitalopram 10 Mg Tablet) 5 mg PO DAILY [facility] Last Admin: 03/04/21 08:19 Dose: 5 mg Documented by: Fentanyl (Fentanyl 25 Mcg Patch) 25 mcg TOPICAL Q72H [facility] Last Admin: 03/04/21 10:19 Dose: 25 mcg Documented by: Fexofenadine HCl (Fexofenadine 180 Mg Tablet) 180 mg PO DAILYP PRN PRN Reason: Allergy Symptoms Gabapentin (Gabapentin 300 Mg Capsule) 600 mg PO HS [facility] Last Admin: 03/03/21 20:24 Dose: 600 mg Documented by: Gabapentin (Gabapentin 300 Mg Capsule) 300 mg PO BID@0800,1200 [facility] Last Admin: 03/04/21 11:22 Dose: 300 mg Documented by: Guaifenesin (Guaifenesin 600 Mg Tab.Sr.12h) 1,200 mg PO BIDP PRN PRN Reason: Congestion Potassium Chloride 40 meq/ (Dextrose) 520 mls @ 130 mls/hr IV UD PRN PRN Reason: Potassium < 3 Magnesium Sulfate (Magnesium Sulfate) 2 gm in 50 mls @ 50 mls/hr IV UD PRN PRN Reason: Magnesium </= 1.6 Methocarbamol (Methocarbamol 500 Mg Tablet) 1,000 mg PO Q6HP PRN PRN Reason: muscle spasms Metoclopramide HCl (Metoclopramide 10 Mg/2 Ml Vial) 10 mg IV Q6HP PRN PRN Reason: Nausea And Vomiting Ondansetron HCl (Ondansetron 4 Mg/2 Ml Vial) 4 mg IV Q4HP PRN PRN Reason: Nausea And Vomiting Last Admin: 03/01/21 20:33 Dose: 4 mg Documented by: Oxycodone/Acetaminophen (Oxycodone/Apap 5/325mg Tablet) 1 tab PO Q4HP PRN; P rotocol PRN Reason: Pain Last Admin: 03/01/21 22:03 Dose: 1 tab Documented by: Polyethylene Glycol (Polyethylene Glycol 3350 17 Gm Packet) 17 gm PO DAILYP PRN PRN Reason: Constipation Potassium Chloride (Potassium Chloride 20 Meq Tablet) 40 meq PO UD PRN PRN Reason: Potssium is 3-3.5 Last Admin: 03/03/21 11:04 Dose: 40 meq Documented by: Potassium Chloride (Potassium Chloride 20 Meq Tablet) 40 meq PO UD PRN PRN Reason: Potassium < 3 Prednisone (Prednisone 20 Mg Tablet) 40 mg PO [facility] Stop: 03/06/21 08:01 Last Admin: 03/04/21 07:18 Dose: 40 mg Documented by: Senna (Sennosides 1 Tablet) 2 tab PO DAILYP PRN PRN Reason: Constipation Simethicone (Simethicone 80 Mg Tab.Chew) 240 mg CHEWED BIDP PRN PRN Reason: Abdominal Discomfort Sodium Chloride (0.9 % Sodium Chloride 10 Ml Syringe) 10 ml IV Q8 [facility] Last Admin: 03/04/21 12:49 Dose: 10 ml Documented by: Thyroid (Thyroid, Pork 60 Mg Tablet) 180 mg PO ACB [facility] Last Admin: 03/04/21 07:18 Dose: 180 mg Documented by: Tizanidine HCl (Tizanidine 4 Mg Tablet) 4 mg PO [facility] Last Admin: 03/03/21 20:24 Dose: 4 mg Documented by: Tramadol HCl (Tramadol 50 Mg Tablet) 50 mg PO Q4-6HP PRN; Protocol PRN Reason: Pain A/P Assessment and plan (1) Bilateral pneumonia: Status: Acute (2) UTI (urinary tract infection): Status: Acute (3) Acute exacerbation of chronic obstructive pulmonary disease (COPD): Status: Acute (4) Hypothyroidism: Status: Acute (5) Sleep apnea: Status: Chronic (6) Major depressive disorder, recurrent, moderate: Status: Chronic Narrative A/P Narrative: Assessment and Plans: 1. Bilateral bacterial pneumonia: Stays in inpatient med surg Supplemental oxygen therapy, titrate to achieve spo2>=88% given COPD-er, currently on 4L/min Blood culture, no growth to date Sputum culture Media PCR test to rule out CoVID pneumonia Recent CT chest (03/03)only showing bilateral infiltrates, cannot perform CT angiogram for 48 hours to rule out pulmonary embolism Cefepime Zithromax Tylenol PRN cough Mucinex /Tessalon PRN cough Bronchodilators (DuoNEB) NEB scheduled and PRN wheezing 2. COPD with exacerbation: Supplemental oxygen therapy, titrate to achieve spo2>=88% given COPD-er, current ly on 4L/min Prednisone Pulmicort Antibiotics, see #1 Bronchodilators (DuoNEB) NEB scheduled and PRN wheezing 3. Major depressive disorder: Cymbalta Lexapro 4. JAQUAN on CPAP: Continue CPAP at night while sleeping 5. Hypothyroidism: Continue oral thyroid replacement therapy 6. UTI: Blood culture, no growth to date Urine culture: E coli and S. anginosus Cefepime Zithromax Tylenol PRN fever GI ppx: not currently indicated DVT ppx: Lovenox Code status: Full Prognosis: guarded Disposition: inpatient med surg Time Spent With Patient Time: Total time spent is greater than 50% in coordination of care (as documented) at patient's floor/unit and/or counseling patient: Total time spent with greater than 50% in coordination of care (as documented) at patient's floor/unit and/or counseling patient:: Greater than 35 minutes
[2021-03-04] MEDS: oxyCODONE/APAP 5/325MG TABLET PO PRN ×2 (14:55→20:33)
[2021-03-04] MEDS: tiZANidine 4 MG TABLET PO SCH (20:19)
[2021-03-05] MEDS: 0.9 % SODIUM CHLORIDE 10 ML SYRINGE IV SCH ×3 (04:32→20:30)
[2021-03-05 06:49] LABS: Basophils # (Auto) 0.03 K/mcL (0.00-0.30); Basophils % (Auto) 0.3 % (0.0-2.0); Eosinophils # (Auto) 0.17 K/mcL (0.00-0.70); Eosinophils % (Auto) 1.7 % (0.0-7.0); Hematocrit 33.2 % (34.1-44.9); Hemoglobin 10.6 g/dL (11.2-15.7); Lymphocytes % (Auto) 11.2 % (15.5-49.0); Mean Cell Volume 94.3 fL (80.0-100.0); Mean Corpuscular HGB Conc 31.9 g/dL (31.0-36.0); Mean Platelet Volume 11.1 fL (7.4-10.4); Monocytes # (Auto) 0.49 K/mcL (0.10-0.90); Neutrophils % (Auto) 81.8 % (38.0-78.0); Platelet Count 292 K/mcL (140-440); RBC 3.52 M/mcL (3.59-5.38); Red Cell Distribution Width 14.7 % (11.5-14.5); WBC 9.8 K/mcL (4.5-11.0)
[2021-03-05 07:00] LABS: ALT/SGPT 37 U/L (<40); AST/SGOT 27 U/L (<32); Albumin 2.8 gm/dL (3.2-5.2); Albumin/Globulin Ratio 0.8 (1.0-2.3); Alkaline Phosphatase 77 U/L (39-117); Bilirubin,Total 0.3 mg/dL (0.1-1.0); Blood Urea Nitrogen 17 mg/dL (8-23); Calcium 8.7 mg/dL (8.6-10.4); Carbon Dioxide 31 mmol/L (22-30); Chloride 98 mmol/L (96-108); Globulin 3.3 gm/dL (2.2-3.7); Glomerular Filtration Rate 87; Glucose 103 mg/dL (70-105)
[2021-03-05] MEDS: GABAPENTIN 300 MG CAPSULE PO SCH ×3 (07:27→20:22)
[2021-03-05] MEDS: THYROID, PORK 60 MG TABLET PO SCH (07:27)
[2021-03-05] MEDS: predniSONE 20 MG TABLET PO SCH (07:27)
[2021-03-05] MEDS: ESCITALOPRAM 10 MG TABLET PO SCH (08:54)
[2021-03-05] MEDS: ASCORBIC ACID 500 MG TABLET PO SCH (08:54)
[2021-03-05] MEDS: DULoxetine 30 MG CAPSULE PO SCH (08:54)
[2021-03-05] MEDS: ENOXAPARIN 40 MG/0.4 ML SYRINGE SQ SCH (08:54)
[2021-03-05] MEDS: DOCUSATE SODIUM 100 MG CAPSULE PO SCH ×2 (08:54→20:22)
[2021-03-05] MEDS: BUDESONIDE 0.5 MG/2 ML AMPUL.NEB NEB SCH ×2 (09:21→21:05)
[2021-03-05] MEDS: IPRATROPIUM/ALBUTEROL 3 ML AMPUL.NEB NEB SCH ×2 (09:21→21:05)
[2021-03-05] MEDS: CEFEPIME 2 GM VIAL IV SCH ×2 (09:50→20:30)
--- NOTE | 2021-03-05 16:45 | Internal Med Progress Note ---
SUBJECTIVE Subjective Patient information: Note initiated : 03/05/21 at 4:43 pm Service Date, if different from initiated Date: [] Patient: Kiera Angeles a 85 y/o F admitted on 02/27/21 for Sob. Chief Complaint: [] Principal diagnosis: CAP, COPD exacerbation Interval history: History of present illness: Ms. Angeles is a 85 year old F Presents to the ED with nonproductive cough and shortness of breath going on for several days. She is found to be 85% oxygen per EMS. Patient denied fever chills. In the ED was found to have bilateral infiltrates. She did get a COVID-vaccine and her rapid COVID was negative. patient denies being around anybody's been sick. Cough productive of yellow sputum. Doesn't sound like she been on oxygen at home before. Says occasionally she feels like food or drink goes down the wrong pipe. 02/28 Patient states she feels a little bit better and states that his breathing a little better however has rib pain from coughing and she says that impairs her deep breathing. 03/01 She states she is feeling a little better again today little bit stronger and shortness of breath continuing to slowly improve. 03/02 Cough. Shortness of breath similar to yesterday. Patient on 1-2 L of cannula. GUTIÉRREZ. 03/03 Cough is decreased. Patient says she feels a little better. Dyspnea. Chest x- ray with pretty dense filtrate in the left lower. Will obtain CT chest to further clarify abnormalities. 03/04: Oxygen requirement ran up to 6L/min this morning, currently at 4L/min this afternoon. Was on 3L/min yesterday and was not on home oxygen. Blood cultures no growth to date. Urine culture grew E coli and S anginosus. On Zithromax and Cefepime for pneumonia, as well as prednisone and bronchodilators for COPD exacerbation. c/o same degree of shortness of breath, as well as productive cough with yellow sputum. Denies any wheezing or chest pain. Denies any fever, chills, or sweating. 03/05: Afebrile overnight. On 2L/min oxygen. On Cefepime and Zithromax. Feeling improving SOB. Denies cough or wheezing. Denies fever, chills, or sweating. PT recs. SNF placement. Pertinent ROS: Feeling improving SOB. Denies cough or wheezing. Denies fever, chills, or sweating. Constitutional Vitals: Vital Signs Temp Pulse Resp BP Pulse Ox 36.3 C 74 18 104/61 94 03/05/21 15:45 03/05/21 15:45 03/05/21 15:45 03/05/21 15:45 03/05/21 15:45 Period Temp Pulse Resp BP Sys/Glover Pulse Ox Last 24 Hr 36.1 C-37.0 C 68-85 16-22 95-122/54-76 90-96 Intake and Output 03/05/21 03/05/21 03/05/21 05:59 13:59 21:59 Intake Total 400 Output Total 900 600 Balance -500 -600 Weight 75.614 kg Patient Weight 03/06/21 05:59 Weight 75.614 kg Intake & Output: Intake & Output 03/05/21 03/05/21 03/05/21 05:59 13:59 21:59 Intake Total 400 Output Total 900 600 Balance -500 -600 Weight 75.614 kg Intake: Oral 400 Output: Urine Catheter Amount 900 Void Amount 600 Other: Urine Appearance Clear Clear Clear Uretheral (Giles) Clear Urine Color Pale Dark Yellow Bright Yellow Uretheral (Giles) Dark Yellow Urine Odor Normal Uretheral (Giles) Normal Stool Size Moderate Stool Color Brown Stool Consistency Soft Formed # Bowel Movements 0 General appearance: cooperative, no acute distress and obese Head Head exam: Present atraumatic and normal inspection Eye Eye exam: Present normal appearance ENT ENT exam: Present mucous membranes moist, normal exam and normal external ear exam Additional comments: nasal cannula in place Neck Neck exam: Present normal inspection Respiratory Respiratory exam: Present rhonchi Cardiovascular Cardiovascular exam: Present normal rate and rhythm GI/Abdominal GI/Abdominal exam: Present normal bowel sounds Back Exam Back exam: Present normal inspection Neurological Exam Neurological exam: Present alert and oriented X3 Skin Skin exam: Present intact and warm OBJ DATA Labs CBC & Chem 7: 03/05/21 05:48 03/05/21 05:48 Labs: Abnormal Lab Results 03/05/21 03/05/21 03/04/21 05:48 05:48 05:33 WBC RBC 3.52 L Hgb 10.6 L Hct 33.2 L RDW 14.7 H MPV 11.1 H Neut % (Auto) 81.8 H Lymph % (Auto) 11.2 L Lymph # (Auto) 1.10 L Lymphocytes % Absolute Neutrophils 8.04 H RBC Morphology Anisocytosis Potassium Carbon Dioxide 31 H 31 H Anion Gap Creatinine 0.5 L 0.4 L Glucose AST 35 H Lactate Dehydrogenase C-Reactive Protein NT-Pro-B Natriuret Pep Albumin 2.8 L 3.0 L Globulin Albumin/Globulin Ratio 0.8 L 0.8 L Procalcitonin TSH Free T4 03/04/21 03/03/21 03/03/21 05:33 08:47 08:47 WBC 15.9 H 19.3 H RBC Hgb Hct RDW 14.9 H 15.0 H MPV 11.9 H 12.9 H Neut % (Auto) 85.8 H 86.6 H Lymph % (Auto) 8.7 L 7.4 L Lymph # (Auto) 1.39 L 1.44 L Lymphocytes % 8 L Absolute Neutrophils 13.63 H 16.75 H RBC Morphology Abnormal A Anisocytosis 1+ A Potassium Carbon Dioxide Anion Gap Creatinine Glucose AST Lactate Dehydrogenase C-Reactive Protein NT-Pro-B Natriuret Pep Albumin Globulin Albumin/Globulin Ratio Procalcitonin TSH Free T4 03/03/21 03/03/21 03/03/21 08:04 08:04 08:04 WBC RBC Hgb Hct RDW MPV Neut % (Auto) Lymph % (Auto) Lymph # (Auto) Lymphocytes % Absolute Neutrophils RBC Morphology Anisocytosis Potassium 3.1 L Carbon Dioxide Anion Gap 17.0 H Creatinine 0.5 L Glucose 107 H AST Lactate Dehydrogenase 237 H C-Reactive Protein 14.60 H NT-Pro-B Natriuret Pep 707.7 H Albumin 2.7 L Globulin 3.8 H Albumin/Globulin Ratio 0.7 L Procalcitonin 0.38 H TSH 0.14 L Free T4 0.88 L Meds: Medications Albuterol/Ipratropium (Ipratropium/Albuterol 3 Ml Ampul.Neb) 3 ml NEB BID DAVID Last Admin: 03/05/21 09:21 Dose: 3 ml Documented by: Albuterol/Ipratropium (Ipratropium/Albuterol 3 Ml Ampul.Neb) 3 ml NEB Q4HP PRN PRN Reason: Shortness Of Breath Artificial Tears (Carboxymethylcellulose Sodium 1 Each Droper.Gel) 2 each OU BIDP PRN PRN Reason: Dry Eyes Ascorbic Acid (Ascorbic Acid 500 Mg Tablet) 1,000 mg PO DAILY [facility] Last Admin: 03/05/21 08:54 Dose: 1,000 mg Documented by: Benzonatate (Benzonatate 100 Mg Capsule) 200 mg PO TIDP PRN PRN Reason: Cough Last Admin: 03/01/21 17:14 Dose: 200 mg Documented by: Budesonide (Budesonide 0.5 Mg/2 Ml Ampul.Neb) 0.5 mg NEB Q12 [facility] Last Admin: 03/05/21 09:21 Dose: 0.5 mg Documented by: Cefepime HCl (Cefepime 2 Gm Vial) 2 gm IV Q12H [facility]; Protocol Last Admin: 03/05/21 09:50 Dose: 2 gm Documented by: Docusate Sodium (Docusate Sodium 100 Mg Capsule) 100 mg PO BID [facility] Last Admin: 03/05/21 08:54 Dose: 100 mg Documented by: Duloxetine HCl (Duloxetine 30 Mg Capsule) 30 mg PO QDAY [facility] Last Admin: 03/05/21 08:54 Dose: 30 mg Documented by: Enoxaparin Sodium (Enoxaparin 40 Mg/0.4 Ml Syringe) 40 mg SQ DAILY [facility] Last Admin: 03/05/21 08:54 Dose: 40 mg Documented by: Escitalopram Oxalate (Escitalopram 10 Mg Tablet) 5 mg PO DAILY [facility] Last Admin: 03/05/21 08:54 Dose: 5 mg Documented by: Fentanyl (Fentanyl 25 Mcg Patch) 25 mcg TOPICAL Q72H [facility] Last Admin: 03/04/21 10:19 Dose: 25 mcg Documented by: Fexofenadine HCl (Fexofenadine 180 Mg Tablet) 180 mg PO DAILYP PRN PRN Reason: Allergy Symptoms Gabapentin (Gabapentin 300 Mg Capsule) 600 mg PO HS [facility] Last Admin: 03/04/21 20:20 Dose: 600 mg Documented by: Gabapentin (Gabapentin 300 Mg Capsule) 300 mg PO BID@0800,1200 [facility] Last Admin: 03/05/21 12:14 Dose: 300 mg Documented by: Guaifenesin (Guaifenesin 600 Mg Tab.Sr.12h) 1,200 mg PO BIDP PRN PRN Reason: Congestion Potassium Chloride 40 meq/ (Dextrose) 520 mls @ 130 mls/hr IV UD PRN PRN Reason: Potassium < 3 Magnesium Sulfate (Magnesium Sulfate) 2 gm in 50 mls @ 50 mls/hr IV UD PRN PRN Reason: Magnesium </= 1.6 Methocarbamol (Methocarbamol 500 Mg Tablet) 1,000 mg PO Q6HP PRN PRN Reason: muscle spasms Metoclopramide HCl (Metoclopramide 10 Mg/2 Ml Vial) 10 mg IV Q6HP PRN PRN Reason: Nausea And Vomiting Ondansetron HCl (Ondansetron 4 Mg/2 Ml Vial) 4 mg IV Q4HP PRN PRN Reason: Nausea And Vomiting Last Admin: 03/01/21 20:33 Dose: 4 mg Documented by: Oxycodone/Acetaminophen (Oxycodone/Apap 5/325mg Tablet) 1 tab PO Q4HP PRN; Protocol PRN Reason: Pain Last Admin: 03/04/21 20:33 Dose: 1 tab Documented by: Polyethylene Glycol (Polyethylene Glycol 3350 17 Gm Packet) 17 gm PO DAILYP PRN PRN Reason: Constipation Potassium Chloride (Potassium Chloride 20 Meq Tablet) 40 meq PO UD PRN PRN Reason: Potssium is 3-3.5 Last Admin: 03/03/21 11:04 Dose: 40 meq Documented by: Potassium Chloride (Potassium Chloride 20 Meq Tablet) 40 meq PO UD PRN PRN Reason: Potassium < 3 Prednisone (Prednisone 20 Mg Tablet) 40 mg PO [facility] Stop: 03/06/21 08:01 Last Admin: 03/05/21 07:27 Dose: 40 mg Documented by: Senna (Sennosides 1 Tablet) 2 tab PO DAILYP PRN PRN Reason: Constipation Simethicone (Simethicone 80 Mg Tab.Chew) 240 mg CHEWED BIDP PRN PRN Reason: Abdominal Discomfort Sodium Chloride (0.9 % Sodium Chloride 10 Ml Syringe) 10 ml IV Q8 [facility] Last Admin: 03/05/21 13:17 Dose: 10 ml Documented by: Thyroid (Thyroid, Pork 60 Mg Tablet) 180 mg PO ACB [facility] Last Admin: 03/05/21 07:27 Dose: 180 mg Documented by: Tizanidine HCl (Tizanidine 4 Mg Tablet) 4 mg PO [facility] Last Admin: 03/04/21 20:19 Dose: 4 mg Documented by: Tramadol HCl (Tramadol 50 Mg Tablet) 50 mg PO Q4-6HP PRN; Protocol PRN Reason: Pain A/P Assessment and plan (1) Bilateral pneumonia: Status: Acute (2) UTI (urinary tract infection): Status: Acute (3) Acute exacerbation of chronic obstructive pulmonary disease (COPD): Status: Acute (4) Hypothyroidism: Status: Acute (5) Sleep apnea: Status: Chronic (6) Major depressive disorder, recurrent, moderate: Status: Chronic Narrative A/P Narrative: Assessment and Plans: 1. Bilateral bacterial pneumonia: Stays in inpatient med surg Supplemental oxygen therapy, titrate to achieve spo2>=88% given COPD-er, currently on 2L/min Blood culture, no growth to date Sputum culture [place] PCR test to rule out CoVID pneumonia Recent CT chest (03/03)only showing bilateral infiltrates, cannot perform CT angiogram for 48 hours to rule out pulmonary embolism Cefepime Zithromax Tylenol PRN cough Mucinex /Tessalon PRN cough Bronchodilators (DuoNEB) NEB scheduled and PRN wheezing 2. COPD with exacerbation: Supplemental oxygen therapy, titrate to achieve spo2>=88% given COPD-er, currently on 2L/min Prednisone Pulmicort Antibiotics, see #1 Bronchodilators (DuoNEB) NEB scheduled and PRN wheezing 3. Major depressive disorder: Cymbalta Lexapro 4. JAQUAN on CPAP: Continue CPAP at night while sleeping 5. Hypothyroidism: Continue oral thyroid replacement therapy 6. UTI: Blood culture, no growth to date Urine culture: E coli and S. anginosus Cefepime Zithromax Tylenol PRN fever GI ppx: not currently indicated DVT ppx: Lovenox Code status: Full Prognosis: stable Disposition: inpatient med surg; PT recs. SNF placement, pending Time Spent With Patient Time: Total time spent is greater than 50% in coordination of care (as documented) at patient's floor/unit and/or counseling patient: Total time spent with greater than 50% in coordination of care (as documented) at patient's floor/unit and/or counseling patient:: Greater than 35 minutes
[2021-03-05] MEDS: tiZANidine 4 MG TABLET PO SCH (20:22)
[2021-03-05] MEDS: oxyCODONE/APAP 5/325MG TABLET PO PRN (20:22)
[2021-03-06] MEDS: 0.9 % SODIUM CHLORIDE 10 ML SYRINGE IV SCH ×3 (04:17→21:19)
[2021-03-06] MEDS: oxyCODONE/APAP 5/325MG TABLET PO PRN ×2 (05:43→18:32)
[2021-03-06] MEDS: BUDESONIDE 0.5 MG/2 ML AMPUL.NEB NEB SCH ×2 (07:13→21:36)
[2021-03-06] MEDS: IPRATROPIUM/ALBUTEROL 3 ML AMPUL.NEB NEB SCH ×2 (07:13→21:36)
[2021-03-06] MEDS: THYROID, PORK 60 MG TABLET PO SCH (07:28)
[2021-03-06] MEDS: predniSONE 20 MG TABLET PO SCH (07:29)
[2021-03-06] MEDS: GABAPENTIN 300 MG CAPSULE PO SCH ×3 (07:29→21:16)
[2021-03-06 07:50] LABS: Basophils # (Auto) 0.01 K/mcL (0.00-0.30); Basophils % (Auto) 0.1 % (0.0-2.0); Eosinophils # (Auto) 0.16 K/mcL (0.00-0.70); Eosinophils % (Auto) 1.7 % (0.0-7.0); Hematocrit 33.1 % (34.1-44.9); Hemoglobin 10.7 g/dL (11.2-15.7); Lymphocytes # (Auto) 1.18 K/mcL (1.50-4.80); Lymphocytes % (Auto) 12.2 % (15.5-49.0); Mean Corpuscular HGB Conc 32.3 g/dL (31.0-36.0); Mean Platelet Volume 11.1 fL (7.4-10.4); Monocytes # (Auto) 0.52 K/mcL (0.10-0.90); Monocytes % (Auto) 5.4 % (1.0-12.0); Neutrophils % (Auto) 80.6 % (38.0-78.0); Platelet Count 300 K/mcL (140-440); RBC 3.52 M/mcL (3.59-5.38); Red Cell Distribution Width 14.7 % (11.5-14.5); WBC 9.7 K/mcL (4.5-11.0)
[2021-03-06 08:08] LABS: ALT/SGPT 32 U/L (<40); AST/SGOT 20 U/L (<32); Albumin 2.8 gm/dL (3.2-5.2); Albumin/Globulin Ratio 0.9 (1.0-2.3); Alkaline Phosphatase 75 U/L (39-117); Bilirubin,Total 0.2 mg/dL (0.1-1.0); Blood Urea Nitrogen 15 mg/dL (8-23); Calcium 8.5 mg/dL (8.6-10.4); Carbon Dioxide 30 mmol/L (22-30); Chloride 98 mmol/L (96-108); Globulin 3.1 gm/dL (2.2-3.7); Glomerular Filtration Rate 87; Glucose 90 mg/dL (70-105)
[2021-03-06] MEDS: ASCORBIC ACID 500 MG TABLET PO SCH (08:42)
[2021-03-06] MEDS: DULoxetine 30 MG CAPSULE PO SCH (08:43)
[2021-03-06] MEDS: CEFEPIME 2 GM VIAL IV SCH ×2 (08:43→21:19)
[2021-03-06] MEDS: ENOXAPARIN 40 MG/0.4 ML SYRINGE SQ SCH (08:43)
[2021-03-06] MEDS: ESCITALOPRAM 10 MG TABLET PO SCH (08:43)
[2021-03-06] MEDS: DOCUSATE SODIUM 100 MG CAPSULE PO SCH ×2 (08:43→21:19)
--- NOTE | 2021-03-06 14:10 | Internal Med Progress Note ---
SUBJECTIVE Subjective Patient information: Note initiated : 03/06/21 at 2:07 pm Service Date, if different from initiated Date: [] Patient: Kiera Angeles a 85 y/o F admitted on 02/27/21 for Sob. Chief Complaint: [] Principal diagnosis: CAP, COPD exacerbation Interval history: History of present illness: Ms. Angeles is a 85 year old F Presents to the ED with nonproductive cough and shortness of breath going on for several days. She is found to be 85% oxygen per EMS. Patient denied fever chills. In the ED was found to have bilateral infiltrates. She did get a COVID-vaccine and her rapid COVID was negative. patient denies being around anybody's been sick. Cough productive of yellow sputum. Doesn't sound like she been on oxygen at home before. Says occasionally she feels like food or drink goes down the wrong pipe. 02/28 Patient states she feels a little bit better and states that his breathing a little better however has rib pain from coughing and she says that impairs her deep breathing. 03/01 She states she is feeling a little better again today little bit stronger and shortness of breath continuing to slowly improve. 03/02 Cough. Shortness of breath similar to yesterday. Patient on 1-2 L of cannula. GUTIÉRREZ. 03/03 Cough is decreased. Patient says she feels a little better. Dyspnea. Chest x- ray with pretty dense filtrate in the left lower. Will obtain CT chest to further clarify abnormalities. 03/04: Oxygen requirement ran up to 6L/min this morning, currently at 4L/min this afternoon. Was on 3L/min yesterday and was not on home oxygen. Blood cultures no growth to date. Urine culture grew E coli and S anginosus. On Zithromax and Cefepime for pneumonia, as well as prednisone and bronchodilators for COPD exacerbation. c/o same degree of shortness of breath, as well as productive cough with yellow sputum. Denies any wheezing or chest pain. Denies any fever, chills, or sweating. 03/05: Afebrile overnight. On 2L/min oxygen. On Cefepime and Zithromax. Feeling improving SOB. Denies cough or wheezing. Denies fever, chills, or sweating. PT recs. SNF placement. 03/06: Afebrile overnight. On 2L/min oxygen. Sputum culture light growth of c albicans. On Cefepime and Zithromax. c/o SOB. c/o nonproductive cough, denies wheezing. Denies fever, chills, or sweating. [facility]ending [facility] Monday. Pertinent ROS: c/o SOB. c/o nonproductive cough, denies wheezing. Denies fever, chills, or sweating. Constitutional Vitals: Vital Signs Temp Pulse Resp BP Pulse Ox 36.7 C 66 15 107/60 92 03/06/21 12:00 03/06/21 12:00 03/06/21 12:00 03/06/21 12:00 03/06/21 12:00 Period Temp Pulse Resp BP Sys/Glover Pulse Ox Last 24 Hr 36.3 C-37.1 C 61-83 15-20 104-132/54-67 90-94 Intake and Output 03/06/21 03/06/21 03/06/21 05:59 13:59 21:59 Intake Total 600 Output Total 600 Balance 0 Intake & Output: Intake & Output 03/06/21 03/06/21 03/06/21 05:59 13:59 21:59 Intake Total 600 Output Total 600 Balance 0 Intake: Oral 600 Output: Urine Catheter Amount 600 Other: Urine Appearance Clear Clear Uretheral (Giles) Clear Urine Color Bright Yellow Dark Yellow Uretheral (Giles) Dark Yellow Urine Odor Normal Uretheral (Giles) Normal # Bowel Movements 0 General appearance: cooperative, no acute distress and obese Head Head exam: Present atraumatic and normal inspection Eye Eye exam: Present normal appearance ENT ENT exam: Present mucous membranes moist, normal exam and normal external ear exam Additional comments: Nasal cannula in place Neck Neck exam: Present normal inspection Respiratory Respiratory exam: Present rhonchi; Absent wheezes Cardiovascular Cardiovascular exam: Present normal rate and rhythm GI/Abdominal GI/Abdominal exam: Present normal bowel sounds Back Exam Back exam: Present normal inspection Neurological Exam Neurological exam: Present alert and oriented X3 Skin Skin exam: Present intact and warm OBJ DATA Labs CBC & Chem 7: 03/06/21 05:27 03/06/21 05:26 Labs: Abnormal Lab Results 03/06/21 03/06/21 03/05/21 05:27 05:26 05:48 WBC RBC 3.52 L Hgb 10.7 L Hct 33.1 L RDW 14.7 H MPV 11.1 H Neut % (Auto) 80.6 H Lymph % (Auto) 12.2 L Lymph # (Auto) 1.18 L Absolute Neutrophils Carbon Dioxide 31 H Creatinine 0.5 L 0.5 L Calcium 8.5 L AST Albumin 2.8 L 2.8 L Albumin/Globulin Ratio 0.9 L 0.8 L 03/05/21 03/04/21 03/04/21 05:48 05:33 05:33 WBC 15.9 H RBC 3.52 L Hgb 10.6 L Hct 33.2 L RDW 14.7 H 14.9 H MPV 11.1 H 11.9 H Neut % (Auto) 81.8 H 85.8 H Lymph % (Auto) 11.2 L 8.7 L Lymph # (Auto) 1.10 L 1.39 L Absolute Neutrophils 8.04 H 13.63 H Carbon Dioxide 31 H Creatinine 0.4 L Calcium AST 35 H Albumin 3.0 L Albumin/Globulin Ratio 0.8 L Meds: Medications Albuterol/Ipratropium (Ipratropium/Albuterol 3 Ml Ampul.Neb) 3 ml NEB BID [facility] Last Admin: 03/06/21 07:13 Dose: 3 ml Documented by: Albuterol/Ipratropium (Ipratropium/Albuterol 3 Ml Ampul.Neb) 3 ml NEB Q4HP PRN PRN Reason: Shortness Of Breath Artificial Tears (Carboxymethylcellulose Sodium 1 Each Droper.Gel) 2 each OU BIDP PRN PRN Reason: Dry Eyes Ascorbic Acid (Ascorbic Acid 500 Mg Tablet) 1,000 mg PO DAILY [facility] Last Admin: 03/06/21 08:42 Dose: 1,000 mg Documented by: Benzonatate (Benzonatate 100 Mg Capsule) 200 mg PO TIDP PRN PRN Reason: Cough Last Admin: 03/01/21 17:14 Dose: 200 mg Documented by: Budesonide (Budesonide 0.5 Mg/2 Ml Ampul.Neb) 0.5 mg NEB Q12 [facility] Last Admin: 03/06/21 07:13 Dose: 0.5 mg Documented by: Cefepime HCl (Cefepime 2 Gm Vial) 2 gm IV Q12H [facility]; Protocol Last Admin: 03/06/21 08:43 Dose: 2 gm Documented by: Docusate Sodium (Docusate Sodium 100 Mg Capsule) 100 mg PO BID [facility] Last Admin: 03/06/21 08:43 Dose: Not Given Documented by: Duloxetine HCl (Duloxetine 30 Mg Capsule) 30 mg PO QDAY [facility] Last Admin: 03/06/21 08:43 Dose: 30 mg Documented by: Enoxaparin Sodium (Enoxaparin 40 Mg/0.4 Ml Syringe) 40 mg SQ DAILY [facility] Last Admin: 03/06/21 08:43 Dose: 40 mg Documented by: Escitalopram Oxalate (Escitalopram 10 Mg Tablet) 5 mg PO DAILY [facility] Last Admin: 03/06/21 08:43 Dose: 5 mg Documented by: Fentanyl (Fentanyl 25 Mcg Patch) 25 mcg TOPICAL Q72H [facility] Last Admin: 03/04/21 10:19 Dose: 25 mcg Documented by: Fexofenadine HCl (Fexofenadine 180 Mg Tablet) 180 mg PO DAILYP PRN PRN Reason: Allergy Symptoms Gabapentin (Gabapentin 300 Mg Capsule) 600 mg PO HS [facility] Last Admin: 03/05/21 20:22 Dose: 600 mg Documented by: Gabapentin (Gabapentin 300 Mg Capsule) 300 mg PO BID@0800,1200 [facility] Last Admin: 03/06/21 11:32 Dose: 300 mg Documented by: Guaifenesin (Guaifenesin 600 Mg Tab.Sr.12h) 1,200 mg PO BIDP PRN PRN Reason: Congestion Potassium Chloride 40 meq/ (Dextrose) 520 mls @ 130 mls/hr IV UD PRN PRN Reason: Potassium < 3 Magnesium Sulfate (Magnesium Sulfate) 2 gm in 50 mls @ 50 mls/hr IV UD PRN PRN Reason: Magnesium </= 1.6 Methocarbamol (Methocarbamol 500 Mg Tablet) 1,000 mg PO Q6HP PRN PRN Reason: muscle spasms Metoclopramide HCl (Metoclopramide 10 Mg/2 Ml Vial) 10 mg IV Q6HP PRN PRN Reason: Nausea And Vomiting Ondansetron HCl (Ondansetron 4 Mg/2 Ml Vial) 4 mg IV Q4HP PRN PRN Reason: Nausea And Vomiting Last Admin: 03/01/21 20:33 Dose: 4 mg Documented by: Oxycodone/Acetaminophen (Oxycodone/Apap 5/325mg Tablet) 1 tab PO Q4HP PRN; Protocol PRN Reason: Pain Last Admin: 03/06/21 05:43 Dose: 1 tab Documented by: Polyethylene Glycol (Polyethylene Glycol 3350 17 Gm Packet) 17 gm PO DAILYP PRN PRN Reason: Constipation Potassium Chloride (Potassium Chloride 20 Meq Tablet) 40 meq PO UD PRN PRN Reason: Potssium is 3-3.5 Last Admin: 03/03/21 11:04 Dose: 40 meq Documented by: Potassium Chloride (Potassium Chloride 20 Meq Tablet) 40 meq PO UD PRN PRN Reason: Potassium < 3 Senna (Sennosides 1 Tablet) 2 tab PO DAILYP PRN PRN Reason: Constipation Simethicone (Simethicone 80 Mg Tab.Chew) 240 mg CHEWED BIDP PRN PRN Reason: Abdominal Discomfort Sodium Chloride (0.9 % Sodium Chloride 10 Ml Syringe) 10 ml IV Q8 [facility] Last Admin: 03/06/21 13:54 Dose: 10 ml Documented by: Thyroid (Thyroid, Pork 60 Mg Tablet) 180 mg PO ACB [facility] Last Admin: 03/06/21 07:28 Dose: 180 mg Documented by: Tizanidine HCl (Tizanidine 4 Mg Tablet) 4 mg PO HS [facility] Last Admin: 03/05/21 20:22 Dose: 4 mg Documented by: Tramadol HCl (Tramadol 50 Mg Tablet) 50 mg PO Q4-6HP PRN; Protocol PRN Reason: Pain A/P Assessment and plan (1) Bilateral pneumonia: Status: Acute (2) UTI (urinary tract infection): Status: Acute (3) Acute exacerbation of chronic obstructive pulmonary disease (COPD): Status: Acute (4) Hypothyroidism: Status: Acute (5) Sleep apnea: Status: Chronic (6) Major depressive disorder, recurrent, moderate: Status: Chronic Narrative A/P Narrative: Assessment and Plans: 1. Bilateral bacterial pneumonia: Stays in inpatient med surg Supplemental oxygen therapy, titrate to achieve spo2>=88% given COPD-er, currently on 2L/min Blood culture, no growth to date Sputum culture light growth of c.albicans Leary PCR test to rule out CoVID pneumonia Recent CT chest (03/03)only showing bilateral infiltrates, cannot perform CT angiogram for 48 hours to rule out pulmonary embolism Cefepime Zithromax Tylenol PRN cough Mucinex /Tessalon PRN cough Bronchodilators (DuoNEB) NEB scheduled and PRN wheezing 2. COPD with exacerbation: Supplemental oxygen therapy, titrate to achieve spo2>=88% given COPD-er, currently on 2L/min Prednisone Pulmicort Antibiotics, see #1 Bronchodilators (DuoNEB) NEB scheduled and PRN wheezing 3. Major depressive disorder: Cymbalta Lexapro 4. JAQUAN on CPAP: Continue CPAP at night while sleeping 5. Hypothyroidism: Continue oral thyroid replacement therapy 6. UTI: Blood culture, no growth to date Urine culture: E coli and S. anginosus Cefepime Zithromax Tylenol PRN fever GI ppx: not currently indicated DVT ppx: Lovenox Code status: Full Prognosis: stable Disposition: inpatient med surg; Pending [facility] Monday Time Spent With Patient Time: Total time spent is greater than 50% in coordination of care (as documented) at patient's floor/unit and/or counseling patient: Total time spent with greater than 50% in coordination of care (as documented) at patient's floor/unit and/or counseling patient:: Greater than 35 minutes
[2021-03-06] MEDS: tiZANidine 4 MG TABLET PO SCH (21:15)
[2021-03-07] MEDS: oxyCODONE/APAP 5/325MG TABLET PO PRN ×3 (00:09→21:47)
[2021-03-07] MEDS: 0.9 % SODIUM CHLORIDE 10 ML SYRINGE IV SCH ×3 (05:14→21:00)
[2021-03-07] MEDS: THYROID, PORK 60 MG TABLET PO SCH (06:47)
[2021-03-07] MEDS: GABAPENTIN 300 MG CAPSULE PO SCH ×3 (06:48→21:00)
[2021-03-07 07:13] LABS: Basophils # (Auto) 0.02 K/mcL (0.00-0.30); Basophils % (Auto) 0.2 % (0.0-2.0); Eosinophils # (Auto) 0.17 K/mcL (0.00-0.70); Eosinophils % (Auto) 1.8 % (0.0-7.0); Hematocrit 32.4 % (34.1-44.9); Hemoglobin 10.2 g/dL (11.2-15.7); Lymphocytes # (Auto) 1.29 K/mcL (1.50-4.80); Lymphocytes % (Auto) 13.7 % (15.5-49.0); Mean Cell Volume 94.7 fL (80.0-100.0); Mean Corpuscular HGB Conc 31.5 g/dL (31.0-36.0); Monocytes # (Auto) 0.45 K/mcL (0.10-0.90); Monocytes % (Auto) 4.8 % (1.0-12.0); Neutrophils % (Auto) 79.5 % (38.0-78.0); Platelet Count 308 K/mcL (140-440); RBC 3.42 M/mcL (3.59-5.38); Red Cell Distribution Width 14.7 % (11.5-14.5); WBC 9.4 K/mcL (4.5-11.0)
[2021-03-07] MEDS: BUDESONIDE 0.5 MG/2 ML AMPUL.NEB NEB SCH ×2 (07:17→20:50)
[2021-03-07] MEDS: IPRATROPIUM/ALBUTEROL 3 ML AMPUL.NEB NEB SCH ×2 (07:17→20:50)
[2021-03-07 07:27] LABS: ALT/SGPT 26 U/L (<40); AST/SGOT 19 U/L (<32); Albumin 2.7 gm/dL (3.2-5.2); Albumin/Globulin Ratio 0.9 (1.0-2.3); Alkaline Phosphatase 69 U/L (39-117); Bilirubin,Total 0.2 mg/dL (0.1-1.0); Blood Urea Nitrogen 13 mg/dL (8-23); Calcium 8.5 mg/dL (8.6-10.4); Carbon Dioxide 30 mmol/L (22-30); Chloride 102 mmol/L (96-108); Globulin 3.1 gm/dL (2.2-3.7); Glomerular Filtration Rate 87; Glucose 92 mg/dL (70-105)
[2021-03-07] MEDS: ENOXAPARIN 40 MG/0.4 ML SYRINGE SQ SCH (08:42)
[2021-03-07] MEDS: ESCITALOPRAM 10 MG TABLET PO SCH (08:42)
[2021-03-07] MEDS: DOCUSATE SODIUM 100 MG CAPSULE PO SCH ×2 (08:42→20:59)
[2021-03-07] MEDS: ASCORBIC ACID 500 MG TABLET PO SCH (08:42)
[2021-03-07] MEDS: DULoxetine 30 MG CAPSULE PO SCH (08:42)
[2021-03-07] MEDS: CEFEPIME 2 GM VIAL IV SCH ×2 (09:24→20:59)
[2021-03-07] MEDS: fentaNYL 25 MCG PATCH TOPICAL SCH (10:07)
--- NOTE | 2021-03-07 16:08 | Internal Med Progress Note ---
SUBJECTIVE Subjective Patient information: Note initiated : 03/07/21 at 4:05 pm Service Date, if different from initiated Date: [] Patient: Kiera Angeles a 85 y/o F admitted on 02/27/21 for Sob. Chief Complaint: [] Principal diagnosis: CAP, COPD exacerbation Interval history: History of present illness: Ms. Angeles is a 85 year old F Presents to the ED with nonproductive cough and shortness of breath going on for several days. She is found to be 85% oxygen per EMS. Patient denied fever chills. In the ED was found to have bilateral infiltrates. She did get a COVID-vaccine and her rapid COVID was negative. patient denies being around anybody's been sick. Cough productive of yellow sputum. Doesn't sound like she been on oxygen at home before. Says occasionally she feels like food or drink goes down the wrong pipe. 02/28 Patient states she feels a little bit better and states that his breathing a little better however has rib pain from coughing and she says that impairs her deep breathing. 03/01 She states she is feeling a little better again today little bit stronger and shortness of breath continuing to slowly improve. 03/02 Cough. Shortness of breath similar to yesterday. Patient on 1-2 L of cannula. GUTIÉRREZ. 03/03 Cough is decreased. Patient says she feels a little better. Dyspnea. Chest x- ray with pretty dense filtrate in the left lower. Will obtain CT chest to further clarify abnormalities. 03/04: Oxygen requirement ran up to 6L/min this morning, currently at 4L/min this afternoon. Was on 3L/min yesterday and was not on home oxygen. Blood cultures no growth to date. Urine culture grew E coli and S anginosus. On Zithromax and Cefepime for pneumonia, as well as prednisone and bronchodilators for COPD exacerbation. c/o same degree of shortness of breath, as well as productive cough with yellow sputum. Denies any wheezing or chest pain. Denies any fever, chills, or sweating. 03/05: Afebrile overnight. On 2L/min oxygen. On Cefepime and Zithromax. Feeling improving SOB. Denies cough or wheezing. Denies fever, chills, or sweating. PT recs. SNF placement. 03/06: Afebrile overnight. On 2L/min oxygen. Sputum culture light growth of c albicans. On Cefepime and Zithromax. c/o SOB. c/o nonproductive cough, denies wheezing. Denies fever, chills, or sweating. Pending [facility] on Monday. 03/07: Afebrile overnight. On 21L/min oxygen. Sputum culture light growth of c albicans . On Cefepime and Zithromax. Denies SOB. Denies cough or wheezing. Denies fever, chills, or sweating. Pending [facility] on Monday. Pertinent ROS: Denies SOB. Denies cough or wheezing. Denies fever, chills, or sweating. Constitutional Vitals: Vital Signs Temp Pulse Resp BP Pulse Ox 36.0 C L 65 20 101/54 92 03/07/21 15:36 03/07/21 15:36 03/07/21 15:36 03/07/21 15:36 03/07/21 15:36 Period Temp Pulse Resp BP Sys/Glover Pulse Ox Last 24 Hr 36.0 C-36.6 C 60-73 16-20 96-109/51-58 90-95 Intake and Output 03/07/21 03/07/21 03/07/21 05:59 13:59 21:59 Intake Total 400 Output Total 900 Balance -500 Intake & Output: Intake & Output 03/07/21 03/07/21 03/07/21 05:59 13:59 21:59 Intake Total 400 Output Total 900 Balance -500 Intake: Oral 400 Output: Urine Catheter Amount 900 Other: Meal Breakfast Percent of Meal Consumed 75% Urine Appearance Clear Clear Uretheral (Giles) Clear Urine Color Bright Yellow Straw Uretheral (Giles) Dark Yellow Urine Odor Normal Uretheral (Giles) Normal Stool Size Moderate Stool Color Brown Stool Consistency Soft Formed General appearance: cooperative, no acute distress and obese Head Head exam: Present atraumatic and normal inspection Eye Eye exam: Present normal appearance ENT ENT exam: Present mucous membranes moist, normal exam and normal external ear exam Additional comments: Nasal cannula in place Neck Neck exam: Present normal inspection Respiratory Respiratory exam: Present normal respiratory exam Cardiovascular Cardiovascular exam: Present normal rate and rhythm GI/Abdominal GI/Abdominal exam: Present normal bowel sounds Back Exam Back exam: Present normal inspection Neurological Exam Neurological exam: Present alert and oriented X3 Skin Skin exam: Present intact and warm OBJ DATA Labs CBC & Chem 7: 03/07/21 06:06 03/07/21 06:06 Labs: Abnormal Lab Results 03/07/21 03/07/21 03/06/21 06:06 06:06 05:27 RBC 3.42 L 3.52 L Hgb 10.2 L 10.7 L Hct 32.4 L 33.1 L RDW 14.7 H 14.7 H MPV 11.0 H 11.1 H Neut % (Auto) 79.5 H 80.6 H Lymph % (Auto) 13.7 L 12.2 L Lymph # (Auto) 1.29 L 1.18 L Absolute Neutrophils Carbon Dioxide Anion Gap 6.0 L Creatinine 0.5 L Calcium 8.5 L Total Protein 5.8 L Albumin 2.7 L Albumin/Globulin Ratio 0.9 L 03/06/21 03/05/21 03/05/21 05:26 05:48 05:48 RBC 3.52 L Hgb 10.6 L Hct 33.2 L RDW 14.7 H MPV 11.1 H Neut % (Auto) 81.8 H Lymph % (Auto) 11.2 L Lymph # (Auto) 1.10 L Absolute Neutrophils 8.04 H Carbon Dioxide 31 H Anion Gap Creatinine 0.5 L 0.5 L Calcium 8.5 L Total Protein Albumin 2.8 L 2.8 L Albumin/Globulin Ratio 0.9 L 0.8 L Meds: Medications Albuterol/Ipratropium (Ipratropium/Albuterol 3 Ml Ampul.Neb) 3 ml NEB BID [facility] Last Admin: 03/07/21 07:17 Dose: 3 ml Documented by: Albuterol/Ipratropium (Ipratropium/Albuterol 3 Ml Ampul.Neb) 3 ml NEB Q4HP PRN PRN Reason: Shortness Of Breath Artificial Tears (Carboxymethylcellulose Sodium 1 Each Droper.Gel) 2 each OU BIDP PRN PRN Reason: Dry Eyes Ascorbic Acid (Ascorbic Acid 500 Mg Tablet) 1,000 mg PO DAILY [facility] Last Admin: 03/07/21 08:42 Dose: 1,000 mg Documented by: Benzonatate (Benzonatate 100 Mg Capsule) 200 mg PO TIDP PRN PRN Reason: Cough Last Admin: 03/01/21 17:14 Dose: 200 mg Documented by: Budesonide (Budesonide 0.5 Mg/2 Ml Ampul.Neb) 0.5 mg NEB Q12 [facility] Last Admin: 03/07/21 07:17 Dose: 0.5 mg Documented by: Cefepime HCl (Cefepime 2 Gm Vial) 2 gm IV Q12H [facility]; Protocol Last Admin: 03/07/21 09:24 Dose: 2 gm Documented by: Docusate Sodium (Docusate Sodium 100 Mg Capsule) 100 mg PO BID [facility] Last Admin: 03/07/21 08:42 Dose: Not Given Documented by: Duloxetine HCl (Duloxetine 30 Mg Capsule) 30 mg PO QDAY [facility] Last Admin: 03/07/21 08:42 Dose: 30 mg Documented by: Enoxaparin Sodium (Enoxaparin 40 Mg/0.4 Ml Syringe) 40 mg SQ DAILY [facility] Last Admin: 03/07/21 08:42 Dose: 40 mg Documented by: Escitalopram Oxalate (Escitalopram 10 Mg Tablet) 5 mg PO DAILY [facility] Last Admin: 03/07/21 08:42 Dose: 5 mg Documented by: Fentanyl (Fentanyl 25 Mcg Patch) 25 mcg TOPICAL Q72H [facility] Last Admin: 03/07/21 10:07 Dose: 25 mcg Documented by: Fexofenadine HCl (Fexofenadine 180 Mg Tablet) 180 mg PO DAILYP PRN PRN Reason: Allergy Symptoms Gabapentin (Gabapentin 300 Mg Capsule) 600 mg PO HS [facility] Last Admin: 03/06/21 21:16 Dose: 600 mg Documented by: Gabapentin (Gabapentin 300 Mg Capsule) 300 mg PO BID@0800,1200 [facility] Last Admin: 03/07/21 12:03 Dose: 300 mg Documented by: Guaifenesin (Guaifenesin 600 Mg Tab.Sr.12h) 1,200 mg PO BIDP PRN PRN Reason: Congestion Potassium Chloride 40 meq/ (Dextrose) 520 mls @ 130 mls/hr IV UD PRN PRN Reason: Potassium < 3 Magnesium Sulfate (Magnesium Sulfate) 2 gm in 50 mls @ 50 mls/hr IV UD PRN PRN Reason: Magnesium </= 1.6 Methocarbamol (Methocarbamol 500 Mg Tablet) 1,000 mg PO Q6HP PRN PRN Reason: muscle spasms Metoclopramide HCl (Metoclopramide 10 Mg/2 Ml Vial) 10 mg IV Q6HP PRN PRN Reason: Nausea And Vomiting Ondansetron HCl (Ondansetron 4 Mg/2 Ml Vial) 4 mg IV Q4HP PRN PRN Reason: Nausea And Vomiting Last Admin: 03/01/21 20:33 Dose: 4 mg Documented by: Oxycodone/Acetaminophen (Oxycodone/Apap 5/325mg Tablet) 1 tab PO Q4HP PRN; Protocol PRN Reason: Pain Last Admin: 03/07/21 14:06 Dose: 1 tab Documented by: Polyethylene Glycol (Polyethylene Glycol 3350 17 Gm Packet) 17 gm PO DAILYP PRN PRN Reason: Constipation Potassium Chloride (Potassium Chloride 20 Meq Tablet) 40 meq PO UD PRN PRN Reason: Potssium is 3-3.5 Last Admin: 03/03/21 11:04 Dose: 40 meq Documented by: Potassium Chloride (Potassium Chloride 20 Meq Tablet) 40 meq PO UD PRN PRN Reason: Potassium < 3 Senna (Sennosides 1 Tablet) 2 tab PO DAILYP PRN PRN Reason: Constipation Simethicone (Simethicone 80 Mg Tab.Chew) 240 mg CHEWED BIDP PRN PRN Reason: Abdominal Discomfort Sodium Chloride (0.9 % Sodium Chloride 10 Ml Syringe) 10 ml IV Q8 [facility] Last Admin: 03/07/21 12:51 Dose: 10 ml Documented by: Thyroid (Thyroid, Pork 60 Mg Tablet) 180 mg PO ACB [facility] Last Admin: 03/07/21 06:47 Dose: 180 mg Documented by: Tizanidine HCl (Tizanidine 4 Mg Tablet) 4 mg PO HS [facility] Last Admin: 03/06/21 21:15 Dose: 4 mg Documented by: Tramadol HCl (Tramadol 50 Mg Tablet) 50 mg PO Q4-6HP PRN; Protocol PRN Reason: Pain A/P Assessment and plan (1) Bilateral pneumonia: Status: Acute (2) UTI (urinary tract infection): Status: Acute (3) Acute exacerbation of chronic obstructive pulmonary disease (COPD): Status: Acute (4) Hypothyroidism: Status: Acute (5) Sleep apnea: Status: Chronic (6) Major depressive disorder, recurrent, moderate: Status: Chronic Narrative A/P Narrative: Assessment and Plans: 1. Bilateral bacterial pneumonia: Stays in inpatient med surg Supplemental oxygen therapy, titrate to achieve spo2>=88% given COPD-er, currently on 1L/min Blood culture, no growth to date Sputum culture light growth of c.albicans Anita PCR test to rule out CoVID pneumonia Recent CT chest (03/03)only showing bilateral infiltrates, cannot perform CT angiogram for 48 hours to rule out pulmonary embolism Cefepime Zithromax Tylenol PRN cough Mucinex /Tessalon PRN cough Bronchodilators (DuoNEB) NEB scheduled and PRN wheezing 2. COPD with exacerbation: Supplemental oxygen therapy, titrate to achieve spo2>=88% given COPD-er, currently on 1L/min Prednisone Pulmicort Antibiotics, see #1 Bronchodilators (DuoNEB) NEB scheduled and PRN wheezing 3. Major depressive disorder: Cymbalta Lexapro 4. JAQUAN on CPAP: Continue CPAP at night while sleeping 5. Hypothyroidism: Continue oral thyroid replacement therapy 6. UTI: Blood culture, no growth to date Urine culture: E coli and S. anginosus Cefepime Zithromax Tylenol PRN fever GI ppx: not currently indicated DVT ppx: Lovenox Code status: Full Prognosis: stable Disposition: inpatient med surg; Pending [facility] on Monday Time Spent With Patient Time: Total time spent is greater than 50% in coordination of care (as documented) at patient's floor/unit and/or counseling patient: Total time spent with greater than 50% in coordination of care (as documented) at patient's floor/unit and/or counseling patient:: Greater than 35 minutes
[2021-03-07] MEDS ORDERED: CALCIUM CARBONATE 500 MG TAB.CHEW CHEWED PRN (17:41)
[2021-03-07] MEDS: tiZANidine 4 MG TABLET PO SCH (21:00)
[2021-03-08] MEDS: 0.9 % SODIUM CHLORIDE 10 ML SYRINGE IV SCH ×3 (05:48→21:01)
[2021-03-08] MEDS: THYROID, PORK 60 MG TABLET PO SCH (07:06)
[2021-03-08 07:07] LABS: Basophils # (Auto) 0.02 K/mcL (0.00-0.30); Basophils % (Auto) 0.2 % (0.0-2.0); Eosinophils # (Auto) 0.17 K/mcL (0.00-0.70); Eosinophils % (Auto) 1.9 % (0.0-7.0); Hematocrit 34.4 % (34.1-44.9); Hemoglobin 10.9 g/dL (11.2-15.7); Lymphocytes # (Auto) 1.02 K/mcL (1.50-4.80); Lymphocytes % (Auto) 11.4 % (15.5-49.0); Mean Cell Volume 95.8 fL (80.0-100.0); Mean Corpuscular HGB Conc 31.7 g/dL (31.0-36.0); Mean Platelet Volume 10.8 fL (7.4-10.4); Monocytes % (Auto) 6.7 % (1.0-12.0); Neutrophils % (Auto) 79.8 % (38.0-78.0); Platelet Count 323 K/mcL (140-440); RBC 3.59 M/mcL (3.59-5.38); Red Cell Distribution Width 14.9 % (11.5-14.5)
[2021-03-08 08:18] LABS: ALT/SGPT 28 U/L (<40); AST/SGOT 26 U/L (<32); Albumin 2.7 gm/dL (3.2-5.2); Albumin/Globulin Ratio 0.9 (1.0-2.3); Alkaline Phosphatase 73 U/L (39-117); Bilirubin,Total 0.2 mg/dL (0.1-1.0); Blood Urea Nitrogen 12 mg/dL (8-23); Calcium 8.3 mg/dL (8.6-10.4); Carbon Dioxide 29 mmol/L (22-30); Chloride 98 mmol/L (96-108); Globulin 3.1 gm/dL (2.2-3.7); Glomerular Filtration Rate 87; Glucose 93 mg/dL (70-105)
[2021-03-08] MEDS: oxyCODONE/APAP 5/325MG TABLET PO PRN ×2 (09:09→18:06)
[2021-03-08] MEDS: ESCITALOPRAM 10 MG TABLET PO SCH (09:10)
[2021-03-08] MEDS: GABAPENTIN 300 MG CAPSULE PO SCH ×3 (09:10→21:00)
[2021-03-08] MEDS: DOCUSATE SODIUM 100 MG CAPSULE PO SCH ×2 (09:10→21:01)
[2021-03-08] MEDS: CEFEPIME 2 GM VIAL IV SCH ×2 (09:10→21:01)
[2021-03-08] MEDS: ENOXAPARIN 40 MG/0.4 ML SYRINGE SQ SCH (09:11)
[2021-03-08] MEDS: ASCORBIC ACID 500 MG TABLET PO SCH (09:11)
[2021-03-08] MEDS: DULoxetine 30 MG CAPSULE PO SCH (09:11)
[2021-03-08] MEDS: IPRATROPIUM/ALBUTEROL 3 ML AMPUL.NEB NEB SCH ×2 (10:14→20:26)
[2021-03-08] MEDS: BUDESONIDE 0.5 MG/2 ML AMPUL.NEB NEB SCH ×2 (10:14→20:26)
--- NOTE | 2021-03-08 10:35 | Discharge Summary ---
Discharge Provider Provider Patient information: Note initiated : 03/08/21 at 10:32 am Service Date, if different from initiated Date: [] Patient: Kiera Angeles 85 y/o F admitted on 02/27/21 for Sob. Chief Complaint: [] Date of admission: 02/27/21 06:57 Discharge date: 03/08/21 Primary care physician: GIUSEPPE Garcia Attending physician on admission: John Hernandez Pui Consults: 02/27/21 05:15 Consult to Physician [CONS] Stat Comment: Consulting Provider: Tyrell Leonard Reason For Exam: Physician to Consult 03/05/21 13:55 Consult to Physician [CONS] Routine Comment: snf referral Consulting Provider: [facility] Reason For Exam: Physician to Consult Attending physician on discharge: John Hernandez Pui Discharge Meds Discharge Medications Home Medications alpha lipoic acid 100 mg capsule 300 mg PO DAILY 10/23/14 [History Confirmed 02/27/21 Last Taken Unknown] ascorbic acid (vitamin C) 1,000 mg tablet 1,000 mg PO DAILY 10/23/14 [History Confirmed 02/27/21 Last Taken 10/23/14 06:00] benzonatate 200 mg capsule 200 mg PO QDAY PRN 10/23/14 [History Confirmed 02/27/21 Last Taken Unknown] calcium citrate 1,000 mg PO DAILY 10/23/14 [History Confirmed 02/27/21 Last Taken Unknown] escitalopram oxalate 5 mg tablet 5 mg PO QDAY 08/20/19 [History Confirmed 02/27/21 Last Taken 12/11/20 09:00] gabapentin 300 mg capsule 600 mg PO HS 08/20/19 [History Confirmed 02/27/21 Last Taken 12/12/20 09:00] prednisone 5 mg tablet 20 mg PO QDAY 08/20/19 [History Confirmed 02/27/21 Last Taken 12/12/20 09:00] simethicone 125 mg capsule (Gas-X Extra Strength) 250 mg PO BID PRN 08/20/19 [History Confirmed 02/27/21 Last Taken 02/25/21] tizanidine 4 mg capsule 4 mg PO QHS 08/20/19 [History Confirmed 02/27/21 Last Taken 12/11/20 21:00] guaifenesin 600 mg tablet, extended release 12 hr (Mucinex) 1,200 mg PO BID PRN 03/28/20 [History Confirmed 02/27/21 Last Taken Unknown] methocarbamol 500 mg tablet 1,000 mg PO Q6HP PRN tab 08/31/20 [History Confirmed 02/27/21 Last Taken 12/11/20 21:00] duloxetine 30 mg capsule,delayed release (Cymbalta) 30 mg PO QDAY 11/03/20 [History Confirmed 02/27/21 Last Taken 12/12/20 09:00] fexofenadine 180 mg tablet 180 mg PO QDAY PRN 11/03/20 [History Confirmed 02/27/21 Last Taken Unknown] gabapentin 300 mg capsule 300 mg PO BID 11/03/20 [History Confirmed 02/27/21 Last Taken 12/12/20 09:00] oxycodone-acetaminophen 5 mg-325 mg tablet (Endocet) 1 tab PO Q4H PRN #30 tab 11/04/20 [Rx Confirmed 02/27/21 Last Taken Unknown] carboxymethylcellulose sodium 0.5 % eye drops (Refresh Tears) 2 drp OPHTHALMIC (EYE) BID PRN 02/27/21 [History Confirmed 02/27/21 Last Taken 02/25/21] fentanyl 25 mcg/hr transdermal patch 25 mcg TRANSDERMAL Q72H 02/27/21 [History Confirmed 02/27/21 Last Taken Unknown] omega-3 fatty acids 2,000 mg PO QDAY 02/27/21 [History Confirmed 02/27/21 Last Taken Unknown] ondansetron 4 mg disintegrating tablet 4 mg PO Q8H PRN 02/27/21 [History Confirmed 02/27/21 Last Taken Unknown] thyroid (pork) 180 mg tablet (Lenox Thyroid) 180 mg PO QDAY 02/27/21 [History Confirmed 02/27/21 Last Taken 02/25/21] COURSE Hospital Course Hospital course: Ms. Angeles is a 85 year old F Presents to the ED with nonproductive cough and shortness of breath going on for several days. She is found to be 85% oxygen per EMS. Patient denied fever chills. In the ED was found to have bilateral infiltrates. She did get a COVID-vaccine and her rapid COVID was negative. patient denies being around anybody's been sick. Cough productive of yellow sputum. Doesn't sound like she been on oxygen at home before. Says occasionally she feels like food or drink goes down the wrong pipe. 02/28 Patient states she feels a little bit better and states that his breathing a little better however has rib pain from coughing and she says that impairs her deep breathing. 03/01 She states she is feeling a little better again today little bit stronger and shortness of breath continuing to slowly improve. 03/02 Cough. Shortness of breath similar to yesterday. Patient on 1-2 L of cannula. GUTIÉRREZ. 03/03 Cough is decreased. Patient says she feels a little better. Dyspnea. Chest x- ray with pretty dense filtrate in the left lower. Will obtain CT chest to further clarify abnormalities. 03/04: Oxygen requirement ran up to 6L/min this morning, currently at 4L/min this afternoon. Was on 3L/min yesterday and was not on home oxygen. Blood cultures no growth to date. Urine culture grew E coli and S anginosus. On Zithromax and Cefepime for pneumonia, as well as prednisone and bronchodilators for COPD exacerbation. c/o same degree of shortness of breath, as well as productive cough with yellow sputum. Denies any wheezing or chest pain. Denies any fever, chills, or sweating. 03/05: Afebrile overnight. On 2L/min oxygen. On Cefepime and Zithromax. Feeling improving SOB. Denies cough or wheezing. Denies fever, chills, or sweating. PT recs. SNF placement. 03/06: Afebrile overnight. On 2L/min oxygen. Sputum culture light growth of c albicans. On Cefepime and Zithromax. c/o SOB. c/o nonproductive cough, denies wheezing. Denies fever, chills, or sweating. [facility]ending [facility] on Monday. 03/07: Afebrile overnight. On 21L/min oxygen. Sputum culture light growth of c albicans. On Cefepime and Zithromax. Denies SOB. Denies cough or wheezing. Denies fever, chills, or sweating. Pending [facility] on Monday. Pertinent ROS: Denies SOB. Denies cough or wheezing. Denies fever, chills, or sweating. 03/08: Reached clinical stability, decision made to discharge her to [facility]. Finished antibiotics therapy. All questions were answered prior to patient being physically discharged. Discharge diagnosis: community acquired pneumonia Time Spent with Patient Time attestation: Total time spent providing and/or coordinating discharge services: Time spent: Less than 30 minutes EXAM Constitutional Vitals: Temp Pulse Resp BP Pulse Ox 36.8 C 70 16 109/55 94 03/08/21 07:24 03/08/21 10:15 03/08/21 10:15 03/08/21 07:24 03/08/21 07:24 General appearance: cooperative, disheveled and no acute distress Head Head exam: Present atraumatic and normocephalic Eye Eye exam: Present EOMI and PERRL ENT ENT exam: Present mucous membranes moist, normal exam and normal external ear exam Additional comments: Nasal cannula in place Neck Neck exam: Present normal inspection; Absent lymphadenopathy, tenderness or thyromegaly Respiratory Respiratory exam: Absent accessory muscle use, respiratory distress or wheezes Cardiovascular Cardiovascular exam: Present normal rate and rhythm; Absent JVD GI/Abdominal GI/Abdominal exam: Present normal bowel sounds and soft; Absent organomegaly or tenderness Extremities Exam Extremities exam: Present full ROM, normal capillary refill and normal inspection; Absent tenderness Neurological Exam Neurological exam: Present alert, CN II-XII intact and oriented X3; Absent motor sensory deficit Psychiatric Psychiatric exam: Present normal affect and normal mood; Absent anxious or depressed Skin Skin exam: Present dry and intact Discharge Data Data Completed and Pending Labs on day of discharge: Labs from last 24 hours 03/08/21 03/08/21 05:10 05:10 WBC 9.0 RBC 3.59 Hgb 10.9 L Hct 34.4 MCV 95.8 MCH 30.4 MCHC 31.7 RDW 14.9 H Plt Count 323 MPV 10.8 H Neut % (Auto) 79.8 H Lymph % (Auto) 11.4 L Pitkin % (Auto) 6.7 Eos % (Auto) 1.9 Baso % (Auto) 0.2 Lymph # (Auto) 1.02 L Pitkin # (Auto) 0.60 Eos # (Auto) 0.17 Baso # (Auto) 0.02 Absolute Neutrophils 7.15 Sodium 135 Potassium 3.7 Chloride 98 Carbon Dioxide 29 Anion Gap 8.0 BUN 12 Creatinine 0.5 L GFR Calculation 87 Glucose 93 Calcium 8.3 L Total Bilirubin 0.2 AST 26 ALT 28 Alkaline Phosphatase 73 Total Protein 5.8 L Albumin 2.7 L Globulin 3.1 Albumin/Globulin Ratio 0.9 L Discharge Plan Patient/Caregiver Discharge Instructions Activity: increase activity as tolerated Diet: Regular Diet Prescriptions: Continued benzonatate 200 MG capsule 200 mg PO QDAY PRN (Reason: Cough) 0RF ascorbic acid (vitamin C) 1,000 MG tablet 1,000 mg PO DAILY 0RF calcium citrate 250 MG tablet 1,000 mg PO DAILY 0RF alpha lipoic acid 100 MG capsule 300 mg PO DAILY 0RF prednisone 5 mg Tablet 20 mg PO QDAY 0RF simethicone [Gas-X Extra Strength] 125 mg Capsule 250 mg PO BID PRN (Reason: Abdominal Discomfort) 0RF gabapentin 300 mg Capsule 600 mg PO HS 0RF escitalopram oxalate 5 mg Tablet 5 mg PO QDAY 0RF tizanidine 4 mg Capsule 4 mg PO QHS 0RF guaifenesin [Mucinex] 600 mg Tablet Extended Release 12hr 1,200 mg PO BID PRN (Reason: Congestion) 0RF methocarbamol 500 mg tablet 1,000 mg PO Q6HP PRN (Reason: muscle spasms) 0RF gabapentin 300 mg capsule 300 mg PO BID 0RF Rx Instructions: QAM, NOON fexofenadine 180 mg Tablet 180 mg PO QDAY PRN (Reason: Allergy Symptoms) 0RF duloxetine [Cymbalta] 30 mg capsule,delayed release(DR/EC) 30 mg PO QDAY 0RF oxycodone-acetaminophen [Endocet] 5-325 mg Tablet 1 tab PO Q4H PRN (Reason: Pain) Qty: 30 0RF ondansetron 4 mg Tablet,Disintegrating 4 mg PO Q8H PRN (Reason: Nausea) 0RF fentanyl 25 mcg/hr patch 72 hour 25 mcg transdermal Q72H 0RF omega-3 fatty acids Capsule 2,000 mg PO QDAY 0RF Lenox Thyroid 180 mg Tablet 180 mg PO QDAY 0RF carboxymethylcellulose sodium [Refresh Tears] 0.5 % Drops 2 drp OPHTHALMIC (EYE) BID PRN (Reason: Dry Eyes) 0RF Follow Up Plan Follow up with: Hu Solis ARNP [Primary Care Provider] - Vasyl Faulkner MD [Physician] - Patient Disposition: Xfer SNF Prognosis: Fair Rehab Potential: Good I certify that the patient requires SNF services: Yes Overall status at discharge: patient is progressing back to baseline Discharge Orders: Discharge Order (Routine); Ordered 03/08/21 Ordered By: John Bedoya
[2021-03-08] MEDS: tiZANidine 4 MG TABLET PO SCH (21:01)
[2021-03-09] MEDS: 0.9 % SODIUM CHLORIDE 10 ML SYRINGE IV SCH (04:32)
[2021-03-09 07:04] LABS: Basophils # (Auto) 0.03 K/mcL (0.00-0.30); Basophils % (Auto) 0.3 % (0.0-2.0); Eosinophils # (Auto) 0.13 K/mcL (0.00-0.70); Eosinophils % (Auto) 1.5 % (0.0-7.0); Hematocrit 33.7 % (34.1-44.9); Hemoglobin 10.5 g/dL (11.2-15.7); Lymphocytes # (Auto) 0.92 K/mcL (1.50-4.80); Lymphocytes % (Auto) 10.5 % (15.5-49.0); Mean Cell Volume 96.6 fL (80.0-100.0); Mean Corpuscular HGB Conc 31.2 g/dL (31.0-36.0); Monocytes # (Auto) 0.56 K/mcL (0.10-0.90); Monocytes % (Auto) 6.4 % (1.0-12.0); Neutrophils % (Auto) 81.3 % (38.0-78.0); Platelet Count 313 K/mcL (140-440); RBC 3.49 M/mcL (3.59-5.38); Red Cell Distribution Width 14.7 % (11.5-14.5); WBC 8.8 K/mcL (4.5-11.0)
[2021-03-09 07:41] LABS: ALT/SGPT 23 U/L (<40); AST/SGOT 19 U/L (<32); Albumin 2.6 gm/dL (3.2-5.2); Albumin/Globulin Ratio 0.8 (1.0-2.3); Alkaline Phosphatase 71 U/L (39-117); Bilirubin,Total 0.3 mg/dL (0.1-1.0); Blood Urea Nitrogen 11 mg/dL (8-23); Calcium 8.2 mg/dL (8.6-10.4); Carbon Dioxide 25 mmol/L (22-30); Chloride 103 mmol/L (96-108); Globulin 3.1 gm/dL (2.2-3.7); Glomerular Filtration Rate 94; Glucose 98 mg/dL (70-105)
[2021-03-09] MEDS: THYROID, PORK 60 MG TABLET PO SCH (08:36)
[2021-03-09] MEDS: DOCUSATE SODIUM 100 MG CAPSULE PO SCH (08:37)
[2021-03-09] MEDS: GABAPENTIN 300 MG CAPSULE PO SCH ×2 (08:37→12:13)
[2021-03-09] MEDS: ASCORBIC ACID 500 MG TABLET PO SCH (08:37)
[2021-03-09] MEDS: ESCITALOPRAM 10 MG TABLET PO SCH (08:37)
[2021-03-09] MEDS: ENOXAPARIN 40 MG/0.4 ML SYRINGE SQ SCH (08:38)
[2021-03-09] MEDS: DULoxetine 30 MG CAPSULE PO SCH (08:38)
[2021-03-09] MEDS: IPRATROPIUM/ALBUTEROL 3 ML AMPUL.NEB NEB SCH (09:25)
[2021-03-09] MEDS: BUDESONIDE 0.5 MG/2 ML AMPUL.NEB NEB SCH (09:26)
--- NOTE | 2021-03-09 10:02 | Internal Med Progress Note ---
SUBJECTIVE Subjective Patient information: Note initiated : 03/09/21 at 10:00 am Service Date, if different from initiated Date: [] Patient: Kiera Angeles a 85 y/o F admitted on 02/27/21 for Sob. Chief Complaint: [] Principal diagnosis: CAP, COPD exacerbation Interval history: History of present illness: Ms. Angeles is a 85 year old F Presents to the ED with nonproductive cough and shortness of breath going on for several days. She is found to be 85% oxygen per EMS. Patient denied fever chills. In the ED was found to have bilateral infiltrates. She did get a COVID-vaccine and her rapid COVID was negative. patient denies being around anybody's been sick. Cough productive of yellow sputum. Doesn't sound like she been on oxygen at home before. Says occasionally she feels like food or drink goes down the wrong pipe. 02/28 Patient states she feels a little bit better and states that his breathing a little better however has rib pain from coughing and she says that impairs her deep breathing. 03/01 She states she is feeling a little better again today little bit stronger and shortness of breath continuing to slowly improve. 03/02 Cough. Shortness of breath similar to yesterday. Patient on 1-2 L of cannula. GUTIÉRREZ. 03/03 Cough is decreased. Patient says she feels a little better. Dyspnea. Chest x-ray with pretty dense filtrate in the left lower. Will obtain CT chest to further clarify abnormalities. 03/04: Oxygen requirement ran up to 6L/min this morning, currently at 4L/min this afternoon. Was on 3L/min yesterday and was not on home oxygen. Blood cultures no growth to date. Urine culture grew E coli and S anginosus. On Zithromax and Cefepime for pneumonia, as well as prednisone and bronchodilators for COPD exacerbation. c/o same degree of shortness of breath, as well as productive cough with yellow sputum. Denies any wheezing or chest pain. Denies any fever, chills, or sweating. 03/05: Afebrile overnight. On 2L/min oxygen. On Cefepime and Zithromax. Feeling improving SOB. Denies cough or wheezing. Denies fever, chills, or sweating. PT recs. SNF placement. 03/06: Afebrile overnight. On 2L/min oxygen. Sputum culture light growth of c albicans. On Cefepime and Zithromax. c/o SOB. c/o nonproductive cough, denies wheezing. Denies fever, chills, or sweating. Pending [facility] on Monday. 03/07: Afebrile overnight. On 21L/min oxygen. Sputum culture light growth of c albican s. On Cefepime and Zithromax. Denies SOB. Denies cough or wheezing. Denies fever, chills, or sweating. Pending [facility] on Monday. 03/08: Medically stable. Did not end up being discharged to SNF due to CoVID Rodeo requirement by the SNF. Constitutional Vitals: Vital Signs Temp Pulse Resp BP Pulse Ox 37.1 C 69 22 99/57 93 03/09/21 08:00 03/09/21 09:27 03/09/21 09:27 03/09/21 08:00 03/09/21 09:26 Period Temp Pulse Resp BP Sys/Glover Pulse Ox Last 24 Hr 36.6 C-37.1 C 60-77 14-24 93-108/52-64 91-95 Intake and Output 03/08/21 03/09/21 03/09/21 21:59 05:59 13:59 Intake Total 600 340 Output Total 2 1 Balance 600 338 -1 Weight 75.523 kg Intake & Output: Intake & Output 03/08/21 03/09/21 03/09/21 21:59 05:59 13:59 Intake Total 600 340 Output Total 2 1 Balance 600 338 -1 Weight 75.523 kg Intake: Oral 600 340 Output: # of times incontinent of urine 2 1 Other: Stool Size Large Stool Color Brown Stool Consistency Soft Liquid # Bowel Movements 1 # of times incontinent of 1 Bowels Head Head exam: Present atraumatic and normal inspection Eye Eye exam: Present normal appearance ENT ENT exam: Present mucous membranes moist, normal exam and normal external ear exam Additional comments: supplemental oxygen in place Neck Neck exam: Present normal inspection Respiratory Respiratory exam: Present rhonchi Cardiovascular Cardiovascular exam: Present normal rate and rhythm GI/Abdominal GI/Abdominal exam: Present normal bowel sounds Back Exam Back exam: Present normal inspection Neurological Exam Neurological exam: Present alert and oriented X3 Skin Skin exam: Present intact and warm OBJ DATA Labs CBC & Chem 7: 03/09/21 05:46 03/09/21 05:46 Labs: Abnormal Lab Results 03/09/21 03/09/21 03/08/21 05:46 05:46 05:10 RBC 3.49 L Hgb 10.5 L Hct 33.7 L RDW 14.7 H MPV 11.0 H Neut % (Auto) 81.3 H Lymph % (Auto) 10.5 L Lymph # (Auto) 0.92 L Anion Gap Creatinine 0.4 L 0.5 L Calcium 8.2 L 8.3 L Total Protein 5.7 L 5.8 L Albumin 2.6 L 2.7 L Albumin/Globulin Ratio 0.8 L 0.9 L 03/08/21 03/07/21 03/07/21 05:10 06:06 06:06 RBC 3.42 L Hgb 10.9 L 10.2 L Hct 32.4 L RDW 14.9 H 14.7 H MPV 10.8 H 11.0 H Neut % (Auto) 79.8 H 79.5 H Lymph % (Auto) 11.4 L 13.7 L Lymph # (Auto) 1.02 L 1.29 L Anion Gap 6.0 L Creatinine 0.5 L Calcium 8.5 L Total Protein 5.8 L Albumin 2.7 L Albumin/Globulin Ratio 0.9 L Meds: Medications Albuterol/Ipratropium (Ipratropium/Albuterol 3 Ml Ampul.Neb) 3 ml NEB BID [facility] Last Admin: 03/09/21 09:25 Dose: 3 ml Documented by: Albuterol/Ipratropium (Ipratropium/Albuterol 3 Ml Ampul.Neb) 3 ml NEB Q4HP PRN PRN Reason: Shortness Of Breath Artificial Tears (Carboxymethylcellulose Sodium 1 Each Droper.Gel) 2 each OU BIDP PRN PRN Reason: Dry Eyes Ascorbic Acid (Ascorbic Acid 500 Mg Tablet) 1,000 mg PO DAILY [facility] Last Admin: 03/09/21 08:37 Dose: 1,000 mg Documented by: Benzonatate (Benzonatate 100 Mg Capsule) 200 mg PO TIDP PRN PRN Reason: Cough Last Admin: 03/01/21 17:14 Dose: 200 mg Documented by: Budesonide (Budesonide 0.5 Mg/2 Ml Ampul.Neb) 0.5 mg NEB Q12 [facility] Last Admin: 03/09/21 09:26 Dose: 0.5 mg Documented by: Calcium Carbonate/Glycine (Calcium Carbonate 500 Mg Tab.Chew) 500 mg CHEWED Q4HP PRN PRN Reason: Dyspepsia Cefepime HCl (Cefepime 2 Gm Vial) 2 gm IV Q12H [facility]; Protocol Last Admin: 03/08/21 21:01 Dose: 2 gm Documented by: Docusate Sodium (Docusate Sodium 100 Mg Capsule) 100 mg PO BID [facility] Last Admin: 03/09/21 08:37 Dose: 100 mg Documented by: Duloxetine HCl (Duloxetine 30 Mg Capsule) 30 mg PO QDAY [facility] Last Admin: 03/09/21 08:38 Dose: 30 mg Documented by: Enoxaparin Sodium (Enoxaparin 40 Mg/0.4 Ml Syringe) 40 mg SQ DAILY [facility] Last Admin: 03/09/21 08:38 Dose: 40 mg Documented by: Escitalopram Oxalate (Escitalopram 10 Mg Tablet) 5 mg PO DAILY [facility] Last Admin: 03/09/21 08:37 Dose: 5 mg Documented by: Fentanyl (Fentanyl 25 Mcg Patch) 25 mcg TOPICAL Q72H [facility] Last Admin: 03/07/21 10:07 Dose: 25 mcg Documented by: Fexofenadine HCl (Fexofenadine 180 Mg Tablet) 180 mg PO DAILYP PRN PRN Reason: Allergy Symptoms Gabapentin (Gabapentin 300 Mg Capsule) 600 mg PO HS [facility] Last Admin: 03/08/21 21:00 Dose: 600 mg Documented by: Gabapentin (Gabapentin 300 Mg Capsule) 300 mg PO BID@0800,1200 [facility] Last Admin: 03/09/21 08:37 Dose: 300 mg Documented by: Guaifenesin (Guaifenesin 600 Mg Tab.Sr.12h) 1,200 mg PO BIDP PRN PRN Reason: Congestion Potassium Chloride 40 meq/ (Dextrose) 520 mls @ 130 mls/hr IV UD PRN PRN Reason: Potassium < 3 Magnesium Sulfate (Magnesium Sulfate) 2 gm in 50 mls @ 50 mls/hr IV UD PRN PRN Reason: Magnesium </= 1.6 Methocarbamol (Methocarbamol 500 Mg Tablet) 1,000 mg PO Q6HP PRN PRN Reason: muscle spasms Metoclopramide HCl (Metoclopramide 10 Mg/2 Ml Vial) 10 mg IV Q6HP PRN PRN Reason: Nausea And Vomiting Ondansetron HCl (Ondansetron 4 Mg/2 Ml Vial) 4 mg IV Q4HP PRN PRN Reason: Nausea And Vomiting Last Admin: 03/01/21 20:33 Dose: 4 mg Documented by: Oxycodone/Acetaminophen (Oxycodone/Apap 5/325mg Tablet) 1 tab PO Q4HP PRN; Protocol PRN Reason: Pain Last Admin: 03/08/21 18:06 Dose: 1 tab Documented by: Polyethylene Glycol (Polyethylene Glycol 3350 17 Gm Packet) 17 gm PO DAILYP PRN PRN Reason: Constipation Potassium Chloride (Potassium Chloride 20 Meq Tablet) 40 meq PO UD PRN PRN Reason: Potssium is 3-3.5 Last Admin: 03/03/21 11:04 Dose: 40 meq Documented by: Potassium Chloride (Potassium Chloride 20 Meq Tablet) 40 meq PO UD PRN PRN Reason: Potassium < 3 Senna (Sennosides 1 Tablet) 2 tab PO DAILYP PRN PRN Reason: Constipation Simethicone (Simethicone 80 Mg Tab.Chew) 240 mg CHEWED BIDP PRN PRN Reason: Abdominal Discomfort Sodium Chloride (0.9 % Sodium Chloride 10 Ml Syringe) 10 ml IV Q8 [facility] Last Admin: 03/09/21 04:32 Dose: 10 ml Documented by: Thyroid (Thyroid, Pork 60 Mg Tablet) 180 mg PO ACB [facility] Last Admin: 03/09/21 08:36 Dose: 180 mg Documented by: Tizanidine HCl (Tizanidine 4 Mg Tablet) 4 mg PO HS [facility] Last Admin: 03/08/21 21:01 Dose: 4 mg Documented by: Tramadol HCl (Tramadol 50 Mg Tablet) 50 mg PO Q4-6HP PRN; Protocol PRN Reason: Pain A/P Assessment and plan (1) Bilateral pneumonia: Status: Acute (2) UTI (urinary tract infection): Status: Acute (3) Acute exacerbation of chronic obstructive pulmonary disease (COPD): Status: Acute (4) Hypothyroidism: Status: Acute (5) Sleep apnea: Status: Chronic (6) Major depressive disorder, recurrent, moderate: Status: Chronic Narrative A/P Narrative: Assessment and Plans: 1. Bilateral bacterial pneumonia: Stays in inpatient med surg Supplemental oxygen therapy, titrate to achieve spo2>=88% given COPD-er, currently on 1L/min Blood culture, no growth to date Sputum culture light growth of c.albicans Rodeo PCR test to rule out CoVID pneumonia Recent CT chest (03/03)only showing bilateral infiltrates, cannot perform CT angiogram for 48 hours to rule out pulmonary embolism Cefepime Zithromax Tylenol PRN cough Mucinex /Tessalon PRN cough Bronchodilators (DuoNEB) NEB scheduled and PRN wheezing 2. COPD with exacerbation: Supplemental oxygen therapy, titrate to achieve spo2>=88% given COPD-er, currently on 1L/min Prednisone Pulmicort Antibiotics, see #1 Bronchodilators (DuoNEB) NEB scheduled and PRN wheezing 3. Major depressive disorder: Cymbalta Lexapro 4. JAQUAN on CPAP: Continue CPAP at night while sleeping 5. Hypothyroidism: Continue oral thyroid replacement therapy 6. UTI: Blood culture, no growth to date Urine culture: E coli and S. anginosus Cefepime Zithromax Tylenol PRN fever GI ppx: not currently indicated DVT ppx: Lovenox Code status: Full Prognosis: stable Disposition: inpatient med surg; Pending SN[facility] on Monday Time Spent With Patient Time: Total time spent is greater than 50% in coordination of care (as documented) at patient's floor/unit and/or counseling patient: Total time spent with greater than 50% in coordination of care (as documented) at patient's floor/unit and/or counseling patient:: Greater than 35 minutes
--- NOTE | 2021-03-09 10:03 | Death Note ---
Discharge Sum: Diag Contributing Factors (1) Bilateral pneumonia: (2) UTI (urinary tract infection): (3) Acute exacerbation of chronic obstructive pulmonary disease (COPD): (4) Hypothyroidism: (5) Sleep apnea: (6) Major depressive disorder, recurrent, moderate: Discharge Sum: Summary Date and Time Date of admission: 02/27/21 06:57 Additional Data Attending physician: Tyrell Leonard
--- NOTE | 2021-03-09 10:04 | Discharge Summary ---
Discharge Provider Provider Patient information: Note initiated : 03/09/21 at 10:03 am Service Date, if different from initiated Date: [] Patient: Kiera Angeles 85 y/o F admitted on 02/27/21 for Sob. Chief Complaint: [] Date of admission: 02/27/21 06:57 Discharge date: 03/09/21 Primary care physician: GIUSEPPE Garcia Attending physician on admission: John Hernandez Pumichelet Consults: 02/27/21 05:15 Consult to Physician [CONS] Stat Comment: Consulting Provider: Tyrell Leonard Reason For Exam: Physician to Consult 03/05/21 13:55 Consult to Physician [CONS] Routine Comment: snf referral Consulting Provider: [facility] Reason For Exam: Physician to Consult Attending physician on discharge: John Hernandez Pui Discharge Meds Discharge Medications Home Medications alpha lipoic acid 100 mg capsule 300 mg PO DAILY 10/23/14 [History Confirmed 02/27/21 Last Taken Unknown] ascorbic acid (vitamin C) 1,000 mg tablet 1,000 mg PO DAILY 10/23/14 [History Confirmed 02/27/21 Last Taken 10/23/14 06:00] benzonatate 200 mg capsule 200 mg PO QDAY PRN 10/23/14 [History Confirmed 02/27/21 Last Taken Unknown] calcium citrate 1,000 mg PO DAILY 10/23/14 [History Confirmed 02/27/21 Last Taken Unknown] escitalopram oxalate 5 mg tablet 5 mg PO QDAY 08/20/19 [History Confirmed 02/27/21 Last Taken 12/11/20 09:00] gabapentin 300 mg capsule 600 mg PO HS 08/20/19 [History Confirmed 02/27/21 Last Taken 12/12/20 09:00] prednisone 5 mg tablet 20 mg PO QDAY 08/20/19 [History Confirmed 02/27/21 Last Taken 12/12/20 09:00] simethicone 125 mg capsule (Gas-X Extra Strength) 250 mg PO BID PRN 08/20/19 [History Confirmed 02/27/21 Last Taken 02/25/21] tizanidine 4 mg capsule 4 mg PO QHS 08/20/19 [History Confirmed 02/27/21 Last Taken 12/11/20 21:00] guaifenesin 600 mg tablet, extended release 12 hr (Mucinex) 1,200 mg PO BID PRN 03/28/20 [History Confirmed 02/27/21 Last Taken Unknown] methocarbamol 500 mg tablet 1,000 mg PO Q6HP PRN tab 08/31/20 [History Confirmed 02/27/21 Last Taken 12/11/20 21:00] duloxetine 30 mg capsule,delayed release (Cymbalta) 30 mg PO QDAY 11/03/20 [History Confirmed 02/27/21 Last Taken 12/12/20 09:00] fexofenadine 180 mg tablet 180 mg PO QDAY PRN 11/03/20 [History Confirmed 02/27/21 Last Taken Unknown] gabapentin 300 mg capsule 300 mg PO BID 11/03/20 [History Confirmed 02/27/21 Last Taken 12/12/20 09:00] oxycodone-acetaminophen 5 mg-325 mg tablet (Endocet) 1 tab PO Q4H PRN #30 tab 11/04/20 [Rx Confirmed 02/27/21 Last Taken Unknown] carboxymethylcellulose sodium 0.5 % eye drops (Refresh Tears) 2 drp OPHTHALMIC (EYE) BID PRN 02/27/21 [History Confirmed 02/27/21 Last Taken 02/25/21] fentanyl 25 mcg/hr transdermal patch 25 mcg TRANSDERMAL Q72H 02/27/21 [History Confirmed 02/27/21 Last Taken Unknown] omega-3 fatty acids 2,000 mg PO QDAY 02/27/21 [History Confirmed 02/27/21 Last Taken Unknown] ondansetron 4 mg disintegrating tablet 4 mg PO Q8H PRN 02/27/21 [History Confirmed 02/27/21 Last Taken Unknown] thyroid (pork) 180 mg tablet ([place] Thyroid) 180 mg PO QDAY 02/27/21 [History Confirmed 02/27/21 Last Taken 02/25/21] COURSE Hospital Course Hospital course: Ms. Angeles is a 85 year old F Presents to the ED with nonproductive cough and shortness of breath going on for several days. She is found to be 85% oxygen per EMS. Patient denied fever chills. In the ED was found to have bilateral infiltrates. She did get a COVID-vaccine and her rapid COVID was negative. patient denies being around anybody's been sick. Cough productive of yellow sputum. Doesn't sound like she been on oxygen at home before. Says occasionally she feels like food or drink goes down the wrong pipe. 02/28 Patient states she feels a little bit better and states that his breathing a little better however has rib pain from coughing and she says that impairs her deep breathing. 03/01 She states she is feeling a little better again today little bit stronger and shortness of breath continuing to slowly improve. 03/02 Cough. Shortness of breath similar to yesterday. Patient on 1-2 L of cannula. GUTIÉRREZ. 03/03 Cough is decreased. Patient says she feels a little better. Dyspnea. Chest x- ray with pretty dense filtrate in the left lower. Will obtain CT chest to further clarify abnormalities. 03/04: Oxygen requirement ran up to 6L/min this morning, currently at 4L/min this afternoon. Was on 3L/min yesterday and was not on home oxygen. Blood cultures no growth to date. Urine culture grew E coli and S anginosus. On Zithromax and Cefepime for pneumonia, as well as prednisone and bronchodilators for COPD exacerbation. c/o same degree of shortness of breath, as well as productive cough with yellow sputum. Denies any wheezing or chest pain. Denies any fever, chills, or sweating. 03/05: Afebrile overnight. On 2L/min oxygen. On Cefepime and Zithromax. Feeling improving SOB. Denies cough or wheezing. Denies fever, chills, or sweating. PT recs. SNF placement. 03/06: Afebrile overnight. On 2L/min oxygen. Sputum culture light growth of c albicans. On Cefepime and Zithromax. c/o SOB. c/o nonproductive cough, denies wheezing. Denies fever, chills, or sweating. Pending SN[facility] on Monday. 03/07: Afebrile overnight. On 21L/min oxygen. Sputum culture light growth of c albicans. On Cefepime and Zithromax. Denies SOB. Denies cough or wheezing. Denies fever, chills, or sweating. Pending SN[facility] on Monday. 03/08: Medically stable. Did not end up being discharged to SNF due to [facility] [place] requirement by the SNF. 03/09: Discharge to SNF Discharge diagnosis: CAP, UTI Time Spent with Patient Time attestation: Total time spent providing and/or coordinating discharge services: Time spent: Less than 30 minutes EXAM Constitutional Vitals: Temp Pulse Resp BP Pulse Ox 37.1 C 69 22 99/57 93 03/09/21 08:00 03/09/21 09:27 03/09/21 09:27 03/09/21 08:00 03/09/21 09:26 General appearance: cooperative and no acute distress Head Head exam: Present atraumatic and normocephalic Eye Eye exam: Present EOMI and PERRL ENT ENT exam: Present mucous membranes moist, normal exam and normal external ear exam Additional comments: supplemental oxygen in place Neck Neck exam: Present normal inspection; Absent lymphadenopathy, tenderness or thyromegaly Respiratory Respiratory exam: Present rhonchi; Absent accessory muscle use, respiratory distress or wheezes Cardiovascular Cardiovascular exam: Present normal rate and rhythm; Absent JVD GI/Abdominal GI/Abdominal exam: Present normal bowel sounds and soft; Absent organomegaly or tenderness Extremities Exam Extremities exam: Present full ROM, normal capillary refill and normal inspection; Absent tenderness Neurological Exam Neurological exam: Present alert, CN II-XII intact and oriented X3; Absent motor sensory deficit Psychiatric Psychiatric exam: Present normal affect and normal mood; Absent anxious or depressed Skin Skin exam: Present dry and intact Discharge Data Data Completed and Pending Labs on day of discharge: Labs from last 24 hours 03/09/21 03/09/21 05:46 05:46 WBC 8.8 RBC 3.49 L Hgb 10.5 L Hct 33.7 L MCV 96.6 MCH 30.1 MCHC 31.2 RDW 14.7 H Plt Count 313 MPV 11.0 H Neut % (Auto) 81.3 H Lymph % (Auto) 10.5 L Garza % (Auto) 6.4 Eos % (Auto) 1.5 Baso % (Auto) 0.3 Lymph # (Auto) 0.92 L Garza # (Auto) 0.56 Eos # (Auto) 0.13 Baso # (Auto) 0.03 Absolute Neutrophils 7.14 Sodium 138 Potassium 3.7 Chloride 103 Carbon Dioxide 25 Anion Gap 10.0 BUN 11 Creatinine 0.4 L GFR Calculation 94 Glucose 98 Calcium 8.2 L Total Bilirubin 0.3 AST 19 ALT 23 Alkaline Phosphatase 71 Total Protein 5.7 L Albumin 2.6 L Globulin 3.1 Albumin/Globulin Ratio 0.8 L Discharge Plan Patient/Caregiver Discharge Instructions Activity: increase activity as tolerated Diet: Regular Diet Instructions: Urinary Tract Infection in Women (DC), Pneumonia (DC) Activity Restrictions/Additional Instructions: Resume home diet as tolerated. Take all meals up in chair, sitting at 90 degrees, to prevent aspiration. Increase activity as tolerated. Continue fall precautions. Take all medication as directed. Return to ER for fever, chills, uncontrolled pain, inability to urinate or have a bowel movement, nausea and/or vomiting, swelling, redness, signs of infection, shortness of breath, chest pain, return of symptoms, or other acute symptom This discharge packet is provided to you to help keep you informed about your care. We want to ensure you get everything you need when you go home. You will also be receiving a call from us in a few days to follow up with you and see how you are doing since your discharge. This gives us a chance to listen to any concerns you maybe experiencing since you were discharged or any additional needs you may have, as well as providing us feedback on your care experience. We strive to always provide excellent care and thank you for your feedback and for choosing [facility]. Prescriptions: Continued benzonatate 200 MG capsule 200 mg PO QDAY PRN (Reason: Cough) 0RF ascorbic acid (vitamin C) 1,000 MG tablet 1,000 mg PO DAILY 0RF calcium citrate 250 MG tablet 1,000 mg PO DAILY 0RF alpha lipoic acid 100 MG capsule 300 mg PO DAILY 0RF prednisone 5 mg Tablet 20 mg PO QDAY 0RF simethicone [Gas-X Extra Strength] 125 mg Capsule 250 mg PO BID PRN (Reason: Abdominal Discomfort) 0RF gabapentin 300 mg Capsule 600 mg PO HS 0RF escitalopram oxalate 5 mg Tablet 5 mg PO QDAY 0RF tizanidine 4 mg Capsule 4 mg PO QHS 0RF guaifenesin [Mucinex] 600 mg Tablet Extended Release 12hr 1,200 mg PO BID PRN (Reason: Congestion) 0RF methocarbamol 500 mg tablet 1,000 mg PO Q6HP PRN (Reason: muscle spasms) 0RF gabapentin 300 mg capsule 300 mg PO BID 0RF Rx Instructions: QAM, NOON fexofenadine 180 mg Tablet 180 mg PO QDAY PRN (Reason: Allergy Symptoms) 0RF duloxetine [Cymbalta] 30 mg capsule,delayed release(DR/EC) 30 mg PO QDAY 0RF oxycodone-acetaminophen [Endocet] 5-325 mg Tablet 1 tab PO Q4H PRN (Reason: Pain) Qty: 30 0RF ondansetron 4 mg Tablet,Disintegrating 4 mg PO Q8H PRN (Reason: Nausea) 0RF fentanyl 25 mcg/hr patch 72 hour 25 mcg transdermal Q72H 0RF omega-3 fatty acids Capsule 2,000 mg PO QDAY 0RF [place] Thyroid 180 mg Tablet 180 mg PO QDAY 0RF carboxymethylcellulose sodium [Refresh Tears] 0.5 % Drops 2 drp OPHTHALMIC (EYE) BID PRN (Reason: Dry Eyes) 0RF Follow Up Plan Follow up with: Hu Solis ARNP [Primary Care Provider] - 03/15/21 1:30 pm () Vasyl Faulkner MD [Physician] - 04/08/21 1:00 pm Patient Disposition: Xfer SNF Prognosis: Fair Rehab Potential: Good I certify that the patient requires SNF services: Yes Overall status at discharge: patient is progressing back to baseline Discharge Orders: Discharge Order (Routine); Ordered 03/09/21 Ordered By: John Bedoya
[2021-03-09] MEDS: CEFEPIME 2 GM VIAL IV SCH (12:12)
[2021-03-09] MEDS: oxyCODONE/APAP 5/325MG TABLET PO PRN (12:13)
== END 2021-03-09 13:30 | DRG 193 ==
LOC: ED 01:49 → MEDSUR 06:45
PROVIDERS: ADMIT Internal Medicine; ATTEND Internal Medicine

== ENCOUNTER 2021-07-15 10:57 | Inpatient (IN) ==
[2021-07-15 11:26] LABS: POC Calcium, Ionized 1.23 (1.16-1.32); POC Creatinine 0.6 (0.6-1.2); POC Potassium 3.1 (3.3-5.1)
[2021-07-15] MEDS ORDERED: 0.9 % SODIUM CHLORIDE 1,000 ML IV ONE (11:55)
--- NOTE | 2021-07-15 12:06 | Emergency Department Note ---
Altered Mental Status HPI <Jackson Leigh PA-C - Last Filed: 07/15/21 16:19> General Chief Complaint: Altered Mental Status Stated Complaint: Poss UTI Time Seen by Provider: 07/15/21 11:00 Source: EMS Mode of arrival: EMS Limitations: altered mental status History of Present Illness HPI Narrative: Narrative: 86-year-old female presents the ER to be evaluated for possible UTI and altered mental status. She was seen by her primary care provider Hu Solis and started taking ciprofloxacin twice daily yesterday. She has now had 3 doses of it. They states she is not as quick to respond is normal which is how she acts when she has a UTI. She has not had any significant improvement. They are also worried she might be dehydrated. She is here with her daughter and she is cared for by her daughter and other family members at home. They states she has not had a fever, chills, nausea, vomiting or abdominal pain. Patient does not provide any significant history. Patient has a history of UTIs, COPD, heart disease, implanted pacemaker, arthritis, history of GI bleeding and GERD. She is on gabapentin, escitalopram, duloxetine, and [place] Thyroid. Her daughter states she has not been taking her medications regularly. Related Data Home Medications Medication Instructions Recorded Confirmed alpha lipoic acid 100 mg capsule 300 mg PO DAILY 10/23/14 07/15/21 ascorbic acid (vitamin C) 1,000 mg 1,000 mg PO DAILY 10/23/14 07/15/21 tablet benzonatate 200 mg capsule 200 mg PO PRN PRN 10/23/14 07/15/21 calcium citrate 1,000 mg PO DAILY 10/23/14 07/15/21 escitalopram oxalate 5 mg tablet 5 mg PO QDAY 08/20/19 07/15/21 gabapentin 300 mg capsule 600 mg PO HS 08/20/19 07/15/21 prednisone 5 mg tablet 10 mg PO QDAY 08/20/19 07/15/21 simethicone 125 mg capsule (Gas-X 200 mg PO PRN PRN 08/20/19 07/15/21 Extra Strength) tizanidine 4 mg capsule 4 mg PO QHS 08/20/19 07/15/21 guaifenesin 600 mg tablet, 1,200 mg PO BID PRN 03/28/20 07/15/21 extended release 12 hr (Mucinex) methocarbamol 500 mg tablet 1,000 mg PO Q6HP PRN tab 08/31/20 07/15/21 duloxetine 30 mg capsule,delayed 30 mg PO QDAY 11/03/20 07/15/21 release (Cymbalta) fexofenadine 180 mg tablet 180 mg PO QDAY PRN 11/03/20 07/15/21 gabapentin 300 mg capsule 300 mg PO BID 11/03/20 07/15/21 carboxymethylcellulose sodium 0.5 2 drp OPHTHALMIC (EYE) BID PRN 02/27/21 07/15/21 % eye drops (Refresh Tears) omega-3 fatty acids 2,000 mg PO QDAY 02/27/21 07/15/21 ondansetron 4 mg disintegrating 4 mg PO Q8H PRN 02/27/21 07/15/21 tablet thyroid (pork) 180 mg tablet 180 mg PO QDAY 02/27/21 07/15/21 ([place] Thyroid) ciprofloxacin HCl 500 mg tablet 1 tab PO BID 07/15/21 07/15/21 fexofenadine 180 mg tablet 180 mg PO PRN PRN 07/15/21 07/15/21 fluticasone 250 mcg-salmeterol 50 1 inh INHALATION BID PRN 07/15/21 07/15/21 mcg/dose blistr powdr for inhalation (Advair Diskus) levothyroxine 75 mcg tablet 75 mcg PO QDAY 07/15/21 07/15/21 Previous Rx's Medication Instructions Recorded fentanyl 25 mcg/hr transdermal 25 mcg TRANSDERMAL Q72H #10 ea 05/06/21 patch baclofen 10 mg tablet 10 - 20 mg PO QHS #60 tab 05/07/21 oxycodone-acetaminophen 5 mg-325 1 tab PO Q4H PRN #120 tab MDD 4 06/15/21 mg tablet (Endocet) Allergies Allergy/AdvReac Type Severity Reaction Status Date / Time Barbiturates Allergy Severe Swelling Verified 07/15/21 11:02 of Lip/Tongue/Throat morphine Allergy Severe Anaphylaxis Verified 07/15/21 11:02 famotidine Allergy Mild Rash Verified 07/15/21 11:02 Proton Pump Inhibitors Allergy Mild Rash Verified 07/15/21 11:02 Cyclobenzaprine AdvReac Intermediate MAKES SKIN Verified 07/15/21 11:02 [From Flexeril] PEEL IN SHEETS Review of Systems <Jackson Leigh PA-C - Last Filed: 07/15/21 16:19> ROS ROS Narrative: Narrative: All systems ED: reviewed and negative except as stated. PFSH <Jackson Leigh PA-C - Last Filed: 07/15/21 16:19> Narrative Patient History Narrative: Narrative: Medical/Surgical/Family History All Active Problems (Updated 07/15/21 @ 16:19 by Jackson Leigh PA-C) Pneumonia (Acute) Hypothyroidism (Acute) Hypokalemia (Acute) Bilateral pneumonia (Acute) UTI (urinary tract infection) (Acute) Hemarthrosis of right knee (Acute) Fracture of tibia and fibula (Acute) History of diverticulosis (Chronic) Rectal hemorrhage (Acute) BRBPR (bright red blood per rectum) (Acute) Polyarthritis rheumatica (Chronic) Arthritis (Chronic) Acute UTI (Acute) Closed lumbar vertebral fracture (Chronic) Fracture of third metatarsal bone (Acute) Fracture of fourth metatarsal bone (Acute) Fracture of fifth metatarsal bone (Acute) Weakness (Acute) Cellulitis (Acute) Back pain (Acute) Acute exacerbation of chronic obstructive pulmonary disease (COPD) (Acute) Pneumonia (Acute) Lumbar stenosis with neurogenic claudication (Chronic) Thoracic spondylosis (Chronic) Thoracic radiculopathy (Chronic) Radiculopathy, lumbar region (Acute) Heart disease (Chronic) History of tobacco use (Chronic) Radiculopathy, lumbar region (Chronic) Myofascial pain (Chronic) Pain in joint of right knee (Chronic) Personal history of (healed) osteoporosis fracture (Chronic) Intercostal pain (Chronic) Strain of lumbar region (Acute) UTI (urinary tract infection) (Acute) Non-cardiac chest pain (Acute) Encounter for long-term current use of high risk medication (Acute) HX: breast cancer (Chronic) COPD (chronic obstructive pulmonary disease) (Chronic) Sleep apnea (Chronic) Anxiety (Chronic) Depression (Chronic) Wrist fracture (Chronic) Pelvic fracture (Chronic) Compression fracture (Chronic) Eczema (Chronic) DJD (degenerative joint disease) (Acute) Type II diabetes mellitus (Chronic) Osteoporosis (Chronic) Age-related osteoporosis with current pathological fracture (Chronic) Other urticaria (Chronic) Gastro-esophageal reflux disease without esophagitis (Chronic) Major depressive disorder, recurrent, moderate (Chronic) Medical History Age-related osteoporosis with current pathological fracture Anxiety Arthritis Compression fracture COPD (chronic obstructive pulmonary disease) Depression DJD (degenerative joint disease) Eczema Encounter for long-term current use of high risk medication Gastro-esophageal reflux disease without esophagitis Heart disease History of tobacco use HX: breast cancer Intercostal pain Lumbar stenosis with neurogenic claudication Major depressive disorder, recurrent, moderate Myofascial pain Osteoporosis Other urticaria Pain in joint of right knee Pelvic fracture Personal history of (healed) osteoporosis fracture Polyarthritis rheumatica Radiculopathy, lumbar region Radiculopathy, lumbar region Sleep apnea Thoracic radiculopathy Thoracic spondylosis Type II diabetes mellitus Wrist fracture Surgical History History of surgery Intercostal Nerve Block, Lt T7-10 w/o sed 09/30/19 LESI #1 L3-4 w/o sed 09/30/19 LESI #1 L4-5 w/o sed 08/14/2018 LESI #2 L3-4 w/o sed 11/06/2017 LESI #1 L4-5 w/o sed 05/23/2017 Knee Joint Injection, Right w/o sed 04/15/2015 LESI #2 L4-5 w/o sed 04/15/2015 Trigger Point Injection 1-2 w/o sed 03/26/15 LESI #1 L4-5 w/o sed 03/26/15 Vertebro Aug T12, L1 w/sed 07/31/14 Hx laparoscopic cholecystectomy (11/12/09) Hx of appendectomy 2009 Hx of cardiac pacemaker 10/2010 Hx of lumpectomy 10/2009 Hx of mastectomy 10/2009. 02/2011 Hx of surgical procedure aortal bi-femoral graft Family History Other Cancer Social History Smoking Status: Former smoker Alcohol Intake Frequency: holiday/special occasion only Substance Use: marijuana Exam <Jackson Leigh PA-C - Last Filed: 07/15/21 16:19> Narrative Narrative: Narrative: Gen: No acute distress Eyes: PERRL, no conjunctival injection , and symmetrical lids. Sclerae non icteric HENMT: Normocephalic Atraumatic head, external nose and ears. Moist MM. CVS: +S1/S2, No murmurs or gallops. Radial pulses 2+ and equal bilat. No swelling RESP: Unlabored respiratory effort . Clear to auscultation bilaterally (CTAB). No noted wheezes rales or ronchi. GI: Nontender/Nondistended (NTND), No focal tenderness Rectal: No external hemorrhoids, external bleeding, stage I decubitus ulcers in the intergluteal cleft, no open skin sores but irritated tissue. There is no blood in the diaper. MSK: Extremities w/o deformity or ttp. No cyanosis or clubbing. Skin: Warm, Dry . No rashes or lesions . Cap refill less than 2. Neuro: No focal neurological deficit Psych: Awake, Alert, patient does not give verbal responses which is baseline according to her daughter Appropriate mood and affect . General Limitations: altered mental status Course <Jackson Leigh PA-C - Last Filed: 07/15/21 16:19> Vital Signs Vital signs: Vital Signs Temperature 98.5 F 07/15/21 10:58 Pulse Rate 97 H 07/15/21 10:58 Respiratory Rate 16 07/15/21 10:58 Blood Pressure 105/55 07/15/21 10:58 Pulse Oximetry (%) 95 07/15/21 10:58 Temperature 98.5 F 07/15/21 17:37 Pulse Rate 81 07/15/21 17:37 Respiratory Rate 16 07/15/21 17:37 Blood Pressure 98/45 07/15/21 17:37 Pulse Oximetry (%) 91 07/15/21 17:37 MDM <Jackson Leigh PA-C - Last Filed: 07/15/21 16:19> MDM Narrative Medical decision making narrative: Narrative: Patient was started on Cipro yesterday. Family reports confusion, which is consistent with UTI's for her. She will be evaluated with a UA, CBC, EKG, CG 4, lactate will be given a liter of fluid. Pt will have a noncon head CT CBC: White count of 18-1/2 with left shift Chem 8: Slightly decreased potassium otherwise unremarkable CG 4: Unremarkable Lactate: Normal EKG: Sinus rhythm at 88 bpm with premature ventricular complexes, left ventricular hypertrophy, right bundle branch block, no evidence of acute ischemia. UA: Consistent with UTI Head CT: IMPRESSION: 1. Cerebral atrophy. White matter abnormality consistent with small vessel ischemic change 2. No intracranial hemorrhage 3. No acute intracranial abnormality. Patient has a high white count and her abdomen was reevaluated and was complete ly soft and nontender. Otherwise her lab work is unremarkable, lactate is not elevated, no significant electrolyte abnormalities. EKG is normal, CT scan had no acute abnormality. She was started on Cipro yesterday. We're still waiting on her urine. Given she has had transient hypoxia as low as 87% on room air with me in the room while lying flat and has an elevated white count I would like to get a chest x-ray to rule out pneumonia. On closer auscultation she does have slight wheezing and ronchi. Chest x-ray: Consistent with pneumonia Patient has a curb 65 score of 3 which puts her in the severe risk group and necessity for inpatient admission and possible ICU care. Blood cultures will be obtained. Hospitalist we consulted this time and the patient will be started on Rocephin and azithromycin. Dr Leonard: Graciously agreed to come down evaluate the patient for admission. Lab Data Result diagrams: 07/15/21 11:18 Labs: Lab Results 07/15/21 07/15/21 07/15/21 Range/Units 11:18 11:20 11:24 WBC 18.5 H (4.5-11.0) K/mcL RBC 3.78 (3.59-5.38) M/mcL Hgb 10.9 L (11.2-15.7) g/dL Hct 34.2 (34.1-44.9) % POC Hct 33.0 L (36-48) MCV 90.5 (80.0-100.0) fL MCH 28.8 (26.0-34.0) pg MCHC 31.9 (31.0-36.0) g/dL RDW 16.1 H (11.5-14.5) % Plt Count 164 (140-440) K/mcL MPV 12.5 H (7.4-10.4) fL Neut % (Auto) 89.4 H (38.0-78.0) % Lymph % (Auto) 4.4 L (15.5-49.0) % [place] % (Auto) 5.7 (1.0-12.0) % Eos % (Auto) 0.2 (0.0-7.0) % Baso % (Auto) 0.3 (0.0-2.0) % Lymph # (Auto) 0.81 L (1.50-4.80) K/mcL [place] # (Auto) 1.06 H (0.10-0.90) K/mcL Eos # (Auto) 0.03 (0.00-0.70) K/mcL Baso # (Auto) 0.05 (0.00-0.30) K/mcL Seg Neutrophils % (38-78) % Band Neutrophils % (0-10) % Lymphocytes % (15-49) % Monocytes % (Manual) (1-12) % Absolute Neutrophils 16.59 H (1.80-8.00) K/mcL Platelet Estimate (Normal) RBC Morphology (Normal) POC VBG pH 7.45 H (7.32-7.42) POC VBG pCO2 at Temp 34.4 L (41-51) POC VBG pO2 32 (25-40) POC VBG HCO3 23.7 L (24-28) POC VBG Total CO2 25.0 (25-29) POC Venous O2 Sat 65.0 (40-70) POC VBG Base Excess 0 (-2-2) POC Sodium 137 (133-145) POC Potassium 3.1 L (3.3-5.1) POC Chloride 101 (96-108) POC Total CO2 24.0 (22-30) POC BUN 22 H (6-20) POC Creatinine 0.6 (0.6-1.2) POC Glucose 117 H (70-105) POC Venous Lactate 1.7 (0.5-2) POC WB Ioniz Calcium 1.23 (1.16-1.32) NT-Pro-B Natriuret Pep (<450.0) pg/mL Procalcitonin (<0.10) ng/mL Urine Color Urine Appearance (Clear) Urine pH (5.0-9.0) Ur Specific [place] (1.000-1.035) Urine Protein (Negative) mg/dL Urine Glucose (UA) (Negative) mg/dL Urine Ketones (Negative) mg/dL Urine Occult Blood (Negative) toi/mcL Urine Nitrate (Negative) Urine Bilirubin (Negative) mg/dL Urine Urobilinogen mg/dL Ur Leukocyte Esterase (Negative) /uL Urine RBC (0-3) /hpf Urine WBC (0-4) /hpf Ur Squamous Epith Cells (0-4) /hpf Ur Transition Epith Cell (0-2) /hpf Urine Bacteria (0) /hpf Urine Mucus (None) /hpf Ur Culture Indicated? 07/15/21 07/15/21 07/15/21 Range/Units 12:46 14:58 14:58 WBC (4.5-11.0) K/mcL RBC (3.59-5.38) M/mcL Hgb (11.2-15.7) g/dL Hct (34.1-44.9) % POC Hct (36-48) MCV (80.0-100.0) fL MCH (26.0-34.0) pg MCHC (31.0-36.0) g/dL RDW (11.5-14.5) % Plt Count (140-440) K/mcL MPV (7.4-10.4) fL Neut % (Auto) (38.0-78.0) % Lymph % (Auto) (15.5-49.0) % [place] % (Auto) (1.0-12.0) % Eos % (Auto) (0.0-7.0) % Baso % (Auto) (0.0-2.0) % Lymph # (Auto) (1.50-4.80) K/mcL [place] # (Auto) (0.10-0.90) K/mcL Eos # (Auto) (0.00-0.70) K/mcL Baso # (Auto) (0.00-0.30) K/mcL Seg Neutrophils % 63 (38-78) % Band Neutrophils % 29 H (0-10) % Lymphocytes % 5 L (15-49) % Monocytes % (Manual) 3 (1-12) % Absolute Neutrophils (1.80-8.00) K/mcL Platelet Estimate Normal (Normal) RBC Morphology Normal (Normal) POC VBG pH (7.32-7.42) POC VBG pCO2 at Temp (41-51) POC VBG pO2 (25-40) POC VBG HCO3 (24-28) POC VBG Total CO2 (25-29) POC Venous O2 Sat (40-70) POC VBG Base Excess (-2-2) POC Sodium (133-145) POC Potassium (3.3-5.1) POC Chloride (96-108) POC Total CO2 (22-30) POC BUN (6-20) POC Creatinine (0.6-1.2) POC Glucose (70-105) POC Venous Lactate (0.5-2) POC WB Ioniz Calcium (1.16-1.32) NT-Pro-B Natriuret Pep (<450.0) pg/mL Procalcitonin 1.23 H (<0.10) ng/mL Urine Color Yellow Urine Appearance Clear (Clear) Urine pH 6.0 (5.0-9.0) Ur Specific [place] 1.025 (1.000-1.035) Urine Protein 30 mg/dl A (Negative) mg/dL Urine Glucose (UA) Negative (Negative) mg/dL Urine Ketones Negative (Negative) mg/dL Urine Occult Blood Trace-intact A (Negative) toi/mcL Urine Nitrate Positive A (Negative) Urine Bilirubin Negative (Negative) mg/dL Urine Urobilinogen 2.0 e.u./dl A mg/dL Ur Leukocyte Esterase Large A (Negative) /uL Urine RBC 4 H (0-3) /hpf Urine WBC 137 H (0-4) /hpf Ur Squamous Epith Cells < 1 (0-4) /hpf Ur Transition Epith Cell < 1 (0-2) /hpf Urine Bacteria Few A (0) /hpf Urine Mucus Few A (None) /hpf Ur Culture Indicated? yes 07/15/21 Range/Units 14:58 WBC (4.5-11.0) K/mcL RBC (3.59-5.38) M/mcL Hgb (11.2-15.7) g/dL Hct (34.1-44.9) % POC Hct (36-48) MCV (80.0-100.0) fL MCH (26.0-34.0) pg MCHC (31.0-36.0) g/dL RDW (11.5-14.5) % Plt Count (140-440) K/mcL MPV (7.4-10.4) fL Neut % (Auto) (38.0-78.0) % Lymph % (Auto) (15.5-49.0) % [place] % (Auto) (1.0-12.0) % Eos % (Auto) (0.0-7.0) % Baso % (Auto) (0.0-2.0) % Lymph # (Auto) (1.50-4.80) K/mcL [place] # (Auto) (0.10-0.90) K/mcL Eos # (Auto) (0.00-0.70) K/mcL Baso # (Auto) (0.00-0.30) K/mcL Seg Neutrophils % (38-78) % Band Neutrophils % (0-10) % Lymphocytes % (15-49) % Monocytes % (Manual) (1-12) % Absolute Neutrophils (1.80-8.00) K/mcL Platelet Estimate (Normal) RBC Morphology (Normal) POC VBG pH (7.32-7.42) POC VBG pCO2 at Temp (41-51) POC VBG pO2 (25-40) POC VBG HCO3 (24-28) POC VBG Total CO2 (25-29) POC Venous O2 Sat (40-70) POC VBG Base Excess (-2-2) POC Sodium (133-145) POC Potassium (3.3-5.1) POC Chloride (96-108) POC Total CO2 (22-30) POC BUN (6-20) POC Creatinine (0.6-1.2) POC Glucose (70-105) POC Venous Lactate (0.5-2) POC WB Ioniz Calcium (1.16-1.32) NT-Pro-B Natriuret Pep 919.8 H (<450.0) pg/mL Procalcitonin (<0.10) ng/mL Urine Color Urine Appearance (Clear) Urine pH (5.0-9.0) Ur Specific [place] (1.000-1.035) Urine Protein (Negative) mg/dL Urine Glucose (UA) (Negative) mg/dL Urine Ketones (Negative) mg/dL Urine Occult Blood (Negative) toi/mcL Urine Nitrate (Negative) Urine Bilirubin (Negative) mg/dL Urine Urobilinogen mg/dL Ur Leukocyte Esterase (Negative) /uL Urine RBC (0-3) /hpf Urine WBC (0-4) /hpf Ur Squamous Epith Cells (0-4) /hpf Ur Transition Epith Cell (0-2) /hpf Urine Bacteria (0) /hpf Urine Mucus (None) /hpf Ur Culture Indicated? ED POC Tests ED POC Tests: BLADE - SARS Antigen Negative Discharge Plan Patient/Caregiver Discharge Instructions Pt seen by [employer]/PA only: Yes Clinical Impression: Pneumonia Patient Disposition: Xfer As Inpt ([facility]) Condition: Fair Discharge Date/Time: 07/15/21 17:29 Discharge Comment: Taken to [facility]SU via tech
--- NOTE | 2021-07-15 12:34 | Cat Scan Report ---
INDICATION: AMS COMPARISON: Previous brain CT scan dated 11/18/2010 TECHNIQUE: Axial noncontrast-enhanced images through the brain. Sagittally and coronally reformatted images. FINDINGS: Cerebral hemispheres:Negative. No intra-axial abnormality. No intra-axial hematoma. No localized mass effect. There is age-appropriate cerebral atrophy. There is extensive white matter abnormality consistent with small vessel ischemic change. Brainstem and cerebellum:No intra-axial abnormality Extra-axial:No acute hemorrhage. No subdural or epidural hematoma. No subarachnoid hemorrhage. Basilar cisterns are normal Calvarial:No calvarial fracture. No lytic lesion Temporal bones are negative. No destructive lesions Soft tissue, orbits, sinuses:Orbits and visualized facial soft tissues and paranasal sinuses are negative IMPRESSION: 1. Cerebral atrophy. White matter abnormality consistent with small vessel ischemic change 2. No intracranial hemorrhage 3. No acute intracranial abnormality. The exam was performed using radiation dose optimization techniques including, but not limited to, automated exposure control, adjustment of the mA and/or kV according to patient size and use of iterative reconstruction technique. Interpreted and Authenticated by: Dagoberto Gant 07/15/21
[2021-07-15 13:10] LABS: Basophils # (Auto) 0.05 K/mcL (0.00-0.30); Basophils % (Auto) 0.3 % (0.0-2.0); Eosinophils # (Auto) 0.03 K/mcL (0.00-0.70); Eosinophils % (Auto) 0.2 % (0.0-7.0); Hematocrit 34.2 % (34.1-44.9); Hemoglobin 10.9 g/dL (11.2-15.7); Lymphocytes # (Auto) 0.81 K/mcL (1.50-4.80); Lymphocytes % (Auto) 4.4 % (15.5-49.0); Mean Cell Volume 90.5 fL (80.0-100.0); Mean Corpuscular HGB Conc 31.9 g/dL (31.0-36.0); Mean Platelet Volume 12.5 fL (7.4-10.4); Monocytes # (Auto) 1.06 K/mcL (0.10-0.90); Monocytes % (Auto) 5.7 % (1.0-12.0); Neutrophils % (Auto) 89.4 % (38.0-78.0); Platelet Count 164 K/mcL (140-440); RBC 3.78 M/mcL (3.59-5.38); Red Cell Distribution Width 16.1 % (11.5-14.5); WBC 18.5 K/mcL (4.5-11.0)
--- NOTE | 2021-07-15 14:34 | XRay Report ---
INDICATION: SOB TECHNIQUE: AP portable chest x-ray COMPARISON: Previous chest x-rays dated 03/04/2021, 03/03/2021. Previous chest CT scan dated 03/03/2021 FINDINGS:No change in position of left-sided pacemaker and bipolar leads. There is a right-sided Port-A-Cath with its tip in the superior vena cava Lungs:There are bilateral pulmonary parenchymal infiltrates with right midlung and left basilar consolidation. Appearance is consistent with pneumonia. Follow-up radiographs recommended Heart, vascular:No significant cardiomegaly. Pulmonary vascularity is normal. No pulmonary edema or pulmonary congestion Mediastinum, garrett:No mediastinal widening. No hilar mass. Probable large hiatal hernia Pleura:No definite pleural effusion Skeletal:Negative. IMPRESSION: 1. Bilateral pulmonary parenchymal consolidation consistent with pneumonia 2. Large hiatal hernia Interpreted and Authenticated by: Dagoberto Gant 07/15/21
[2021-07-15] MEDS ORDERED: cefTRIAXone 1 GM VIAL IV ONE (14:39)
[2021-07-15] MEDS ORDERED: AZITHROMYCIN 500 MG in DEXTROSE 5% IN WATER 250 ML IV ONE (14:39)
[2021-07-15 14:53] LABS: Appearance,Urine Clear (Clear); Bacteria,Urine FEW /hpf (0); Bilirubin,Urine Negative (Negative); Color,Urine Yellow; Culture Indicated,Urine yes; Glucose,Urine (UA) Negative (Negative); Ketones,Urine Negative (Negative); Leukocyte Esterase,Urine Large /uL (Negative); Mucus,Urine FEW /hpf; Nitrate,Urine Positive (Negative); Specific Gravity,Urine 1.025 (1.000-1.035); Urine Blood Trace-intact ery/mcL (Negative); Urine RBC 4 /hpf (0-3); Urine Squamous Epithelial Cell < 1 /hpf (0-4); Urine Transitional Epi Cells < 1 /hpf (0-2); Urine WBC 137 /hpf (0-4); Urobilinogen,Urine 2.0 E.U./dL mg/dL
--- NOTE | 2021-07-15 16:35 | Internal Med History&Physical ---
HPI History of Present Illness Patient information: Note initiated : 07/15/21 at 4:28 pm Service Date, if different from initiated Date: [] Patient: Kiera Angeles a 86 y/o F admitted on for Poss UTI. Chief Complaint: [] History of present illness: Ms. Angeles is a 86 year old F Presents to the ED by family as she is confused empiric, worries about UTI. Daughter also told the patient she was worried about her breathing. Patient is a poor historian and most history obtained from chart. In the ED she had a chest x-ray that showed bilateral infiltrates. Her oxygen saturation high 80s low 90s but would drop to 87% on room air at rest. Patient denies fever chills or coughing. Was confused per daughter per the notes. Urinalysis in the ED was also concerning for UTI. She had a white blood cell count of 18. We will differential and procalcitonin. She was admitted here in February for 9 days for pneumonia. She lives at home with family and uses a wheelchair to get around although sometimes she will use a cane but she says primarily wheelchair. Review of Systems: Pertinent positives as above. Denies headache/fever/chills/nausea/vomiting/chest or abdominal pain/diarrhea. Remaining 10 point review of system reviewed negative PFSH PFSH All Active Problems (Updated 07/15/21 @ 16:19 by Jackson Leigh PA-C) Pneumonia (Acute) Hypothyroidism (Acute) Hypokalemia (Acute) Bilateral pneumonia (Acute) UTI (urinary tract infection) (Acute) Hemarthrosis of right knee (Acute) Fracture of tibia and fibula (Acute) History of diverticulosis (Chronic) Rectal hemorrhage (Acute) BRBPR (bright red blood per rectum) (Acute) Polyarthritis rheumatica (Chronic) Arthritis (Chronic) Acute UTI (Acute) Closed lumbar vertebral fracture (Chronic) Fracture of third metatarsal bone (Acute) Fracture of fourth metatarsal bone (Acute) Fracture of fifth metatarsal bone (Acute) Weakness (Acute) Cellulitis (Acute) Back pain (Acute) Acute exacerbation of chronic obstructive pulmonary disease (COPD) (Acute) Pneumonia (Acute) Lumbar stenosis with neurogenic claudication (Chronic) Thoracic spondylosis (Chronic) Thoracic radiculopathy (Chronic) Radiculopathy, lumbar region (Acute) Heart disease (Chronic) History of tobacco use (Chronic) Radiculopathy, lumbar region (Chronic) Myofascial pain (Chronic) Pain in joint of right knee (Chronic) Personal history of (healed) osteoporosis fracture (Chronic) Intercostal pain (Chronic) Strain of lumbar region (Acute) UTI (urinary tract infection) (Acute) Non-cardiac chest pain (Acute) Encounter for long-term current use of high risk medication (Acute) HX: breast cancer (Chronic) COPD (chronic obstructive pulmonary disease) (Chronic) Sleep apnea (Chronic) Anxiety (Chronic) Depression (Chronic) Wrist fracture (Chronic) Pelvic fracture (Chronic) Compression fracture (Chronic) Eczema (Chronic) DJD (degenerative joint disease) (Acute) Type II diabetes mellitus (Chronic) Osteoporosis (Chronic) Age-related osteoporosis with current pathological fracture (Chronic) Other urticaria (Chronic) Gastro-esophageal reflux disease without esophagitis (Chronic) Major depressive disorder, recurrent, moderate (Chronic) Medical History Age-related osteoporosis with current pathological fracture Anxiety Arthritis Compression fracture COPD (chronic obstructive pulmonary disease) Depression DJD (degenerative joint disease) Eczema Encounter for long-term current use of high risk medication Gastro-esophageal reflux disease without esophagitis Heart disease History of tobacco use HX: breast cancer Intercostal pain Lumbar stenosis with neurogenic claudication Major depressive disorder, recurrent, moderate Myofascial pain Osteoporosis Other urticaria Pain in joint of right knee Pelvic fracture Personal history of (healed) osteoporosis fracture Polyarthritis rheumatica Radiculopathy, lumbar region Radiculopathy, lumbar region Sleep apnea Thoracic radiculopathy Thoracic spondylosis Type II diabetes mellitus Wrist fracture Surgical History History of surgery Intercostal Nerve Block, Lt T7-10 w/o sed 09/30/19 LESI #1 L3-4 w/o sed 09/30/19 LESI #1 L4-5 w/o sed 08/14/2018 LESI #2 L3-4 w/o sed 11/06/2017 LESI #1 L4-5 w/o sed 05/23/2017 Knee Joint Injection, Right w/o sed 04/15/2015 LESI #2 L4-5 w/o sed 04/15/2015 Trigger Point Injection 1-2 w/o sed 03/26/15 LESI #1 L4-5 w/o sed 03/26/15 Vertebro Aug T12, L1 w/sed 07/31/14 Hx laparoscopic cholecystectomy (11/12/09) Hx of appendectomy 2009 Hx of cardiac pacemaker 10/2010 Hx of lumpectomy 10/2009 Hx of mastectomy 10/2009. 02/2011 Hx of surgical procedure aortal bi-femoral graft Family History Other Cancer Social History education level: high school sexually active: No smoking status: Former smoker alcohol intake frequency: holiday/special occasion only substance use type: marijuana MEDS/ALLERGIES Home Medications and Allergies Home Medications Medication Instructions Recorded Confirmed Type alpha lipoic acid 100 mg capsule 300 mg PO DAILY 10/23/14 07/15/21 History ascorbic acid (vitamin C) 1,000 mg 1,000 mg PO DAILY 10/23/14 07/15/21 History tablet benzonatate 200 mg capsule 200 mg PO PRN PRN 10/23/14 07/15/21 History calcium citrate 1,000 mg PO DAILY 10/23/14 07/15/21 History escitalopram oxalate 5 mg tablet 5 mg PO QDAY 08/20/19 07/15/21 History gabapentin 300 mg capsule 600 mg PO HS 08/20/19 07/15/21 History prednisone 5 mg tablet 10 mg PO QDAY 08/20/19 07/15/21 History simethicone 125 mg capsule (Gas-X 200 mg PO PRN PRN 08/20/19 07/15/21 History Extra Strength) tizanidine 4 mg capsule 4 mg PO QHS 08/20/19 07/15/21 History guaifenesin 600 mg tablet, 1,200 mg PO BID PRN 03/28/20 07/15/21 History extended release 12 hr (Mucinex) methocarbamol 500 mg tablet 1,000 mg PO Q6HP PRN tab 08/31/20 07/15/21 History duloxetine 30 mg capsule,delayed 30 mg PO QDAY 11/03/20 07/15/21 History release (Cymbalta) fexofenadine 180 mg tablet 180 mg PO QDAY PRN 11/03/20 07/15/21 History gabapentin 300 mg capsule 300 mg PO BID 11/03/20 07/15/21 History carboxymethylcellulose sodium 0.5 2 drp OPHTHALMIC (EYE) BID PRN 02/27/21 07/15/21 History % eye drops (Refresh Tears) omega-3 fatty acids 2,000 mg PO QDAY 02/27/21 07/15/21 History ondansetron 4 mg disintegrating 4 mg PO Q8H PRN 02/27/21 07/15/21 History tablet thyroid (pork) 180 mg tablet 180 mg PO QDAY 02/27/21 07/15/21 History ([place] Thyroid) fentanyl 25 mcg/hr transdermal 25 mcg TRANSDERMAL Q72H #10 ea 05/06/21 07/15/21 Rx patch baclofen 10 mg tablet 10 - 20 mg PO QHS #60 tab 05/07/21 07/15/21 Rx oxycodone-acetaminophen 5 mg-325 1 tab PO Q4H PRN #120 tab MDD 4 06/15/21 07/15/21 Rx mg tablet (Endocet) ciprofloxacin HCl 500 mg tablet 1 tab PO BID 07/15/21 07/15/21 History fexofenadine 180 mg tablet 180 mg PO PRN PRN 07/15/21 07/15/21 History fluticasone 250 mcg-salmeterol 50 1 inh INHALATION BID PRN 07/15/21 07/15/21 History mcg/dose blistr powdr for inhalation (Advair Diskus) levothyroxine 75 mcg tablet 75 mcg PO QDAY 07/15/21 07/15/21 History Allergies Allergy/AdvReac Type Severity Reaction Status Date / Time Barbiturates Allergy Severe Swelling Verified 07/15/21 11:02 of Lip/Tongue/Throat morphine Allergy Severe Anaphylaxis Verified 07/15/21 11:02 famotidine Allergy Mild Rash Verified 07/15/21 11:02 Proton Pump Inhibitors Allergy Mild Rash Verified 07/15/21 11:02 Cyclobenzaprine AdvReac Intermediate MAKES SKIN Verified 07/15/21 11:02 [From Flexeril] PEEL IN SHEETS EXAM Constitutional Vitals: Temp Pulse Resp BP Pulse Ox 98.5 F 88 16 103/53 94 07/15/21 10:58 07/15/21 15:16 07/15/21 10:58 07/15/21 16:16 07/15/21 15:16 Exam: General: Alert, Awake, No acute Distress, obesity Eyes/N/T: EOMI, PERRL, dry MM Head/Neck: neck supple, normocephalic atraumatic CV: RRR, No murmurs, normal s1/s2 Pulm: mild rhonchi b/l, no wheezing Abd: soft, nontender, +BS x4 Ext: no clubbing/cyanosis/edema Neuro: Alert, no focal deficits, moves all extremities, CN 2-12 grossly intact, symmetrical strength b/l upper/lower, sensations intact b/l upper/lower Skin: warm/dry DATA Data Completed and Pending Labs: Labs from last 24 hours 07/15/21 07/15/21 07/15/21 14:58 14:58 14:58 WBC RBC Hgb Hct POC Hct MCV MCH MCHC RDW Plt Count MPV Neut % (Auto) Lymph % (Auto) [place] % (Auto) Eos % (Auto) Baso % (Auto) Lymph # (Auto) [place] # (Auto) Eos # (Auto) Baso # (Auto) Absolute Neutrophils Platelet Estimate Pending RBC Morphology Pending POC VBG pH POC VBG pCO2 at Temp POC VBG pO2 POC VBG HCO3 POC VBG Total CO2 POC Venous O2 Sat POC VBG Base Excess POC Sodium POC Potassium POC Chloride POC Total CO2 POC BUN POC Creatinine POC Glucose POC Venous Lactate POC WB Ioniz Calcium NT-Pro-B Natriuret Pep Pending Procalcitonin Pending Urine Color Urine Appearance Urine pH Ur Specific [place] Urine Protein Urine Glucose (UA) Urine Ketones Urine Occult Blood Urine Nitrate Urine Bilirubin Urine Urobilinogen Ur Leukocyte Esterase Urine RBC Urine WBC Ur Squamous Epith Cells Ur Transition Epith Cell Urine Bacteria Urine Mucus Ur Culture Indicated? 07/15/21 07/15/21 07/15/21 12:46 11:24 11:20 WBC RBC Hgb Hct POC Hct 33.0 L MCV MCH MCHC RDW Plt Count MPV Neut % (Auto) Lymph % (Auto) [place] % (Auto) Eos % (Auto) Baso % (Auto) Lymph # (Auto) [place] # (Auto) Eos # (Auto) Baso # (Auto) Absolute Neutrophils Platelet Estimate RBC Morphology POC VBG pH 7.45 H POC VBG pCO2 at Temp 34.4 L POC VBG pO2 32 POC VBG HCO3 23.7 L POC VBG Total CO2 25.0 POC Venous O2 Sat 65.0 POC VBG Base Excess 0 POC Sodium 137 POC Potassium 3.1 L POC Chloride 101 POC Total CO2 24.0 POC BUN 22 H POC Creatinine 0.6 POC Glucose 117 H POC Venous Lactate 1.7 POC WB Ioniz Calcium 1.23 NT-Pro-B Natriuret Pep Procalcitonin Urine Color Yellow Urine Appearance Clear Urine pH 6.0 Ur Specific [place] 1.025 Urine Protein 30 mg/dl A Urine Glucose (UA) Negative Urine Ketones Negative Urine Occult Blood Trace-intact A Urine Nitrate Positive A Urine Bilirubin Negative Urine Urobilinogen 2.0 e.u./dl A Ur Leukocyte Esterase Large A Urine RBC 4 H Urine WBC 137 H Ur Squamous Epith Cells < 1 Ur Transition Epith Cell < 1 Urine Bacteria Few A Urine Mucus Few A Ur Culture Indicated? yes 07/15/21 11:18 WBC 18.5 H RBC 3.78 Hgb 10.9 L Hct 34.2 POC Hct MCV 90.5 MCH 28.8 MCHC 31.9 RDW 16.1 H Plt Count 164 MPV 12.5 H Neut % (Auto) 89.4 H Lymph % (Auto) 4.4 L [place] % (Auto) 5.7 Eos % (Auto) 0.2 Baso % (Auto) 0.3 Lymph # (Auto) 0.81 L [place] # (Auto) 1.06 H Eos # (Auto) 0.03 Baso # (Auto) 0.05 Absolute Neutrophils 16.59 H Platelet Estimate RBC Morphology POC VBG pH POC VBG pCO2 at Temp POC VBG pO2 POC VBG HCO3 POC VBG Total CO2 POC Venous O2 Sat POC VBG Base Excess POC Sodium POC Potassium POC Chloride POC Total CO2 POC BUN POC Creatinine POC Glucose POC Venous Lactate POC WB Ioniz Calcium NT-Pro-B Natriuret Pep Procalcitonin Urine Color Urine Appearance Urine pH Ur Specific [place] Urine Protein Urine Glucose (UA) Urine Ketones Urine Occult Blood Urine Nitrate Urine Bilirubin Urine Urobilinogen Ur Leukocyte Esterase Urine RBC Urine WBC Ur Squamous Epith Cells Ur Transition Epith Cell Urine Bacteria Urine Mucus Ur Culture Indicated? A/P Narrative A/P Narrative: A: *PNA, b/l: -[id number] *UTI: *Sepsis: *Metabolic encephalopathy: *Acute hypoxic respiratory failure: -87% in ED *COPD(not on home O2) *Anxiety d/o: continue escitalopram *h/o Polyarthritis: Follows with Dr. Landis and is on prednisone *Hypothyroidism: *Obesity: *SSS w/ppm: *Osteoporosis with h/o vertebral fracture: *Chr Pain: on opioids *h/o of Breast CA w/port: *Generalized weakness/deconditioning/debility: Patient primarily uses wheelchair *Electrolyte d/o (hypokalemia): Plan: -cefepime/azithromycin, mrsa screen -Pending SC/BC/UC -O2 Supp, prn -check man diff and pct, bnp to eval cardiac component -myco/strep/rvp -IS/Acapella, prn nebs -Continue home prednisone -PT OT/nutrition support -CM for placement needs -ppx:Lovenox Time Spent With Patient Time: Total time spent is greater than 50% in coordination of care (as documented) at patient's floor/unit and/or counseling patient: Total time spent with greater than 50% in coordination of care (as documented) at patient's floor/unit and/or counseling patient:: Greater than 70 minutes
[2021-07-15 17:06] LABS: Band Neutrophils % 29 % (0-10); Lymphocytes % 5 % (15-49); Monocytes % (Manual) 3 % (1-12); Platelet Estimate NORMAL (Normal); RBC Morphology NORMAL (Normal); Segmented Neutrophils % 63 % (38-78)
[2021-07-15] MEDS ORDERED: POLYETHYLENE GLYCOL 3350 17 GM PACKET PO PRN (17:43)
[2021-07-15] MEDS ORDERED: POTASSIUM CHLORIDE 40 MEQ in DEXTROSE 5% IN WATER 500 ML IV PRN (17:43)
[2021-07-15] MEDS ORDERED: FLUTICASONE/SALMETEROL 250/50 INHALER #14 INH PRN (17:43)
[2021-07-15] MEDS ORDERED: POTASSIUM CHLORIDE 20 MEQ TABLET PO PRN ×2 (17:43)
[2021-07-15] MEDS ORDERED: SENNOSIDES 1 TABLET PO PRN (17:43)
[2021-07-15] MEDS ORDERED: ONDANSETRON 4 MG/2 ML VIAL IV PRN (17:43)
[2021-07-15] MEDS ORDERED: fentaNYL 25 MCG PATCH TOPICAL SCH (17:43)
[2021-07-15] MEDS ORDERED: MAGNESIUM SULFATE 2 GM/50 ML BAG IV PRN (17:43)
[2021-07-15] MEDS ORDERED: IPRATROPIUM/ALBUTEROL 3 ML AMPUL.NEB NEB PRN (17:43)
[2021-07-15] MEDS ORDERED: POTASSIUM CHLORIDE 20 MEQ TABLET PO ONE (17:43)
[2021-07-15] MEDS ORDERED: CARBOXYMETHYLCELLULOSE SODIUM 1 EACH DROPER.GEL OU PRN (17:59)
[2021-07-15] MEDS ORDERED: SIMETHICONE 80 MG TAB.CHEW PO PRN (18:00)
[2021-07-15] MEDS ORDERED: tiZANidine 4 MG TABLET PO PRN (19:32)
[2021-07-15] MEDS: 0.9 % SODIUM CHLORIDE 10 ML SYRINGE IV SCH (20:07)
[2021-07-15] MEDS: CEFEPIME 2 GM VIAL IV SCH (20:07)
[2021-07-15] MEDS ORDERED: GABAPENTIN 300 MG CAPSULE PO SCH (21:00)
[2021-07-15] MEDS ORDERED: tiZANidine 4 MG TABLET PO SCH (21:00)
[2021-07-15] MEDS: ACETAMINOPHEN 325 MG TABLET PO PRN (22:29)
[2021-07-15] MEDS: GABAPENTIN 300 MG CAPSULE PO SCH (22:30)
[2021-07-15] MEDS: BACLOFEN 10 MG TABLET PO SCH (22:30)
[2021-07-15] MEDS: DOCUSATE SODIUM 100 MG CAPSULE PO SCH (22:30)
[2021-07-16] MEDS: CEFEPIME 2 GM VIAL IV SCH ×4 (02:04→21:38)
[2021-07-16] MEDS: 0.9 % SODIUM CHLORIDE 10 ML SYRINGE IV SCH ×4 (02:05→21:39)
[2021-07-16] MEDS ORDERED: LACTATED RINGERS 1,000 ML IV ONE ×2 (03:08→06:55)
[2021-07-16 07:07] LABS: Hemoglobin 9.7 g/dL (11.2-15.7); Mean Cell Volume 91.7 fL (80.0-100.0); Mean Corpuscular HGB Conc 31.3 g/dL (31.0-36.0); Mean Platelet Volume 12.4 fL (7.4-10.4); Platelet Count 160 K/mcL (140-440); RBC 3.38 M/mcL (3.59-5.38); Red Cell Distribution Width 16.4 % (11.5-14.5); WBC 9.7 K/mcL (4.5-11.0)
--- NOTE | 2021-07-16 07:07 | EKG ---
[facility] Test Date: 2021-07-15 Pat Name: Kiera Angeles Department: ED Room: Gender: Female Financial Wellness Coach: KW : 1935 Requested By: Jackson Leigh Order Number: [id number] Reading MD: George Silva Measurements Intervals [place] Rate: 88 P: -34 [place]: 190 QRS: -6 QRSD: 126 T: -27 QT: 404 QTc: 489 Interpretive Statements Sinus rhythm 1st degree AV block RBBB Electronically Signed On 07-16-2021 7:06:56 PDT by George Silva /store/M0/[id number].pdf
--- NOTE | 2021-07-16 07:59 | Internal Med Progress Note ---
SUBJECTIVE Subjective Patient information: Note initiated : 07/16/21 at 7:52 am Service Date, if different from initiated Date: [] Patient: Kiera Angeles 86 y/o F admitted on 07/15/21 for Poss UTI. Chief Complaint: [] Interval history: History of present illness: Ms. Angeles is a 86 year old F Presents to the ED by family as she is confused empiric, worries about UTI. Daughter also told the patient she was worried about her breathing. Patient is a poor historian and most history obtained from chart. In the ED she had a chest x-ray that showed bilateral infiltrates. Her oxygen saturation high 80s low 90s but would drop to 87% on room air at rest. Patient denies fever chills or coughing. Was confused per daughter per the notes. Urinalysis in the ED was also concerning for UTI. She had a white blood cell count of 18. We will differential and procalcitonin. She was admitted here in February for 9 days for pneumonia. She lives at home with family and uses a wheelchair to get around although sometimes she will use a cane but she says primarily wheelchair. / Patient blood pressure low last night and patient lethargic. Patient transferred to PCU and given IV fluid bolus with improvement of her pressure and improving urine output. She has a cough and some mild shortness of breath. Says she does feel little bit better than yesterday. The nurse note that sometimes she becomes lethargic. We will check an ABG she is a bit tachypneic. We will update some chest imaging. Leukocytosis solved. Phos low. Procalcitonin mildly improved. The patient more tachypneic today. Strep urine antigen positive. MRSA screen positive we will order colonization. Review of Systems: denies headache/fever/chills/nausea/vomiting/chest or abdominal pain/diarrhea. Otherwise see above. Constitutional Vitals: Vital Signs Temp Pulse Resp BP Pulse Ox 97.5 F 77 27 H 102/49 90 07/16/21 02:07 07/16/21 06:16 07/16/21 06:16 07/16/21 06:16 07/16/21 06:16 Period Temp Pulse Resp BP Sys/[place] Pulse Ox Last 24 Hr 97.5 F-98.7 F 58-113 16-32 84-118/39-65 88-99 Intake and Output 07/15/21 07/16/21 07/16/21 21:59 05:59 13:59 Intake Total 1690 1000 Output Total 1 300 Balance 1689 700 Weight 67.585 kg Intake & Output: Intake & Output 07/15/21 07/16/21 07/16/21 21:59 05:59 13:59 Intake Total 1690 1000 Output Total 1 300 Balance 1689 700 Weight 67.585 kg Intake: IV 1250 1000 Sodium Chloride 0.9% 1,000 ml @ 1000 Wide Open IV BOLUS ONE Rx#: [id number] Zithromax 500 mg In Dextrose 5% 250 in Water 250 ml @ 250 mls/hr IV ONCE ONE Rx#:[id number] Lactated Ringers 1,000 ml @ 1000 Wide Open IV BOLUS ONE Rx#: [id number] Oral 440 0 Output: Urine Catheter Amount 150 Void Amount 150 # of times incontinent of urine 1 0 Other: Urine Appearance Clear Urine Color Bright Yellow Dark Yellow Urine Odor Strong # Voids 0 # Bowel Movements 0 0 # of times incontinent of 0 0 Bowels Exam: General: Alert, Awake, No acute Distress, obesity Eyes/N/T: EOMI, PERRL, Head/Neck: neck supple, normocephalic atraumatic CV: RRR, No murmurs, normal s1/s2 Pulm: b/l rales fine and mild rhonchi, no wheezing Abd: soft, nontender, +BS x4 Ext: no clubbing/cyanosis/edema Neuro: Alert, no focal deficits, moves all extremities, Skin: warm/dry OBJ DATA Labs CBC & Chem 7: 07/16/21 05:30 07/16/21 05:30 Labs: Abnormal Lab Results 07/16/21 07/15/21 07/15/21 05:30 17:43 14:58 WBC RBC 3.38 L Hgb 9.7 L Hct 31.0 L POC Hct RDW 16.4 H MPV 12.4 H Neut % (Auto) Lymph % (Auto) Lymph # (Auto) [place] # (Auto) Band Neutrophils % Lymphocytes % Absolute Neutrophils POC VBG pH POC VBG pCO2 at Temp POC VBG HCO3 POC Potassium POC BUN POC Glucose NT-Pro-B Natriuret Pep 919.8 H Procalcitonin Urine Protein Urine Occult Blood Urine Nitrate Urine Urobilinogen Ur Leukocyte Esterase Urine RBC Urine WBC Urine Bacteria Urine Mucus Ur Strep pneumoniae Ag Positive A 07/15/21 07/15/21 07/15/21 14:58 14:58 12:46 WBC RBC Hgb Hct POC Hct RDW MPV Neut % (Auto) Lymph % (Auto) Lymph # (Auto) [place] # (Auto) Band Neutrophils % 29 H Lymphocytes % 5 L Absolute Neutrophils POC VBG pH POC VBG pCO2 at Temp POC VBG HCO3 POC Potassium POC BUN POC Glucose NT-Pro-B Natriuret Pep Procalcitonin 1.23 H Urine Protein 30 mg/dl A Urine Occult Blood Trace-intact A Urine Nitrate Positive A Urine Urobilinogen 2.0 e.u./dl A Ur Leukocyte Esterase Large A Urine RBC 4 H Urine WBC 137 H Urine Bacteria Few A Urine Mucus Few A Ur Strep pneumoniae Ag 07/15/21 07/15/21 07/15/21 11:24 11:20 11:18 WBC 18.5 H RBC Hgb 10.9 L Hct POC Hct 33.0 L RDW 16.1 H MPV 12.5 H Neut % (Auto) 89.4 H Lymph % (Auto) 4.4 L Lymph # (Auto) 0.81 L [place] # (Auto) 1.06 H Band Neutrophils % Lymphocytes % Absolute Neutrophils 16.59 H POC VBG pH 7.45 H POC VBG pCO2 at Temp 34.4 L POC VBG HCO3 23.7 L POC Potassium 3.1 L POC BUN 22 H POC Glucose 117 H NT-Pro-B Natriuret Pep Procalcitonin Urine Protein Urine Occult Blood Urine Nitrate Urine Urobilinogen Ur Leukocyte Esterase Urine RBC Urine WBC Urine Bacteria Urine Mucus Ur Strep pneumoniae Ag Meds: Medications Acetaminophen (Acetaminophen 325 Mg Tablet) 650 mg PO Q6HP PRN; Protocol PRN Reason: Per Pain Protocol/Fever > 101 Last Admin: 07/15/21 22:29 Dose: 650 mg Documented by: Albuterol/Ipratropium (Ipratropium/Albuterol 3 Ml Ampul.Neb) 3 ml NEB Q4HP PRN PRN Reason: Shortness Of Breath Artificial Tears (Carboxymethylcellulose Sodium 1 Each Droper.Gel) 1 each OU BID PRN PRN Reason: Dry Eyes Baclofen (Baclofen 10 Mg Tablet) 10 - 20 mg PO QHS [facility] Last Admin: 07/15/21 22:30 Dose: 10 mg Documented by: Cefepime HCl (Cefepime 2 Gm Vial) 2 gm IV Q8H [facility]; Protocol Last Admin: 07/16/21 07:13 Dose: 2 gm Documented by: Docusate Sodium (Docusate Sodium 100 Mg Capsule) 100 mg PO BID [facility] Last Admin: 07/15/21 22:30 Dose: 100 mg Documented by: Duloxetine HCl (Duloxetine 30 Mg Capsule) 30 mg PO QDAY [facility] Enoxaparin Sodium (Enoxaparin 40 Mg/0.4 Ml Syringe) 40 mg SQ DAILY [facility] Escitalopram Oxalate (Escitalopram 10 Mg Tablet) 5 mg PO DAILY [facility] Fentanyl (Fentanyl 25 Mcg Patch) 25 mcg TOPICAL Q72H [facility] Last Admin: 07/15/21 19:53 Dose: Not Given Documented by: Gabapentin (Gabapentin 300 Mg Capsule) 300 mg PO BID@0800,1200 [facility] Gabapentin (Gabapentin 300 Mg Capsule) 300 mg PO HS [facility] Last Admin: 07/15/21 22:30 Dose: 300 mg Documented by: Guaifenesin (Guaifenesin 600 Mg Tab.Sr.12h) 1,200 mg PO BID PRN PRN Reason: Congestion Potassium Chloride 40 meq/ (Dextrose) 520 mls @ 130 mls/hr IV UD PRN PRN Reason: Potassium < 3 Magnesium Sulfate (Magnesium Sulfate) 2 gm in 50 mls @ 50 mls/hr IV UD PRN PRN Reason: Magnesium </= 1.6 Azithromycin 500 mg/ Dextrose 250 mls @ 250 mls/hr IV Q24H [facility]; Protocol Stop: 07/17/21 09:59 Levothyroxine Sodium (Levothyroxine 75 Mcg Tablet) 75 mcg PO QDAY [facility] Methocarbamol (Methocarbamol 500 Mg Tablet) 1,000 mg PO Q6HP PRN PRN Reason: muscle spasms Mupirocin (Mupirocin Oint 2% 22gm) 1 dose NARES BID [facility] Ondansetron HCl (Ondansetron 4 Mg/2 Ml Vial) 4 mg IV Q4HP PRN PRN Reason: Nausea And Vomiting Oxycodone/Acetaminophen (Oxycodone/Apap 5/325mg Tablet) 1 tab PO Q4H PRN; Protocol PRN Reason: Pain Polyethylene Glycol (Polyethylene Glycol 3350 17 Gm Packet) 17 gm PO DAILYP PRN PRN Reason: Constipation Potassium Chloride (Potassium Chloride 20 Meq Tablet) 40 meq PO UD PRN PRN Reason: Potssium is 3-3.5 Potassium Chloride (Potassium Chloride 20 Meq Tablet) 40 meq PO UD PRN PRN Reason: Potassium < 3 Prednisone (Prednisone 10 Mg Tablet) 10 mg PO QAC [facility] Fluticasone/Salmeterol (Fluticasone/Salmeterol 250/50 Inhaler #14) 1 puff INH BID PRN PRN Reason: Wheezing Senna (Sennosides 1 Tablet) 2 tab PO DAILYP PRN PRN Reason: Constipation Simethicone (Simethicone 80 Mg Tab.Chew) 200 mg PO DAILYP PRN PRN Reason: Abdominal Discomfort Sodium Chloride (0.9 % Sodium Chloride 10 Ml Syringe) 10 ml IV Q8 [facility] Last Admin: 07/16/21 05:20 Dose: Not Given Documented by: Thyroid (Thyroid, Pork 60 Mg Tablet) 180 mg PO ACB [facility] Tizanidine HCl (Tizanidine 4 Mg Tablet) 4 mg PO QHS PRN PRN Reason: spasm A/P Narrative A/P Narrative: A: *PNA, b/l, Streptococcus pne.: -GBJ=[id number] -PCT elevated *UTI ( ): *Severe Sepsis: -leukocytosis w/bandemia -Hypotension resolved with IVF *Metabolic encephalopathy: *Acute hypoxic respiratory failure: -87% in ED, no on 0.5L NC *COPD(not on home O2) -February CT noted emphysema, former smoker quit 20yrs ago *Anxiety d/o: continue escitalopram *h/o Polyarthritis: Follows with Dr. Landis and is on prednisone *Anemia, chronic: *Hypothyroidism: *Obesity: *SSS w/ppm: *Osteoporosis with h/o vertebral fracture: *Chr Pain: on opioids *h/o of Breast CA w/port: *Generalized weakness/deconditioning/debility: Patient primarily uses wheelchair *Electrolyte d/o (hypokalemia): Plan: -cefepime/azithromycin, mrsa screen pos(decol protocol) -Pending SC/BC/UC -O2 Supp, prn -monitor pct -ct chest for worsened tachypnea, abg for lethargy -IS/Acapella, prn nebs -Continue home prednisone, stress dose steroids -hold fentanyl -PT OT/nutrition support -CM for placement needs -ppx:Lovenox DNR Time Spent With Patient Time: Total time spent is greater than 50% in coordination of care (as documented) at patient's floor/unit and/or counseling patient: Total time spent with greater than 50% in coordination of care (as documented) at patient's floor/unit and/or counseling patient:: 35 - 50 minutes QUALITY VTE Deep Vein Thrombosis/Pulmonary Embolism Present on Admission: No
[2021-07-16] MEDS ORDERED: CHLORHEXIDINE GLUCONATE 473 ML BOTTLE TOPICAL SCH (08:00)
[2021-07-16 08:18] LABS: ALT/SGPT 24 U/L (<40); AST/SGOT 51 U/L (<32); Albumin 2.2 gm/dL (3.2-5.2); Albumin/Globulin Ratio 0.7 (1.0-2.3); Alkaline Phosphatase 95 U/L (39-117); Bilirubin,Direct 0.2 mg/dL (<0.3); Bilirubin,Total 0.5 mg/dL (0.1-1.0); Blood Urea Nitrogen 14 mg/dL (8-23); Calcium 8.8 mg/dL (8.6-10.4); Carbon Dioxide 25 mmol/L (22-30); Chloride 107 mmol/L (96-108); Globulin 3.3 gm/dL (2.2-3.7); Glomerular Filtration Rate 82; Glucose 83 mg/dL (70-105); Lactate Dehydrogenase 239 U/L (135-225); Triglycerides 94 mg/dL (<150); Uric Acid 4.6 mg/dL (2.5-8.0)
[2021-07-16] MEDS ORDERED: MUPIROCIN OINT 2% 22GM NARES SCH (09:00)
[2021-07-16 09:11] LABS: Anisocytosis RARE (None Seen); Band Neutrophils % 2 % (0-10); Basophils % (Manual) 1 % (0-2); Eosinophils % (Manual) 1 % (0-7); Hypochromasia 1+ (None Seen); Lymphocytes % 16 % (15-49); Monocytes % (Manual) 6 % (1-12); Platelet Estimate NORMAL (Normal); RBC Morphology ABNORMAL (Normal); Segmented Neutrophils % 74 % (38-78)
[2021-07-16] MEDS: AZITHROMYCIN 500 MG in DEXTROSE 5% IN WATER 250 ML IV SCH (09:51)
[2021-07-16] MEDS: LEVOTHYROXINE 75 MCG TABLET PO SCH (09:52)
[2021-07-16] MEDS: THYROID, PORK 60 MG TABLET PO SCH (09:52)
[2021-07-16] MEDS: GABAPENTIN 300 MG CAPSULE PO SCH ×3 (10:20→21:39)
[2021-07-16] MEDS: DULoxetine 30 MG CAPSULE PO SCH (10:32)
[2021-07-16] MEDS: guaiFENesin 600 MG TAB.SR.12H PO PRN (10:32)
[2021-07-16] MEDS: ENOXAPARIN 40 MG/0.4 ML SYRINGE SQ SCH (10:32)
[2021-07-16] MEDS: DOCUSATE SODIUM 100 MG CAPSULE PO SCH ×2 (10:33→21:39)
[2021-07-16] MEDS: ESCITALOPRAM 10 MG TABLET PO SCH (10:33)
[2021-07-16] MEDS: predniSONE 10 MG TABLET PO SCH (10:33)
[2021-07-16] MEDS: ACETAMINOPHEN 325 MG TABLET PO PRN (10:33)
[2021-07-16] MEDS: HYDROCORTISONE SOD SUCC 100 MG VIAL IV SCH ×3 (10:34→21:38)
[2021-07-16] MEDS: MUPIROCIN OINT 2% 22GM NARES SCH ×2 (10:35→21:41)
--- NOTE | 2021-07-16 13:47 | Cat Scan Report ---
INDICATION: Increasing tachypnea, ?Emphysema as well COMPARISON: Previous examination dated 03/03/2021 TECHNIQUE: Axial noncontrast enhanced images through the chest. Sagittally and coronally reformatted images. MIP reformatted images. FINDINGS: Lungs:There is centrilobular emphysema in the upper lobes. Extensive consolidation within the right lower lobe and right middle lobe consistent with pneumonia. There is moderate infiltrate in the left lower lobe. There has been interval progression in the right middle lobe and right lower lobe since previous examination. Mediastinum, vascular:No pathologic mediastinal or hilar adenopathy. There is a large hiatal hernia Thoracic aorta is negative. No aneurysmal dilatation Heart:No significant cardiomegaly. No pericardial effusion Pleura:Small pleural effusions or pleural thickening bilaterally. These are unchanged Axilla, supraclavicular regions, chest wall:No axillary or supraclavicular adenopathy. Musculoskeletal:Multiple thoracic compression deformities. Patient has undergone previous vertebral body segmentation at T8, T12, L1. Compression deformity of the T12 vertebral body is new since previous examination Upper Abdomen:Negative to the limits of noncontrast enhanced examination IMPRESSION: 1. Centrilobular emphysema 2. Dense consolidation in the right middle lobe, right lower lobe, left lower lobe consistent with pneumonia. There is been interval progression since 03/03/2021 3. Large hiatal hernia 4. Multiple thoracic compression fractures. Compression deformity of the T2 vertebral body is new since previous examination The exam was performed using radiation dose optimization techniques including, but not limited to, automated exposure control, adjustment of the mA and/or kV according to patient size and use of iterative reconstruction technique. Interpreted and Authenticated by: Dagoberto Gant 07/16/21
[2021-07-16] MEDS ORDERED: ALBUMIN HUMAN 12.5 GM/50 ML BAG IV ONE (14:45)
[2021-07-16] MEDS ORDERED: LACTATED RINGERS 250 ML IV ONE (14:46)
[2021-07-16] MEDS: NEUTRA PHOS 1 PACKET PO SCH ×2 (14:49→21:38)
[2021-07-16] MEDS: BACLOFEN 10 MG TABLET PO SCH (21:39)
[2021-07-17] MEDS: oxyCODONE/APAP 5/325MG TABLET PO PRN
[2021-07-17] MEDS: HYDROCORTISONE SOD SUCC 100 MG VIAL IV SCH ×3 (05:44→21:54)
[2021-07-17] MEDS: CEFEPIME 2 GM VIAL IV SCH ×3 (05:44→21:49)
[2021-07-17] MEDS: 0.9 % SODIUM CHLORIDE 10 ML SYRINGE IV SCH ×3 (05:44→21:56)
[2021-07-17 06:40] LABS: Basophils # (Auto) 0.01 K/mcL (0.00-0.30); Basophils % (Auto) 0.1 % (0.0-2.0); Eosinophils # (Auto) 0.01 K/mcL (0.00-0.70); Eosinophils % (Auto) 0.1 % (0.0-7.0); Hematocrit 30.7 % (34.1-44.9); Hemoglobin 9.6 g/dL (11.2-15.7); Lymphocytes # (Auto) 0.76 K/mcL (1.50-4.80); Lymphocytes % (Auto) 10.5 % (15.5-49.0); Mean Cell Volume 92.2 fL (80.0-100.0); Mean Corpuscular HGB Conc 31.3 g/dL (31.0-36.0); Mean Platelet Volume 12.1 fL (7.4-10.4); Monocytes # (Auto) 0.53 K/mcL (0.10-0.90); Monocytes % (Auto) 7.3 % (1.0-12.0); Platelet Count 178 K/mcL (140-440); RBC 3.33 M/mcL (3.59-5.38); Red Cell Distribution Width 16.5 % (11.5-14.5); WBC 7.2 K/mcL (4.5-11.0)
[2021-07-17 07:19] LABS: ALT/SGPT 68 U/L (<40); AST/SGOT 112 U/L (<32); Albumin 2.3 gm/dL (3.2-5.2); Albumin/Globulin Ratio 0.7 (1.0-2.3); Alkaline Phosphatase 71 U/L (39-117); Bilirubin,Direct < 0.2 mg/dL (0-0.3); Bilirubin,Total 0.3 mg/dL (0.1-1.0); Blood Urea Nitrogen 10 mg/dL (8-23); Calcium 8.6 mg/dL (8.6-10.4); Carbon Dioxide 23 mmol/L (22-30); Chloride 109 mmol/L (96-108); Globulin 3.1 gm/dL (2.2-3.7); Glomerular Filtration Rate 94; Glucose 126 mg/dL (70-105); Lactate Dehydrogenase 139 U/L (135-225); Triglycerides 75 mg/dL (<150)
[2021-07-17] MEDS: THYROID, PORK 60 MG TABLET PO SCH (07:48)
[2021-07-17] MEDS: GABAPENTIN 300 MG CAPSULE PO SCH ×2 (07:49→21:50)
[2021-07-17] MEDS: predniSONE 10 MG TABLET PO SCH (07:49)
--- NOTE | 2021-07-17 08:19 | Internal Med Progress Note ---
SUBJECTIVE Subjective Patient information: Note initiated : 07/17/21 at 8:14 am Service Date, if different from initiated Date: [] Patient: Kiera Angeles 86 y/o F admitted on 07/15/21 for Poss UTI. Chief Complaint: [] Interval history: History of present illness: Ms. Angeles is a 86 year old F Presents to the ED by family as she is confused empiric, worries about UTI. Daughter also told the patient she was worried about her breathing. Patient is a poor historian and most history obtained from chart. In the ED she had a chest x-ray that showed bilateral infiltrates. Her oxygen saturation high 80s low 90s but would drop to 87% on room air at rest. Patient denies fever chills or coughing. Was confused per daughter per the notes. Urinalysis in the ED was also concerning for UTI. She had a white blood cell count of 18. We will differential and procalcitonin. She was admitted here in February for 9 days for pneumonia. She lives at home with family and uses a wheelchair to get around although sometimes she will use a cane but she says primarily wheelchair. 07/16 Patient blood pressure low last night and patient lethargic. Patient transferred to PCU and given IV fluid bolus with improvement of her pressure and improving urine output. She has a cough and some mild shortness of breath. Says she does feel little bit better than yesterday. The nurse note that sometimes she becomes lethargic. We will check an ABG she is a bit tachypneic. We will update some chest imaging. Leukocytosis solved. Phos low. Procalcitonin mildly improved. The patient more tachypneic today. Strep urine antigen positive. MRSA screen positive we will order colonization. 07/17 Patient quite drowsy this morning again. Did a VBG the other day when she is drowsy but she was not retaining any CO2. Procalcitonin improving. Continue monitor oxygen. Blood pressure little low. Review medications as far as sedating meds. Review of Systems: Unable to obtain as patient is quite drowsy Constitutional Vitals: Vital Signs Temp Pulse Resp BP Pulse Ox 97.6 F 60 21 99/54 98 07/17/21 08:00 07/17/21 08:00 07/17/21 08:00 07/17/21 08:00 07/17/21 08:00 Period Temp Pulse Resp BP Sys/Glover Pulse Ox Last 24 Hr 96.9 F-99 F 29-88 16-46 86-126/44-85 90-100 Intake and Output 07/16/21 07/17/21 07/17/21 21:59 05:59 13:59 Intake Total 1350 240 Output Total 650 451 Balance 700 -211 Weight 68.492 kg Intake & Output: Intake & Output 07/16/21 07/17/21 07/17/21 21:59 05:59 13:59 Intake Total 1350 240 Output Total 650 451 Balance 700 -211 Weight 68.492 kg Intake: IV 300 Lactated Ringers 250 ml @ 125 250 mls/hr IV BOLUS ONE Rx#: [id number] Oral 1050 240 Output: Urine Catheter Amount 650 450 # of times incontinent of urine 1 Other: Meal Dinner Percent of Meal Consumed 75% Feeding Ability Assist with Tray Set Up Urine Appearance Cloudy Clear Mucous Threads Urine Color Bright Yellow Dark Yellow Urine Odor Normal Stool Size Large Moderate Stool Color Green Brown Yellow Stool Consistency Watery Watery Loose Loose # Bowel Movements 1 # of times incontinent of 1 2 Bowels Exam: General: Quite drowsy, No acute Distress, obesity Eyes/N/T: EOMI, Head/Neck: neck supple, normocephalic atraumatic CV: RRR, No murmurs, normal s1/s2 Pulm: Diminished b/l rales fine and mild rhonchi, no wheezing Abd: soft, nontender, +BS x4 Ext: no clubbing/cyanosis/edema Neuro: Drowsy, will respond to touch but falls asleep quickly, no focal deficits, moves all extremities, Skin: warm/dry OBJ DATA Labs CBC & Chem 7: 07/17/21 05:17 07/17/21 05:17 Labs: Abnormal Lab Results 07/17/21 07/17/21 07/17/21 05:18 05:17 05:17 WBC RBC 3.33 L Hgb 9.6 L Hct 30.7 L POC Hct RDW 16.5 H MPV 12.1 H Neut % (Auto) 82.0 H Lymph % (Auto) 10.5 L Lymph # (Auto) 0.76 L Knox # (Auto) Band Neutrophils % Lymphocytes % Absolute Neutrophils RBC Morphology Hypochromasia Anisocytosis POC pCO2 POC pO2 POC HCO3 POC VBG pH POC VBG pCO2 at Temp POC VBG HCO3 POC Potassium Chloride 109 H POC BUN Creatinine 0.4 L Glucose 126 H POC Glucose Phosphorus AST 112 H ALT 68 H Lactate Dehydrogenase NT-Pro-B Natriuret Pep Total Protein 5.4 L Albumin 2.3 L Albumin/Globulin Ratio 0.7 L Procalcitonin 0.60 H Urine Protein Urine Occult Blood Urine Nitrate Urine Urobilinogen Ur Leukocyte Esterase Urine RBC Urine WBC Urine Bacteria Urine Mucus Ur Strep pneumoniae Ag 07/16/21 07/16/21 07/16/21 13:45 05:30 05:30 WBC RBC 3.38 L Hgb 9.7 L Hct 31.0 L POC Hct RDW 16.4 H MPV 12.4 H Neut % (Auto) Lymph % (Auto) Lymph # (Auto) Knox # (Auto) Band Neutrophils % Lymphocytes % Absolute Neutrophils RBC Morphology Abnormal A Hypochromasia 1+ A Anisocytosis Rare A POC pCO2 32.3 L POC pO2 70 L POC HCO3 21.8 L POC VBG pH POC VBG pCO2 at Temp POC VBG HCO3 POC Potassium Chloride POC BUN Creatinine Glucose POC Glucose Phosphorus 2.0 L AST 51 H ALT Lactate Dehydrogenase 239 H NT-Pro-B Natriuret Pep Total Protein 5.5 L Albumin 2.2 L Albumin/Globulin Ratio 0.7 L Procalcitonin Urine Protein Urine Occult Blood Urine Nitrate Urine Urobilinogen Ur Leukocyte Esterase Urine RBC Urine WBC Urine Bacteria Urine Mucus Ur Strep pneumoniae Ag 07/16/21 07/15/21 07/15/21 05:30 17:43 14:58 WBC RBC Hgb Hct POC Hct RDW MPV Neut % (Auto) Lymph % (Auto) Lymph # (Auto) Knox # (Auto) Band Neutrophils % Lymphocytes % Absolute Neutrophils RBC Morphology Hypochromasia Anisocytosis POC pCO2 POC pO2 POC HCO3 POC VBG pH POC VBG pCO2 at Temp POC VBG HCO3 POC Potassium Chloride POC BUN Creatinine Glucose POC Glucose Phosphorus AST ALT Lactate Dehydrogenase NT-Pro-B Natriuret Pep 919.8 H Total Protein Albumin Albumin/Globulin Ratio Procalcitonin 0.94 H Urine Protein Urine Occult Blood Urine Nitrate Urine Urobilinogen Ur Leukocyte Esterase Urine RBC Urine WBC Urine Bacteria Urine Mucus Ur Strep pneumoniae Ag Positive A 07/15/21 07/15/21 07/15/21 14:58 14:58 12:46 WBC RBC Hgb Hct POC Hct RDW MPV Neut % (Auto) Lymph % (Auto) Lymph # (Auto) Knox # (Auto) Band Neutrophils % 29 H Lymphocytes % 5 L Absolute Neutrophils RBC Morphology Hypochromasia Anisocytosis POC pCO2 POC pO2 POC HCO3 POC VBG pH POC VBG pCO2 at Temp POC VBG HCO3 POC Potassium Chloride POC BUN Creatinine Glucose POC Glucose Phosphorus AST ALT Lactate Dehydrogenase NT-Pro-B Natriuret Pep Total Protein Albumin Albumin/Globulin Ratio Procalcitonin 1.23 H Urine Protein 30 mg/dl A Urine Occult Blood Trace-intact A Urine Nitrate Positive A Urine Urobilinogen 2.0 e.u./dl A Ur Leukocyte Esterase Large A Urine RBC 4 H Urine WBC 137 H Urine Bacteria Few A Urine Mucus Few A Ur Strep pneumoniae Ag 07/15/21 07/15/21 07/15/21 11:24 11:20 11:18 WBC 18.5 H RBC Hgb 10.9 L Hct POC Hct 33.0 L RDW 16.1 H MPV 12.5 H Neut % (Auto) 89.4 H Lymph % (Auto) 4.4 L Lymph # (Auto) 0.81 L Knox # (Auto) 1.06 H Band Neutrophils % Lymphocytes % Absolute Neutrophils 16.59 H RBC Morphology Hypochromasia Anisocytosis POC pCO2 POC pO2 POC HCO3 POC VBG pH 7.45 H POC VBG pCO2 at Temp 34.4 L POC VBG HCO3 23.7 L POC Potassium 3.1 L Chloride POC BUN 22 H Creatinine Glucose POC Glucose 117 H Phosphorus AST ALT Lactate Dehydrogenase NT-Pro-B Natriuret Pep Total Protein Albumin Albumin/Globulin Ratio Procalcitonin Urine Protein Urine Occult Blood Urine Nitrate Urine Urobilinogen Ur Leukocyte Esterase Urine RBC Urine WBC Urine Bacteria Urine Mucus Ur Strep pneumoniae Ag Meds: Medications Acetaminophen (Acetaminophen 325 Mg Tablet) 650 mg PO Q6HP PRN; Protocol PRN Reason: Per Pain Protocol/Fever > 101 Last Admin: 07/16/21 10:33 Dose: 650 mg Documented by: Albuterol/Ipratropium (Ipratropium/Albuterol 3 Ml Ampul.Neb) 3 ml NEB Q4HP PRN PRN Reason: Shortness Of Breath Last Admin: 07/16/21 08:25 Dose: 3 ml Documented by: Artificial Tears (Carboxymethylcellulose Sodium 1 Each Droper.Gel) 1 each OU BID PRN PRN Reason: Dry Eyes Baclofen (Baclofen 10 Mg Tablet) 10 - 20 mg PO QHS [facility] Last Admin: 07/16/21 21:39 Dose: 10 mg Documented by: Cefepime HCl (Cefepime 2 Gm Vial) 2 gm IV Q8H [facility]; Protocol Last Admin: 07/17/21 05:44 Dose: 2 gm Documented by: Chlorhexidine Gluconate (Chlorhexidine Gluconate 473 Ml Bottle) 60 ml TOPICAL UD [facility] Docusate Sodium (Docusate Sodium 100 Mg Capsule) 100 mg PO BID [facility] Last Admin: 07/16/21 21:39 Dose: Not Given Documented by: Duloxetine HCl (Duloxetine 30 Mg Capsule) 30 mg PO QDAY [facility] Last Admin: 07/16/21 10:32 Dose: 30 mg Documented by: Enoxaparin Sodium (Enoxaparin 40 Mg/0.4 Ml Syringe) 40 mg SQ DAILY [facility] Last Admin: 07/16/21 10:32 Dose: 40 mg Documented by: Escitalopram Oxalate (Escitalopram 10 Mg Tablet) 5 mg PO DAILY [facility] Last Admin: 07/16/21 10:33 Dose: 5 mg Documented by: Fentanyl (Fentanyl 25 Mcg Patch) 25 mcg TOPICAL Q72H [facility] Last Admin: 07/15/21 19:53 Dose: Not Given Documented by: Gabapentin (Gabapentin 300 Mg Capsule) 300 mg PO BID@0800,1200 [facility] Last Admin: 07/17/21 07:49 Dose: 300 mg Documented by: Gabapentin (Gabapentin 300 Mg Capsule) 300 mg PO HS [facility] Last Admin: 07/16/21 21:39 Dose: 300 mg Documented by: Guaifenesin (Guaifenesin 600 Mg Tab.Sr.12h) 1,200 mg PO BID PRN PRN Reason: Congestion Last Admin: 07/16/21 10:32 Dose: 1,200 mg Documented by: Hydrocortisone Sodium Succinate (Hydrocortisone Sod Succ 100 Mg Vial) 50 mg IV Q8 [facility] Last Admin: 07/17/21 05:44 Dose: 50 mg Documented by: Potassium Chloride 40 meq/ (Dextrose) 520 mls @ 130 mls/hr IV UD PRN PRN Reason: Potassium < 3 Magnesium Sulfate (Magnesium Sulfate) 2 gm in 50 mls @ 50 mls/hr IV UD PRN PRN Reason: Magnesium </= 1.6 Azithromycin 500 mg/ Dextrose 250 mls @ 250 mls/hr IV Q24H [facility]; Protocol Stop: 07/17/21 09:59 Last Infusion: 07/16/21 11:18 Dose: Infused Documented by: Levothyroxine Sodium (Levothyroxine 75 Mcg Tablet) 75 mcg PO QDAY [facility] Last Admin: 07/16/21 09:52 Dose: 75 mcg Documented by: Methocarbamol (Methocarbamol 500 Mg Tablet) 1,000 mg PO Q6HP PRN PRN Reason: muscle spasms Mupirocin (Mupirocin Oint 2% 22gm) 1 dose NARES BID [facility] Last Admin: 07/16/21 21:41 Dose: 1 dose Documented by: Ondansetron HCl (Ondansetron 4 Mg/2 Ml Vial) 4 mg IV Q4HP PRN PRN Reason: Nausea And Vomiting Last Admin: 07/17/21 00:00 Dose: 4 mg Documented by: Oxycodone/Acetaminophen (Oxycodone/Apap 5/325mg Tablet) 1 tab PO Q4H PRN; Protocol PRN Reason: Pain Last Admin: 07/17/21 00:00 Dose: 1 tab Documented by: Polyethylene Glycol (Polyethylene Glycol 3350 17 Gm Packet) 17 gm PO DAILYP PRN PRN Reason: Constipation Potassium Chloride (Potassium Chloride 20 Meq Tablet) 40 meq PO UD PRN PRN Reason: Potssium is 3-3.5 Last Admin: 07/16/21 10:34 Dose: 40 meq Documented by: Potassium Chloride (Potassium Chloride 20 Meq Tablet) 40 meq PO UD PRN PRN Reason: Potassium < 3 Prednisone (Prednisone 10 Mg Tablet) 10 mg PO [facility] Last Admin: 07/17/21 07:49 Dose: 10 mg Documented by: Fluticasone/Salmeterol (Fluticasone/Salmeterol 250/50 Inhaler #14) 1 puff INH BID PRN PRN Reason: Wheezing Senna (Sennosides 1 Tablet) 2 tab PO DAILYP PRN PRN Reason: Constipation Simethicone (Simethicone 80 Mg Tab.Chew) 200 mg PO DAILYP PRN PRN Reason: Abdominal Discomfort Sodium Chloride (0.9 % Sodium Chloride 10 Ml Syringe) 10 ml IV Q8 [facility] Last Admin: 07/17/21 05:44 Dose: 10 ml Documented by: Thyroid (Thyroid, Pork 60 Mg Tablet) 180 mg PO ACB [facility] Last Admin: 07/17/21 07:48 Dose: 180 mg Documented by: Tizanidine HCl (Tizanidine 4 Mg Tablet) 4 mg PO QHS PRN PRN Reason: spasm A/P Narrative A/P Narrative: A: *PNA b/l (Streptococcus pne.): dense consolidation on CT multi-lobe -IFN=208 -PCT improving *UTI ( ): *Severe Sepsis: improving -leukocytosis w/bandemia -Hypotension resolved with IVF *Metabolic encephalopathy: quite drowsy today *Acute hypoxic respiratory failure: improving -on 1L NC *COPD(not on home O2) -February CT noted emphysema, former smoker quit 20yrs ago *Anxiety d/o: continue escitalopram *h/o Polyarthritis: Follows with Dr. Landis and is on prednisone *Anemia, chronic: *Hypothyroidism: *Obesity: *SSS w/ppm: *Osteoporosis with h/o vertebral fracture: *Chr Pain: on opioids *h/o of Breast CA w/port: *Generalized weakness/deconditioning/debility: Patient primarily uses wheelchair *Electrolyte d/o (hypokalemia): *Mild transaminitis: Plan: -cefepime/azithromycin, mrsa screen pos(decol protocol) -Pending SC/BC/UC -O2 Supp, prn -IS/Acapella, prn nebs -Continue home prednisone, stress dose steroids wean off -hold fentanyl for sedation, hold daytime tom for sedation -check tsh -PT OT/nutrition support -CM for placement needs -ppx:Lovenox DNR Time Spent With Patient Time: Total time spent is greater than 50% in coordination of care (as documented) at patient's floor/unit and/or counseling patient: Total time spent with greater than 50% in coordination of care (as documented) at patient's floor/unit and/or counseling patient:: 25 - 35 minutes QUALITY VTE Deep Vein Thrombosis/Pulmonary Embolism Present on Admission: No
[2021-07-17] MEDS: MUPIROCIN OINT 2% 22GM NARES SCH ×2 (09:07→21:49)
[2021-07-17] MEDS: DOCUSATE SODIUM 100 MG CAPSULE PO SCH ×2 (09:07→21:56)
[2021-07-17] MEDS: ESCITALOPRAM 10 MG TABLET PO SCH (09:07)
[2021-07-17] MEDS: DULoxetine 30 MG CAPSULE PO SCH (09:07)
[2021-07-17] MEDS: ENOXAPARIN 40 MG/0.4 ML SYRINGE SQ SCH (09:08)
[2021-07-17] MEDS: LEVOTHYROXINE 75 MCG TABLET PO SCH (09:08)
[2021-07-17] MEDS: AZITHROMYCIN 500 MG in DEXTROSE 5% IN WATER 250 ML IV SCH (09:08)
[2021-07-17 12:36] LABS: Free T3 1.2 pg/mL (2.0-4.4); Prolactin 43.5 ng/mL (4.8-23.3)
[2021-07-17] MEDS: BACLOFEN 10 MG TABLET PO SCH (21:50)
[2021-07-18] MEDS: guaiFENesin 600 MG TAB.SR.12H PO PRN (01:30)
[2021-07-18] MEDS: CEFEPIME 2 GM VIAL IV SCH ×3 (05:47→21:28)
[2021-07-18] MEDS: HYDROCORTISONE SOD SUCC 100 MG VIAL IV SCH ×2 (05:47→21:28)
[2021-07-18] MEDS: 0.9 % SODIUM CHLORIDE 10 ML SYRINGE IV SCH ×3 (05:47→21:08)
[2021-07-18 06:55] LABS: ALT/SGPT 90 U/L (<40); AST/SGOT 96 U/L (<32); Albumin 2.5 gm/dL (3.2-5.2); Albumin/Globulin Ratio 0.8 (1.0-2.3); Alkaline Phosphatase 80 U/L (39-117); Bilirubin,Direct < 0.2 mg/dL (0-0.3); Bilirubin,Total 0.2 mg/dL (0.1-1.0); Blood Urea Nitrogen 17 mg/dL (8-23); Calcium 8.9 mg/dL (8.6-10.4); Carbon Dioxide 26 mmol/L (22-30); Chloride 108 mmol/L (96-108); Globulin 3.2 gm/dL (2.2-3.7); Glomerular Filtration Rate 94; Glucose 117 mg/dL (70-105); Lactate Dehydrogenase 152 U/L (135-225); Phosphorous 2.7 mg/dL (2.5-4.5); Triglycerides 83 mg/dL (<150); Uric Acid 3.8 mg/dL (2.5-8.0)
[2021-07-18] MEDS: THYROID, PORK 60 MG TABLET PO SCH (08:14)
[2021-07-18] MEDS: predniSONE 10 MG TABLET PO SCH (08:14)
[2021-07-18] MEDS: ENOXAPARIN 40 MG/0.4 ML SYRINGE SQ SCH (08:15)
[2021-07-18] MEDS: LEVOTHYROXINE 75 MCG TABLET PO SCH (08:15)
[2021-07-18] MEDS: DOCUSATE SODIUM 100 MG CAPSULE PO SCH (08:15)
[2021-07-18] MEDS: ESCITALOPRAM 10 MG TABLET PO SCH (08:16)
[2021-07-18] MEDS: MUPIROCIN OINT 2% 22GM NARES SCH ×2 (08:16→21:40)
--- NOTE | 2021-07-18 08:24 | Internal Med Progress Note ---
SUBJECTIVE Subjective Patient information: Note initiated : 07/18/21 at 8:20 am Service Date, if different from initiated Date: [] Patient: Kiera Angeles 86 y/o F admitted on 07/15/21 for Poss UTI. Chief Complaint: [] Interval history: History of present illness: Ms. Angeles is a 86 year old F Presents to the ED by family as she is confused empiric, worries about UTI. Daughter also told the patient she was worried about her breathing. Patient is a poor historian and most history obtained from chart. In the ED she had a chest x-ray that showed bilateral infiltrates. Her oxygen saturation high 80s low 90s but would drop to 87% on room air at rest. Patient denies fever chills or coughing. Was confused per daughter per the notes. Urinalysis in the ED was also concerning for UTI. She had a white blood cell count of 18. We will differential and procalcitonin. She was admitted here in February for 9 days for pneumonia. She lives at home with family and uses a wheelchair to get around although sometimes she will use a cane but she says primarily wheelchair. 07/16 Patient blood pressure low last night and patient lethargic. Patient transferred to PCU and given IV fluid bolus with improvement of her pressure and improving urine output. She has a cough and some mild shortness of breath. Says she does feel little bit better than yesterday. The nurse note that sometimes she becomes lethargic. We will check an ABG she is a bit tachypneic. We will update some chest imaging. Leukocytosis solved. Phos low. Procalcitonin mildly improved. The patient more tachypneic today. Strep urine antigen positive. MRSA screen positive we will order colonization. 07/17 Patient quite drowsy this morning again. Did a VBG the other day when she is drowsy but she was not retaining any CO2. Procalcitonin improving. Continue monitor oxygen. Blood pressure little low. Review medications as far as sedating meds. 07/18 Patient states she is feeling better. Still has cough and shortness of breath slowly improving. Still very weak. Has headache as well Review of Systems: Review of Systems: denies fever/chills/nausea/vomiting/chest or abdominal pain/diarrhea. Otherwise see above. Constitutional Vitals: Vital Signs Temp Pulse Resp BP Pulse Ox 98.7 F 59 L 21 124/59 93 07/18/21 08:00 07/18/21 03:01 07/18/21 08:00 07/18/21 08:00 07/18/21 08:00 Period Temp Pulse Resp BP Sys/Glover Pulse Ox Last 24 Hr 97.8 F-99.0 F 58-82 15-35 68-146/36-89 87-99 Intake and Output 07/17/21 07/18/21 07/18/21 21:59 05:59 13:59 Intake Total 1240 420 Output Total 350 1450 Balance 890 -1030 Weight 67.631 kg Intake & Output: Intake & Output 07/17/21 07/18/21 07/18/21 21:59 05:59 13:59 Intake Total 1240 420 Output Total 350 1450 Balance 890 -1030 Weight 67.631 kg Intake: Oral 1240 420 Output: Urine Catheter Amount 350 1450 Other: Meal Dinner Percent of Meal Consumed 50% Feeding Ability Independent Nourishment/Supplement name Magic cup Urine Appearance Clear Clear Urine Color Dark Yellow Pale Urine Odor Normal Stool Size Large Stool Color Brown Yellow Stool Consistency Liquid Loose # Bowel Movements 1 # of times incontinent of 2 Bowels Exam: General: Awake, No acute Distress, obesity Eyes/N/T: EOMI, Head/Neck: neck supple, CV: RRR, No murmurs, normal s1/s2 Pulm: Diminished b/l rales fine and mild rhonchi, no wheezing Abd: soft, nontender, +BS x4 Ext: no clubbing/cyanosis/edema Neuro: Alert and awake today, no focal deficits, moves all extremities, Skin: warm/dry OBJ DATA Labs CBC & Chem 7: 07/17/21 05:17 07/18/21 05:11 Labs: Abnormal Lab Results 07/18/21 07/17/21 07/17/21 05:11 05:18 05:17 WBC RBC Hgb Hct POC Hct RDW MPV Neut % (Auto) Lymph % (Auto) Lymph # (Auto) Hayes # (Auto) Band Neutrophils % Lymphocytes % Absolute Neutrophils RBC Morphology Hypochromasia Anisocytosis POC pCO2 POC pO2 POC HCO3 POC VBG pH POC VBG pCO2 at Temp POC VBG HCO3 POC Potassium Chloride Anion Gap 7.0 L POC BUN Creatinine 0.4 L Glucose 117 H POC Glucose Phosphorus AST 96 H ALT 90 H Lactate Dehydrogenase NT-Pro-B Natriuret Pep Total Protein 5.7 L Albumin 2.5 L Albumin/Globulin Ratio 0.8 L Procalcitonin 0.60 H TSH Free T4 Free T3 pg/mL Prolactin Cortisol AM Sample 21.8 H Urine Protein Urine Occult Blood Urine Nitrate Urine Urobilinogen Ur Leukocyte Esterase Urine RBC Urine WBC Urine Bacteria Urine Mucus Ur Strep pneumoniae Ag 07/17/21 07/17/21 07/17/21 05:17 05:17 05:17 WBC RBC Hgb Hct POC Hct RDW MPV Neut % (Auto) Lymph % (Auto) Lymph # (Auto) Hayes # (Auto) Band Neutrophils % Lymphocytes % Absolute Neutrophils RBC Morphology Hypochromasia Anisocytosis POC pCO2 POC pO2 POC HCO3 POC VBG pH POC VBG pCO2 at Temp POC VBG HCO3 POC Potassium Chloride 109 H Anion Gap POC BUN Creatinine 0.4 L Glucose 126 H POC Glucose Phosphorus AST 112 H ALT 68 H Lactate Dehydrogenase NT-Pro-B Natriuret Pep Total Protein 5.4 L Albumin 2.3 L Albumin/Globulin Ratio 0.7 L Procalcitonin TSH 0.04 L Free T4 Free T3 pg/mL 1.2 L Prolactin 43.5 H Cortisol AM Sample Urine Protein Urine Occult Blood Urine Nitrate Urine Urobilinogen Ur Leukocyte Esterase Urine RBC Urine WBC Urine Bacteria Urine Mucus Ur Strep pneumoniae Ag 07/17/21 07/17/21 07/16/21 05:17 05:14 13:45 WBC RBC 3.33 L Hgb 9.6 L Hct 30.7 L POC Hct RDW 16.5 H MPV 12.1 H Neut % (Auto) 82.0 H Lymph % (Auto) 10.5 L Lymph # (Auto) 0.76 L Hayes # (Auto) Band Neutrophils % Lymphocytes % Absolute Neutrophils RBC Morphology Hypochromasia Anisocytosis POC pCO2 32.3 L POC pO2 70 L POC HCO3 21.8 L POC VBG pH POC VBG pCO2 at Temp POC VBG HCO3 POC Potassium Chloride Anion Gap POC BUN Creatinine Glucose POC Glucose Phosphorus AST ALT Lactate Dehydrogenase NT-Pro-B Natriuret Pep Total Protein Albumin Albumin/Globulin Ratio Procalcitonin TSH Free T4 0.76 L Free T3 pg/mL Prolactin Cortisol AM Sample Urine Protein Urine Occult Blood Urine Nitrate Urine Urobilinogen Ur Leukocyte Esterase Urine RBC Urine WBC Urine Bacteria Urine Mucus Ur Strep pneumoniae Ag 07/16/21 07/16/21 07/16/21 05:30 05:30 05:30 WBC RBC 3.38 L Hgb 9.7 L Hct 31.0 L POC Hct RDW 16.4 H MPV 12.4 H Neut % (Auto) Lymph % (Auto) Lymph # (Auto) Hayes # (Auto) Band Neutrophils % Lymphocytes % Absolute Neutrophils RBC Morphology Abnormal A Hypochromasia 1+ A Anisocytosis Rare A POC pCO2 POC pO2 POC HCO3 POC VBG pH POC VBG pCO2 at Temp POC VBG HCO3 POC Potassium Chloride Anion Gap POC BUN Creatinine Glucose POC Glucose Phosphorus 2.0 L AST 51 H ALT Lactate Dehydrogenase 239 H NT-Pro-B Natriuret Pep Total Protein 5.5 L Albumin 2.2 L Albumin/Globulin Ratio 0.7 L Procalcitonin 0.94 H TSH Free T4 Free T3 pg/mL Prolactin Cortisol AM Sample Urine Protein Urine Occult Blood Urine Nitrate Urine Urobilinogen Ur Leukocyte Esterase Urine RBC Urine WBC Urine Bacteria Urine Mucus Ur Strep pneumoniae Ag 07/15/21 07/15/21 07/15/21 17:43 14:58 14:58 WBC RBC Hgb Hct POC Hct RDW MPV Neut % (Auto) Lymph % (Auto) Lymph # (Auto) Hayes # (Auto) Band Neutrophils % Lymphocytes % Absolute Neutrophils RBC Morphology Hypochromasia Anisocytosis POC pCO2 POC pO2 POC HCO3 POC VBG pH POC VBG pCO2 at Temp POC VBG HCO3 POC Potassium Chloride Anion Gap POC BUN Creatinine Glucose POC Glucose Phosphorus AST ALT Lactate Dehydrogenase NT-Pro-B Natriuret Pep 919.8 H Total Protein Albumin Albumin/Globulin Ratio Procalcitonin 1.23 H TSH Free T4 Free T3 pg/mL Prolactin Cortisol AM Sample Urine Protein Urine Occult Blood Urine Nitrate Urine Urobilinogen Ur Leukocyte Esterase Urine RBC Urine WBC Urine Bacteria Urine Mucus Ur Strep pneumoniae Ag Positive A 07/15/21 07/15/21 07/15/21 14:58 12:46 11:24 WBC RBC Hgb Hct POC Hct 33.0 L RDW MPV Neut % (Auto) Lymph % (Auto) Lymph # (Auto) Hayes # (Auto) Band Neutrophils % 29 H Lymphocytes % 5 L Absolute Neutrophils RBC Morphology Hypochromasia Anisocytosis POC pCO2 POC pO2 POC HCO3 POC VBG pH POC VBG pCO2 at Temp POC VBG HCO3 POC Potassium 3.1 L Chloride Anion Gap POC BUN 22 H Creatinine Glucose POC Glucose 117 H Phosphorus AST ALT Lactate Dehydrogenase NT-Pro-B Natriuret Pep Total Protein Albumin Albumin/Globulin Ratio Procalcitonin TSH Free T4 Free T3 pg/mL Prolactin Cortisol AM Sample Urine Protein 30 mg/dl A Urine Occult Blood Trace-intact A Urine Nitrate Positive A Urine Urobilinogen 2.0 e.u./dl A Ur Leukocyte Esterase Large A Urine RBC 4 H Urine WBC 137 H Urine Bacteria Few A Urine Mucus Few A Ur Strep pneumoniae Ag 07/15/21 07/15/21 11:20 11:18 WBC 18.5 H RBC Hgb 10.9 L Hct POC Hct RDW 16.1 H MPV 12.5 H Neut % (Auto) 89.4 H Lymph % (Auto) 4.4 L Lymph # (Auto) 0.81 L Hayes # (Auto) 1.06 H Band Neutrophils % Lymphocytes % Absolute Neutrophils 16.59 H RBC Morphology Hypochromasia Anisocytosis POC pCO2 POC pO2 POC HCO3 POC VBG pH 7.45 H POC VBG pCO2 at Temp 34.4 L POC VBG HCO3 23.7 L POC Potassium Chloride Anion Gap POC BUN Creatinine Glucose POC Glucose Phosphorus AST ALT Lactate Dehydrogenase NT-Pro-B Natriuret Pep Total Protein Albumin Albumin/Globulin Ratio Procalcitonin TSH Free T4 Free T3 pg/mL Prolactin Cortisol AM Sample Urine Protein Urine Occult Blood Urine Nitrate Urine Urobilinogen Ur Leukocyte Esterase Urine RBC Urine WBC Urine Bacteria Urine Mucus Ur Strep pneumoniae Ag Meds: Medications Acetaminophen (Acetaminophen 325 Mg Tablet) 650 mg PO Q6HP PRN; Protocol PRN Reason: Per Pain Protocol/Fever > 101 Last Admin: 07/16/21 10:33 Dose: 650 mg Documented by: Albuterol/Ipratropium (Ipratropium/Albuterol 3 Ml Ampul.Neb) 3 ml NEB Q4HP PRN PRN Reason: Shortness Of Breath Last Admin: 07/16/21 08:25 Dose: 3 ml Documented by: Artificial Tears (Carboxymethylcellulose Sodium 1 Each Droper.Gel) 1 each OU BID PRN PRN Reason: Dry Eyes Baclofen (Baclofen 10 Mg Tablet) 10 - 20 mg PO QHS DAVID Last Admin: 07/17/21 21:50 Dose: 10 mg Documented by: Cefepime HCl (Cefepime 2 Gm Vial) 2 gm IV Q8H [facility]; Protocol Last Admin: 07/18/21 05:47 Dose: 2 gm Documented by: Chlorhexidine Gluconate (Chlorhexidine Gluconate 473 Ml Bottle) 60 ml TOPICAL UD [facility] Docusate Sodium (Docusate Sodium 100 Mg Capsule) 100 mg PO BID [facility] Last Admin: 07/18/21 08:15 Dose: Not Given Documented by: Duloxetine HCl (Duloxetine 30 Mg Capsule) 30 mg PO QDAY [facility] Enoxaparin Sodium (Enoxaparin 40 Mg/0.4 Ml Syringe) 40 mg SQ DAILY [facility] Last Admin: 07/18/21 08:15 Dose: 40 mg Documented by: Escitalopram Oxalate (Escitalopram 10 Mg Tablet) 5 mg PO DAILY [facility] Last Admin: 07/18/21 08:16 Dose: 5 mg Documented by: Gabapentin (Gabapentin 300 Mg Capsule) 300 mg PO HS [facility] Last Admin: 07/17/21 21:50 Dose: 300 mg Documented by: Guaifenesin (Guaifenesin 600 Mg Tab.Sr.12h) 1,200 mg PO BID PRN PRN Reason: Congestion Last Admin: 07/18/21 01:30 Dose: 1,200 mg Documented by: Hydrocortisone Sodium Succinate (Hydrocortisone Sod Succ 100 Mg Vial) 25 mg IV Q8 [facility] Last Admin: 07/18/21 05:47 Dose: 25 mg Documented by: Potassium Chloride 40 meq/ (Dextrose) 520 mls @ 130 mls/hr IV UD PRN PRN Reason: Potassium < 3 Magnesium Sulfate (Magnesium Sulfate) 2 gm in 50 mls @ 50 mls/hr IV UD PRN PRN Reason: Magnesium </= 1.6 Levothyroxine Sodium (Levothyroxine 75 Mcg Tablet) 75 mcg PO QDAY [facility] Last Admin: 07/18/21 08:15 Dose: 75 mcg Documented by: Methocarbamol (Methocarbamol 500 Mg Tablet) 1,000 mg PO Q6HP PRN PRN Reason: muscle spasms Mupirocin (Mupirocin Oint 2% 22gm) 1 dose NARES BID [facility] Last Admin: 07/18/21 08:16 Dose: 1 dose Documented by: Ondansetron HCl (Ondansetron 4 Mg/2 Ml Vial) 4 mg IV Q4HP PRN PRN Reason: Nausea And Vomiting Last Admin: 07/17/21 00:00 Dose: 4 mg Documented by: Oxycodone/Acetaminophen (Oxycodone/Apap 5/325mg Tablet) 1 tab PO Q4H PRN; Protocol PRN Reason: Pain Last Admin: 07/17/21 00:00 Dose: 1 tab Documented by: Polyethylene Glycol (Polyethylene Glycol 3350 17 Gm Packet) 17 gm PO DAILYP PRN PRN Reason: Constipation Potassium Chloride (Potassium Chloride 20 Meq Tablet) 40 meq PO UD PRN PRN Reason: Potssium is 3-3.5 Last Admin: 07/16/21 10:34 Dose: 40 meq Documented by: Potassium Chloride (Potassium Chloride 20 Meq Tablet) 40 meq PO UD PRN PRN Reason: Potassium < 3 Prednisone (Prednisone 10 Mg Tablet) 10 mg PO [facility] Last Admin: 07/18/21 08:14 Dose: 10 mg Documented by: Fluticasone/Salmeterol (Fluticasone/Salmeterol 250/50 Inhaler #14) 1 puff INH BID PRN PRN Reason: Wheezing Senna (Sennosides 1 Tablet) 2 tab PO DAILYP PRN PRN Reason: Constipation Simethicone (Simethicone 80 Mg Tab.Chew) 200 mg PO DAILYP PRN PRN Reason: Abdominal Discomfort Sodium Chloride (0.9 % Sodium Chloride 10 Ml Syringe) 10 ml IV Q8 [facility] Last Admin: 07/18/21 05:47 Dose: 10 ml Documented by: Thyroid (Thyroid, Pork 60 Mg Tablet) 180 mg PO ACB [facility] Last Admin: 07/18/21 08:14 Dose: 180 mg Documented by: Tizanidine HCl (Tizanidine 4 Mg Tablet) 4 mg PO QHS PRN PRN Reason: spasm A/P Narrative A/P Narrative: A: *PNA b/l (Streptococcus pne.): dense consolidation on CT multi-lobe -MJI=[id number] -PCT improving *UTI ( ): *Severe Sepsis: improving -leukocytosis w/bandemia improved -Hypotension resolved with IVF *Metabolic encephalopathy: Better today. *Acute hypoxic respiratory failure: improving -on 3L NC o/n *COPD(not on home O2) -February CT noted emphysema, former smoker quit 20yrs ago *Anxiety d/o: continue escitalopram *h/o Polyarthritis: Follows with Dr. 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: Plan: -cefepime/azithromycin, mrsa screen pos(decol protocol) -Pending SC/BC/UC -O2 Supp, wean off when able -IS/Acapella, prn nebs -Continue home prednisone, stress dose steroids weaning off -hold fentanyl for sedation, hold daytime tom for sedation -PT OT/nutrition support -CM for placement needs -increase levothyroxine from 75 to 100, but likely will need higher dose, f/u with outpt -ppx:Lovenox DNR Time Spent With Patient Time: Total time spent is greater than 50% in coordination of care (as documented) at patient's floor/unit and/or counseling patient: Total time spent with greater than 50% in coordination of care (as documented) at patient's floor/unit and/or counseling patient:: 25 - 35 minutes QUALITY VTE Deep Vein Thrombosis/Pulmonary Embolism Present on Admission: No
[2021-07-18] MEDS: LEVOTHYROXINE 100 MCG TABLET PO SCH (08:40)
[2021-07-18] MEDS: ACETAMINOPHEN 325 MG TABLET PO PRN (09:50)
[2021-07-18] MEDS: oxyCODONE/APAP 5/325MG TABLET PO PRN ×2 (14:52→23:31)
[2021-07-18] MEDS: GABAPENTIN 300 MG CAPSULE PO SCH (21:27)
[2021-07-18] MEDS: BACLOFEN 10 MG TABLET PO SCH (21:27)
[2021-07-18] MEDS: METHOCARBAMOL 500 MG TABLET PO PRN (23:31)
[2021-07-19] MEDS: CEFEPIME 2 GM VIAL IV SCH (05:47)
[2021-07-19] MEDS: 0.9 % SODIUM CHLORIDE 10 ML SYRINGE IV SCH ×3 (05:47→21:30)
[2021-07-19 07:04] LABS: ALT/SGPT 66 U/L (<40); AST/SGOT 38 U/L (<32); Albumin 2.3 gm/dL (3.2-5.2); Albumin/Globulin Ratio 0.7 (1.0-2.3); Alkaline Phosphatase 77 U/L (39-117); Bilirubin,Direct < 0.2 mg/dL (0-0.3); Bilirubin,Total 0.2 mg/dL (0.1-1.0); Blood Urea Nitrogen 15 mg/dL (8-23); Calcium 8.7 mg/dL (8.6-10.4); Carbon Dioxide 28 mmol/L (22-30); Chloride 105 mmol/L (96-108); Globulin 3.3 gm/dL (2.2-3.7); Glomerular Filtration Rate 94; Glucose 134 mg/dL (70-105); Lactate Dehydrogenase 133 U/L (135-225); Phosphorous 2.8 mg/dL (2.5-4.5); Triglycerides 84 mg/dL (<150); Uric Acid 3.7 mg/dL (2.5-8.0)
[2021-07-19] MEDS: predniSONE 10 MG TABLET PO SCH (07:57)
[2021-07-19] MEDS: THYROID, PORK 60 MG TABLET PO SCH (07:57)
[2021-07-19] MEDS: DULoxetine 30 MG CAPSULE PO SCH (07:58)
[2021-07-19] MEDS: ESCITALOPRAM 10 MG TABLET PO SCH (07:58)
[2021-07-19] MEDS: HYDROCORTISONE SOD SUCC 100 MG VIAL IV SCH (07:59)
[2021-07-19] MEDS: LEVOTHYROXINE 100 MCG TABLET PO SCH (07:59)
[2021-07-19] MEDS: ENOXAPARIN 40 MG/0.4 ML SYRINGE SQ SCH (07:59)
--- NOTE | 2021-07-19 11:38 | Discharge Summary ---
Discharge Provider Provider IMPORTANT FOLLOW-UP INFORMATION FOR PCP: Address polypharmacy Patient information: Note initiated : 07/19/21 at 11:38 am Service Date, if different from initiated Date: [as above] Patient: Kiera Angeles 86 y/o F admitted on 07/15/21 for Poss UTI. Chief Complaint: [Weakness] Date of admission: 07/15/21 17:29 Discharge date: 07/19/21 Primary care physician: GIUSEPPE Garcia Consults: 07/15/21 Consult to Physician [CONS] Stat Comment: Consulting Provider: Tyrell Leonard Reason For Exam: Physician to Consult Attending physician on discharge: Jasmit Brian COURSE Hospital Course Hospital course: Ms. Angeles is a 86 year old F Presents to the ED by family as she is confused empiric, worries about UTI. Daughter also told the patient she was worried about her breathing. Patient is a poor historian and most history obtained from chart. In the ED she had a chest x-ray that showed bilateral infiltrates. Her oxygen saturation high 80s low 90s but would drop to 87% on room air at rest. Patient denies fever chills or coughing. Was confused per daughter per the notes. Urinalysis in the ED was also concerning for UTI. She had a white blood cell count of 18. We will differential and procalcitonin. She was admitted here in February for 9 days for pneumonia. She lives at home with family and uses a wheelchair to get around although sometimes she will use a cane but she says primarily wheelchair. 07/16 Patient blood pressure low last night and patient lethargic. Patient transferred to PCU and given IV fluid bolus with improvement of her pressure and improving urine output. She has a cough and some mild shortness of breath. Says she does feel little bit better than yesterday. The nurse note that sometimes she becomes lethargic. We will check an ABG she is a bit tachypneic. We will update some chest imaging. Leukocytosis solved. Phos low. Procalcitonin mildly improved. The patient more tachypneic today. Strep urine antigen positive. MRSA screen positive we will order colonization. 07/17 Patient quite drowsy this morning again. Did a VBG the other day when she is drowsy but she was not retaining any CO2. Procalcitonin improving. Continue monitor oxygen. Blood pressure little low. Review medications as far as sedating meds. 07/18 Patient states she is feeling better. Still has cough and shortness of breath slowly improving. Still very weak. Has headache as well 07/19: I have discontinued the patient's cefepime and she has completed her course of antibiotics for her urinary tract infection. The patient's white blood cell count has now normalized to 7.2. It is hopeful that she continue to work with physical therapy and Occupational Therapy via home health. The family insist on taking her home. Of note, she should follow-up with her primary care physician within 1 week's time. It is recommended that her polypharmacy be addressed as well. Discharge diagnosis: Toxic metabolic encephalopathy, E. coli UTI Time Spent with Patient Time attestation: Total time spent providing and/or coordinating discharge services: Time spent: Greater than 30 minutes EXAM Constitutional Vitals: Temp Pulse Resp BP Pulse Ox 97.7 F 58 L 20 124/65 91 07/19/21 07:58 07/19/21 07:58 07/19/21 07:58 07/19/21 07:58 07/19/21 07:58 General appearance: average body habitus Head Head exam: Present atraumatic, normal inspection and normocephalic Eye Eye exam: Present EOMI, normal appearance and PERRL; Absent conjunctival injection ENT ENT exam: Present normal exam; Absent mucous membranes dry Neck Neck exam: Present full ROM; Absent lymphadenopathy Respiratory Respiratory exam: Present normal respiratory exam and CTAB; Absent decreased breath sounds, respiratory distress or wheezes Cardiovascular Cardiovascular exam: Present normal rate and rhythm and RRR; Absent JVD GI/Abdominal GI/Abdominal exam: Present normal bowel sounds and soft; Absent diminished bowel sounds, distended, guarding, mass, rebound or tenderness Neurological Exam Neurological exam: Present alert, CN II-XII intact and oriented X3 Psychiatric Psychiatric exam: Present normal affect and normal mood Skin Skin exam: Present intact and warm; Absent erythema, pallor, petechiae or rash Discharge Data Data Completed and Pending Labs on day of discharge: Labs from last 24 hours 07/19/21 05:16 Sodium 140 Potassium 3.5 Chloride 105 Carbon Dioxide 28 Anion Gap 7.0 L BUN 15 Creatinine 0.4 L GFR Calculation 94 Glucose 134 H Uric Acid 3.7 Calcium 8.7 Phosphorus 2.8 Magnesium 2.2 Total Bilirubin 0.2 Direct Bilirubin < 0.2 GGT 32 AST 38 H ALT 66 H Alkaline Phosphatase 77 Lactate Dehydrogenase 133 L Total Protein 5.6 L Albumin 2.3 L Globulin 3.3 Albumin/Globulin Ratio 0.7 L Triglycerides 84 Preliminary micro results at discharge 07/15/21 15:00 Blood Culture - Preliminary Blood 07/15/21 14:58 Blood Culture - Preliminary Blood Discharge Plan Patient/Caregiver Discharge Instructions Activity: as per physical therapy Diet: Regular Diet Prescriptions: Continued fentanyl 25 mcg/hr patch 72 hour 25 mcg transdermal Q72H Qty: 10 0RF Rx Instructions: *MUST LAST 30 DAYS* P/U 07/04 Start 07/05 oxycodone-acetaminophen [Endocet] 5-325 mg tablet 1 tab PO Q4H MDD 4 PRN (Reason: Pain) Qty: 120 0RF Rx Instructions: *MUST LAST 30 DAYS* PU 7 Start 08/15 ascorbic acid (vitamin C) 1,000 MG tablet 1,000 mg PO DAILY 0RF calcium citrate 250 MG tablet 1,000 mg PO DAILY 0RF alpha lipoic acid 100 MG capsule 300 mg PO DAILY 0RF prednisone 5 mg Tablet 10 mg PO QDAY 0RF simethicone [Gas-X Extra Strength] 125 mg Capsule 200 mg PO PRN PRN (Reason: Abdominal Discomfort) 0RF gabapentin 300 mg Capsule 600 mg PO HS 0RF escitalopram oxalate 5 mg Tablet 5 mg PO QDAY 0RF tizanidine 4 mg Capsule 4 mg PO QHS 0RF guaifenesin [Mucinex] 600 mg Tablet Extended Release 12hr 1,200 mg PO BID PRN (Reason: Congestion) 0RF gabapentin 300 mg capsule 300 mg PO BID 0RF Rx Instructions: QAM, NOON duloxetine [Cymbalta] 30 mg capsule,delayed release(DR/EC) 30 mg PO QDAY 0RF omega-3 fatty acids Capsule 2,000 mg PO QDAY 0RF [place] [employer] Thyroid 180 mg Tablet 180 mg PO QDAY 0RF carboxymethylcellulose sodium [Refresh Tears] 0.5 % Drops 2 drp OPHTHALMIC (EYE) BID PRN (Reason: Dry Eyes) 0RF levothyroxine 75 mcg Tablet 75 mcg PO QDAY 0RF fexofenadine 180 mg Tablet 180 mg PO PRN PRN (Reason: allergies) 0RF fluticasone propion-salmeterol [Advair Diskus] 250-50 mcg/dose Blister With Device 1 inh INHALATION BID PRN (Reason: Wheezing) 0RF Discontinued baclofen 10 mg tablet 10 - 20 mg PO QHS Qty: 60 2RF benzonatate 200 MG capsule 200 mg PO PRN PRN (Reason: Cough) 0RF methocarbamol 500 mg tablet 1,000 mg PO Q6HP PRN (Reason: muscle spasms) 0RF fexofenadine 180 mg Tablet 180 mg PO QDAY PRN (Reason: Allergy Symptoms) 0RF ciprofloxacin HCl 500 mg tablet 1 tab PO BID 0RF No Action ondansetron 4 mg Tablet,Disintegrating 4 mg PO Q8H PRN (Reason: Nausea) 0RF Other Ambulatory Orders: OT Discharge Order (Routine) Location: None Selected Ordered By: Don Torres Physical Therapy at Discharge - General (Routine) Location: None Selected Ordered By: Don Torres Follow Up Plan Follow up with: Hu Solis ARNP [Primary Care Provider] - Patient Disposition: Home Health Service Prognosis: Fair Rehab Potential: Good Overall status at discharge: patient is progressing back to baseline Discharge Orders: Discharge Order (Routine); Ordered 07/19/21 Ordered By: Don Torres QUALITY VTE Deep Vein Thrombosis/Pulmonary Embolism Present on Admission: No
[2021-07-19] MEDS: ACETAMINOPHEN 325 MG TABLET PO PRN (12:20)
[2021-07-19] MEDS: MUPIROCIN OINT 2% 22GM NARES SCH ×2 (14:35→21:29)
[2021-07-19] MEDS: BUDESONIDE 0.5 MG/2 ML AMPUL.NEB NEB SCH (19:53)
[2021-07-19] MEDS: IPRATROPIUM/ALBUTEROL 3 ML AMPUL.NEB NEB SCH (19:54)
[2021-07-19] MEDS: BACLOFEN 10 MG TABLET PO SCH (21:28)
[2021-07-19] MEDS: oxyCODONE/APAP 5/325MG TABLET PO PRN (21:29)
[2021-07-19] MEDS: METHOCARBAMOL 500 MG TABLET PO PRN (21:29)
[2021-07-19] MEDS: GABAPENTIN 300 MG CAPSULE PO SCH (21:29)
[2021-07-20] MEDS: IPRATROPIUM/ALBUTEROL 3 ML AMPUL.NEB NEB SCH ×2 (01:56→07:20)
[2021-07-20] MEDS: 0.9 % SODIUM CHLORIDE 10 ML SYRINGE IV SCH (04:03)
[2021-07-20] MEDS: BUDESONIDE 0.5 MG/2 ML AMPUL.NEB NEB SCH (07:20)
[2021-07-20] MEDS: ENOXAPARIN 40 MG/0.4 ML SYRINGE SQ SCH (08:12)
[2021-07-20] MEDS: predniSONE 10 MG TABLET PO SCH (08:12)
[2021-07-20] MEDS: ESCITALOPRAM 10 MG TABLET PO SCH (08:12)
[2021-07-20] MEDS: THYROID, PORK 60 MG TABLET PO SCH (08:13)
[2021-07-20] MEDS: DULoxetine 30 MG CAPSULE PO SCH (08:13)
[2021-07-20] MEDS: LEVOTHYROXINE 100 MCG TABLET PO SCH (08:14)
[2021-07-20] MEDS ORDERED: cefTRIAXone 1 GM VIAL IV SCH (09:00)
[2021-07-20] MEDS ORDERED: AZITHROMYCIN 250 MG TABLET PO SCH (09:00)
[2021-07-20] MEDS: MUPIROCIN OINT 2% 22GM NARES SCH (11:09)
[2021-07-20] MEDS: oxyCODONE/APAP 5/325MG TABLET PO PRN (11:24)
[2021-07-20] MEDS: ACETAMINOPHEN 325 MG TABLET PO PRN (13:59)
[2021-07-20 14:51] LABS: M. Pneumoniae IGG < or = 0.90; M. Pneumoniae IGM 183 U/mL
== END 2021-07-20 14:15 | DRG 871 ==
LOC: ED 10:57 → MEDSUR 17:29 → ICU 07-16 05:52 → MEDSUR 07-18 13:27
PROVIDERS: ADMIT Internal Medicine; ATTEND Student in an Organized Health Care Education/Training Program